=== PATIENT | male | born 1960 | race Caucasian/White ===

== ENCOUNTER 2019-07-11 04:54 | Inpatient (IN) ==
[2019-07-04 20:25] LABS: Basophils # (Auto) 0 K/mcL (0.0-0.3); Basophils % (Auto) 0.5 % (0.0-2.0); Eosinophils # (Auto) 0.3 K/mcL (0.0-0.7); Eosinophils % (Auto) 3.7 % (0.0-7.0); Granulocytes % (Auto) 53.2 % (38.0-78.0); Hematocrit 40.1 % (41.0-55.0); Hemoglobin 13.4 g/dL (13.5-16.5); Lymphocytes # (Auto) 2.1 K/mcL (1.5-4.8); Lymphocytes % (Auto) 29.1 % (15.5-49.0); Mean Corpuscular HGB Conc 33.4 g/dL (31.0-36.0); Mean Platelet Volume 8.2 fL (7.4-10.4); Monocytes % (Auto) 13.5 % (1.0-12.0); Platelet Count 247 K/mcL (140-440); RBC 4.05 M/mcL (4.50-5.90); Red Cell Distribution Width 14.8 % (11.5-14.5); WBC 7.1 K/mcL (4.5-11.0)
[2019-07-11] MEDS ORDERED: IPRATROPIUM/ALBUTEROL 3 ML AMPUL.NEB NEB PRN ×2 (05:00→10:04)
[2019-07-11] MEDS ORDERED: SCOPOLAMINE 1 PATCH PATCH TOPICAL PRN (05:00)
[2019-07-11] MEDS ORDERED: cefOXitin 2 GM VIAL IV SCH (06:00)
[2019-07-11] MEDS ORDERED: MAGNESIUM SULFATE 2 GM/50 ML BAG IV ONE ×2 (07:33→08:35)
[2019-07-11] MEDS ORDERED: ACETAMINOPHEN 1,000 MG/100 ML BOTTLE IV ONE ×2 (07:34→08:35)
[2019-07-11] MEDS ORDERED: ALBUMIN HUMAN 12.5 GM/50 ML BAG IV ONE (07:50)
[2019-07-11] MEDS ORDERED: GLYCOPYRROLATE 0.2 MG/ML VIAL IV ONE (08:35)
[2019-07-11] MEDS ORDERED: ONDANSETRON 4 MG/2 ML VIAL IV ONE (08:35)
[2019-07-11] MEDS ORDERED: TRANEXAMIC ACID 1,000 MG/10 ML VIAL IV ONE (08:35)
[2019-07-11] MEDS ORDERED: fentaNYL 250 MCG/5 ML VIAL IV ONE (08:35)
[2019-07-11] MEDS ORDERED: SUCCINYLCHOLINE 20 MG/ML ML IV ONE (08:35)
[2019-07-11] MEDS ORDERED: DEXAMETHASONE 10 MG/ML VIAL IV ONE (08:35)
[2019-07-11] MEDS ORDERED: ROCURONIUM 10 MG/ML ML IV ONE (08:35)
[2019-07-11] MEDS ORDERED: ePHEDrine 50 MG/ML AMPUL IV ONE (08:35)
[2019-07-11] MEDS ORDERED: SUGAMMADEX SODIUM 200 MG/2 ML VIAL IV ONE (08:35)
[2019-07-11] MEDS ORDERED: ROPIVACAINE HCL/PF 30 ML VIAL IJ ONE (08:35)
[2019-07-11] MEDS ORDERED: PHENYLEPHRINE 10 MG/ML VIAL IV ONE (08:35)
[2019-07-11] MEDS ORDERED: KETAMINE 100 MG/ML ML IV ONE (08:35)
[2019-07-11] MEDS ORDERED: MIDAZOLAM 2 MG/2 ML VIAL IV ONE (08:35)
[2019-07-11] MEDS ORDERED: ALBUMIN HUMAN 25 GM/100 ML BAG IV ONE (08:35)
[2019-07-11] MEDS ORDERED: PROPOFOL 200 MG/20 ML VIAL IV ONE (08:35)
[2019-07-11] MEDS ORDERED: LIDOCAINE HCL/PF 100 MG/5 ML SYRINGE IV ONE (08:35)
[2019-07-11] MEDS ORDERED: ATROPINE SULFATE 0.4 MG/ML VIAL IV PRN (10:04)
[2019-07-11] MEDS ORDERED: diphenhydrAMINE 50 MG/ML VIAL IV PRN (10:04)
[2019-07-11] MEDS ORDERED: ONDANSETRON 4 MG/2 ML VIAL IV PRN (10:04)
[2019-07-11] MEDS ORDERED: ePHEDrine 50 MG/ML AMPUL IV PRN (10:04)
[2019-07-11] MEDS ORDERED: HYDROmorphone 2 MG/ML VIAL IV PRN (10:04)
[2019-07-11] MEDS ORDERED: MEPERIDINE 25 MG/ML SYRINGE IV PRN (10:04)
[2019-07-11] MEDS ORDERED: FLUMAZENIL 0.1 MG/ML ML IV PRN (10:04)
[2019-07-11] MEDS ORDERED: NALOXONE HCL 0.4 MG/ML VIAL IV PRN (10:04)
[2019-07-11] MEDS ORDERED: fentaNYL 100 MCG/2 ML VIAL IV PRN (10:04)
[2019-07-11] MEDS ORDERED: METOPROLOL TARTRATE 5 MG/5 ML VIAL IV PRN (10:04)
[2019-07-11] MEDS ORDERED: METHOCARBAMOL 1,000 MG/10 ML VIAL IV PRN (10:04)
[2019-07-11] MEDS ORDERED: PROMETHAZINE 25 MG/ML VIAL IV PRN (10:04)
[2019-07-11] MEDS ORDERED: KETOROLAC 30 MG/ML VIAL IV PRN (10:04)
[2019-07-11] MEDS ORDERED: LACTATED RINGERS 1,000 ML IV SCH (10:15)
[2019-07-11] MEDS ORDERED: MAGNESIUM HYDROXIDE 30 ML ORAL.SUSP PO PRN (10:40)
[2019-07-11] MEDS ORDERED: MAG HYDROX/AL HYDROX/SIMETH 30 ML ORAL.SUSP PO PRN (10:40)
[2019-07-11] MEDS ORDERED: LORazepam 2 MG/ML VIAL IV ONE (10:47)
[2019-07-11] MEDS ORDERED: traZODone HCL 100 MG TABLET PO PRN (10:51)
--- NOTE | 2019-07-11 10:54 | Brief Operative Note ---
Date of procedure: 07/11/19 Pre-op diagnosis: prostate cancer Post-op diagnosis: same Procedure: rrp Grafts/Implants: No Anesthesia: GETA Findings: see note Complications: none Surgeon: Chuy Boyd Co Teacher: Jessee Og Estimated blood loss (cc): 1,000 Specimens Removed/Pathology: other (prostate, obturator lymph nodes) Disposition: PACU
[2019-07-11 11:39] LABS: Hematocrit 31.9 % (41.0-55.0); Hemoglobin 10.7 g/dL (13.5-16.5); Mean Cell Volume 99.3 fL (80.0-100.0); Mean Corpuscular HGB Conc 33.6 g/dL (31.0-36.0); Mean Platelet Volume 7.3 fL (7.4-10.4); Platelet Count 219 K/mcL (140-440); RBC 3.22 M/mcL (4.50-5.90); Red Cell Distribution Width 14.6 % (11.5-14.5); WBC 10.6 K/mcL (4.5-11.0)
--- NOTE | 2019-07-11 12:04 | Operative Note ---
DATE OF OPERATION: 07/11/2019 PREOPERATIVE DIAGNOSIS: Prostate cancer. POSTOPERATIVE DIAGNOSIS: Prostate cancer. PROCEDURE: Radical retropubic prostatectomy. SURGEON: Chuy Boyd MD [employer] DIRECTOR: Jessee Og MD INDICATION: The patient is a 58-year-old gentleman with biopsy-proven adenocarcinoma. We have talked about the options and he desires a radical prostatectomy. He presents now for that procedure. PROCEDURE IN DETAIL: The patient was identified and consent was signed. He was given general anesthesia, placed in supine position, prepped and draped in standard fashion. A midline incision was made from the umbilicus down to the pubis and carried down through the fascia with electrocautery. The fascia was then opened and we were able to enter the space of Retzius. We were then able to dissect the lymph nodes. The limit of resection was from the lateral body wall medial to the bladder, superiorly to the bifurcation of the iliac vessels, inferiorly to the endopelvic fascia and inferiorly into the obturator area. These were removed. There was some induration on the left side nodes but no hard nodes were noted. We decided to go on with the procedure. We then were able to position the retractors and were able to identify the bladder. The excess fat was cleaned off the space of Retzius and we were able to see the prostate. A backbleeding stitch was then placed of 0 Vicryl and the endopelvic fascia was taken down with the electrocautery. We were able to define the puboprostatics. These were not taken down and we were then able to place two stitches in the back for backbleeding on the dorsal venous complex. The dorsal venous complex was then incised and bleeding was controlled. We were able to see the anterior urethra and 4 stitches of 2-0 Vicryl were placed for the anastomosis. We then grasped the Vega catheter, brought this out as a handle and then carefully dissected the posterior wall. At no time did we damage the rectum. We were able to develop the plane along the Denonvilliers fascia, took down the lateral pedicles between two clamps and incised the pedicle. This was repeated up to the area of the seminal vesicles. We were then able to open up the Denonvilliers fascia, identified the ampulla of vas and clipped these. The seminal vesicles were handled in a similar fashion and these were sent off with the specimen. We then inspected for bleeding, there was very little and we controlled this with electrocautery or stitches. We then turned our attention to the anterior bladder wall. The bladder neck was opened with scissors and we were then able to enter the bladder. Orifices were seen and there were no other abnormalities. The bladder neck was closed with 2-0 Vicryl. The posterior anastomotic stitches were then placed and they were placed in the corresponding area with a free needle in the bladder. A Vega catheter was placed and this showed good positioning. We were then able to tie down the bladder and it was a watertight anastomosis. We irrigated the catheter and there was no leakage. We then placed a JOSE drain and this drained bloody fluid. ____ was used at the prostatic fossa. We then irrigated the wound, closed the rectus abdominis muscle and then closed the fascia with 0 PDS. The wound was closed with nina. Sterile dressings were applied. He was awoken and taken to recovery room in stable condition. Estimated blood loss was 1000 mL. Needle and sponge count were correct. MARGIE:chun Job ID: [id number] Doc ID: [id number] Chuy Boyd MD
[2019-07-11] MEDS: TRIAMCINOLONE CREAM 0.1% 15G 1 DOSE TUBE TOPICAL SCH ×2 (13:12→20:28)
[2019-07-11] MEDS: DEXTROSE 5%-1/2NS W/20MEQ KCL 1,000 ML IV SCH ×2 (13:12→19:28)
[2019-07-11] MEDS: 0.9 % SODIUM CHLORIDE 10 ML SYRINGE IV SCH ×2 (13:13→21:59)
[2019-07-11] MEDS: ACETAMINOPHEN 650 MG/65 ML BOTTLE IV SCH ×2 (13:18→17:59)
[2019-07-11] MEDS: cefOXitin 2 GM VIAL IV SCH (16:00)
[2019-07-11] MEDS: DEXTROSE 5%-NS 1,000 ML IV SCH (20:30)
[2019-07-11] MEDS ORDERED: LACTATED RINGERS 500 ML IV ONE (23:09)
[2019-07-12] MEDS: ACETAMINOPHEN 650 MG/65 ML BOTTLE IV SCH ×4 (00:01→17:37)
[2019-07-12] MEDS: cefOXitin 2 GM VIAL IV SCH ×2 (00:06→08:00)
[2019-07-12] MEDS ORDERED: LORazepam 2 MG/ML VIAL IV PRN (02:32)
[2019-07-12] MEDS ORDERED: NICOTINE 14 MG PATCH TOPICAL ONE (02:33)
[2019-07-12] MEDS ORDERED: NICOTINE 14 MG PATCH ONE (02:35)
[2019-07-12] MEDS: oxyCODONE/APAP 5/325MG TABLET PO PRN ×3 (02:36→17:43)
[2019-07-12] MEDS ORDERED: LORazepam 2 MG/ML VIAL ONE ×3 (02:47→05:17)
[2019-07-12] MEDS: DEXTROSE 5%-NS 1,000 ML IV SCH ×7 (03:25→20:38)
[2019-07-12] MEDS ORDERED: DEXTROSE 5%-NS 1,000 ML IV SCH (03:30)
[2019-07-12 05:11] LABS: Hematocrit 26.1 % (41.0-55.0); Hemoglobin 8.7 g/dL (13.5-16.5); Mean Cell Volume 100.4 fL (80.0-100.0); Mean Corpuscular HGB Conc 33.2 g/dL (31.0-36.0); Mean Platelet Volume 7.7 fL (7.4-10.4); Platelet Count 179 K/mcL (140-440); Red Cell Distribution Width 14.4 % (11.5-14.5); WBC 11.2 K/mcL (4.5-11.0)
[2019-07-12 05:35] LABS: Blood Urea Nitrogen 11 mg/dl (6-20); Calcium 8.1 mg/dl (8.6-10.4); Carbon Dioxide 24 mmol/L (22-30); Chloride 98 mmol/L (96-108); Glomerular Filtration Rate 104; Glucose 110 mg/dL (70-105)
[2019-07-12] MEDS: 0.9 % SODIUM CHLORIDE 10 ML SYRINGE IV SCH ×3 (05:38→22:00)
--- NOTE | 2019-07-12 07:36 | General Surgery Progress Note ---
Subjective Patient reports: still having pain, no bowel movement Narrative: Note initiated : 07/12/19 at 7:33 am Service Date, if different from initiated Date: [] Patient: Tone Pope 58 y/o M admitted on 07/11/19 for Radical Retropubic Prostatectomy. Chief Complaint: POD #1 Patient undergoing ethanol withdrawl. Did not react well with ativan. Asked the Hospitalist to see patient and manage DT. Wound dressing changed. clean and dry. Ambulate today. Hct = 26. will watch for now. Objective Temp Pulse Resp BP Pulse Ox 99.1 F H 84 13 126/77 95 07/12/19 04:01 07/12/19 02:00 07/12/19 04:39 07/12/19 04:01 07/12/19 04:39 - Additional Data Intake & Output - Last 24 hours: Intake & Output 07/10/19 07/11/19 07/12/19 07/13/19 05:59 05:59 05:59 05:59 Intake Total 6949 Output Total 3636 Balance 3313 Weight 139 lb 9.6 oz 142 lb - Labs 07/12/19 03:56 07/12/19 03:56 Diabetes panel 07/11/19 07/12/19 Range/Units 19:49 03:56 Sodium 131 L (133-145) mmol/L Potassium 4.8 4.6 (3.3-5.1) mmol/L Chloride 98 (96-108) mmol/L Carbon Dioxide 24 (22-30) mmol/L BUN 11 (6-20) mg/dl Creatinine 0.7 (0.7-1.2) mg/dl Glucose 110 H (70-105) mg/dL Calcium 8.1 L (8.6-10.4) mg/dl Calcium panel 07/12/19 Range/Units 03:56 Calcium 8.1 L (8.6-10.4) mg/dl Pituitary panel 07/11/19 07/12/19 Range/Units 19:49 03:56 Sodium 131 L (133-145) mmol/L Potassium 4.8 4.6 (3.3-5.1) mmol/L Chloride 98 (96-108) mmol/L Carbon Dioxide 24 (22-30) mmol/L BUN 11 (6-20) mg/dl Creatinine 0.7 (0.7-1.2) mg/dl Glucose 110 H (70-105) mg/dL Calcium 8.1 L (8.6-10.4) mg/dl Adrenal panel 07/11/19 07/12/19 Range/Units 19:49 03:56 Sodium 131 L (133-145) mmol/L Potassium 4.8 4.6 (3.3-5.1) mmol/L Chloride 98 (96-108) mmol/L Carbon Dioxide 24 (22-30) mmol/L BUN 11 (6-20) mg/dl Creatinine 0.7 (0.7-1.2) mg/dl Glucose 110 H (70-105) mg/dL Calcium 8.1 L (8.6-10.4) mg/dl Assessment and Plan - Time Spent With Patient Total time spent is greater than 50% in coordination of care (as documented) at patient's floor/unit and/or counseling patient:
[2019-07-12 09:04] LABS: Hematocrit 25.3 % (41.0-55.0); Hemoglobin 8.6 g/dL (13.5-16.5); Mean Cell Volume 98.7 fL (80.0-100.0); Mean Corpuscular HGB Conc 33.9 g/dL (31.0-36.0); Mean Platelet Volume 7.8 fL (7.4-10.4); Platelet Count 178 K/mcL (140-440); RBC 2.57 M/mcL (4.50-5.90); Red Cell Distribution Width 14.8 % (11.5-14.5); WBC 11.5 K/mcL (4.5-11.0)
[2019-07-12] MEDS: TRIAMCINOLONE CREAM 0.1% 15G 1 DOSE TUBE TOPICAL SCH ×3 (09:34→21:56)
[2019-07-12] MEDS ORDERED: FLU VACC QS2019-20(6MOS UP)/PF 60 MCG/0.5 ML SYRINGE IM ONE (10:00)
[2019-07-12 10:08] LABS: Blood Urea Nitrogen 9 mg/dl (6-20); Calcium 8.2 mg/dl (8.6-10.4); Carbon Dioxide 25 mmol/L (22-30); Chloride 97 mmol/L (96-108); Glomerular Filtration Rate 98; Glucose 145 mg/dL (70-105)
[2019-07-12] MEDS: NICOTINE 14 MG PATCH TOPICAL SCH (10:35)
[2019-07-12] MEDS: METOPROLOL SUCCINATE 50 MG TAB.XL.24H PO SCH (10:51)
[2019-07-12] MEDS: THIAMINE 100 MG TABLET PO SCH ×3 (10:51→19:03)
[2019-07-12] MEDS: FLUoxetine HCL 20 MG CAPSULE PO SCH (10:51)
--- NOTE | 2019-07-12 11:15 | Internal Medicine Consult Note ---
Medical - CN: HPI - Data of Consult Patient: new to practice Consult date: 07/12/19 Requesting physician: Chuy Boyd Primary Care Provider: Kai Malone - Consult Narrative Reason for consult: alcohol withdrawal History of present illness: Mr. Pope is a 58 year old M with a history of chronic alcohol abuse, currently smoker and high blood pressure who underwent Radical Retropubic Prostatectomy by Dr. Boyd on 07/11/19. After the procedure, patient went into alcohol withdrawal. Hospitalist consult was requested by Dr. Boyd for alcohol with drawal. I encountered the patient in his room who told me that he drinks beer 4 times a day since he was 14 years old. Last drink was on Monday (3 days ago). Today he has mild nausea and abdominal pain from his procedure. Right now he is on diazepam. Otherwise he denies headache, dizziness, vomiting, chest pain, shortness breath, dysuria, or visual hallucination. CC: Chuy Boyd - Constitutional Constitutional: Present: as per HPI, malaise. Absent: excessive sweating - EENT Eyes: Present: as per HPI Nose, mouth and throat: Present: as per HPI - Cardiovascular Cardiovascular: Present: as per HPI - Respiratory Respiratory: Present: as per HPI - Gastrointestinal Gastrointestinal: Present: as per HPI - Musculoskeletal Musculoskeletal: Present: as per HPI - Neurological Neurological: Present: as per HPI - Psychiatric Psychiatric: Present: as per HPI - Endocrine Endocrine: Present: as per HPI - Hematologic/Lymphatic Hematologic/Lymphatic: Present: as per HPI Medical - CN: PMH Medical history: High blood pressure and current smoker Family history: reviewed and not pertinent Social history: he is a current smoker and he drinks beers 4 time a day. Denies using drugs Smoking status: Current every day smoker Medical - CN: Meds Home Medications Medication Instructions Recorded Confirmed Type budesonide 90 mcg/actuation breath 2 inh INHALATION BID #120 puff 12/27/16 07/11/19 Rx activated powder inhaler triamcinolone acetonide 0.1 % 1 applic TOPICAL TID #454 g 10/30/17 07/11/19 Rx topical cream ondansetron 8 mg disintegrating 8 mg PO Q12H PRN #30 tab 07/12/18 07/11/19 Rx tablet fluoxetine 20 mg capsule 20 mg PO QDAY #90 cap 03/05/19 07/11/19 Rx metoprolol succinate 50 mg 50 mg PO QDAY #90 tab 03/05/19 07/11/19 Rx tablet,extended release 24 hr sildenafil 100 mg tablet 100 mg PO QDAY #30 tab 03/05/19 07/11/19 Rx trazodone 100 mg tablet 100 mg PO QHS PRN #90 tab 06/24/19 07/11/19 Rx Allergies Allergy/AdvReac Type Severity Reaction Status Date / Time Enalapril Allergy Intermediate angioedema Verified 07/04/19 16:17 Medical - CN: Exam - Constitutional Vitals: Temp Pulse Resp BP Pulse Ox 98.1 F 84 19 146/87 95 07/12/19 07:30 07/12/19 02:00 07/12/19 07:30 07/12/19 07:30 07/12/19 07:30 General appearance: no acute distress - Head Head exam: Present: atraumatic, normocephalic - Eye Eye exam: Present: EOMI, nystagmus (Mild), PERRL - ENT ENT exam: Present: normal exam - Neck Neck exam: Present: normal inspection - Respiratory Respiratory exam: Present: CTAB - Cardiovascular Cardiovascular exam: Present: normal rate and rhythm. Absent: JVD - GI/Abdominal GI/Abdominal exam: Present: normal bowel sounds, soft, tenderness (From surgery) - Extremities Exam Extremities exam: Present: normal inspection. Absent: pedal edema, tenderness, Asad's sign - Expanded Upper Extremity Exam Upper Arm exam: Present: normal inspection (Very mild tremor is noted in both hands) - Neurological Exam Neurological exam: Present: alert, oriented X3. Absent: motor sensory deficit - Psychiatric Psychiatric exam: Present: normal mood - Skin Skin exam: Present: warm Medical - CN: Result - Labs CBC & Chem 7: 07/12/19 07:41 07/12/19 07:41 Labs: Short CBC 07/11/19 07/12/19 07/12/19 Range/Units 11:13 03:56 07:41 WBC 10.6 11.2 H 11.5 H (4.5-11.0) K/mcL Hgb 10.7 L 8.7 L 8.6 L (13.5-16.5) g/dL Hct 31.9 L 26.1 L 25.3 L (41.0-55.0) % Plt Count 219 179 178 (140-440) K/mcL BMP 07/11/19 07/12/19 07/12/19 19:49 03:56 07:41 Sodium 131 L 127 L Potassium 4.8 4.6 4.2 Chloride 98 97 Carbon Dioxide 24 25 BUN 11 9 Creatinine 0.7 0.8 Glucose 110 H 145 H Calcium 8.1 L 8.2 L Medical - CN: A/P (1) Alcohol abuse Status: Chronic - Narrative A/P Narrative: Assessment: 1. Chronic alcohol abuse 2. Alcoholic delirium tremens 3. S/p Radical Retropubic Prostatectomy by Dr. Boyd on 07/11/19 4. HTN 5. Anemia of blood loss 6. Hyponatremia Plan: 1. Monitored in ICU 2. CIWA protocol was initiated. Continue folic acid, thiamine and multivitamin 3. Postop management including pain control and DVT prophylaxis by surgical t eam 4. DVT prophylaxis: By surgical team 5. CODE STATUS: Full
[2019-07-12] MEDS: DIAZEPAM 10 MG/2 ML SYRINGE IV PRN ×3 (12:15→21:11)
[2019-07-12] MEDS: MULTIVIT,THER IRON,CA,FA & MIN 1 TABLET PO SCH (19:03)
[2019-07-12] MEDS: SYMBICORT INH SCH (19:45)
[2019-07-12] MEDS ORDERED: DEXMEDETOMIDINE 100 ML IV ONE (21:52)
[2019-07-12] MEDS: DEXMEDETOMIDINE 400 MCG in PREMIX 1 BAG IV SCH (22:20)
[2019-07-13] MEDS ORDERED: METOPROLOL TARTRATE 5 MG/5 ML VIAL IV ONE ×2 (00:26)
[2019-07-13] MEDS: METOPROLOL TARTRATE 5 MG/5 ML VIAL IV SCH (02:53)
[2019-07-13] MEDS: ACETAMINOPHEN 650 MG/65 ML BOTTLE IV SCH ×5 (02:54→23:46)
[2019-07-13 04:46] LABS: Basophils # (Auto) 0 K/mcL (0.0-0.3); Basophils % (Auto) 0.4 % (0.0-2.0); Eosinophils # (Auto) 0 K/mcL (0.0-0.7); Eosinophils % (Auto) 0.3 % (0.0-7.0); Granulocytes % (Auto) 78.6 % (38.0-78.0); Lymphocytes # (Auto) 0.7 K/mcL (1.5-4.8); Lymphocytes % (Auto) 9.7 % (15.5-49.0); Mean Cell Volume 99.3 fL (80.0-100.0); Mean Corpuscular HGB Conc 33.4 g/dL (31.0-36.0); Mean Platelet Volume 8.1 fL (7.4-10.4); Monocytes # (Auto) 0.8 K/mcL (0.1-0.9); Platelet Count 152 K/mcL (140-440); RBC 2.42 M/mcL (4.50-5.90); Red Cell Distribution Width 14.9 % (11.5-14.5); WBC 7.3 K/mcL (4.5-11.0)
[2019-07-13 04:58] LABS: Prothrombin Time 13.6 sec (11.9-14.5)
[2019-07-13 05:16] LABS: ALT/SGPT 11 U/l (0-40); AST/SGOT 31 U/l (0-37); Albumin 3.3 gm/dL (3.2-5.2); Albumin/Globulin Ratio 1.4 (1.0-2.3); Alkaline Phosphatase 37 U/L (39-117); Bilirubin,Total 0.4 mg/dL (0.0-1.0); Calcium 8.2 mg/dl (8.6-10.4); Carbon Dioxide 26 mmol/L (22-30); Globulin 2.3 gm/dL (2.2-3.7); Glucose 106 mg/dL (70-105)
[2019-07-13 05:17] LABS: Blood Urea Nitrogen 5 mg/dl (6-20); Chloride 95 mmol/L (96-108); Glomerular Filtration Rate 111
[2019-07-13] MEDS: 0.9 % SODIUM CHLORIDE 10 ML SYRINGE IV SCH ×3 (06:01→23:47)
[2019-07-13] MEDS: DEXTROSE 5%-NS 1,000 ML IV SCH (06:02)
[2019-07-13] MEDS ORDERED: DEXMEDETOMIDINE 100 ML IV ONE ×2 (06:28→16:42)
[2019-07-13] MEDS: oxyCODONE/APAP 5/325MG TABLET PO PRN ×3 (06:37→15:31)
[2019-07-13] MEDS: DIAZEPAM 10 MG/2 ML SYRINGE IV PRN (06:39)
[2019-07-13 08:42] LABS: Hemoglobin 7.6 g/dL (13.5-16.5); Mean Cell Volume 99.4 fL (80.0-100.0); Mean Platelet Volume 7.9 fL (7.4-10.4); Platelet Count 156 K/mcL (140-440); RBC 2.31 M/mcL (4.50-5.90); Red Cell Distribution Width 14.4 % (11.5-14.5); WBC 6.6 K/mcL (4.5-11.0)
[2019-07-13] MEDS ORDERED: ENOXAPARIN 40 MG/0.4 ML SYRINGE SQ SCH (09:00)
--- NOTE | 2019-07-13 10:14 | General Surgery Progress Note ---
Subjective Patient reports: still having pain Narrative: Note initiated : 07/13/19 at 10:10 am Service Date, if different from initiated Date: [] Patient: Tone Pope 58 y/o M admitted on 07/11/19 for Radical Retropubic Prostatectomy. Chief Complaint: POD #2 Patient is having the DT's had to be restrained last night. Valium is not holding him. Usually drinks 6 beers a day. Will allow him to drink. Has pulled on his angel but is still draining. JOSE out put is up. Will keep for the time being. Sodium is low. will TKO iv fluids. check labs in am. HCT stable.; Objective Temp Pulse Resp BP Pulse Ox 99.3 F H 84 13 141/80 96 07/13/19 09:01 07/12/19 14:00 07/13/19 09:01 07/13/19 09:01 07/13/19 09:01 - Additional Data Intake & Output - Last 24 hours: Intake & Output 07/11/19 07/12/19 07/13/19 07/14/19 05:59 05:59 05:59 05:59 Intake Total 6949 2750 107 Output Total 3636 1560 120 Balance 3313 1190 -13 Weight 139 lb 9.6 oz 142 lb 152 lb 12.8 oz - Labs 07/13/19 08:00 07/13/19 03:44 Diabetes panel 07/13/19 Range/Units 03:44 Sodium 128 L (133-145) mmol/L Potassium 3.7 (3.3-5.1) mmol/L Chloride 95 L (96-108) mmol/L Carbon Dioxide 26 (22-30) mmol/L BUN 5 L (6-20) mg/dl Creatinine 0.6 L (0.7-1.2) mg/dl Glucose 106 H (70-105) mg/dL Calcium 8.2 L (8.6-10.4) mg/dl AST 31 (0-37) U/l ALT 11 (0-40) U/l Alkaline Phosphatase 37 L (39-117) U/L Total Protein 5.6 L (5.9-8.4) gm/dL Albumin 3.3 (3.2-5.2) gm/dL Calcium panel 07/13/19 Range/Units 03:44 Calcium 8.2 L (8.6-10.4) mg/dl Albumin 3.3 (3.2-5.2) gm/dL Pituitary panel 07/13/19 Range/Units 03:44 Sodium 128 L (133-145) mmol/L Potassium 3.7 (3.3-5.1) mmol/L Chloride 95 L (96-108) mmol/L Carbon Dioxide 26 (22-30) mmol/L BUN 5 L (6-20) mg/dl Creatinine 0.6 L (0.7-1.2) mg/dl Glucose 106 H (70-105) mg/dL Calcium 8.2 L (8.6-10.4) mg/dl Adrenal panel 07/13/19 Range/Units 03:44 Sodium 128 L (133-145) mmol/L Potassium 3.7 (3.3-5.1) mmol/L Chloride 95 L (96-108) mmol/L Carbon Dioxide 26 (22-30) mmol/L BUN 5 L (6-20) mg/dl Creatinine 0.6 L (0.7-1.2) mg/dl Glucose 106 H (70-105) mg/dL Calcium 8.2 L (8.6-10.4) mg/dl Total Bilirubin 0.4 (0.0-1.0) mg/dL AST 31 (0-37) U/l ALT 11 (0-40) U/l Alkaline Phosphatase 37 L (39-117) U/L Total Protein 5.6 L (5.9-8.4) gm/dL Albumin 3.3 (3.2-5.2) gm/dL Assessment and Plan - Time Spent With Patient Total time spent is greater than 50% in coordination of care (as documented) at patient's floor/unit and/or counseling patient:
[2019-07-13] MEDS: METOPROLOL SUCCINATE 50 MG TAB.XL.24H PO SCH (11:23)
[2019-07-13] MEDS: NICOTINE 14 MG PATCH TOPICAL SCH (11:23)
[2019-07-13] MEDS: MULTIVIT,THER IRON,CA,FA & MIN 1 TABLET PO SCH ×2 (11:24→22:05)
[2019-07-13] MEDS: TRIAMCINOLONE CREAM 0.1% 15G 1 DOSE TUBE TOPICAL SCH ×3 (11:24→22:05)
[2019-07-13] MEDS: THIAMINE 100 MG TABLET PO SCH ×3 (11:24→22:05)
[2019-07-13] MEDS: FLUoxetine HCL 20 MG CAPSULE PO SCH (11:24)
[2019-07-13] MEDS: SYMBICORT INH SCH ×2 (11:25→22:05)
--- NOTE | 2019-07-13 11:28 | Internal Med Progress Note ---
Medical - PN: Subj Patient information: Note initiated : 07/13/19 at 11:23 am Service Date, if different from initiated Date: [] Patient: Tone Pope a 58 y/o M admitted on 07/11/19 for Radical Retropubic Prostatectomy. Chief Complaint: [] Mr. Pope is a 58 year old M with a history of chronic alcohol abuse, currently smoker and high blood pressure who underwent Radical Retropubic Prostatectomy by Dr. Boyd on 07/11/19. After the procedure, patient went into alcohol withdrawal. Hospitalist consult was requested by Dr. Boyd for alcohol withdrawal. Patient is fine today. Dr. Boyd decided to allow patient to drink. Hemoglobin 7.6 - Constitutional Vitals: Vital Signs Temp Pulse Resp BP Pulse Ox 97.3 F 84 16 95/80 98 07/13/19 11:08 07/12/19 14:00 07/13/19 11:08 07/13/19 11:08 07/13/19 11:08 Period Temp Pulse Resp BP Sys/Juarez Pulse Ox Last 24 Hr 97.1 F-99.3 F 78-84 13-25 95-161/65-124 94-100 Intake and Output 07/12/19 07/13/19 07/13/19 21:59 05:59 13:59 Intake Total 1612 73 107 Output Total 448 700 120 Balance 1164 -627 -13 Weight 69.309 kg Intake & Output: Intake & Output 07/12/19 07/13/19 07/13/19 21:59 05:59 13:59 Intake Total 1612 73 107 Output Total 448 700 120 Balance 1164 -627 -13 Weight 69.309 kg Intake: IV 1012 73 107 Precedex 400 Mcg/100 ml 8 92 Dextrose 100 ml @ 0 mls/hr IV . [facility] Rx#:[id number] Dextrose 5%-Ns IV Solution 1, 947 000 ml @ 100 mls/hr IV .Q10H [facility] Rx#:[id number] Oral 600 Output: Drainage 130 130 Left Lower Abdomen 130 130 Urine Catheter Amount 318 570 40 Void Amount 80 Other: Meal Dinner Percent of Meal Consumed 25% Feeding Ability Assist with Tray Set Up Urine Appearance Hematuria Hematuria Cloudy Sediment Small Blood Clots Uretheral (Vega) Small Blood Clots Cloudy Sediment Small Blood Clots Urine Color Dark Red Dark Red Red Brown Uretheral (Vega) Blood Tinged Red Brown Urine Odor Normal Normal Normal Uretheral (Vega) Normal Stool Size Moderate Stool Consistency Loose # Voids 1 General appearance: no acute distress - Head Head exam: Present: normal inspection - Eye Eye exam: Present: normal appearance - ENT ENT exam: Present: normal exam - Neck Neck exam: Present: normal inspection - Respiratory Respiratory exam: Present: normal respiratory exam, CTAB - Cardiovascular Cardiovascular exam: Present: normal rate and rhythm, RRR - GI/Abdominal GI/Abdominal exam: Present: soft (Tenderness, dressing dry) - Extremities Exam Extremities exam: Present: normal inspection. Absent: tenderness, Asad's sign - Neurological Exam Neurological exam: Present: alert, oriented X3. Absent: motor sensory deficit - Psychiatric Psychiatric exam: Present: normal mood - Skin Skin exam: Present: warm Medical - PN: Obj Da - Labs CBC & Chem 7: 07/13/19 08:00 07/13/19 03:44 Labs: Abnormal Lab Results 07/13/19 07/13/19 07/13/19 08:00 03:44 03:44 WBC RBC 2.31 L 2.42 L Hgb 7.6 L 8.0 L Hct 23.0 L 24.0 L MCV RDW 14.9 H MPV Gran % 78.6 H Lymph % (Auto) 9.7 L Lymph # (Auto) 0.7 L Sodium 128 L Chloride 95 L Anion Gap 7.0 L BUN 5 L Creatinine 0.6 L Glucose 106 H Calcium 8.2 L Alkaline Phosphatase 37 L Total Protein 5.6 L 07/12/19 07/12/19 07/12/19 07:41 07:41 03:56 WBC 11.5 H 11.2 H RBC 2.57 L 2.60 L Hgb 8.6 L 8.7 L Hct 25.3 L 26.1 L MCV 100.4 H RDW 14.8 H MPV Gran % Lymph % (Auto) Lymph # (Auto) Sodium 127 L Chloride Anion Gap 5.0 L BUN Creatinine Glucose 145 H Calcium 8.2 L Alkaline Phosphatase Total Protein 07/12/19 07/11/19 03:56 11:13 WBC RBC 3.22 L Hgb 10.7 L Hct 31.9 L MCV RDW 14.6 H MPV 7.3 L Gran % Lymph % (Auto) Lymph # (Auto) Sodium 131 L Chloride Anion Gap BUN Creatinine Glucose 110 H Calcium 8.1 L Alkaline Phosphatase Total Protein Meds: Medications Al Hydrox/Mg Hydrox/Simethicone (Maalox) 30 ml PO Q4HP PRN PRN Reason: Dyspepsia Diazepam (Valium) 5 mg IV Q1-2HP PRN PRN Reason: Sedation Last Admin: 07/13/19 06:39 Dose: 5 mg Documented by: Fluoxetine HCl (Prozac) 20 mg PO QDAY [facility] Last Admin: 07/12/19 10:51 Dose: 20 mg Documented by: Acetaminophen (Ofirmev) 650 mg in 65 mls @ 130 mls/hr IV Q6 [facility]; Protocol Last Infusion: 07/13/19 07:28 Dose: 130 mls/hr Documented by: Dextrose/Sodium Chloride (Dextrose 5%-Ns Iv Solution) 1,000 mls @ 100 mls/hr IV .Q10H [facility] Last Admin: 07/13/19 06:02 Dose: Not Given Documented by: Dexmedetomidine HCl 400 mcg/ (Premix) 100 mls @ 3.465 mls/hr IV .Q24H [facility]; Protocol Last Admin: 07/12/19 22:20 Dose: Not Given Documented by: Iron Carb/Multivit/Culpeper/Folic Acid (Multivitamin W/Minerals) 1 tab PO BID [facility] Stop: 07/17/19 09:01 Last Admin: 07/12/19 19:03 Dose: 1 tab Documented by: Magnesium Hydroxide (Milk Of Magnesia) 30 ml PO DAILYP PRN PRN Reason: Constipation Metoprolol Succinate (Toprol Xl) 50 mg PO QDAY [facility] Last Admin: 07/12/19 10:51 Dose: 50 mg Documented by: Morphine Sulfate (Morphine) 0 mg IV Q1HP PRN; Protocol PRN Reason: Per Pain Protocol Last Admin: 07/13/19 07:27 Dose: 4 mg Documented by: Nicotine (Nicoderm) 14 mg TOPICAL DAILY@1000 [facility] Last Admin: 07/12/19 10:35 Dose: 14 mg Documented by: Oxycodone/Acetaminophen (Percocet 5-325 Mg) 0 tab PO Q4HP PRN; Protocol PRN Reason: Agitation Last Admin: 07/13/19 06:37 Dose: 2 tab Documented by: Symbicort [ Budesonide 160mcg/Formoterol Fumarate Dihydrate 4.5mcg] Inhaler 2 dose INH BID [facility] Last Admin: 07/12/19 19:45 Dose: 2 dose Documented by: Sodium Chloride (Saline Flush) 10 ml IV Q8 [facility] Last Admin: 07/13/19 06:01 Dose: 10 ml Documented by: Thiamine HCl (Vitamin B1) 100 mg PO TID [facility] Stop: 07/15/19 09:01 Last Admin: 07/12/19 19:03 Dose: 100 mg Documented by: Trazodone HCl (Desyrel) 100 mg PO QHS PRN PRN Reason: anxiety Last Admin: 07/12/19 19:03 Dose: 100 mg Documented by: Triamcinolone Acetonide (Kenalog Cream 0.1%) 1 dose TOPICAL TID [facility] Last Admin: 07/12/19 21:56 Dose: Not Given Documented by: Medical - PN: A/P - Time Spent With Patient Total time spent is greater than 50% in coordination of care (as documented) at patient's floor/unit and/or counseling patient: (1) Alcohol abuse Status: Chronic Current Visit: No - Narrative A/P Narrative: Assessment: 1. Chronic alcohol abuse 2. Alcoholic delirium tremens 3. S/p Radical Retropubic Prostatectomy by Dr. Boyd on 07/11/19 4. HTN 5. Anemia of blood loss 6. Hyponatremia Plan: 1. will downgrade him to med/surg after DT resolved 2. Dr. Boyd decided to allow him to drink. Continue CIWA protocol until DT resolved. Continue folic acid, thiamine and multivitamin 3. Postop management including pain control and DVT prophylaxis by surgical team 4. Hb 7.6 today. H/H q8hrs. closely monitor h/h. 5. DVT prophylaxis: By surgical team 6. CODE STATUS: Full Medical - PN: Qual - VTE Deep Vein Thrombosis/Pulmonary Embolism Present on Admission: No
[2019-07-13 14:52] LABS: Hematocrit 23.1 % (41.0-55.0); Hemoglobin 7.7 g/dL (13.5-16.5)
[2019-07-13] MEDS ORDERED: QUEtiapine 25 MG TABLET PO STA (15:06)
[2019-07-13] MEDS ORDERED: chlordiazePOXIDE 25 MG CAPSULE PO PRN (15:09)
[2019-07-13] MEDS ORDERED: HALOPERIDOL LACTATE 5 MG/ML VIAL IM PRN (15:09)
--- NOTE | 2019-07-13 15:10 | Internal Med Progress Note ---
Medical - PN: Subj Patient information: Note initiated : 07/13/19 at 3:04 pm Service Date, if different from initiated Date: [] Patient: Tone Pope a 58 y/o M admitted on 07/11/19 for Radical Retropubic Prostatectomy. Chief Complaint: [] Interval history: Mr. Pope is a 58 year old M with a history of chronic alcohol abuse, currently smoker and high blood pressure who underwent Radical Retropubic Prostatectomy by Dr. Boyd on 07/11/19. After the procedure, patient went into alcohol with drawal. Hospitalist consult was requested by Dr. Boyd for alcohol withdrawal. I encountered the patient in his room who told me that he drinks beer 4 times a day since he was 14 years old. Last drink was on Monday (3 days ago). Today he has mild nausea and abdominal pain from his procedure. Right now he is on diazepam. Otherwise he denies headache, dizziness, vomiting, chest pain, shortness breath, dysuria, or visual hallucination. 07/13 Patient is fine today. Dr. Boyd decided to allow patient to drink. Hemoglobin 7.6 - Constitutional Vitals: Vital Signs Temp Pulse Resp BP Pulse Ox 97.3 F 84 16 95/80 98 07/13/19 11:08 07/12/19 14:00 07/13/19 11:08 07/13/19 11:08 07/13/19 11:08 Period Temp Pulse Resp BP Sys/Juarez Pulse Ox Last 24 Hr 97.1 F-99.3 F 13-25 95-161/65-124 94-100 Intake and Output 07/13/19 07/13/19 07/13/19 05:59 13:59 21:59 Intake Total 73 585 Output Total 700 120 Balance -627 465 Intake & Output: Intake & Output 07/13/19 07/13/19 07/13/19 05:59 13:59 21:59 Intake Total 73 585 Output Total 700 120 Balance -627 465 Intake: IV 73 585 Precedex 400 Mcg/100 ml 8 92 Dextrose 100 ml @ 0 mls/hr IV . [facility] Rx#:[id number] Dextrose 5%-Ns IV Solution 1, 363 000 ml @ 100 mls/hr IV .Q10H [facility] Rx#:[id number] Output: Drainage 130 Left Lower Abdomen 130 Urine Catheter Amount 570 40 Void Amount 80 Other: Urine Appearance Hematuria Cloudy Sediment Small Blood Clots Uretheral (Vega) Cloudy Sediment Small Blood Clots Urine Color Dark Red Red Brown Uretheral (Vega) Red Brown Urine Odor Normal Normal # Voids 1 Exam: General: Alert, Awake, No acute Distress Eyes/N/T: EOMI, Head/Neck: neck supple, CV: RRR, No murmurs, Pulm: Clear b/l, no wheezing/rhonchi/rales Abd: soft, mild TTP s/p surgery, +BS x4 Ext: no clubbing/cyanosis/edema Neuro: alert, no focal deficits Skin: warm/dry Medical - PN: Obj Da - Labs CBC & Chem 7: 07/13/19 13:15 07/13/19 03:44 Labs: Abnormal Lab Results 07/13/19 07/13/19 07/13/19 13:15 08:00 03:44 WBC RBC 2.31 L Hgb 7.7 L 7.6 L Hct 23.1 L 23.0 L MCV RDW MPV Gran % Lymph % (Auto) Lymph # (Auto) Sodium 128 L Chloride 95 L Anion Gap 7.0 L BUN 5 L Creatinine 0.6 L Glucose 106 H Calcium 8.2 L Alkaline Phosphatase 37 L Total Protein 5.6 L 07/13/19 07/12/19 07/12/19 03:44 07:41 07:41 WBC 11.5 H RBC 2.42 L 2.57 L Hgb 8.0 L 8.6 L Hct 24.0 L 25.3 L MCV RDW 14.9 H 14.8 H MPV Gran % 78.6 H Lymph % (Auto) 9.7 L Lymph # (Auto) 0.7 L Sodium 127 L Chloride Anion Gap 5.0 L BUN Creatinine Glucose 145 H Calcium 8.2 L Alkaline Phosphatase Total Protein 07/12/19 07/12/19 07/11/19 03:56 03:56 11:13 WBC 11.2 H RBC 2.60 L 3.22 L Hgb 8.7 L 10.7 L Hct 26.1 L 31.9 L MCV 100.4 H RDW 14.6 H MPV 7.3 L Gran % Lymph % (Auto) Lymph # (Auto) Sodium 131 L Chloride Anion Gap BUN Creatinine Glucose 110 H Calcium 8.1 L Alkaline Phosphatase Total Protein Meds: Medications Al Hydrox/Mg Hydrox/Simethicone (Maalox) 30 ml PO Q4HP PRN PRN Reason: Dyspepsia Diazepam (Valium) 5 mg IV Q1-2HP PRN PRN Reason: Sedation Last Admin: 07/13/19 06:39 Dose: 5 mg Documented by: Fluoxetine HCl (Prozac) 20 mg PO QDAY [facility] Last Admin: 07/13/19 11:24 Dose: 20 mg Documented by: Acetaminophen (Ofirmev) 650 mg in 65 mls @ 130 mls/hr IV Q6 [facility]; Protocol Last Infusion: 07/13/19 13:41 Dose: Infused Documented by: Dexmedetomidine HCl 400 mcg/ (Premix) 100 mls @ 3.465 mls/hr IV .Q24H [facility]; Protocol Last Admin: 07/12/19 22:20 Dose: Not Given Documented by: Iron Carb/Multivit/Cambria/Folic Acid (Multivitamin W/Minerals) 1 tab PO BID [facility] Stop: 07/17/19 09:01 Last Admin: 07/13/19 11:24 Dose: 1 tab Documented by: Magnesium Hydroxide (Milk Of Magnesia) 30 ml PO DAILYP PRN PRN Reason: Constipation Metoprolol Succinate (Toprol Xl) 50 mg PO QDAY [facility] Last Admin: 07/13/19 11:23 Dose: 50 mg Documented by: Morphine Sulfate (Morphine) 0 mg IV Q1HP PRN; Protocol PRN Reason: Per Pain Protocol Last Admin: 07/13/19 13:20 Dose: 4 mg Documented by: Nicotine (Nicoderm) 14 mg TOPICAL DAILY@1000 [facility] Last Admin: 07/13/19 11:23 Dose: 14 mg Documented by: Oxycodone/Acetaminophen (Percocet 5-325 Mg) 0 tab PO Q4HP PRN; Protocol PRN Reason: Agitation Last Admin: 07/13/19 11:23 Dose: 2 tab Documented by: Symbicort [ Budesonide 160mcg/Formoterol Fumarate Dihydrate 4.5mcg] Inhaler 2 dose INH BID [facility] Last Admin: 07/13/19 11:25 Dose: 2 dose Documented by: Sodium Chloride (Saline Flush) 10 ml IV Q8 [facility] Last Admin: 07/13/19 13:21 Dose: 10 ml Documented by: Thiamine HCl (Vitamin B1) 100 mg PO TID [facility] Stop: 07/15/19 09:01 Last Admin: 07/13/19 11:24 Dose: 100 mg Documented by: Trazodone HCl (Desyrel) 100 mg PO QHS PRN PRN Reason: anxiety Last Admin: 07/12/19 19:03 Dose: 100 mg Documented by: Triamcinolone Acetonide (Kenalog Cream 0.1%) 1 dose TOPICAL TID [facility] Last Admin: 07/13/19 13:21 Dose: Not Given Documented by: Medical - PN: A/P - Time Spent With Patient Total time spent is greater than 50% in coordination of care (as documented) at patient's floor/unit and/or counseling patient: - Narrative A/P Narrative: Assessment: *Chronic alcohol abuse with Alcoholic Withdrawal and Delirium Tremens: *S/p Radical Retropubic Prostatectomy by Dr. Boyd on 07/11/19 *HTN: *Anemia of blood loss: *Hyponatremia (with h/o same): *COPD: Plan: -Monitored in ICU -CIWA protocol was initiated. Continue folic acid, thiamine and multivitamin -prn benzo's -cont home toprol and IH's -ppx: SCD CODE STATUS: Full Medical - PN: Qual - VTE Deep Vein Thrombosis/Pulmonary Embolism Present on Admission: No
[2019-07-13] MEDS: SODIUM CHLORIDE 1 GM TABLET PO SCH ×3 (15:33→22:05)
[2019-07-13 22:10] LABS: Hematocrit 23.6 % (41.0-55.0); Hemoglobin 8.2 g/dL (13.5-16.5)
[2019-07-14] MEDS ORDERED: DEXMEDETOMIDINE 100 ML IV ONE (04:20)
[2019-07-14] MEDS: DEXMEDETOMIDINE 400 MCG in PREMIX 1 BAG IV SCH (04:23)
[2019-07-14] MEDS ORDERED: DEXTROSE 5%-NS 1,000 ML IV SCH (05:15)
[2019-07-14] MEDS: 0.9 % SODIUM CHLORIDE 10 ML SYRINGE IV SCH ×4 (05:23→22:16)
[2019-07-14] MEDS: ACETAMINOPHEN 650 MG/65 ML BOTTLE IV SCH ×4 (05:47→23:51)
[2019-07-14 06:18] LABS: Hematocrit 23.9 % (41.0-55.0)
[2019-07-14 06:54] LABS: ALT/SGPT 11 U/l (0-40); AST/SGOT 32 U/l (0-37); Albumin 2.8 gm/dL (3.2-5.2); Albumin/Globulin Ratio 1.3 (1.0-2.3); Alkaline Phosphatase 40 U/L (39-117); Bilirubin,Direct < 0.2 mg/dL (0.0-0.3); Bilirubin,Total 0.3 mg/dL (0.0-1.0); Calcium 8.1 mg/dl (8.6-10.4); Carbon Dioxide 25 mmol/L (22-30); Chloride 102 mmol/L (96-108); Globulin 2.2 gm/dL (2.2-3.7); Glomerular Filtration Rate 119; Glucose 89 mg/dL (70-105); Lactate Dehydrogenase 185 U/L (94-250); Phosphorous 3.4 mg/dL (2.7-4.5); Triglycerides 71 mg/dl (<150); Uric Acid 2.9 mg/dL (2.5-8.0)
[2019-07-14 06:57] LABS: Blood Urea Nitrogen 7 mg/dl (6-20)
[2019-07-14] MEDS ORDERED: MAGNESIUM SULFATE 8.12 MEQ in DEXTROSE 5% IN WATER 50 ML IV ONE (08:53)
--- NOTE | 2019-07-14 08:53 | Internal Med Progress Note ---
Medical - PN: Subj Patient information: Note initiated : 07/14/19 at 8:51 am Service Date, if different from initiated Date: [] Patient: Tone Pope a 58 y/o M admitted on 07/11/19 for Radical Retropubic Prostatectomy. Chief Complaint: [] Interval history: Mr. Pope is a 58 year old M with a history of chronic alcohol abuse, currently smoker and high blood pressure who underwent Radical Retropubic Prostatectomy by Dr. Boyd on 07/11/19. After the procedure, patient went into alcohol with drawal. Hospitalist consult was requested by Dr. Boyd for alcohol withdrawal. I encountered the patient in his room who told me that he drinks beer 4 times a day since he was 14 years old. Last drink was on Monday (3 days ago). Today he has mild nausea and abdominal pain from his procedure. Right now he is on diazepam. Otherwise he denies headache, dizziness, vomiting, chest pain, shortness breath, dysuria, or visual hallucination. 07/13 Patient is fine today. Dr. Boyd decided to allow patient to drink. Hemoglobin 7.6 07/14 Doing better this morning. Weaning down Precedex drip and will likely DC. Has dry cough, denies dyspnea.. Has some lower abdominal pain over procedural site. No other complaints. Mentation much improved. Review of Systems: denies headache/fever/chills/nausea/vomiting/chest or abdominal pain//dyspnea/diarrhea. Otherwise see above. - Constitutional Vitals: Vital Signs Temp Pulse Resp BP Pulse Ox 99.5 F H 102 H 17 136/79 90 07/14/19 08:00 07/13/19 00:24 07/14/19 08:06 07/14/19 08:00 07/14/19 08:06 Period Temp Pulse Resp BP Sys/Juarez Pulse Ox Last 24 Hr 97.3 F-99.5 F 07-17 79-152/62-119 90-99 Intake and Output 07/13/19 07/14/19 07/14/19 21:59 05:59 13:59 Intake Total 345 165 65 Output Total 2230 305 40 Balance -1885 -140 25 Weight 71.214 kg Intake & Output: Intake & Output 07/13/19 07/14/19 07/14/19 21:59 05:59 13:59 Intake Total 345 165 65 Output Total 2230 305 40 Balance -1885 -140 25 Weight 71.214 kg Intake: IV 95 165 65 Precedex 400 Mcg/100 ml 30 100 Dextrose 100 ml @ 0 mls/hr IV . [employer] Rx#:[id number] IV - Manual Only 250 Output: Drainage 200 10 Left Lower Abdomen 200 10 Urine Catheter Amount 2030 295 40 Other: Urine Appearance Cloudy Clear Sediment Small Blood Clots Uretheral (Vega) Sediment Small Blood Clots Urine Color Red Brown Straw Light Mariella Uretheral (Vega) Straw Blood Tinged Urine Odor Normal Normal Exam: General: Alert, Awake, No acute Distress Eyes/N/T: EOMI, Head/Neck: neck supple, CV: RRR, No murmurs, Pulm: mild rhonchi left that clears with cough, no wheezing Abd: soft, mild TTP s/p surgery, +BS x4 Ext: no clubbing/cyanosis/edema Neuro: alert, no focal deficits Skin: warm/dry Medical - PN: Obj Da - Labs CBC & Chem 7: 07/14/19 04:10 07/14/19 04:09 Labs: Abnormal Lab Results 07/14/19 07/14/19 07/13/19 04:10 04:09 21:08 WBC RBC Hgb 8.0 L 8.2 L Hct 23.9 L 23.6 L MCV RDW MPV Gran % Lymph % (Auto) Lymph # (Auto) Sodium Chloride Anion Gap BUN Creatinine 0.5 L Glucose Calcium 8.1 L Magnesium 1.5 L Alkaline Phosphatase Total Protein 5.0 L Albumin 2.8 L 07/13/19 07/13/19 07/13/19 13:15 08:00 03:44 WBC RBC 2.31 L Hgb 7.7 L 7.6 L Hct 23.1 L 23.0 L MCV RDW MPV Gran % Lymph % (Auto) Lymph # (Auto) Sodium 128 L Chloride 95 L Anion Gap 7.0 L BUN 5 L Creatinine 0.6 L Glucose 106 H Calcium 8.2 L Magnesium Alkaline Phosphatase 37 L Total Protein 5.6 L Albumin 07/13/19 07/12/19 07/12/19 03:44 07:41 07:41 WBC 11.5 H RBC 2.42 L 2.57 L Hgb 8.0 L 8.6 L Hct 24.0 L 25.3 L MCV RDW 14.9 H 14.8 H MPV Gran % 78.6 H Lymph % (Auto) 9.7 L Lymph # (Auto) 0.7 L Sodium 127 L Chloride Anion Gap 5.0 L BUN Creatinine Glucose 145 H Calcium 8.2 L Magnesium Alkaline Phosphatase Total Protein Albumin 07/12/19 07/12/19 07/11/19 03:56 03:56 11:13 WBC 11.2 H RBC 2.60 L 3.22 L Hgb 8.7 L 10.7 L Hct 26.1 L 31.9 L MCV 100.4 H RDW 14.6 H MPV 7.3 L Gran % Lymph % (Auto) Lymph # (Auto) Sodium 131 L Chloride Anion Gap BUN Creatinine Glucose 110 H Calcium 8.1 L Magnesium Alkaline Phosphatase Total Protein Albumin Meds: Medications Al Hydrox/Mg Hydrox/Simethicone (Maalox) 30 ml PO Q4HP PRN PRN Reason: Dyspepsia Chlordiazepoxide HCl (Librium) 50 mg PO Q4HP PRN PRN Reason: Alcohol Withdrawal Diazepam (Valium) 5 mg IV Q1-2HP PRN PRN Reason: Sedation Last Admin: 07/13/19 06:39 Dose: 5 mg Documented by: Fluoxetine HCl (Prozac) 20 mg PO QDAY [facility] Last Admin: 07/13/19 11:24 Dose: 20 mg Documented by: Haloperidol Lactate (Haldol) 0.5 mg IM Q2HP PRN PRN Reason: Alcohol Withdrawal Last Admin: 07/13/19 16:00 Dose: 0.5 mg Documented by: Acetaminophen (Ofirmev) 650 mg in 65 mls @ 130 mls/hr IV Q6 [facility]; Protocol Last Infusion: 07/14/19 06:17 Dose: Infused Documented by: Dexmedetomidine HCl 400 mcg/ (Premix) 100 mls @ 3.465 mls/hr IV .Q24H [facility]; Protocol Last Admin: 07/14/19 04:23 Dose: Not Given Documented by: Dextrose/Sodium Chloride (Dextrose 5%-Ns Iv Solution) 1,000 mls @ 100 mls/hr IV .Q10H [facility] Last Admin: 07/14/19 05:13 Dose: 100 mls/hr Documented by: Iron Carb/Multivit/Internal Grinder/Folic Acid (Multivitamin W/Minerals) 1 tab PO BID [facility] Stop: 07/17/19 09:01 Last Admin: 07/13/19 22:05 Dose: Not Given Documented by: Magnesium Hydroxide (Milk Of Magnesia) 30 ml PO DAILYP PRN PRN Reason: Constipation Metoprolol Succinate (Toprol Xl) 50 mg PO QDAY [facility] Last Admin: 07/13/19 11:23 Dose: 50 mg Documented by: Morphine Sulfate (Morphine) 0 mg IV Q1HP PRN; Protocol PRN Reason: Per Pain Protocol Last Admin: 07/14/19 03:08 Dose: 4 mg Documented by: Nicotine (Nicoderm) 14 mg TOPICAL DAILY@1000 [facility] Last Admin: 07/13/19 11:23 Dose: 14 mg Documented by: Oxycodone/Acetaminophen (Percocet 5-325 Mg) 0 tab PO Q4HP PRN; Protocol PRN Reason: Agitation Last Admin: 07/13/19 15:31 Dose: 2 tab Documented by: Symbicort [ Budesonide 160mcg/Formoterol Fumarate Dihydrate 4.5mcg] Inhaler 2 dose INH BID [facility] Last Admin: 07/13/19 22:05 Dose: Not Given Documented by: Sodium Chloride (Saline Flush) 10 ml IV Q8 [facility] Last Admin: 07/14/19 05:23 Dose: Not Given Documented by: Sodium Chloride (Sodium Chloride) 1 gm PO TID [facility] Stop: 07/15/19 09:01 Last Admin: 07/13/19 22:05 Dose: Not Given Documented by: Thiamine HCl (Vitamin B1) 100 mg PO TID [facility] Stop: 07/15/19 09:01 Last Admin: 07/13/19 22:05 Dose: Not Given Documented by: Trazodone HCl (Desyrel) 100 mg PO QHS PRN PRN Reason: anxiety Last Admin: 07/12/19 19:03 Dose: 100 mg Documented by: Triamcinolone Acetonide (Kenalog Cream 0.1%) 1 dose TOPICAL TID [facility] Last Admin: 07/13/19 22:05 Dose: Not Given Documented by: Medical - PN: A/P - Time Spent With Patient Total time spent is greater than 50% in coordination of care (as documented) at patient's floor/unit and/or counseling patient: - Narrative A/P Narrative: Assessment: *Chronic alcohol abuse with Alcoholic Withdrawal and Delirium Tremens: improving *s/p Radical Retropubic Prostatectomy by Dr. Boyd on 07/11/19 *HTN: *Anemia of blood loss: stable *Hyponatremia (with h/o same): resolved *COPD: Plan: -Monitored in ICU -CIWA protocol initiated. Continue folic acid, thiamine and multivitamin -prn benzo's -cont home Toprol and IH's -ppx: SCD CODE STATUS: Full Medical - PN: Qual - VTE Deep Vein Thrombosis/Pulmonary Embolism Present on Admission: No
--- NOTE | 2019-07-14 09:17 | General Surgery Progress Note ---
Subjective Patient reports: feels better, bowel movement Narrative: Note initiated : 07/14/19 at 9:15 am Service Date, if different from initiated Date: [] Patient: Tone Pope 58 y/o M admitted on 07/11/19 for Radical Retropubic Prostatectomy. Chief Complaint: POD 3 Patient improved this am. Dressing clean and dry. VS stable. Needs aggreswive pulmonary toilet. OOB today Objective Temp Pulse Resp BP Pulse Ox 99.5 F H 102 H 17 136/79 90 07/14/19 08:00 07/13/19 00:24 07/14/19 08:06 07/14/19 08:00 07/14/19 08:06 - Additional Data Intake & Output - Last 24 hours: Intake & Output 07/12/19 07/13/19 07/14/19 07/15/19 05:59 05:59 05:59 05:59 Intake Total 6949 2750 1645 65 Output Total 3636 1560 3085 40 Balance 3313 1190 -1440 25 Weight 142 lb 152 lb 12.8 oz 157 lb - Labs 07/14/19 04:10 07/14/19 04:09 Diabetes panel 07/14/19 Range/Units 04:09 Sodium 135 (133-145) mmol/L Potassium 3.6 (3.3-5.1) mmol/L Chloride 102 (96-108) mmol/L Carbon Dioxide 25 (22-30) mmol/L BUN 7 (6-20) mg/dl Creatinine 0.5 L (0.7-1.2) mg/dl Glucose 89 (70-105) mg/dL Calcium 8.1 L (8.6-10.4) mg/dl AST 32 (0-37) U/l ALT 11 (0-40) U/l Alkaline Phosphatase 40 (39-117) U/L Total Protein 5.0 L (5.9-8.4) gm/dL Albumin 2.8 L (3.2-5.2) gm/dL Triglycerides 71 (<150) mg/dl Calcium panel 07/14/19 Range/Units 04:09 Calcium 8.1 L (8.6-10.4) mg/dl Phosphorus 3.4 (2.7-4.5) mg/dL Albumin 2.8 L (3.2-5.2) gm/dL Pituitary panel 07/14/19 Range/Units 04:09 Sodium 135 (133-145) mmol/L Potassium 3.6 (3.3-5.1) mmol/L Chloride 102 (96-108) mmol/L Carbon Dioxide 25 (22-30) mmol/L BUN 7 (6-20) mg/dl Creatinine 0.5 L (0.7-1.2) mg/dl Glucose 89 (70-105) mg/dL Calcium 8.1 L (8.6-10.4) mg/dl Adrenal panel 07/14/19 Range/Units 04:09 Sodium 135 (133-145) mmol/L Potassium 3.6 (3.3-5.1) mmol/L Chloride 102 (96-108) mmol/L Carbon Dioxide 25 (22-30) mmol/L BUN 7 (6-20) mg/dl Creatinine 0.5 L (0.7-1.2) mg/dl Glucose 89 (70-105) mg/dL Calcium 8.1 L (8.6-10.4) mg/dl Total Bilirubin 0.3 (0.0-1.0) mg/dL AST 32 (0-37) U/l ALT 11 (0-40) U/l Alkaline Phosphatase 40 (39-117) U/L Total Protein 5.0 L (5.9-8.4) gm/dL Albumin 2.8 L (3.2-5.2) gm/dL Assessment and Plan - Time Spent With Patient Total time spent is greater than 50% in coordination of care (as documented) at patient's floor/unit and/or counseling patient:
[2019-07-14] MEDS: THIAMINE 100 MG TABLET PO SCH (09:37)
[2019-07-14] MEDS: oxyCODONE/APAP 5/325MG TABLET PO PRN ×3 (09:37→21:27)
[2019-07-14] MEDS: METOPROLOL SUCCINATE 50 MG TAB.XL.24H PO SCH (09:38)
[2019-07-14] MEDS: MULTIVIT,THER IRON,CA,FA & MIN 1 TABLET PO SCH (09:38)
[2019-07-14] MEDS: FLUoxetine HCL 20 MG CAPSULE PO SCH (09:38)
[2019-07-14] MEDS: SYMBICORT INH SCH ×2 (09:39→10:17)
[2019-07-14] MEDS: NICOTINE 14 MG PATCH TOPICAL SCH (09:40)
[2019-07-14] MEDS: TRIAMCINOLONE CREAM 0.1% 15G 1 DOSE TUBE TOPICAL SCH ×3 (09:44→21:01)
[2019-07-14] MEDS ORDERED: DIAZEPAM 10 MG/2 ML SYRINGE IV PRN (09:46)
[2019-07-14] MEDS ORDERED: DEXMEDETOMIDINE 400 MCG in PREMIX 1 BAG IV SCH (09:46)
[2019-07-14] MEDS ORDERED: MAG HYDROX/AL HYDROX/SIMETH 30 ML ORAL.SUSP PO PRN (09:46)
[2019-07-14] MEDS ORDERED: traZODone HCL 100 MG TABLET PO PRN (09:46)
[2019-07-14] MEDS ORDERED: chlordiazePOXIDE 25 MG CAPSULE PO PRN (09:46)
[2019-07-14] MEDS ORDERED: HALOPERIDOL LACTATE 5 MG/ML VIAL IM PRN (09:46)
[2019-07-14] MEDS ORDERED: MAGNESIUM HYDROXIDE 30 ML ORAL.SUSP PO PRN (09:46)
[2019-07-14] MEDS ORDERED: NICOTINE 14 MG PATCH TOPICAL SCH (10:00)
[2019-07-14] MEDS: DEXTROSE 5%-NS 1,000 ML IV SCH ×2 (13:12→19:25)
[2019-07-14] MEDS ORDERED: THIAMINE 100 MG TABLET PO SCH (15:00)
[2019-07-14] MEDS ORDERED: ONDANSETRON 4 MG/2 ML VIAL IV PRN (15:22)
[2019-07-14] MEDS ORDERED: IPRATROPIUM/ALBUTEROL 3 ML AMPUL.NEB NEB ONE (15:22)
[2019-07-14] MEDS ORDERED: MULTIVIT,THER IRON,CA,FA & MIN 1 TABLET PO SCH (21:00)
[2019-07-14] MEDS ORDERED: LABETALOL 5 MG/ML ML IV ONE (23:17)
[2019-07-14] MEDS: LABETALOL 5 MG/ML ML IV PRN (23:18)
[2019-07-15] MEDS: oxyCODONE/APAP 5/325MG TABLET PO PRN ×5 (04:09→20:30)
[2019-07-15] MEDS ORDERED: LABETALOL 5 MG/ML ML IV ONE (05:17)
[2019-07-15] MEDS: LABETALOL 5 MG/ML ML IV PRN (05:18)
[2019-07-15] MEDS: ACETAMINOPHEN 650 MG/65 ML BOTTLE IV SCH (05:28)
[2019-07-15] MEDS: DEXTROSE 5%-NS 1,000 ML IV SCH (05:28)
[2019-07-15] MEDS: 0.9 % SODIUM CHLORIDE 10 ML SYRINGE IV SCH ×3 (06:16→20:30)
[2019-07-15 06:58] LABS: Basophils # (Auto) 0 K/mcL (0.0-0.3); Basophils % (Auto) 0.2 % (0.0-2.0); Eosinophils # (Auto) 0.2 K/mcL (0.0-0.7); Granulocytes % (Auto) 57.3 % (38.0-78.0); Hematocrit 24.1 % (41.0-55.0); Lymphocytes # (Auto) 1.7 K/mcL (1.5-4.8); Lymphocytes % (Auto) 24.6 % (15.5-49.0); Mean Cell Volume 100.6 fL (80.0-100.0); Mean Corpuscular HGB Conc 33.2 g/dL (31.0-36.0); Mean Platelet Volume 8.3 fL (7.4-10.4); Monocytes # (Auto) 1.1 K/mcL (0.1-0.9); Monocytes % (Auto) 14.9 % (1.0-12.0); Platelet Count 183 K/mcL (140-440); Red Cell Distribution Width 14.9 % (11.5-14.5); WBC 7.1 K/mcL (4.5-11.0)
[2019-07-15 07:00] LABS: ALT/SGPT 11 U/l (0-40); AST/SGOT 25 U/l (0-37); Albumin 2.8 gm/dL (3.2-5.2); Albumin/Globulin Ratio 1.3 (1.0-2.3); Alkaline Phosphatase 47 U/L (39-117); Bilirubin,Direct < 0.2 mg/dL (0.0-0.3); Bilirubin,Total 0.2 mg/dL (0.0-1.0); Blood Urea Nitrogen 6 mg/dl (6-20); Carbon Dioxide 27 mmol/L (22-30); Chloride 100 mmol/L (96-108); Globulin 2.2 gm/dL (2.2-3.7); Glomerular Filtration Rate 111; Glucose 98 mg/dL (70-105); Lactate Dehydrogenase 201 U/L (94-250); Phosphorous 4.5 mg/dL (2.7-4.5); Triglycerides 51 mg/dl (<150); Uric Acid 2.5 mg/dL (2.5-8.0)
--- NOTE | 2019-07-15 07:23 | General Surgery Progress Note ---
Subjective Patient reports: feels better, pain is less, flatus Narrative: Note initiated : 07/15/19 at 7:21 am Service Date, if different from initiated Date: [] Patient: Tone Pope 58 y/o M admitted on 07/11/19 for Radical Retropubic Prostatectomy. Chief Complaint: POD #4, feeling better today more lucid. urine is clearing. john output is down. will transfer to floor. aggresive pulmonary toilet.possibly home tomorrow. Objective Temp Pulse Resp BP Pulse Ox 99.6 F H 85 20 155/81 95 07/15/19 04:01 07/15/19 02:00 07/14/19 23:33 07/15/19 06:01 07/15/19 06:01 - Additional Data Intake & Output - Last 24 hours: Intake & Output 07/13/19 07/14/19 07/15/19 07/16/19 05:59 05:59 05:59 05:59 Intake Total 2750 1645 5109 65 Output Total 1560 3085 1077 45 Balance 1190 -1440 4032 20 Weight 152 lb 12.8 oz 157 lb 158 lb 3.2 oz - Labs 07/15/19 04:23 07/15/19 04:23 Diabetes panel 07/15/19 Range/Units 04:23 Sodium 135 (133-145) mmol/L Potassium 3.7 (3.3-5.1) mmol/L Chloride 100 (96-108) mmol/L Carbon Dioxide 27 (22-30) mmol/L BUN 6 (6-20) mg/dl Creatinine 0.6 L (0.7-1.2) mg/dl Glucose 98 (70-105) mg/dL Calcium 8.0 L (8.6-10.4) mg/dl AST 25 (0-37) U/l ALT 11 (0-40) U/l Alkaline Phosphatase 47 (39-117) U/L Total Protein 5.0 L (5.9-8.4) gm/dL Albumin 2.8 L (3.2-5.2) gm/dL Triglycerides 51 (<150) mg/dl Calcium panel 07/15/19 Range/Units 04:23 Calcium 8.0 L (8.6-10.4) mg/dl Phosphorus 4.5 (2.7-4.5) mg/dL Albumin 2.8 L (3.2-5.2) gm/dL Pituitary panel 07/15/19 Range/Units 04:23 Sodium 135 (133-145) mmol/L Potassium 3.7 (3.3-5.1) mmol/L Chloride 100 (96-108) mmol/L Carbon Dioxide 27 (22-30) mmol/L BUN 6 (6-20) mg/dl Creatinine 0.6 L (0.7-1.2) mg/dl Glucose 98 (70-105) mg/dL Calcium 8.0 L (8.6-10.4) mg/dl Adrenal panel 07/15/19 Range/Units 04:23 Sodium 135 (133-145) mmol/L Potassium 3.7 (3.3-5.1) mmol/L Chloride 100 (96-108) mmol/L Carbon Dioxide 27 (22-30) mmol/L BUN 6 (6-20) mg/dl Creatinine 0.6 L (0.7-1.2) mg/dl Glucose 98 (70-105) mg/dL Calcium 8.0 L (8.6-10.4) mg/dl Total Bilirubin 0.2 (0.0-1.0) mg/dL AST 25 (0-37) U/l ALT 11 (0-40) U/l Alkaline Phosphatase 47 (39-117) U/L Total Protein 5.0 L (5.9-8.4) gm/dL Albumin 2.8 L (3.2-5.2) gm/dL Assessment and Plan - Time Spent With Patient Total time spent is greater than 50% in coordination of care (as documented) at patient's floor/unit and/or counseling patient:
[2019-07-15] MEDS ORDERED: MAG HYDROX/AL HYDROX/SIMETH 30 ML ORAL.SUSP PO PRN (07:36)
[2019-07-15] MEDS ORDERED: LABETALOL 5 MG/ML ML IV PRN (07:36)
[2019-07-15] MEDS ORDERED: MAGNESIUM HYDROXIDE 30 ML ORAL.SUSP PO PRN (07:36)
[2019-07-15] MEDS ORDERED: DIAZEPAM 10 MG/2 ML SYRINGE IV PRN (07:36)
[2019-07-15] MEDS ORDERED: chlordiazePOXIDE 25 MG CAPSULE PO PRN (07:36)
[2019-07-15] MEDS ORDERED: cloNIDine HCL 0.1 MG TABLET PO PRN (07:48)
[2019-07-15] MEDS ORDERED: MAGNESIUM SULFATE 8.12 MEQ in DEXTROSE 5% IN WATER 50 ML IV ONE (07:48)
--- NOTE | 2019-07-15 07:49 | Internal Med Progress Note ---
Medical - PN: Subj Patient information: Note initiated : 07/15/19 at 7:46 am Service Date, if different from initiated Date: [] Patient: Tone Pope a 58 y/o M admitted on 07/11/19 for Radical Retropubic Prostatectomy. Chief Complaint: [] Interval history: Mr. Pope is a 58 year old M with a history of chronic alcohol abuse, currently smoker and high blood pressure who underwent Radical Retropubic Prostatectomy by Dr. Boyd on 07/11/19. After the procedure, patient went into alcohol with drawal. Hospitalist consult was requested by Dr. Boyd for alcohol withdrawal. I encountered the patient in his room who told me that he drinks beer 4 times a day since he was 14 years old. Last drink was on Monday (3 days ago). Today he has mild nausea and abdominal pain from his procedure. Right now he is on diazepam. Otherwise he denies headache, dizziness, vomiting, chest pain, shortness breath, dysuria, or visual hallucination. 07/13 Patient is fine today. Dr. Boyd decided to allow patient to drink. Hemoglobin 7.6 07/14 Doing better this morning. Weaning down Precedex drip and will likely DC. Has dry cough, denies dyspnea.. Has some lower abdominal pain over procedural site. No other complaints. Mentation much improved. 07/15 Poor sleep last night. Has a dry cough denies shortness of breath but nursing had apparent oxygen last night. No other complaints and mentation significantly improved. Review of Systems: denies headache/fever/chills/nausea/vomiting/chest or abdominal pain//dyspnea/diarrhea. Otherwise see above. - Constitutional Vitals: Vital Signs Temp Pulse Resp BP Pulse Ox 99.6 F H 85 20 155/81 95 07/15/19 04:01 07/15/19 02:00 07/14/19 23:33 07/15/19 06:01 07/15/19 06:01 Period Temp Pulse Resp BP Sys/Juarez Pulse Ox Last 24 Hr 97.8 F-100.1 F 83-99 07-18 107-168/58-127 88-97 Intake and Output 07/14/19 07/15/19 07/15/19 21:59 05:59 13:59 Intake Total 2505 1545 65 Output Total 554 358 45 Balance 1951 1187 20 Weight 71.758 kg Intake & Output: Intake & Output 07/14/19 07/15/19 07/15/19 21:59 05:59 13:59 Intake Total 2505 1545 65 Output Total 554 358 45 Balance 19507 20 Weight 71.758 kg Intake: IV 1065 1065 65 Dextrose 5%-Ns IV Solution 1, 1000 1000 000 ml @ 100 mls/hr IV .Q10H [facility] Rx#:[id number] Oral 1440 480 Output: Drainage 30 50 Left Lower Abdomen 30 50 Drainage 30 Left Lower Abdomen 30 Urine Catheter Amount 494 308 45 Other: Meal Dinner Percent of Meal Consumed 25% Feeding Ability Assist with Tray Set Up Urine Appearance Cloudy Cloudy Sediment Sediment Small Blood Clots Small Blood Clots Uretheral (Vega) Sediment Hematuria Urine Color Straw Straw Dark Mariella Uretheral (Vega) Dark Mariella Blood Tinged Urine Odor Normal Uretheral (Vega) Normal Stool Size Moderate Stool Consistency Loose Exam: General: Alert, Awake, No acute Distress Eyes/N/T: EOMI, Head/Neck: neck supple, CV: RRR, No murmurs, Pulm: mild rhonchi b/l with occasional wheezing Abd: soft, +BS x4 Ext: no clubbing/cyanosis/edema Neuro: alert, no focal deficits Skin: warm/dry Medical - PN: Obj Da - Labs CBC & Chem 7: 07/15/19 04:23 07/15/19 04:23 Labs: Abnormal Lab Results 07/15/19 07/15/19 07/14/19 04:23 04:23 04:10 WBC RBC 2.40 L Hgb 8.0 L 8.0 L Hct 24.1 L 23.9 L MCV 100.6 H RDW 14.9 H Gran % Lymph % (Auto) [place] % (Auto) 14.9 H Lymph # (Auto) [place] # (Auto) 1.1 H Sodium Chloride Anion Gap BUN Creatinine 0.6 L Glucose Calcium 8.0 L Magnesium 1.5 L Alkaline Phosphatase Total Protein 5.0 L Albumin 2.8 L 07/14/19 07/13/19 07/13/19 04:09 21:08 13:15 WBC RBC Hgb 8.2 L 7.7 L Hct 23.6 L 23.1 L MCV RDW Gran % Lymph % (Auto) [place] % (Auto) Lymph # (Auto) [place] # (Auto) Sodium Chloride Anion Gap BUN Creatinine 0.5 L Glucose Calcium 8.1 L Magnesium 1.5 L Alkaline Phosphatase Total Protein 5.0 L Albumin 2.8 L 07/13/19 07/13/19 07/13/19 08:00 03:44 03:44 WBC RBC 2.31 L 2.42 L Hgb 7.6 L 8.0 L Hct 23.0 L 24.0 L MCV RDW 14.9 H Gran % 78.6 H Lymph % (Auto) 9.7 L [place] % (Auto) Lymph # (Auto) 0.7 L [place] # (Auto) Sodium 128 L Chloride 95 L Anion Gap 7.0 L BUN 5 L Creatinine 0.6 L Glucose 106 H Calcium 8.2 L Magnesium Alkaline Phosphatase 37 L Total Protein 5.6 L Albumin 07/12/19 07/12/19 07:41 07:41 WBC 11.5 H RBC 2.57 L Hgb 8.6 L Hct 25.3 L MCV RDW 14.8 H Gran % Lymph % (Auto) [place] % (Auto) Lymph # (Auto) [place] # (Auto) Sodium 127 L Chloride Anion Gap 5.0 L BUN Creatinine Glucose 145 H Calcium 8.2 L Magnesium Alkaline Phosphatase Total Protein Albumin Meds: Medications Al Hydrox/Mg Hydrox/Simethicone (Maalox) 30 ml PO Q4HP PRN PRN Reason: Dyspepsia Chlordiazepoxide HCl (Librium) 50 mg PO Q4HP PRN PRN Reason: Alcohol Withdrawal Diazepam (Valium) 5 mg IV Q1-2HP PRN PRN Reason: Sedation Fluoxetine HCl (Prozac) 20 mg PO QDAY [facility] Iron Carb/Multivit/Foard/Folic Acid (Multivitamin W/Minerals) 1 tab PO BID [facility] Stop: 07/15/19 21:01 Labetalol HCl (Trandate) 0 mg IV Q2HP PRN PRN Reason: Hypertension Magnesium Hydroxide (Milk Of Magnesia) 30 ml PO DAILYP PRN PRN Reason: Constipation Metoprolol Succinate (Toprol Xl) 50 mg PO QDAY [facility] Morphine Sulfate (Morphine) 0 mg IV Q1HP PRN; Protocol PRN Reason: Per Pain Protocol Nicotine (Nicoderm) 14 mg TOPICAL DAILY@1000 KEELY Ondansetron HCl (Zofran) 4 mg IV Q4-6HP PRN PRN Reason: Nausea And Vomiting Oxycodone/Acetaminophen (Percocet 5-325 Mg) 0 tab PO Q4HP PRN; Protocol PRN Reason: Agitation Symbicort Budesonide 160mcg/Formoterol Fumarate Dihydrate 4 .5mcg 2 dose INH BID KEELY Sodium Chloride (Saline Flush) 10 ml IV Q8 KEELY Trazodone HCl (Desyrel) 100 mg PO HSP PRN PRN Reason: anxiety Triamcinolone Acetonide (Kenalog Cream 0.1%) 1 dose TOPICAL TID [facility] Medical - PN: A/P - Time Spent With Patient Total time spent is greater than 50% in coordination of care (as documented) at patient's floor/unit and/or counseling patient: - Narrative A/P Narrative: Assessment: *Chronic alcohol abuse with Alcoholic Withdrawal and Delirium Tremens: improved *s/p Radical Retropubic Prostatectomy by Dr. Boyd on 07/11/19 *Hypoxia: suspect fluid overload, check PCT *HTN: *Anemia of blood loss: stable *Hyponatremia (with h/o same): resolved *COPD: Plan: -CIWA. Continue folic acid, thiamine and multivitamin -wean off O2 -IS/Acapella -lasix today, check pct -replete electrolytes -cont home Toprol and IH's -ppx: SCD/teds/ambulate CODE STATUS: Full Medical - PN: Qual - VTE Deep Vein Thrombosis/Pulmonary Embolism Present on Admission: No
[2019-07-15] MEDS ORDERED: FLUoxetine HCL 20 MG CAPSULE PO SCH (09:00)
[2019-07-15] MEDS ORDERED: METOPROLOL SUCCINATE 50 MG TAB.XL.24H PO SCH ×2 (09:00)
--- NOTE | 2019-07-15 09:35 | XRay Report ---
HISTORY: Hypoxia and COPD FINDINGS: Patient has developed a small interstitial infiltrate in the left lower lobe. Right lung is mildly hyperinflated. The patient has known emphysema based upon prior CT scan. No lung mass is seen. There is no pleural effusion and no apparent adenopathy. The heart size is normal. IMPRESSION: Mild left lower lobe pneumonia, superimposed upon underlying mild COPD Interpreted and Authenticated by: Bernabe Dooley 07/15/19
[2019-07-15] MEDS ORDERED: FUROSEMIDE 40 MG/4 ML VIAL IV ONE (10:02)
[2019-07-15] MEDS ORDERED: ALBUMIN HUMAN 12.5 GM/50 ML BAG IV ONE (10:02)
[2019-07-15] MEDS: FLUoxetine HCL 20 MG CAPSULE PO SCH (10:20)
[2019-07-15] MEDS: [UNRECOGNIZED DRUG - MIXTURE] INH SCH ×2 (10:22→21:50)
[2019-07-15] MEDS: MULTIVIT,THER IRON,CA,FA & MIN 1 TABLET PO SCH ×2 (10:22→20:30)
[2019-07-15] MEDS: TRIAMCINOLONE CREAM 0.1% 15G 1 DOSE TUBE TOPICAL SCH ×3 (10:22→21:49)
[2019-07-15] MEDS: NICOTINE 14 MG PATCH TOPICAL SCH (10:23)
[2019-07-15] MEDS: ONDANSETRON 4 MG/2 ML VIAL IV PRN (15:45)
[2019-07-15] MEDS: traZODone HCL 100 MG TABLET PO PRN (20:30)
[2019-07-15] MEDS: CEPHALEXIN 500 MG CAPSULE PO SCH (20:30)
[2019-07-16] MEDS: oxyCODONE/APAP 5/325MG TABLET PO PRN ×4 (04:30→20:43)
[2019-07-16] MEDS: 0.9 % SODIUM CHLORIDE 10 ML SYRINGE IV SCH ×3 (04:30→20:45)
[2019-07-16] MEDS ORDERED: MAGNESIUM HYDROXIDE 30 ML ORAL.SUSP PO PRN (07:54)
[2019-07-16] MEDS ORDERED: SENNOSIDES 1 TABLET PO PRN (07:54)
[2019-07-16] MEDS ORDERED: POLYETHYLENE GLYCOL 3350 17 GM PACKET PO PRN (07:54)
[2019-07-16] MEDS ORDERED: ALBUMIN HUMAN 12.5 GM/50 ML BAG IV ONE ×2 (07:56→16:00)
[2019-07-16] MEDS ORDERED: FUROSEMIDE 40 MG/4 ML VIAL IV ONE (07:56)
--- NOTE | 2019-07-16 07:58 | Internal Med Progress Note ---
Medical - PN: Subj Patient information: Note initiated : 07/16/19 at 7:53 am Service Date, if different from initiated Date: [] Patient: Tone Pope a 58 y/o M admitted on 07/11/19 for Radical Retropubic Prostatectomy. Chief Complaint: [] Interval history: Mr. Pope is a 58 year old M with a history of chronic alcohol abuse, currently smoker and high blood pressure who underwent Radical Retropubic Prostatectomy by Dr. Boyd on 07/11/19. After the procedure, patient went into alcohol with drawal. Hospitalist consult was requested by Dr. Boyd for alcohol withdrawal. I encountered the patient in his room who told me that he drinks beer 4 times a day since he was 14 years old. Last drink was on Monday (3 days ago). Today he has mild nausea and abdominal pain from his procedure. Right now he is on diazepam. Otherwise he denies headache, dizziness, vomiting, chest pain, shortness breath, dysuria, or visual hallucination. 07/13 Patient is fine today. Dr. Boyd decided to allow patient to drink. Hemoglobin 7.6 07/14 Doing better this morning. Weaning down Precedex drip and will likely DC. Has dry cough, denies dyspnea.. Has some lower abdominal pain over procedural site. No other complaints. Mentation much improved. 07/15 Poor sleep last night. Has a dry cough denies shortness of breath but nursing had apparent oxygen last night. No other complaints and mentation significantly improved. 07/16 No overnight events. 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 Appears to be from fluid overload given some Lasix yesterday. Has been low in the past in the hospital after surgery. Has a dry cough. And some shortness of breath. Lasix today, I-S and Acapella and ambulation Review of Systems: denies headache/fever/chills/nausea/vomiting/chest or abdominal pain//diarrhea. Otherwise see above. - Constitutional Vitals: Vital Signs Temp Pulse Resp BP Pulse Ox 98.7 F 96 H 20 128/72 90 07/16/19 04:14 07/16/19 04:14 07/16/19 04:14 07/16/19 04:14 07/16/19 04:14 Period Temp Pulse Resp BP Sys/Juarez Pulse Ox Last 24 Hr 97.8 F-98.8 F 76-96 18-20 95-158/57-97 90-98 Intake and Output 07/15/19 07/16/19 07/16/19 21:59 05:59 13:59 Intake Total 240 700 Output Total 625 275 Balance -385 425 Weight 72.665 kg Intake & Output: Intake & Output 07/15/19 07/16/19 07/16/19 21:59 05:59 13:59 Intake Total 240 700 Output Total 625 275 Balance -385 425 Weight 72.665 kg Intake: Oral 240 700 Output: Urine Catheter Amount 425 275 Void Amount 100 Emesis 100 Other: Urine Appearance Sediment Small Blood Clots Uretheral (Vega) Clear Urine Color Dark Yellow Dark Mariella Uretheral (Vega) Dark Mariella Urine Odor Strong Exam: General: Alert, Awake, No acute Distress Eyes/N/T: EOMI, Head/Neck: neck supple, CV: RRR, No murmurs, Pulm: mild rhonchi b/l, no wheezing Abd: soft, +BS x4 Ext: no clubbing/cyanosis/edema Neuro: alert, no focal deficits Skin: warm/dry Medical - PN: Obj Da - Labs CBC & Chem 7: 07/15/19 04:23 07/15/19 04:23 Labs: Abnormal Lab Results 07/15/19 07/15/19 07/14/19 04:23 04:23 04:10 RBC 2.40 L Hgb 8.0 L 8.0 L Hct 24.1 L 23.9 L MCV 100.6 H RDW 14.9 H [place] % (Auto) 14.9 H [place] # (Auto) 1.1 H Creatinine 0.6 L Calcium 8.0 L Magnesium 1.5 L Total Protein 5.0 L Albumin 2.8 L 07/14/19 07/13/19 07/13/19 04:09 21:08 13:15 RBC Hgb 8.2 L 7.7 L Hct 23.6 L 23.1 L MCV RDW [place] % (Auto) [place] # (Auto) Creatinine 0.5 L Calcium 8.1 L Magnesium 1.5 L Total Protein 5.0 L Albumin 2.8 L 07/13/19 08:00 RBC 2.31 L Hgb 7.6 L Hct 23.0 L MCV RDW [place] % (Auto) [place] # (Auto) Creatinine Calcium Magnesium Total Protein Albumin Meds: Medications Al Hydrox/Mg Hydrox/Simethicone (Maalox) 30 ml PO Q4HP PRN PRN Reason: Dyspepsia Cephalexin HCl (Keflex) 500 mg PO BID [facility]; Protocol Last Admin: 07/15/19 20:30 Dose: 500 mg Documented by: Chlordiazepoxide HCl (Librium) 50 mg PO Q4HP PRN PRN Reason: Alcohol Withdrawal Last Admin: 07/15/19 08:09 Dose: 50 mg Documented by: Clonidine HCl (Catapres) 0.1 mg PO BID PRN PRN Reason: sbp>150 Last Admin: 07/15/19 20:30 Dose: 0.1 mg Documented by: Diazepam (Valium) 5 mg IV Q1-2HP PRN PRN Reason: Sedation Fluoxetine HCl (Prozac) 20 mg PO QDAY [facility] Last Admin: 07/15/19 10:20 Dose: 20 mg Documented by: Labetalol HCl (Trandate) 0 mg IV Q2HP PRN PRN Reason: Hypertension Magnesium Hydroxide (Milk Of Magnesia) 30 ml PO DAILYP PRN PRN Reason: Constipation Metoprolol Succinate (Toprol Xl) 50 mg PO QDAY [facility] Last Admin: 07/15/19 10:20 Dose: 50 mg Documented by: Morphine Sulfate (Morphine) 0 mg IV Q1HP PRN; Protocol PRN Reason: Per Pain Protocol Last Admin: 07/15/19 13:55 Dose: 6 mg Documented by: Nicotine (Nicoderm) 14 mg TOPICAL DAILY@1000 KEELY Last Admin: 07/15/19 10:23 Dose: 14 mg Documented by: Ondansetron HCl (Zofran) 4 mg IV Q4-6HP PRN PRN Reason: Nausea And Vomiting Last Admin: 07/15/19 15:45 Dose: 4 mg Documented by: Oxycodone/Acetaminophen (Percocet 5-325 Mg) 0 tab PO Q4HP PRN; Protocol PRN Reason: Agitation Last Admin: 07/16/19 04:30 Dose: 2 tab Documented by: Symbicort Budesonide 160mcg/Formoterol Fumarate Dihydrate 4 .5mcg 2 dose INH BID [facility] Last Admin: 07/15/19 21:50 Dose: Not Given Documented by: Sodium Chloride (Saline Flush) 10 ml IV Q8 [facility] Last Admin: 07/16/19 04:30 Dose: 10 ml Documented by: Trazodone HCl (Desyrel) 100 mg PO HSP PRN PRN Reason: anxiety Last Admin: 07/15/19 20:30 Dose: 100 mg Documented by: Triamcinolone Acetonide (Kenalog Cream 0.1%) 1 dose TOPICAL TID [facility] Last Admin: 07/15/19 21:49 Dose: Not Given Documented by: Medical - PN: A/P - Time Spent With Patient Total time spent is greater than 50% in coordination of care (as documented) at patient's floor/unit and/or counseling patient: - Narrative A/P Narrative: Assessment: *Chronic alcohol abuse with Alcoholic Withdrawal and Delirium Tremens: improved *s/p Radical Retropubic Prostatectomy by Dr. Boyd on 07/11/19 *Hypoxia: likely Atelectasis and component of fluid overload, PCT low and afebrile -CXR mild LLL infiltrate -has been low in past during hospitalization for a surgery *HTN: *Anemia of blood loss: stable *Hyponatremia (with h/o same): resolved *COPD: has not required home O2, unknown what baseline O2 sat is Plan: -CIWA. Continue folic acid, thiamine and multivitamin -wean off O2 -IS/Acapella -lasix today -replete electrolytes -cont home Toprol and IH's -ambulate tid -ppx: SCD/teds/ambulate CODE STATUS: Full Medical - PN: Qual - VTE Deep Vein Thrombosis/Pulmonary Embolism Present on Admission: No
[2019-07-16] MEDS: CEPHALEXIN 500 MG CAPSULE PO SCH ×2 (09:22→20:43)
[2019-07-16] MEDS: DOCUSATE SODIUM 100 MG CAPSULE PO SCH ×2 (09:22→20:43)
[2019-07-16] MEDS: METOPROLOL SUCCINATE 50 MG TAB.XL.24H PO SCH (09:22)
[2019-07-16] MEDS: FLUoxetine HCL 20 MG CAPSULE PO SCH (09:22)
[2019-07-16] MEDS: NICOTINE 14 MG PATCH TOPICAL SCH (09:23)
[2019-07-16] MEDS: [UNRECOGNIZED DRUG - MIXTURE] INH SCH ×2 (09:23→21:23)
[2019-07-16] MEDS: TRIAMCINOLONE CREAM 0.1% 15G 1 DOSE TUBE TOPICAL SCH ×3 (12:02→21:23)
--- NOTE | 2019-07-16 14:17 | General Surgery Progress Note ---
Subjective Patient reports: feels better, tolerating a regular diet, flatus Narrative: Note initiated : 07/16/19 at 2:15 pm Service Date, if different from initiated Date: [] Patient: Tone Pope 58 y/o M admitted on 07/11/19 for Radical Retropubic Prostatectomy. Chief Complaint: POD #5 Patient improved but still has pulmonary issues. ambulating. wound has d/c from coughing but fascia is intact. placed steri strips. with keep in hospital overnight for pulmonary toilet. Objective Temp Pulse Resp BP Pulse Ox 98.7 F 87 20 115/75 90 07/16/19 08:00 07/16/19 08:00 07/16/19 08:00 07/16/19 08:00 07/16/19 08:00 - Additional Data Intake & Output - Last 24 hours: Intake & Output 07/14/19 07/15/19 07/16/19 07/17/19 05:59 05:59 05:59 05:59 Intake Total 1645 5109 1005 Output Total 3085 1077 2885 Balance -1440 4032 -1880 Weight 157 lb 158 lb 3.2 oz 160 lb 3.2 oz - Labs 07/15/19 04:23 07/15/19 04:23 Assessment and Plan - Time Spent With Patient Total time spent is greater than 50% in coordination of care (as documented) at patient's floor/unit and/or counseling patient:
--- NOTE | 2019-07-16 14:32 | Surgical Pathology Report ---
HISTOLOGY SPECIMEN MICROSCOPIC DIAGNOSIS SPECIMEN A - LYMPH NODE, RIGHT OBTURATOR, EXCISION: -- FATTY REPLACED LYMPH NODE WITH SINUS HISTIOCYTOSIS, FIBROSIS AND NUMEROUS CALCIFICATIONS, NEGATIVE FOR METASTATIC CARCINOMA. SPECIMEN B - LYMPH NODES, LEFT OBTURATOR, EXCISION: -- TWO FATTY REPLACED LYMPH NODES WITH SINUS HISTIOCYTOSIS, FIBROSIS AND MULTIPLE CALCIFICATIONS, NEGATIVE FOR METASTATIC CARCINOMA. SPECIMEN C - PROSTATE, PROSTATECTOMY: -- PROSTATIC ADENOCARCINOMA. (SEE COMMENT) - SAVANA SCORE: 3+4=7 (SAVANA GRADE GROUP 2). - PERCENTAGE OF PATTERN 4: 40%. - TUMOR QUANTITATION: TUMOR INVOLVES APPROXIMATELY 15-20% OF PROSTATE. - EXTRAPROSTATIC EXTENSION: NOT IDENTIFIED. - URINARY BLADDER NECK INVASION: NOT IDENTIFIED. - SEMINAL VESICLE INVASION: NOT IDENTIFIED. - LYMPH-VASCULAR INVASION: NOT IDENTIFIED. - PERINEURAL INVASION: PRESENT, EXTENSIVE. - SURGICAL MARGINS: PROSTATIC ADENOCARCINOMA FOCALLY INVOLVES INKED LEFT ANTERIOR SURGICAL MARGINS, SPANNING AT LEAST 0.3 cm (NON-LIMITED). - PATHOLOGIC STAGE: pT2 pN0 MX. (ACP:sln) COMMENT: The prostate gland has prostatic adenocarcinoma involving both lobes, with two distinctive patterns. Both patterns have pattern 3 and 4 ([place] grade group 2). Within apical and mid region of the left anterior lobe, there is a transected region of tumor involving three contiguous slices (slides C7, C19 and C10). Measuring from slide C7, the focus measures at least 3.0 mm (non-limited). Patchy perineural invasion is also noted. SUMMARY CANCER DATA: Procedure: Radical prostatectomy Prostate Size: 39 grams Measurements: 4.0 x 5.1 x 3.5 cm Lymph Node Sampling: Bilateral obturator nodes Histologic Type: Acinar adenocarcinoma Histologic Grade: [place] Grade Group 2 ([place] score 3+4=7) Percentage of Pattern 4: 40% Percentage of Pattern 5: 0% Tumor Quantitation: Proportion (percentage) of prostate involved by tumor: 15-20% of prostate Extraprostatic Extension: Not identified Urinary Bladder Invasion: Not identified Seminal Vesicle Invasion: Not identified Lymph/Vascular Invasion: Not identified Perineural invasion: Present, extensive Surgical Margins: Left anterior margin involved by prostatic adenocarcinoma, non-limited, spanning at least 3.0 mm (non-limited) with transection of tumor in the apical-mid region for three contiguous sliced Pattern at Positive Margins: Pattern 3 Treatment Effect: No known presurgical therapy Regional Lymph Nodes, bilateral obturator lymph nodes: Negative for metastatic carcinoma Total number of lymph nodes examined: 3 Number involved by carcinoma: 0 Pathologic Stage: pT2 pN0 MX Additional Pathologic Findings: High grade prostatic intraepithelial neoplasia. PROCEDURAL IMPRESSION Prostate cancer. GROSS DESCRIPTION Specimen A: Received in formalin labeled right obturator nodes, are two telfa's containing fatty garcia tissue that measures 2.9 x 2 x 1.3 cm and 1.6 x 1 x 0.9 cm. There is a 3.2 x 1 x 0.6 cm candidate lymph node identified. The candidate lymph node is sectioned, entirely submitted in two cassettes. Specimen B: Received in formalin labeled left obturator nodes, are two telfa's containing multiple fatty garcia fragments of tissue in aggregate 4.6 x 3.7 x 1.2 cm. Within this aggregate of tissue there are two candidate lymph nodes identified. The first is 2 x 1.5 x 0.5 cm. The second is 4 x 1.5 by up to 1.2 cm. The candidate lymph nodes are sectioned, entirely submitted in seven cassettes: the first node in B1-B2; the second node in B3-B7. (SCB:souleymane) Specimen C: Received in formalin labeled prostate, is a prostate with one attached seminal vesicle and one separate fragment of tissue compatible with the second seminal vesicle. The specimen has an overall weight of 39 grams and measures 4 (apex to base) by 5.1 (medial to lateral) by 3.5 cm (anterior to posterior). The attached left seminal vesicle measures 5.3 x 1.3 x 0.9 cm. The detached separate presumed right seminal vesicle measures 2.3 x 1.6 x 1.2 cm. The left vas deferens is 1.2 cm in length by up to 0.5 cm in diameter. The right vas deferens measures 3.1 cm in length by up to 0.5 cm in greatest diameter. The surface of the prostate is notable for cautery artifact at the bladder base. It is otherwise unremarkable. The specimen is inked black and over-inked right anterior blue and left anterior yellow. The specimen is serially sectioned from apex to base into ten slices. Sectioning reveals white-garcia prostate parenchyma with variegated brown pigmentation throughout. Some granular white change is identified within slice 5 periurethrally in the left posterior aspect. Otherwise, no discrete mass or lesion is identified. Makeup Sales Advisor sections submitted: C1 - right vas deferens margin and right seminal vesicle into prostate; C2 - left vas deferens margin and left seminal vesicle into prostate; C3-C4 - right apex radial sections; C5 - left apex radial sections; C6-C7 - slice 2 composite section (C6 right, C7 left); C8-C10 - composite section slice 4 (C8 right anterior, C9 right posterior, C10 left); C11-C13 - composite section slice 6 (C11 right, C12 left anterior, C13 left posterior); C14-C15 - composite section slice 8 (C14 right, C15 left); C16 - right base radial sections, C17-C18 - left base radial sections. (EBD:soulyemane) 07/15/19: C19 - slice 3, left lobe; C20 - slice 5, left anterior lobe; C21 - slice 7 left anterior lobe. (ACP) Electronically Signed by: Laith Dooley M.D.
[2019-07-16] MEDS ORDERED: POTASSIUM CHLORIDE 20 MEQ TABLET PO ONE (14:33)
--- NOTE | 2019-07-16 14:52 | XRay Report ---
HISTORY: Follow-up left lower lobe infiltrate FINDINGS: There is a moderate size horizontally oriented band of discoid atelectasis above the left diaphragm. This has enlarged since 07/15/19. Above the band of atelectasis there is a subtle interstitial infiltrate which has remained stable. There is no lobar consolidation. No pleural effusion or adenopathy are detected. The heart size and pulmonary vasculature are normal. Patient has mild emphysema in both lung apices, better demonstrated on the prior chest CT. IMPRESSION: Persistent mild interstitial infiltrate in the left lower lobe with an enlarging band of discoid atelectasis adjacent to the left diaphragm Interpreted and Authenticated by: Bernabe Dooley 07/16/19
[2019-07-16] MEDS ORDERED: FUROSEMIDE 20 MG/2 ML VIAL IV ONE (16:00)
[2019-07-16] MEDS: traZODone HCL 100 MG TABLET PO PRN (23:51)
[2019-07-17] MEDS: 0.9 % SODIUM CHLORIDE 10 ML SYRINGE IV SCH ×3 (04:40→22:35)
[2019-07-17] MEDS: oxyCODONE/APAP 5/325MG TABLET PO PRN ×5 (04:44→23:21)
--- NOTE | 2019-07-17 07:44 | General Surgery Progress Note ---
Subjective Patient reports: feels better, flatus, no bowel movement Narrative: Note initiated : 07/17/19 at 7:41 am Service Date, if different from initiated Date: [] Patient: Tone Pope 58 y/o M admitted on 07/11/19 for Radical Retropubic Prostatectomy. Chief Complaint: pod #6 patient still having problems from his lungs. will have RT evaluate today. If cleared with d/c to home.steri strips applied and serous fluid expressed. will await RT recomendations Objective Temp Pulse Resp BP Pulse Ox 98.7 F 97 H 16 130/74 90 07/17/19 04:00 07/17/19 04:00 07/17/19 04:00 07/17/19 04:00 07/17/19 04:00 - Additional Data Intake & Output - Last 24 hours: Intake & Output 07/15/19 07/16/19 07/17/19 07/18/19 05:59 05:59 05:59 05:59 Intake Total 5109 1005 750 Output Total 1077 2885 2600 Balance 4032 -1880 -1850 Weight 158 lb 3.2 oz 160 lb 3.2 oz 158 lb 8 oz - Labs 07/15/19 04:23 07/15/19 04:23 Assessment and Plan - Time Spent With Patient Total time spent is greater than 50% in coordination of care (as documented) at patient's floor/unit and/or counseling patient:
[2019-07-17] MEDS ORDERED: IPRATROPIUM/ALBUTEROL 3 ML AMPUL.NEB NEB PRN (07:45)
--- NOTE | 2019-07-17 08:35 | Internal Med Progress Note ---
Medical - PN: Subj Patient information: Note initiated : 07/17/19 at 8:31 am Service Date, if different from initiated Date: [] Patient: Tone Pope a 58 y/o M admitted on 07/11/19 for Radical Retropubic Prostatectomy. Chief Complaint: [] Interval history: Mr. Pope is a 58 year old M with a history of chronic alcohol abuse, currently smoker and high blood pressure who underwent Radical Retropubic Prostatectomy by Dr. Boyd on 07/11/19. After the procedure, patient went into alcohol with drawal. Hospitalist consult was requested by Dr. Boyd for alcohol withdrawal. I encountered the patient in his room who told me that he drinks beer 4 times a day since he was 14 years old. Last drink was on Monday (3 days ago). Today he has mild nausea and abdominal pain from his procedure. Right now he is on diazepam. Otherwise he denies headache, dizziness, vomiting, chest pain, shortness breath, dysuria, or visual hallucination. 07/13 Patient is fine today. Dr. Boyd decided to allow patient to drink. Hemoglobin 7.6 07/14 Doing better this morning. Weaning down Precedex drip and will likely DC. Has dry cough, denies dyspnea.. Has some lower abdominal pain over procedural site. No other complaints. Mentation much improved. 07/15 Poor sleep last night. Has a dry cough denies shortness of breath but nursing had apparent oxygen last night. No other complaints and mentation significantly improved. 07/16 No overnight events. 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 Appears to be from fluid overload given some Lasix yesterday. Has been low in the past in the hospital after surgery. Has a dry cough. And some shortness of breath. Lasix today, I-S and Acapella and ambulation 07/17 Has cough with white sputum. Denies shortness of breath even though he ambulated with respiratory therapy and desatted. Overall he feels breathing is improved. he feels breathing treatment he received helped he was on 1 L but had a bump to 1.5 overnight. Review of Systems: denies headache/fever/chills/nausea/vomiting/chest or abdominal pain//diarrhea. Otherwise see above. - Constitutional Vitals: Vital Signs Temp Pulse Resp BP Pulse Ox 97.7 F 85 14 129/79 89 L 07/17/19 07:43 07/17/19 07:59 07/17/19 07:59 07/17/19 07:43 07/17/19 07:59 Period Temp Pulse Resp BP Sys/Juarez Pulse Ox Last 24 Hr 97.7 F-98.7 F 74-97 14-24 103-143/65-84 89-95 Intake and Output 07/16/19 07/17/19 07/17/19 21:59 05:59 13:59 Intake Total 375 325 Output Total 2150 450 Balance -1775 -125 Weight 71.894 kg Intake & Output: Intake & Output 07/16/19 07/17/19 07/17/19 21:59 05:59 13:59 Intake Total 375 325 Output Total 2150 450 Balance -1775 -125 Weight 71.894 kg Intake: IV 50 Oral 325 325 Output: Urine Catheter Amount 2150 450 Other: Meal Dinner Percent of Meal Consumed 50% Feeding Ability Independent Urine Appearance Clear Sediment Uretheral (Vega) Clear Urine Color Bright Yellow Light Mariella Uretheral (Vega) Pale Urine Odor Normal Exam: General: Alert, Awake, No acute Distress Eyes/N/T: EOMI, Head/Neck: neck supple, CV: RRR, No murmurs, Pulm: mild rhonchi b/l similar, no wheezing Abd: soft, +BS x4 Ext: no clubbing/cyanosis/edema Neuro: alert, no focal deficits Skin: warm/dry Medical - PN: Obj Da - Labs CBC & Chem 7: 07/15/19 04:23 07/15/19 04:23 Labs: Abnormal Lab Results 07/15/19 07/15/19 04:23 04:23 RBC 2.40 L Hgb 8.0 L Hct 24.1 L MCV 100.6 H RDW 14.9 H [place] % (Auto) 14.9 H [place] # (Auto) 1.1 H Creatinine 0.6 L Calcium 8.0 L Magnesium 1.5 L Total Protein 5.0 L Albumin 2.8 L Meds: Medications Al Hydrox/Mg Hydrox/Simethicone (Maalox) 30 ml PO Q4HP PRN PRN Reason: Dyspepsia Albuterol/Ipratropium (Duoneb) 3 ml NEB Q4HP PRN PRN Reason: Shortness Of Breath Last Admin: 07/17/19 07:58 Dose: 3 ml Documented by: Cephalexin HCl (Keflex) 500 mg PO BID [facility]; Protocol Last Admin: 07/16/19 20:43 Dose: 500 mg Documented by: Chlordiazepoxide HCl (Librium) 50 mg PO Q4HP PRN PRN Reason: Alcohol Withdrawal Last Admin: 07/15/19 08:09 Dose: 50 mg Documented by: Clonidine HCl (Catapres) 0.1 mg PO BID PRN PRN Reason: sbp>150 Last Admin: 07/15/19 20:30 Dose: 0.1 mg Documented by: Diazepam (Valium) 5 mg IV Q1-2HP PRN PRN Reason: Sedation Docusate Sodium (Colace) 100 mg PO BID [facility] Last Admin: 07/16/19 20:43 Dose: 100 mg Documented by: Fluoxetine HCl (Prozac) 20 mg PO QDAY [facility] Last Admin: 07/16/19 09:22 Dose: 20 mg Documented by: Labetalol HCl (Trandate) 0 mg IV Q2HP PRN PRN Reason: Hypertension Magnesium Hydroxide (Milk Of Magnesia) 30 ml PO DAILYP PRN PRN Reason: Constipation Magnesium Hydroxide (Milk Of Magnesia) 30 ml PO DAILYP PRN PRN Reason: Constipation Metoprolol Succinate (Toprol Xl) 50 mg PO QDAY [facility] Last Admin: 07/16/19 09:22 Dose: 50 mg Documented by: Morphine Sulfate (Morphine) 0 mg IV Q1HP PRN; Protocol PRN Reason: Per Pain Protocol Last Admin: 07/15/19 13:55 Dose: 6 mg Documented by: Nicotine (Nicoderm) 14 mg TOPICAL DAILY@1000 [facility] Last Admin: 07/16/19 09:23 Dose: 14 mg Documented by: Ondansetron HCl (Zofran) 4 mg IV Q4-6HP PRN PRN Reason: Nausea And Vomiting Last Admin: 07/15/19 15:45 Dose: 4 mg Documented by: Oxycodone/Acetaminophen (Percocet 5-325 Mg) 0 tab PO Q4HP PRN; Protocol PRN Reason: Agitation Last Admin: 07/17/19 04:44 Dose: 2 tab Documented by: Symbicort Budesonide 160mcg/Formoterol Fumarate Dihydrate 4 .5mcg 2 dose INH BID [facility] Last Admin: 07/16/19 21:23 Dose: Not Given Documented by: Polyethylene Glycol (Miralax) 17 gm PO DAILYP PRN PRN Reason: Constipation Senna (Senokot) 1 tab PO DAILY PRN PRN Reason: Constipation Sodium Chloride (Saline Flush) 10 ml IV Q8 [facility] Last Admin: 07/17/19 04:40 Dose: 10 ml Documented by: Trazodone HCl (Desyrel) 100 mg PO HSP PRN PRN Reason: anxiety Last Admin: 07/16/19 23:51 Dose: 100 mg Documented by: Triamcinolone Acetonide (Kenalog Cream 0.1%) 1 dose TOPICAL TID [facility] Last Admin: 07/16/19 21:23 Dose: Not Given Documented by: Medical - PN: A/P - Time Spent With Patient Total time spent is greater than 50% in coordination of care (as documented) at patient's floor/unit and/or counseling patient: - Narrative A/P Narrative: Assessment: *Chronic alcohol abuse with Alcoholic Withdrawal and Delirium Tremens: resolved *s/p Radical Retropubic Prostatectomy by Dr. Boyd on 07/11/19 *Hypoxia: likely Atelectasis and component of fluid overload, PCT low and afebrile. Also h/o COPD likely runs low baseline, has been low in past during hospitalizations for a surgery -CXR mild LLL infiltrate *HTN: *Anemia of blood loss: stable *Hyponatremia (with h/o same): resolved *COPD: has not required home O2, unknown what baseline O2 sat is Plan: -CIWA. Continue folic acid, thiamine and multivitamin -wean off O2, may need home O2, but hoping to send home without -IS/Acapella -lasix today -replete electrolytes -cont home Toprol and IH's -ambulate tid -ppx: SCD/teds/ambulate CODE STATUS: Full Medical - PN: Qual - VTE Deep Vein Thrombosis/Pulmonary Embolism Present on Admission: No
[2019-07-17] MEDS ORDERED: FUROSEMIDE 40 MG/4 ML VIAL IV ONE (08:49)
[2019-07-17] MEDS ORDERED: ALBUMIN HUMAN 12.5 GM/50 ML BAG IV ONE (08:49)
[2019-07-17] MEDS: CEPHALEXIN 500 MG CAPSULE PO SCH ×2 (08:50→21:24)
[2019-07-17] MEDS: METOPROLOL SUCCINATE 50 MG TAB.XL.24H PO SCH (08:51)
[2019-07-17] MEDS: TRIAMCINOLONE CREAM 0.1% 15G 1 DOSE TUBE TOPICAL SCH ×3 (08:51→21:33)
[2019-07-17] MEDS: DOCUSATE SODIUM 100 MG CAPSULE PO SCH ×2 (08:51→21:25)
[2019-07-17] MEDS: FLUoxetine HCL 20 MG CAPSULE PO SCH (08:51)
[2019-07-17] MEDS: [UNRECOGNIZED DRUG - MIXTURE] INH SCH ×2 (08:52→21:35)
[2019-07-17] MEDS ORDERED: ENOXAPARIN 40 MG/0.4 ML SYRINGE SQ SCH (09:00)
[2019-07-17] MEDS: NICOTINE 14 MG PATCH TOPICAL SCH (09:32)
--- NOTE | 2019-07-17 09:44 | Discharge Summary ---
A discharge summary was dictated but patient developed a DVT. D/C summary deleted MTDD
[2019-07-17 09:57] LABS: ALT/SGPT 10 U/l (0-40); AST/SGOT 20 U/l (0-37); Albumin 3.5 gm/dL (3.2-5.2); Albumin/Globulin Ratio 1.4 (1.0-2.3); Alkaline Phosphatase 59 U/L (39-117); Bilirubin,Direct < 0.2 mg/dL (0.0-0.3); Bilirubin,Total 0.4 mg/dL (0.0-1.0); Blood Urea Nitrogen 13 mg/dl (6-20); Calcium 8.7 mg/dl (8.6-10.4); Carbon Dioxide 31 mmol/L (22-30); Globulin 2.5 gm/dL (2.2-3.7); Glomerular Filtration Rate 104; Glucose 123 mg/dL (70-105); Lactate Dehydrogenase 198 U/L (94-250); Phosphorous 3.5 mg/dL (2.7-4.5); Triglycerides 62 mg/dl (<150); Uric Acid 3.2 mg/dL (2.5-8.0)
[2019-07-17 10:01] LABS: Chloride 91 mmol/L (96-108)
[2019-07-17] MEDS: IPRATROPIUM/ALBUTEROL 3 ML AMPUL.NEB NEB SCH ×2 (11:37→17:17)
[2019-07-17] MEDS ORDERED: IOPAMIDOL 100 ML BOTTLE IV ONE (12:01)
[2019-07-17] MEDS ORDERED: HEPARIN/D5W 500 ML IV ONE (12:25)
[2019-07-17] MEDS: HEPARIN/D5W 25,000 UNIT in PREMIX 1 BAG IV SCH (12:33)
[2019-07-17] MEDS: ONDANSETRON 4 MG/2 ML VIAL IV PRN (12:48)
[2019-07-17 14:42] LABS: INR 1.1 (0.9-1.1); Prothrombin Time 14.1 sec (11.9-14.5)
--- NOTE | 2019-07-17 14:43 | Cat Scan Report ---
History: New onset hypoxia, following recent prostatectomy, evaluate for pulmonary emboli TECHNIQUE: The chest was imaged dynamically following injection of intravenous nonionic contrast. Sagittal, coronal and axial MIPS images were created. The radiation exposure was limited using dose reduction technology. FINDINGS: The timing of bolus was suboptimal. The contrast had passed through the heart into the distal abdominal aorta at the time of image acquisition. There is some residual contrast in the pulmonary arteries. This reveals the presence of several small peripheral emboli scattered throughout both lungs. There is involvement in all lobes. The central pulmonary arteries are normal and there is no saddle embolus. There is also no evidence of right heart strain. Minor atelectasis is present in the posterior basal segments of both lower lobes. Trace amount pleural fluid is present bilaterally. The heart is normal in size and contour. There is mild plaque formation in the proximal left anterior descending coronary artery. IMPRESSION: Multiple small bilateral pulmonary emboli Dr. Rushing was called with the results Interpreted and Authenticated by: Bernabe Dooley 07/17/19
[2019-07-17 14:52] LABS: Basophils # (Auto) 0 K/mcL (0.0-0.3); Basophils % (Auto) 0 % (0.0-2.0); Hematocrit 26.4 % (41.0-55.0); Hemoglobin 8.8 g/dL (13.5-16.5); Mean Corpuscular HGB Conc 33.4 g/dL (31.0-36.0); Mean Platelet Volume 7.6 fL (7.4-10.4); Platelet Count 333 K/mcL (140-440); RBC 2.66 M/mcL (4.50-5.90)
[2019-07-17] MEDS ORDERED: ACETAMINOPHEN 160 MG/5 ML ORAL.SOL PO PRN (19:47)
[2019-07-17] MEDS: traZODone HCL 100 MG TABLET PO PRN (23:20)
[2019-07-18] MEDS: IPRATROPIUM/ALBUTEROL 3 ML AMPUL.NEB NEB SCH ×4 (00:39→17:47)
[2019-07-18] MEDS: 0.9 % SODIUM CHLORIDE 10 ML SYRINGE IV SCH ×3 (05:07→22:08)
[2019-07-18] MEDS: HEPARIN/D5W 25,000 UNIT in PREMIX 1 BAG IV SCH (06:46)
[2019-07-18] MEDS ORDERED: HEPARIN/D5W 500 ML IV ONE (06:51)
--- NOTE | 2019-07-18 07:47 | General Surgery Progress Note ---
Subjective Patient reports: feels better, shortness of breath Narrative: Note initiated : 07/18/19 at 7:43 am Service Date, if different from initiated Date: [] Patient: Tone Pope 58 y/o M admitted on 07/11/19 for Radical Retropubic Prostatectomy. Chief Complaint: POD #7 Patient is improving. Patient was having desaturation episodes. Dr. Rushing saw patient and diagnosed PE. Currently undergoing heparinization. Wound has decreased output, urine clear. Dr. Rushing is handling PE. I will follow up as outpatient. Pathology was discussed with patient. Objective Temp Pulse Resp BP Pulse Ox 98 F 105 H 14 104/63 96 07/18/19 03:59 07/18/19 03:59 07/18/19 03:59 07/18/19 03:59 07/18/19 03:59 - Additional Data Intake & Output - Last 24 hours: Intake & Output 07/16/19 07/17/19 07/18/19 07/19/19 05:59 05:59 05:59 05:59 Intake Total 8077 938 8468 471 Output Total 2885 2600 1700 Balance -1880 -1850 460 471 Weight 160 lb 3.2 oz 158 lb 8 oz 157 lb 9.6 oz - Labs 07/17/19 13:28 07/17/19 09:04 Diabetes panel 07/17/19 Range/Units 09:04 Sodium 134 (133-145) mmol/L Potassium 3.7 (3.3-5.1) mmol/L Chloride 91 L (96-108) mmol/L Carbon Dioxide 31 H (22-30) mmol/L BUN 13 (6-20) mg/dl Creatinine 0.7 (0.7-1.2) mg/dl Glucose 123 H (70-105) mg/dL Calcium 8.7 (8.6-10.4) mg/dl AST 20 (0-37) U/l ALT 10 (0-40) U/l Alkaline Phosphatase 59 (39-117) U/L Total Protein 6.0 (5.9-8.4) gm/dL Albumin 3.5 (3.2-5.2) gm/dL Triglycerides 62 (<150) mg/dl Calcium panel 07/17/19 Range/Units 09:04 Calcium 8.7 (8.6-10.4) mg/dl Phosphorus 3.5 (2.7-4.5) mg/dL Albumin 3.5 (3.2-5.2) gm/dL Pituitary panel 07/17/19 Range/Units 09:04 Sodium 134 (133-145) mmol/L Potassium 3.7 (3.3-5.1) mmol/L Chloride 91 L (96-108) mmol/L Carbon Dioxide 31 H (22-30) mmol/L BUN 13 (6-20) mg/dl Creatinine 0.7 (0.7-1.2) mg/dl Glucose 123 H (70-105) mg/dL Calcium 8.7 (8.6-10.4) mg/dl Adrenal panel 07/17/19 Range/Units 09:04 Sodium 134 (133-145) mmol/L Potassium 3.7 (3.3-5.1) mmol/L Chloride 91 L (96-108) mmol/L Carbon Dioxide 31 H (22-30) mmol/L BUN 13 (6-20) mg/dl Creatinine 0.7 (0.7-1.2) mg/dl Glucose 123 H (70-105) mg/dL Calcium 8.7 (8.6-10.4) mg/dl Total Bilirubin 0.4 (0.0-1.0) mg/dL AST 20 (0-37) U/l ALT 10 (0-40) U/l Alkaline Phosphatase 59 (39-117) U/L Total Protein 6.0 (5.9-8.4) gm/dL Albumin 3.5 (3.2-5.2) gm/dL Assessment and Plan - Time Spent With Patient Total time spent is greater than 50% in coordination of care (as documented) at patient's floor/unit and/or counseling patient:
--- NOTE | 2019-07-18 08:00 | Internal Med Progress Note ---
Medical - PN: Subj Patient information: Note initiated : 07/18/19 at 7:56 am Service Date, if different from initiated Date: [] Patient: Tone Pope a 58 y/o M admitted on 07/11/19 for Radical Retropubic Prostatectomy. Chief Complaint: [] Interval history: Mr. Pope is a 58 year old M with a history of chronic alcohol abuse, currently smoker and high blood pressure who underwent Radical Retropubic Prostatectomy by Dr. Boyd on 07/11/19. After the procedure, patient went into alcohol with drawal. Hospitalist consult was requested by Dr. Boyd for alcohol withdrawal. I encountered the patient in his room who told me that he drinks beer 4 times a day since he was 14 years old. Last drink was on Monday (3 days ago). Today he has mild nausea and abdominal pain from his procedure. Right now he is on diazepam. Otherwise he denies headache, dizziness, vomiting, chest pain, shortness breath, dysuria, or visual hallucination. 07/13 Patient is fine today. Dr. Boyd decided to allow patient to drink. Hemoglobin 7.6 07/14 Doing better this morning. Weaning down Precedex drip and will likely DC. Has dry cough, denies dyspnea.. Has some lower abdominal pain over procedural site. No other complaints. Mentation much improved. 07/15 Poor sleep last night. Has a dry cough denies shortness of breath but nursing had apparent oxygen last night. No other complaints and mentation significantly improved. 07/16 No overnight events. Started on oxygen yesterday prevention rn and able to wean off. Appears to be from fluid overload given some Lasix yesterday. Has been low in the past in the hospital after surgery. Has a dry cough. And some shortness of breath. Lasix today, I-S and Acapella and ambulation 07/17 Has cough with white sputum. Denies shortness of breath even though he ambulated with respiratory therapy and desatted. Overall he feels breathing is improved. he feels breathing treatment he received helped he was on 1 L but had a bump to 1.5 overnight. 07/18 Patient feeling much better today. States he can breathe easier. Cough decreasing. Feels like the breathing treatments are really helping around as well Review of Systems: denies headache/fever/chills/nausea/vomiting/chest or abdominal pain//diarrhea. Otherwise see above. - Constitutional Vitals: Vital Signs Temp Pulse Resp BP Pulse Ox 98 F 105 H 14 104/63 96 07/18/19 03:59 07/18/19 03:59 07/18/19 03:59 07/18/19 03:59 07/18/19 03:59 Period Temp Pulse Resp BP Sys/Juarez Pulse Ox Last 24 Hr 98 F-101.2 F 73-105 14-18 104-135/63-80 89-96 Intake and Output 07/17/19 07/18/19 07/18/19 21:59 05:59 13:59 Intake Total 1080 471 Output Total 1700 Balance -620 471 Weight 71.486 kg Intake & Output: Intake & Output 07/17/19 07/18/19 07/18/19 21:59 05:59 13:59 Intake Total 1080 471 Output Total 1700 Balance -620 471 Weight 71.486 kg Intake: IV 471 Heparin/D5w 25,000 Unit In 471 Premix 1 Bag @ 18 UNIT/KG/HR 25 .882 mls/hr IV .[id number] [facility] Rx# :[id number] Oral 1080 Output: Urine Catheter Amount 1700 Exam: General: Alert, Awake, No acute Distress Eyes/N/T: EOMI, Head/Neck: neck supple, CV: RRR, No murmurs, Pulm: clearing up, no rhonchi/wheezing Abd: soft, +BS x4 Ext: no clubbing/cyanosis/edema Neuro: alert, no focal deficits Skin: warm/dry Medical - PN: Obj Da - Labs CBC & Chem 7: 07/17/19 13:28 07/17/19 09:04 Labs: Abnormal Lab Results 07/18/19 07/17/19 07/17/19 04:20 20:38 13:28 RBC 2.66 L Hgb 8.8 L Hct 26.4 L RDW 15.0 H APTT 113 H 79 H D-Dimer Chloride Carbon Dioxide Glucose 07/17/19 07/17/19 07/17/19 13:28 09:04 09:04 RBC Hgb Hct RDW APTT 42 H D-Dimer 7.08 H Chloride 91 L Carbon Dioxide 31 H Glucose 123 H Meds: Medications Acetaminophen (Tylenol) 650 mg PO Q4-6HP PRN; Protocol PRN Reason: Per Pain Protocol/Fever > 101 Al Hydrox/Mg Hydrox/Simethicone (Maalox) 30 ml PO Q4HP PRN PRN Reason: Dyspepsia Albuterol/Ipratropium (Duoneb) 3 ml NEB Q4HP PRN PRN Reason: Shortness Of Breath Last Admin: 07/17/19 07:58 Dose: 3 ml Documented by: Albuterol/Ipratropium (Duoneb) 3 ml NEB Q8H [facility] Last Admin: 07/18/19 01:06 Dose: 3 ml Documented by: Cephalexin HCl (Keflex) 500 mg PO BID [facility]; Protocol Last Admin: 07/17/19 21:24 Dose: 500 mg Documented by: Chlordiazepoxide HCl (Librium) 50 mg PO Q4HP PRN PRN Reason: Alcohol Withdrawal Last Admin: 07/15/19 08:09 Dose: 50 mg Documented by: Clonidine HCl (Catapres) 0.1 mg PO BID PRN PRN Reason: sbp>150 Last Admin: 07/15/19 20:30 Dose: 0.1 mg Documented by: Diazepam (Valium) 5 mg IV Q1-2HP PRN PRN Reason: Sedation Docusate Sodium (Colace) 100 mg PO BID [facility] Last Admin: 07/17/19 21:25 Dose: 100 mg Documented by: Fluoxetine HCl (Prozac) 20 mg PO QDAY [facility] Last Admin: 07/17/19 08:51 Dose: 20 mg Documented by: Heparin Sodium/Dextrose 25,000 (unit/ Premix) 500 mls @ 25.882 mls/hr IV .[id number] [facility]; Protocol Last Admin: 07/18/19 06:46 Dose: 22 unit/kg/hr, 31.633 mls/hr Documented by: Labetalol HCl (Trandate) 0 mg IV Q2HP PRN PRN Reason: Hypertension Magnesium Hydroxide (Milk Of Magnesia) 30 ml PO DAILYP PRN PRN Reason: Constipation Magnesium Hydroxide (Milk Of Magnesia) 30 ml PO DAILYP PRN PRN Reason: Constipation Metoprolol Succinate (Toprol Xl) 50 mg PO QDAY [facility] Last Admin: 07/17/19 08:51 Dose: 50 mg Documented by: Morphine Sulfate (Morphine) 0 mg IV Q1HP PRN; Protocol PRN Reason: Per Pain Protocol Last Admin: 07/15/19 13:55 Dose: 6 mg Documented by: Nicotine (Nicoderm) 14 mg TOPICAL DAILY@1000 [facility] Last Admin: 07/17/19 09:32 Dose: 14 mg Documented by: Ondansetron HCl (Zofran) 4 mg IV Q4-6HP PRN PRN Reason: Nausea And Vomiting Last Admin: 07/17/19 12:48 Dose: 4 mg Documented by: Oxycodone/Acetaminophen (Percocet 5-325 Mg) 0 tab PO Q4HP PRN; Protocol PRN Reason: Agitation Last Admin: 07/17/19 23:21 Dose: 2 tab Documented by: Symbicort Budesonide 160mcg/Formoterol Fumarate Dihydrate 4 .5mcg 2 dose INH BID [facility] Last Admin: 07/17/19 21:35 Dose: Not Given Documented by: Polyethylene Glycol (Miralax) 17 gm PO DAILYP PRN PRN Reason: Constipation Senna (Senokot) 1 tab PO DAILY PRN PRN Reason: Constipation Sodium Chloride (Saline Flush) 10 ml IV Q8 [facility] Last Admin: 07/18/19 05:07 Dose: Not Given Documented by: Trazodone HCl (Desyrel) 100 mg PO HSP PRN PRN Reason: anxiety Last Admin: 07/17/19 23:20 Dose: 100 mg Documented by: Triamcinolone Acetonide (Kenalog Cream 0.1%) 1 dose TOPICAL TID [facility] Last Admin: 07/17/19 21:33 Dose: Not Given Documented by: Medical - PN: A/P - Time Spent With Patient Total time spent is greater than 50% in coordination of care (as documented) at patient's floor/unit and/or counseling patient: - Narrative A/P Narrative: Assessment: *Chronic alcohol abuse w/Alcoholic Withdrawal & Delirium Tremens: resolved *Recent Dx Prostate CA s/p Radical Retropubic Prostatectomy by Dr. Boyd on 07/11/19 *PE, small multiple b/l: in setting of underlying CA and recent surgery *HTN: home Toprol *Anemia of blood loss: stable *Hyponatremia (with h/o same): resolved *COPD: has not required home O2, unknown what baseline O2 sat is -likely some component of exacerbation Plan: -heparin gtt transition to lovenox tonight or tomorrow morning, likely d/c with lovenox given underlying malignancy -CIWA. Continue folic acid, thiamine and multivitamin -wean off O2, may need home O2, but hoping to send home without -IS/Acapella, cont nebs -replete electrolytes -cont home Toprol and IH's -ambulate tid -f/u with Dr. Boyd and Oncology -ppx: SCD/teds/ambulate CODE STATUS: Full Medical - PN: Qual - VTE Deep Vein Thrombosis/Pulmonary Embolism Present on Admission: No
[2019-07-18] MEDS: METOPROLOL SUCCINATE 50 MG TAB.XL.24H PO SCH (08:13)
[2019-07-18] MEDS: DOCUSATE SODIUM 100 MG CAPSULE PO SCH ×2 (08:13→20:08)
[2019-07-18] MEDS: CEPHALEXIN 500 MG CAPSULE PO SCH ×2 (08:13→20:09)
[2019-07-18] MEDS: FLUoxetine HCL 20 MG CAPSULE PO SCH (08:13)
[2019-07-18] MEDS: TRIAMCINOLONE CREAM 0.1% 15G 1 DOSE TUBE TOPICAL SCH ×3 (08:48→22:08)
[2019-07-18] MEDS: [UNRECOGNIZED DRUG - MIXTURE] INH SCH ×2 (08:48→22:08)
[2019-07-18] MEDS: NICOTINE 14 MG PATCH TOPICAL SCH (09:23)
[2019-07-18] MEDS: oxyCODONE/APAP 5/325MG TABLET PO PRN ×3 (09:23→20:08)
--- NOTE | 2019-07-18 11:12 | Discharge Summary ---
Medical - DS: Prov Patient information: Note initiated : 07/18/19 at 11:10 am Service Date, if different from initiated Date: [] Patient: Tone Pope 58 y/o M admitted on 07/11/19 for Radical Retropubic Prostatectomy. Chief Complaint: [] Date of admission: 07/11/19 04:54 Discharge date: 07/19/19 Primary care physician: Kai Malone Consults: 07/12/19 07:52 Consult to Physician [CONS] Routine Comment: Consulting Provider: Paras Bai Reason For Exam: Physician to Consult Medical - DS: Meds - Discharge Medications Prescriptions: Albuterol Sulfate [Albuterol Sulfate Hfa] 8.5 gm IH Q6H PRN #1 [id number] PRN Reason: Dyspnea Transmission Status: Pending to [address] Docusate Sodium [Colace] 100 mg PO BID 30 Days cap Prescription Printed Cephalexin [Keflex] 500 mg PO BID 14 Days cap Prescription Printed Enoxaparin [Lovenox] 60 mg SQ HS #15 syringe Transmission Status: Pending to [address] Enoxaparin [Lovenox] 80 mg SQ DAILY #15 syringe Transmission Status: Pending to [address] predniSONE [Prednisone] 20 mg PO [facility] #1 tab Transmission Status: Pending to [address] Budesonide/Formoterol Fumarate [Symbicort 160-4.5 Mcg Inhaler] 10.2 gm IH BID #1 Prescription Printed Active and Home Medications: Home Medications triamcinolone acetonide 0.1 % topical cream 1 applic TOPICAL TID #454 g 10/30/17 [Rx Confirmed 07/11/19 Last Taken 06/11/19 12:00] ondansetron 8 mg disintegrating tablet 8 mg PO Q12H PRN #30 tab 07/12/18 [Rx Confirmed 07/11/19 Last Taken 06/11/19 12:00] fluoxetine 20 mg capsule 20 mg PO QDAY #90 cap 03/05/19 [Rx Confirmed 07/11/19 Last Taken 07/11/19 04:45] metoprolol succinate 50 mg tablet,extended release 24 hr 50 mg PO QDAY #90 tab 03/05/19 [Rx Confirmed 07/11/19 Last Taken 07/11/19 04:45] sildenafil 100 mg tablet 100 mg PO QDAY #30 tab 03/05/19 [Rx Confirmed 07/11/19 Last Taken 06/11/19 12:00] trazodone 100 mg tablet 100 mg PO QHS PRN #90 tab 06/24/19 [Rx Confirmed 07/11/19 Last Taken 07/09/19 23:00] Cephalexin [Keflex] 500 mg PO BID 14 Days cap 07/16/19 [Rx Last Taken Unknown] Docusate Sodium [Colace] 100 mg PO BID 30 Days cap 07/16/19 [Rx Last Taken Unknown] oxycodone-acetaminophen 5 mg-325 mg tablet 1 tab PO Q4HP PRN #45 tab 07/16/19 [Rx Last Taken Unknown] Budesonide/Formoterol Fumarate [Symbicort 160-4.5 Mcg Inhaler] 10.2 gm IH BID #1 07/17/19 [Rx Last Taken Unknown] Medical - DS: Hosp Hospital Course: Assessment: *Chronic alcohol abuse w/Alcoholic Withdrawal & Delirium Tremens: *Recent Dx Prostate CA s/p Radical Retropubic Prostatectomy by Dr. Boyd on 07/11/19 *PE, small multiple b/l: in setting of underlying CA and recent surgery *HTN: home Toprol *Anemia of blood loss: stable *Hyponatremia (with h/o same): resolved *COPD: has not required home O2, unknown what baseline O2 sat is -likely some component of exacerbation Mr. Pope is a 58 year old M with a history of chronic alcohol abuse, currently smoker and high blood pressure who underwent Radical Retropubic Prostatectomy by Dr. Boyd on 07/11/19. After the procedure, patient went into alcohol withdrawal. Hospitalist consult was requested by Dr. Boyd for alcohol withdrawal. I encountered the patient in his room who told me that he drinks beer 4 times a day since he was 14 years old. Last drink was on Monday (3 days ago). Today he has mild nausea and abdominal pain from his procedure. Right now he is on diazepam. Otherwise he denies headache, dizziness, vomiting, chest pain, shortness breath, dysuria, or visual hallucination. 07/13 Patient is fine today. Dr. Boyd decided to allow patient to drink. Hemoglobin 7.6 07/14 Doing better this morning. Weaning down Precedex drip and will likely DC. Has dry cough, denies dyspnea.. Has some lower abdominal pain over procedural site. No other complaints. Mentation much improved. 07/15 Poor sleep last night. Has a dry cough denies shortness of breath but nursing had apparent oxygen last night. No other complaints and mentation significantly improved. 07/16 No overnight events. 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 Appears to be from fluid overload given some Lasix yesterday. Has been low in the past in the hospital after surgery. Has a dry cough. And some shortness of breath. Lasix today, I-S and Acapella and ambulation 07/17 Has cough with white sputum. Denies shortness of breath even though he ambulated with respiratory therapy and desatted. Overall he feels breathing is improved. he feels breathing treatment he received helped he was on 1 L but had a bump to 1.5 overnight. 07/18 Patient feeling much better today. States he can breathe easier. Cough decreasing. Feels like the breathing treatments are really helping around as well 07/19 Patient feels his shortness of breath is improving again today. Has continued cough. Energy much better overall feeling better. To qualify for home O2. Assessment: *Chronic alcohol abuse w/Alcoholic Withdrawal & Delirium Tremens: resolved *Recent Dx Prostate CA s/p Radical Retropubic Prostatectomy by Dr. Boyd on 07/11/19 *PE, small multiple b/l: in setting of underlying CA and recent surgery *HTN: home Toprol *Anemia of blood loss: stable *Hyponatremia (with h/o same): resolved *COPD: has not required home O2, unknown what baseline O2 sat is -likely some component of exacerbation Discharge diagnosis: Alcohol withdrawal prostatectomy for prostate cancer pulmonary embolism Secondary discharge diagnosis: Hypertension anemia hyponatremia COPD - Time Spent with Patient Total time spent providing and/or coordinating discharge services: Greater than 30 minutes Medical - DS: Exam - Constitutional Vitals: Vital Signs Temp Pulse Pulse Resp BP Pulse Ox 07/18/19 08:57 90 18 07/18/19 08:56 95 07/18/19 08:55 89 18 95 07/18/19 08:00 98.5 F 79 18 109/65 95 07/18/19 03:59 98 F 105 H 14 104/63 96 07/17/19 23:34 98.7 F 73 18 115/70 92 07/17/19 20:00 98 F 75 16 114/67 93 07/17/19 17:19 85 18 07/17/19 15:48 101.2 F H 88 18 120/72 91 07/17/19 12:00 99.7 F H 89 18 135/80 91 Intake and Output 07/17/19 07/18/19 07/18/19 21:59 05:59 13:59 Intake Total 1080 471 Output Total 1700 Balance -620 471 Intake: IV 471 Heparin/D5w 25,000 Unit In 471 Premix 1 Bag @ 18 UNIT/KG/HR 25 .882 mls/hr IV .[id number] [facility] Rx# :[id number] Oral 1080 Output: Urine Catheter Amount 1700 Other: Weight 71.486 kg Medical - DS: Data Labs on day of discharge: Labs from last 24 hours 07/18/19 07/17/19 07/17/19 04:20 20:38 17:45 WBC RBC Hgb Hct MCV MCH MCHC RDW Plt Count MPV Gran % Lymph % (Auto) Garza % (Auto) Eos % (Auto) Baso % (Auto) Baso # (Auto) PT INR APTT 113 H 79 H Procalcitonin < 0.10 07/17/19 07/17/19 13:28 13:28 WBC 8.0 RBC 2.66 L Hgb 8.8 L Hct 26.4 L MCV 99.0 MCH 33.0 MCHC 33.4 RDW 15.0 H Plt Count 333 MPV 7.6 Gran % 64.0 Lymph % (Auto) 20.0 Garza % (Auto) 12.0 Eos % (Auto) 4.0 Baso % (Auto) 0 Baso # (Auto) 0 PT 14.1 INR 1.1 APTT 42 H Procalcitonin Medical - DS: A/P - Patient/Caregiver Discharge Instructions Activity: increase activity as tolerated Diet: Regular Diet Additional Instructions: No heavy lifting greater 10 lbs. Kegel Exercises. Change dressing as needed. Follow up on Jul 22. Call the office on July 18 to get the time for this appointment. Referral to see oncology for prostate cancer and pulmonary embolism treatment 7 to 14 days Prescriptions: Docusate Sodium [Colace] 100 mg PO BID 30 Days cap Prescription Printed Cephalexin [Keflex] 500 mg PO BID 14 Days cap Prescription Printed Enoxaparin [Lovenox] 70 mg SQ DAILY #1 syringe Budesonide/Formoterol Fumarate [Symbicort 160-4.5 Mcg Inhaler] 10.2 gm IH BID #1 Prescription Printed - Follow up Plan Follow up with: Chuy Boyd MD [Physician] - 07/30/19 1:45 pm Disposition: Home Health Service Care Plan Goals: This discharge packet is provided to you to help keep you informed about your care. We want to ensure you get everything you need when you go home. You will also be receiving a call from us in a few days to follow up with you and see how you are doing since your discharge. This gives us a chance to listen to any concerns you maybe experiencing since you were discharged or any additional needs you may have, as well as providing us feedback on your care experience. We strive to always provide excellent care and thank you for your feedback and for choosing [facility]. Prognosis: Fair Rehab Potential: Fair Overall status at discharge: patient is progressing back to baseline Medical - DS: Qual - VTE Deep Vein Thrombosis/Pulmonary Embolism Present on Admission: No
[2019-07-18] MEDS: traZODone HCL 100 MG TABLET PO PRN (21:21)
[2019-07-19] MEDS: IPRATROPIUM/ALBUTEROL 3 ML AMPUL.NEB NEB SCH ×2 (00:59→09:39)
[2019-07-19] MEDS: HEPARIN/D5W 25,000 UNIT in PREMIX 1 BAG IV SCH (03:33)
[2019-07-19] MEDS: 0.9 % SODIUM CHLORIDE 10 ML SYRINGE IV SCH ×2 (04:56→14:14)
[2019-07-19] MEDS ORDERED: HEPARIN/D5W 500 ML IV ONE (05:54)
--- NOTE | 2019-07-19 07:57 | Internal Med Progress Note ---
Medical - PN: Subj Patient information: Note initiated : 07/19/19 at 7:52 am Service Date, if different from initiated Date: [] Patient: Tone Pope a 58 y/o M admitted on 07/11/19 for Radical Retropubic Prostatectomy. Chief Complaint: [] Interval history: Mr. Pope is a 58 year old M with a history of chronic alcohol abuse, currently smoker and high blood pressure who underwent Radical Retropubic Prostatectomy by Dr. Boyd on 07/11/19. After the procedure, patient went into alcohol with drawal. Hospitalist consult was requested by Dr. Boyd for alcohol withdrawal. I encountered the patient in his room who told me that he drinks beer 4 times a day since he was 14 years old. Last drink was on Monday (3 days ago). Today he has mild nausea and abdominal pain from his procedure. Right now he is on diazepam. Otherwise he denies headache, dizziness, vomiting, chest pain, shortness breath, dysuria, or visual hallucination. 07/13 Patient is fine today. Dr. Boyd decided to allow patient to drink. Hemoglobin 7.6 07/14 Doing better this morning. Weaning down Precedex drip and will likely DC. Has dry cough, denies dyspnea.. Has some lower abdominal pain over procedural site. No other complaints. Mentation much improved. 07/15 Poor sleep last night. Has a dry cough denies shortness of breath but nursing had apparent oxygen last night. No other complaints and mentation significantly improved. 07/16 No overnight events. 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 Appears to be from fluid overload given some Lasix yesterday. Has been low in the past in the hospital after surgery. Has a dry cough. And some shortness of breath. Lasix today, I-S and Acapella and ambulation 07/17 Has cough with white sputum. Denies shortness of breath even though he ambulated with respiratory therapy and desatted. Overall he feels breathing is improved. he feels breathing treatment he received helped he was on 1 L but had a bump to 1.5 overnight. 07/18 Patient feeling much better today. States he can breathe easier. Cough decreasing. Feels like the breathing treatments are really helping around as well Patient feels his shortness of breath is improving again today. Has continued cough. Energy much better overall feeling better. Review of Systems: denies headache/fever/chills/nausea/vomiting/chest or abdominal pain//diarrhea. Otherwise see above. - Constitutional Vitals: Vital Signs Temp Pulse Resp BP Pulse Ox 97.8 F 87 18 131/74 91 07/19/19 03:31 07/19/19 03:31 07/19/19 03:31 07/19/19 03:31 07/19/19 03:31 Period Temp Pulse Resp BP Sys/Juarez Pulse Ox Last 24 Hr 97.8 F-98.9 F 73-90 16-18 109-133/58-79 90-97 Intake and Output 07/18/19 07/19/19 07/19/19 21:59 05:59 13:59 Intake Total 800 Output Total 400 2100 Balance 400 -2100 Weight 70.851 kg Intake & Output: Intake & Output 07/18/19 07/19/19 07/19/19 21:59 05:59 13:59 Intake Total 800 Output Total 400 2100 Balance 400 -2100 Weight 70.851 kg Intake: Oral 800 Output: Urine Catheter Amount 400 2100 Other: Meal Lunch Percent of Meal Consumed 75% Urine Appearance Clear Clear Urine Color Dark Yellow Bright Yellow Urine Odor Normal Exam: General: Alert, Awake, No acute Distress Eyes/N/T: EOMI, Head/Neck: neck supple, CV: RRR, No murmurs, Pulm: minimal b/l wheeze, no rhonchi Abd: soft, +BS x4 Ext: no clubbing/cyanosis/edema Neuro: alert, no focal deficits Skin: warm/dry Medical - PN: Obj Da - Labs CBC & Chem 7: 07/17/19 13:28 07/17/19 09:04 Labs: Abnormal Lab Results 07/19/19 07/18/19 07/17/19 04:15 04:20 20:38 RBC Hgb Hct RDW APTT 66 H 113 H 79 H D-Dimer Chloride Carbon Dioxide Glucose 07/17/19 07/17/19 07/17/19 13:28 13:28 09:04 RBC 2.66 L Hgb 8.8 L Hct 26.4 L RDW 15.0 H APTT 42 H D-Dimer Chloride 91 L Carbon Dioxide 31 H Glucose 123 H 07/17/19 09:04 RBC Hgb Hct RDW APTT D-Dimer 7.08 H Chloride Carbon Dioxide Glucose Meds: Medications Acetaminophen (Tylenol) 650 mg PO Q4-6HP PRN; Protocol PRN Reason: Per Pain Protocol/Fever > 101 Al Hydrox/Mg Hydrox/Simethicone (Maalox) 30 ml PO Q4HP PRN PRN Reason: Dyspepsia Albuterol/Ipratropium (Duoneb) 3 ml NEB Q4HP PRN PRN Reason: Shortness Of Breath Last Admin: 07/17/19 07:58 Dose: 3 ml Documented by: Albuterol/Ipratropium (Duoneb) 3 ml NEB Q8H [facility] Last Admin: 07/19/19 00:59 Dose: 3 ml Documented by: Cephalexin HCl (Keflex) 500 mg PO BID [facility]; Protocol Last Admin: 07/18/19 20:09 Dose: 500 mg Documented by: Chlordiazepoxide HCl (Librium) 50 mg PO Q4HP PRN PRN Reason: Alcohol Withdrawal Last Admin: 07/15/19 08:09 Dose: 50 mg Documented by: Clonidine HCl (Catapres) 0.1 mg PO BID PRN PRN Reason: sbp>150 Last Admin: 07/15/19 20:30 Dose: 0.1 mg Documented by: Diazepam (Valium) 5 mg IV Q1-2HP PRN PRN Reason: Sedation Docusate Sodium (Colace) 100 mg PO BID [facility] Last Admin: 07/18/19 20:08 Dose: 100 mg Documented by: Fluoxetine HCl (Prozac) 20 mg PO QDAY [facility] Last Admin: 07/18/19 08:13 Dose: 20 mg Documented by: Heparin Sodium/Dextrose 25,000 (unit/ Premix) 500 mls @ 25.882 mls/hr IV .[id number] [facility]; Protocol Last Admin: 07/19/19 03:33 Dose: Not Given Documented by: Labetalol HCl (Trandate) 0 mg IV Q2HP PRN PRN Reason: Hypertension Magnesium Hydroxide (Milk Of Magnesia) 30 ml PO DAILYP PRN PRN Reason: Constipation Magnesium Hydroxide (Milk Of Magnesia) 30 ml PO DAILYP PRN PRN Reason: Constipation Metoprolol Succinate (Toprol Xl) 50 mg PO QDAY [facility] Last Admin: 07/18/19 08:13 Dose: 50 mg Documented by: Morphine Sulfate (Morphine) 0 mg IV Q1HP PRN; Protocol PRN Reason: Per Pain Protocol Last Admin: 07/18/19 21:21 Dose: 4 mg Documented by: Nicotine (Nicoderm) 14 mg TOPICAL DAILY@1000 [facility] Last Admin: 07/18/19 09:23 Dose: 14 mg Documented by: Ondansetron HCl (Zofran) 4 mg IV Q4-6HP PRN PRN Reason: Nausea And Vomiting Last Admin: 07/17/19 12:48 Dose: 4 mg Documented by: Oxycodone/Acetaminophen (Percocet 5-325 Mg) 0 tab PO Q4HP PRN; Protocol PRN Reason: Agitation Last Admin: 07/18/19 20:08 Dose: 2 tab Documented by: Symbicort Budesonide 160mcg/Formoterol Fumarate Dihydrate 4 .5mcg 2 dose INH BID [facility] Last Admin: 07/18/19 22:08 Dose: Not Given Documented by: Polyethylene Glycol (Miralax) 17 gm PO DAILYP PRN PRN Reason: Constipation Senna (Senokot) 1 tab PO DAILY PRN PRN Reason: Constipation Sodium Chloride (Saline Flush) 10 ml IV Q8 [facility] Last Admin: 07/19/19 04:56 Dose: Not Given Documented by: Trazodone HCl (Desyrel) 100 mg PO HSP PRN PRN Reason: anxiety Last Admin: 07/18/19 21:21 Dose: 100 mg Documented by: Triamcinolone Acetonide (Kenalog Cream 0.1%) 1 dose TOPICAL TID [facility] Last Admin: 07/18/19 22:08 Dose: Not Given Documented by: Medical - PN: A/P - Time Spent With Patient Total time spent is greater than 50% in coordination of care (as documented) at patient's floor/unit and/or counseling patient: - Narrative A/P Narrative: Assessment: *Chronic alcohol abuse w/Alcoholic Withdrawal & Delirium Tremens: resolved *Recent Dx Prostate CA s/p Radical Retropubic Prostatectomy by Dr. Boyd on 07/11/19 *PE, small multiple b/l: in setting of underlying CA and recent surgery *HTN: home Toprol *Anemia of blood loss: stable *Hyponatremia (with h/o same): resolved *COPD: has not required home O2, unknown what baseline O2 sat is -likely some component of exacerbation Plan: -heparin gtt to lovenox & d/c with lovenox given underlying malignancy -CIWA. Continue folic acid, thiamine and multivitamin -wean off O2, may need home O2, -IS/Acapella, cont nebs -cont home Toprol and IH's -ambulate tid -home O2 eval -f/u with Dr. Boyd and Oncology -ppx: SCD/teds/ambulate CODE STATUS: Full Medical - PN: Qual - VTE Deep Vein Thrombosis/Pulmonary Embolism Present on Admission: No
[2019-07-19] MEDS ORDERED: predniSONE 20 MG TABLET PO SCH (08:27)
[2019-07-19] MEDS ORDERED: ENOXAPARIN 80 MG/0.8 ML SYRINGE SQ SCH (09:00)
[2019-07-19] MEDS: oxyCODONE/APAP 5/325MG TABLET PO PRN ×3 (09:09→15:29)
[2019-07-19] MEDS: CEPHALEXIN 500 MG CAPSULE PO SCH (09:21)
[2019-07-19] MEDS: DOCUSATE SODIUM 100 MG CAPSULE PO SCH (09:21)
[2019-07-19] MEDS: METOPROLOL SUCCINATE 50 MG TAB.XL.24H PO SCH (09:22)
[2019-07-19] MEDS: FLUoxetine HCL 20 MG CAPSULE PO SCH (09:22)
[2019-07-19] MEDS: TRIAMCINOLONE CREAM 0.1% 15G 1 DOSE TUBE TOPICAL SCH ×2 (09:22→15:05)
[2019-07-19] MEDS: [UNRECOGNIZED DRUG - MIXTURE] INH SCH (10:38)
[2019-07-19] MEDS: NICOTINE 14 MG PATCH TOPICAL SCH (12:05)
[2019-07-19] MEDS ORDERED: ENOXAPARIN 60 MG/0.6 ML SYRINGE SQ SCH (21:00)
== END 2019-07-19 16:10 | disposition home health service (06) | DRG 707 ==
LOC: MEDSUR 04:54 → EDSTATUS 08:30 → ICU 10:57 → MEDSUR 07-15 13:23

== ENCOUNTER 2020-01-29 05:56 | Inpatient (IN) ==
--- NOTE | 2020-01-22 17:14 | XRay Report ---
HISTORY: Preop for hernia repair, smoker FINDINGS: Lungs are hyperinflated due to emphysema. There is no evidence of pneumonia, mass or congestive heart failure. There is relatively little pulmonary fibrosis. Heart is small. The mediastinum, meliza and pleura are normal. IMPRESSION: Emphysema and no significant change since 10/04/19 Interpreted and Authenticated by: Bernabe Dooley 01/22/20
[2020-01-22 20:34] LABS: Basophils # (Auto) 0.05 K/mcL (0.00-0.30); Basophils % (Auto) 0.9 % (0.0-2.0); Eosinophils # (Auto) 0.23 K/mcL (0.00-0.70); Granulocytes % (Auto) 41.9 % (38.0-78.0); Hematocrit 39.4 % (40.1-51.0); Hemoglobin 13.3 g/dL (13.7-17.5); Lymphocytes # (Auto) 2.21 K/mcL (1.50-4.80); Lymphocytes % (Auto) 38.2 % (15.5-49.0); Mean Cell Volume 95.6 fL (80.0-100.0); Mean Corpuscular HGB Conc 33.8 g/dL (31.0-36.0); Mean Platelet Volume 10.2 fL (7.4-10.4); Monocytes # (Auto) 0.87 K/mcL (0.10-0.90); Platelet Count 265 K/mcL (140-440); RBC 4.12 M/mcL (4.63-6.08); WBC 5.8 K/mcL (4.50-11.00)
[2020-01-22 21:07] LABS: INR 1.1 (0.9-1.1); Prothrombin Time 14.2 sec (11.9-14.5)
[2020-01-22 22:20] LABS: ALT/SGPT 23 U/l (0-40); AST/SGOT 58 U/l (0-37); Albumin 4.2 gm/dL (3.2-5.2); Albumin/Globulin Ratio 1.4 (1.0-2.3); Alkaline Phosphatase 66 U/L (39-117); Bilirubin,Total 0.5 mg/dL (0.0-1.0); Blood Urea Nitrogen 8 mg/dl (6-20); Calcium 9.3 mg/dl (8.6-10.4); Carbon Dioxide 23 mmol/L (22-30); Globulin 3.1 gm/dL (2.2-3.7); Glomerular Filtration Rate 98; Glucose 92 mg/dL (70-105)
[2020-01-22 22:30] LABS: Chloride 95 mmol/L (96-108)
[2020-01-29] MEDS ORDERED: VANCOMYCIN 1,000 MG in 0.9 % SODIUM CHLORIDE 250 ML IV SCH (06:00)
[2020-01-29] MEDS ORDERED: CEFEPIME 2 GM VIAL IV SCH ×2 (06:00→11:32)
[2020-01-29] MEDS ORDERED: fentaNYL 100 MCG/2 ML VIAL IV ONE (07:49)
[2020-01-29] MEDS ORDERED: SUCCINYLCHOLINE 20 MG/ML ML IV ONE (07:49)
[2020-01-29] MEDS ORDERED: GLYCOPYRROLATE 0.2 MG/ML VIAL IV ONE (07:49)
[2020-01-29] MEDS ORDERED: DEXAMETHASONE 10 MG/ML VIAL ONE (07:49)
[2020-01-29] MEDS ORDERED: PROPOFOL 200 MG/20 ML VIAL IV ONE (07:49)
[2020-01-29] MEDS ORDERED: SUGAMMADEX SODIUM 200 MG/2 ML VIAL IV ONE (07:49)
[2020-01-29] MEDS ORDERED: KETAMINE HCL 50 MG/ML ML ONE (07:49)
[2020-01-29] MEDS ORDERED: hydrALAZINE 20 MG/ML VIAL ONE (07:49)
[2020-01-29] MEDS ORDERED: ROCURONIUM 10 MG/ML ML IV ONE (07:49)
[2020-01-29] MEDS ORDERED: HYDROmorphone 1 MG/ML SYRINGE ONE (07:49)
[2020-01-29] MEDS ORDERED: LIDOCAINE HCL/PF 100 MG/5 ML SYRINGE IV ONE (07:49)
[2020-01-29] MEDS ORDERED: MIDAZOLAM 2 MG/2 ML VIAL ONE (07:49)
[2020-01-29] MEDS ORDERED: SCOPOLAMINE 1 PATCH PATCH TOPICAL PRN (08:00)
[2020-01-29] MEDS ORDERED: IPRATROPIUM/ALBUTEROL 3 ML AMPUL.NEB NEB PRN ×3 (08:00→11:32)
[2020-01-29] MEDS ORDERED: BACITRACIN 50,000 UNIT VIAL IR ONE (08:57)
[2020-01-29] MEDS ORDERED: 0.9 % SODIUM CHLORIDE 1,000 ML BAG IV SCH (10:00)
[2020-01-29] MEDS ORDERED: HYDROmorphone 1 MG/ML SYRINGE IV PRN (10:03)
--- NOTE | 2020-01-29 10:11 | Brief Operative Note ---
Brief Operative Note Date of procedure: 01/29/20 Pre-op diagnosis: INCISIONAL HERNIA Post-op diagnosis: other (INCISIONAL HERNIA) Procedure: INCISIONAL HERNIA REPAIR WITH MESH Grafts/Implants: Yes (SURGIMESH) Anesthesia: GETA Complications: none Surgeon: Jessee Og Estimated blood loss (cc): 25 Specimens Removed/Pathology: none sent Condition: stable Disposition: PACU
--- NOTE | 2020-01-29 10:12 | Brief Operative Note ---
Brief Operative Note Date of procedure: 01/29/20 Surgeon: Jessee Og
[2020-01-29] MEDS ORDERED: MEPERIDINE 25 MG/ML SYRINGE IV PRN (10:14)
[2020-01-29] MEDS ORDERED: ePHEDrine 50 MG/ML AMPUL IV PRN (10:14)
[2020-01-29] MEDS ORDERED: ATROPINE SULFATE 0.4 MG/ML VIAL IV PRN (10:14)
[2020-01-29] MEDS ORDERED: ONDANSETRON 4 MG/2 ML VIAL IV PRN (10:14)
[2020-01-29] MEDS ORDERED: diphenhydrAMINE 50 MG/ML VIAL IV PRN (10:14)
[2020-01-29] MEDS ORDERED: NALOXONE HCL 0.4 MG/ML VIAL IV PRN (10:14)
[2020-01-29] MEDS ORDERED: METHOCARBAMOL 1,000 MG/10 ML VIAL IV PRN (10:14)
[2020-01-29] MEDS ORDERED: METOPROLOL TARTRATE 5 MG/5 ML VIAL IV PRN (10:14)
[2020-01-29] MEDS ORDERED: ACETAMINOPHEN 1,000 MG/100 ML BOTTLE IV ONE (10:14)
[2020-01-29] MEDS ORDERED: PROMETHAZINE 25 MG/ML VIAL IV PRN (10:14)
[2020-01-29] MEDS ORDERED: fentaNYL 100 MCG/2 ML VIAL IV PRN (10:14)
[2020-01-29] MEDS ORDERED: 0.9 % SODIUM CHLORIDE 1,000 ML IV SCH (10:15)
[2020-01-29] MEDS ORDERED: ALBUTEROL SULFATE 200 PUFF INHALER IH PRN (11:32)
[2020-01-29] MEDS: HYDROmorphone 1 MG/ML SYRINGE IV PRN ×3 (13:38→23:54)
[2020-01-29] MEDS ORDERED: PROMETHAZINE 25 MG/ML VIAL IV ONE (14:00)
[2020-01-29] MEDS: 0.9 % SODIUM CHLORIDE 1,000 ML IV SCH ×2 (15:09→23:54)
[2020-01-29] MEDS: CEFEPIME 2 GM VIAL IV SCH ×2 (15:09→21:32)
[2020-01-29] MEDS: NICOTINE 21 MG PATCH TOPICAL SCH (15:10)
[2020-01-29] MEDS: PROMETHAZINE 25 MG/ML VIAL IV PRN (18:39)
[2020-01-29] MEDS: VANCOMYCIN 1,000 MG in 0.9 % SODIUM CHLORIDE 250 ML IV SCH (21:32)
[2020-01-29] MEDS ORDERED: ONDANSETRON 4 MG/2 ML VIAL ONE (21:56)
[2020-01-30] MEDS: traZODone HCL 100 MG TABLET PO PRN (01:02)
[2020-01-30] MEDS: HYDROmorphone 1 MG/ML SYRINGE IV PRN ×5 (03:54→21:53)
[2020-01-30] MEDS: 0.9 % SODIUM CHLORIDE 1,000 ML IV SCH ×5 (05:28→21:39)
[2020-01-30] MEDS: CEFEPIME 2 GM VIAL IV SCH ×3 (05:28→21:38)
[2020-01-30 06:25] LABS: Mean Cell Volume 94.7 fL (80.0-100.0); Mean Corpuscular HGB Conc 34.4 g/dL (31.0-36.0); Mean Platelet Volume 10.1 fL (7.4-10.4); Platelet Count 207 K/mcL (140-440); RBC 3.38 M/mcL (4.63-6.08); Red Cell Distribution Width 15.7 % (11.5-14.5); WBC 9.3 K/mcL (4.50-11.00)
[2020-01-30 06:42] LABS: ALT/SGPT 14 U/l (0-40); AST/SGOT 23 U/l (0-37); Albumin 3.5 gm/dL (3.2-5.2); Albumin/Globulin Ratio 1.5 (1.0-2.3); Alkaline Phosphatase 45 U/L (39-117); Bilirubin,Direct 0.2 mg/dL (0.0-0.3); Bilirubin,Total 0.7 mg/dL (0.0-1.0); Blood Urea Nitrogen 10 mg/dl (6-20); Calcium 7.6 mg/dl (8.6-10.4); Carbon Dioxide 23 mmol/L (22-30); Globulin 2.4 gm/dL (2.2-3.7); Glomerular Filtration Rate 98; Glucose 106 mg/dL (70-105); Lactate Dehydrogenase 139 U/L (94-250); Phosphorous 3.5 mg/dL (2.7-4.5); Triglycerides 42 mg/dl (<150); Uric Acid 3.7 mg/dL (2.5-8.0)
[2020-01-30 06:43] LABS: Chloride 92 mmol/L (96-108)
[2020-01-30] MEDS: ONDANSETRON 4 MG/2 ML VIAL IV PRN ×4 (07:52→21:53)
[2020-01-30 08:09] LABS: Band Neutrophils % 3 % (0-10); Lymphocytes % 12 % (15-49); Platelet Estimate NORMAL (NORMAL); RBC Morphology NORMAL (NORMAL); Reactive Lymphocytes 13 % (0-2); Segmented Neutrophils % 72 % (38-78)
[2020-01-30] MEDS: VANCOMYCIN 1,000 MG in 0.9 % SODIUM CHLORIDE 250 ML IV SCH ×2 (09:21→21:38)
[2020-01-30] MEDS: METOPROLOL SUCCINATE 50 MG TAB.XL.24H PO SCH (09:21)
[2020-01-30] MEDS: FLUoxetine HCL 20 MG CAPSULE PO SCH (09:21)
[2020-01-30] MEDS: NICOTINE 21 MG PATCH TOPICAL SCH (09:21)
--- NOTE | 2020-01-30 14:05 | General Surgery Progress Note ---
SUBJECTIVE Subjective Patient information: Note initiated : 01/30/20 at 2:00 pm Service Date, if different from initiated Date: [] Patient: Tone Pope 59 y/o M admitted on 01/29/20 for Incisional Hernia Repair. Chief Complaint: [] Interval history: Narrative:patient is clinically stable. He has been up and ambulating. He still has significant coarse rhonchi and wheezes with productive cough. His pain is fairly well controlled. White blood count 9.3, hemoglobin 11, hematocrit 32, sodium 127, potassium 4, magnesium 1.3 Constitutional Vitals: Vital Signs Temp Pulse Resp BP Pulse Ox 98.5 F 65 18 139/73 96 01/30/20 12:00 01/30/20 12:00 01/30/20 12:00 01/30/20 12:00 01/30/20 12:00 Period Temp Pulse Resp BP Sys/Juarez Pulse Ox Last 24 Hr 97.9 F-99.6 F 58-71 16-18 125-154/71-91 92-99 Intake and Output 01/30/20 01/30/20 01/30/20 05:59 13:59 21:59 Intake Total 1800 1250 Output Total 340 1325 Balance 1460 -75 Weight 156 lb Patient Weight 01/31/20 05:59 Weight 156 lb Intake & Output: Intake & Output 01/30/20 01/30/20 01/30/20 05:59 13:59 21:59 Intake Total 1800 1250 Output Total 340 1325 Balance 1460 -75 Weight 156 lb Intake: IV 1600 1250 Sodium Chloride 0.9% 1,000 ml @ 1000 1000 125 mls/hr IV .Q8H [facility] Rx#: [id number] Vancomycin 1,000 mg In Sodium 500 250 Chloride 0.9% 250 ml @ 250 mls/ hr IV Q12H [facility] Rx#:[id number] Oral 200 Output: Drainage 90 Left groin #2 25 Left groin #3 45 Right groin #1 20 Void Amount 250 1325 Other: Urine Appearance Clear Clear Urine Color Bright Yellow Bright Yellow Urine Odor Normal Head Head exam: Present atraumatic, normal inspection and normocephalic Eye Eye exam: Present EOMI Pupils: Present PERRL ENT ENT exam: Present mucous membranes moist Neck Neck exam: Present full ROM and tenderness; Absent thyromegaly Respiratory Respiratory exam: Present rales, rhonchi and wheezes Cardiovascular Cardiovascular exam: Present RRR, +S1 and +S2; Absent bradycardia, gallop and JVD GI/Abdominal GI/Abdominal exam: Present diminished bowel sounds, guarding and tenderness Additional comments: incision looks good; JOSE drainage is bloody. Extremities Exam Extremities exam: Present full ROM; Absent normal inspection, pedal edema and tenderness Back Exam Back exam: Present full ROM Neurological Exam Neurological exam: Present alert, CN II-XII intact, oriented X3 and reflexes normal; Absent motor sensory deficit and normal gait Psychiatric Psychiatric exam: Present flat affect, normal affect and normal mood Skin Skin exam: Present cyanosis; Absent petechiae, rash and urticaria A/P Assessment and plan (1) Incisional hernia of anterior abdominal wall with obstruction and gangrene: Status: Acute Comment: patient is counseled for incisional hernia repair with mesh on February 09 He is advised to discontinue using the APIXABAN on February 09 (2) Hypertension, essential: Status: Chronic (3) COPD (chronic obstructive pulmonary disease): Status: Chronic Qualifiers: COPD type: chronic bronchitis Chronic bronchitis type: simple Qualified Code(s): J41.0 - Simple chronic bronchitis (4) Alcohol abuse: Status: Chronic Narrative A/P Narrative: patient will be continued on present therapy DuoNeb will be added Magnesium will be supplemented Time Spent With Patient Time: Total time spent is greater than 50% in coordination of care (as documented) at patient's floor/unit and/or counseling patient:
[2020-01-30] MEDS ORDERED: MAGNESIUM SULFATE 4 GM/100 ML BAG IV ONE (14:15)
[2020-01-30] MEDS: IPRATROPIUM/ALBUTEROL 3 ML AMPUL.NEB NEB SCH (16:06)
[2020-01-31] MEDS: traZODone HCL 100 MG TABLET PO PRN (00:01)
[2020-01-31] MEDS: PROMETHAZINE 25 MG/ML VIAL IV PRN ×4 (00:16→22:00)
[2020-01-31] MEDS: LORazepam 2 MG/ML VIAL IV PRN (02:56)
[2020-01-31] MEDS: ONDANSETRON 4 MG/2 ML VIAL IV PRN ×3 (02:56→14:23)
[2020-01-31] MEDS: HYDROmorphone 1 MG/ML SYRINGE IV PRN ×4 (02:56→21:59)
[2020-01-31] MEDS: 0.9 % SODIUM CHLORIDE 1,000 ML IV SCH ×2 (04:18→13:59)
[2020-01-31] MEDS: IPRATROPIUM/ALBUTEROL 3 ML AMPUL.NEB NEB SCH ×3 (06:27→17:59)
[2020-01-31] MEDS: CEFEPIME 2 GM VIAL IV SCH ×3 (06:37→22:00)
[2020-01-31 06:58] LABS: Basophils # (Auto) 0.03 K/mcL (0.00-0.30); Basophils % (Auto) 0.3 % (0.0-2.0); Eosinophils # (Auto) 0.03 K/mcL (0.00-0.70); Eosinophils % (Auto) 0.3 % (0.0-7.0); Granulocytes % (Auto) 64.7 % (38.0-78.0); Hematocrit 34.7 % (40.1-51.0); Hemoglobin 11.9 g/dL (13.7-17.5); Lymphocytes # (Auto) 2.32 K/mcL (1.50-4.80); Lymphocytes % (Auto) 22.9 % (15.5-49.0); Mean Cell Volume 95.6 fL (80.0-100.0); Mean Corpuscular HGB Conc 34.3 g/dL (31.0-36.0); Mean Platelet Volume 10.1 fL (7.4-10.4); Monocytes # (Auto) 1.19 K/mcL (0.10-0.90); Monocytes % (Auto) 11.8 % (1.0-12.0); Platelet Count 202 K/mcL (140-440); RBC 3.63 M/mcL (4.63-6.08); Red Cell Distribution Width 15.6 % (11.5-14.5); WBC 10.1 K/mcL (4.50-11.00)
[2020-01-31 07:45] LABS: ALT/SGPT 13 U/l (0-40); AST/SGOT 22 U/l (0-37); Albumin 3.6 gm/dL (3.2-5.2); Albumin/Globulin Ratio 1.3 (1.0-2.3); Alkaline Phosphatase 51 U/L (39-117); Bilirubin,Direct 0.3 mg/dL (0.0-0.3); Bilirubin,Total 0.8 mg/dL (0.0-1.0); Carbon Dioxide 26 mmol/L (22-30); Globulin 2.7 gm/dL (2.2-3.7); Glomerular Filtration Rate 103; Glucose 106 mg/dL (70-105); Lactate Dehydrogenase 181 U/L (94-250); Triglycerides 50 mg/dl (<150); Uric Acid 2.8 mg/dL (2.5-8.0)
[2020-01-31 07:58] LABS: Blood Urea Nitrogen 5 mg/dl (6-20); Chloride 94 mmol/L (96-108); Phosphorous 2.3 mg/dL (2.7-4.5)
[2020-01-31] MEDS: METOPROLOL SUCCINATE 50 MG TAB.XL.24H PO SCH (09:47)
[2020-01-31] MEDS: FLUoxetine HCL 20 MG CAPSULE PO SCH (09:47)
[2020-01-31] MEDS: VANCOMYCIN 1,000 MG in 0.9 % SODIUM CHLORIDE 250 ML IV SCH (09:48)
[2020-01-31] MEDS: NICOTINE 21 MG PATCH TOPICAL SCH (09:48)
--- NOTE | 2020-01-31 15:05 | General Surgery Progress Note ---
SUBJECTIVE Subjective Patient information: Note initiated : 01/31/20 at 3:01 pm Service Date, if different from initiated Date: [] Patient: Tone Pope 59 y/o M admitted on 01/29/20 for Incisional Hernia Repair. Chief Complaint: [] Principal diagnosis: incisional hernia Interval history: Narrative:patient states that he feels better. He still has a moderate amount of pain. He has not had any flatus or bowel movement so far and appears to be distended. He denies nausea. White count 10.1, hemoglobin 11.9, hematocrit 34.7, potassium 3.5, BUN 5, creatinine 0.7, phosphorus 2.3. Constitutional Vitals: Vital Signs Temp Pulse Resp BP Pulse Ox 99.0 F 80 18 157/91 96 01/31/20 12:00 01/31/20 12:00 01/31/20 12:00 01/31/20 12:00 01/31/20 12:00 Period Temp Pulse Resp BP Sys/Juarez Pulse Ox Last 24 Hr 98.3 F-99.8 F 60-80 14-91 123-157/80-91 95-98 Intake and Output 01/31/20 01/31/20 01/31/20 05:59 13:59 21:59 Intake Total 2185 1000 Output Total 885 725 Balance 1300 275 Intake & Output: Intake & Output 01/31/20 01/31/20 01/31/20 05:59 13:59 21:59 Intake Total 2185 1000 Output Total 885 725 Balance 1300 275 Intake: IV 1250 1000 Sodium Chloride 0.9% 1,000 ml @ 1000 1000 125 mls/hr IV .Q8H [facility] Rx#: [id number] Vancomycin 1,000 mg In Sodium 250 Chloride 0.9% 250 ml @ 250 mls/ hr IV Q12H [facility] Rx#:[id number] Oral 935 Output: Drainage 135 Left groin #2 40 Left groin #3 55 Right groin #1 40 Void Amount 550 725 Emesis 200 Other: Urine Appearance Clear Urine Color Dark Yellow Urine Odor Strong # Unmeasured Emesis 1 Head Head exam: Present atraumatic, normal inspection and normocephalic Eye Eye exam: Present EOMI Pupils: Present PERRL ENT ENT exam: Present mucous membranes moist Neck Neck exam: Present full ROM and tenderness; Absent thyromegaly Respiratory Respiratory exam: Present rales, rhonchi and wheezes Cardiovascular Cardiovascular exam: Present RRR, +S1 and +S2; Absent bradycardia, gallop and JVD GI/Abdominal GI/Abdominal exam: Present diminished bowel sounds, guarding and tenderness Additional comments: incision looks good; JOSE drainage is bloody. Neurological Exam Neurological exam: Present alert, CN II-XII intact, oriented X3 and reflexes normal; Absent motor sensory deficit and normal gait Psychiatric Psychiatric exam: Present flat affect, normal affect and normal mood Skin Skin exam: Present cyanosis; Absent petechiae, rash and urticaria A/P Assessment and plan (1) Incisional hernia of anterior abdominal wall with obstruction and gangrene: Status: Acute (2) Hypertension, essential: Status: Chronic (3) COPD (chronic obstructive pulmonary disease): Status: Chronic Qualifiers: COPD type: chronic bronchitis Chronic bronchitis type: simple Qualified Code(s): J41.0 - Simple chronic bronchitis (4) Alcohol abuse: Status: Chronic Narrative A/P Narrative: add metoclopramide Potassium phosphate rider 1 Milk of magnesia 30 cc every 4 hours 2 Time Spent With Patient Time: Total time spent is greater than 50% in coordination of care (as documented) at patient's floor/unit and/or counseling patient:
[2020-01-31] MEDS ORDERED: POTASSIUM PHOSPHATE 40 MEQ in DEXTROSE 5% IN WATER 500 ML IV ONE (16:00)
[2020-01-31] MEDS: MAGNESIUM HYDROXIDE 30 ML ORAL.SUSP PO SCH ×2 (16:13→20:33)
[2020-02-01] MEDS: 0.9 % SODIUM CHLORIDE 1,000 ML IV SCH ×5 (00:37→21:26)
[2020-02-01] MEDS: ONDANSETRON 4 MG/2 ML VIAL IV PRN (02:27)
[2020-02-01] MEDS: LORazepam 2 MG/ML VIAL IV PRN (04:18)
[2020-02-01] MEDS: HYDROmorphone 1 MG/ML SYRINGE IV PRN ×3 (04:19→21:36)
[2020-02-01] MEDS: CEFEPIME 2 GM VIAL IV SCH ×3 (06:11→21:37)
[2020-02-01] MEDS: IPRATROPIUM/ALBUTEROL 3 ML AMPUL.NEB NEB SCH ×3 (06:43→18:14)
[2020-02-01 06:50] LABS: Basophils # (Auto) 0.03 K/mcL (0.00-0.30); Basophils % (Auto) 0.4 % (0.0-2.0); Eosinophils # (Auto) 0.09 K/mcL (0.00-0.70); Eosinophils % (Auto) 1.3 % (0.0-7.0); Granulocytes % (Auto) 69.8 % (38.0-78.0); Hematocrit 30.3 % (40.1-51.0); Hemoglobin 10.5 g/dL (13.7-17.5); Lymphocytes # (Auto) 1.02 K/mcL (1.50-4.80); Mean Cell Volume 94.1 fL (80.0-100.0); Mean Corpuscular HGB Conc 34.7 g/dL (31.0-36.0); Mean Platelet Volume 10.3 fL (7.4-10.4); Monocytes # (Auto) 0.92 K/mcL (0.10-0.90); Monocytes % (Auto) 13.5 % (1.0-12.0); Platelet Count 176 K/mcL (140-440); RBC 3.22 M/mcL (4.63-6.08); Red Cell Distribution Width 14.8 % (11.5-14.5); WBC 6.8 K/mcL (4.50-11.00)
[2020-02-01 07:14] LABS: ALT/SGPT 11 U/l (0-40); AST/SGOT 17 U/l (0-37); Albumin 3.1 gm/dL (3.2-5.2); Albumin/Globulin Ratio 1.3 (1.0-2.3); Alkaline Phosphatase 48 U/L (39-117); Bilirubin,Direct 0.3 mg/dL (0.0-0.3); Bilirubin,Total 0.7 mg/dL (0.0-1.0); Calcium 8.1 mg/dl (8.6-10.4); Carbon Dioxide 30 mmol/L (22-30); Globulin 2.4 gm/dL (2.2-3.7); Glomerular Filtration Rate 110; Glucose 117 mg/dL (70-105); Lactate Dehydrogenase 185 U/L (94-250); Triglycerides 46 mg/dl (<150)
[2020-02-01 07:22] LABS: Blood Urea Nitrogen 3 mg/dl (6-20); Chloride 91 mmol/L (96-108); Phosphorous 3.2 mg/dL (2.7-4.5)
[2020-02-01] MEDS ORDERED: POTASSIUM CHLORIDE 40 MEQ in DEXTROSE 5% IN WATER 500 ML IV ONE (07:30)
--- NOTE | 2020-02-01 08:11 | XRay Report ---
INDICATION: abd distention with emesis. Status post incisional hernia repair TECHNIQUE: Supine and upright abdomen. COMPARISON: Most recent previous CT scan dated 03/08/2019 FINDINGS:There are skin nina in a vertical midline pelvic incision. There are surgical drains present within the pelvis. There is gas within colon and small bowel. Appearance is not consistent with mechanical small bowel obstruction. The cecum is distended to 12 cm in cross-sectional diameter. Findings are most consistent with postsurgical adynamic ileus. Cecum is near midline but bowel gas pattern is not typical at this time of cecal volvulus but bascule is possible. Follow-up plain film recommended. There is no pneumatosis. No biliary or portal venous gas. There is no pneumoperitoneum. IMPRESSION: 1. Prominent gas-filled small and large bowel consistent with postsurgical ileus 2. Distended cecum. Cecal bascule is possible Interpreted and Authenticated by: Ja Salgado 02/01/20
[2020-02-01] MEDS: POTASSIUM CHLORIDE 40 MEQ in DEXTROSE 5% IN WATER 500 ML IV SCH ×2 (08:26→14:36)
--- NOTE | 2020-02-01 09:08 | XRay Report ---
INDICATION: NG placement TECHNIQUE: Supine abdomen. COMPARISON: Previous examination dated 02/01/2020 FINDINGS:Interval placement of an esophagogastric tube. Tube tip is in the stomach. Sidehole of the catheter is approximately at the gastroesophageal junction Bowel gas pattern remains abnormal. Persistent dilatation of the cecum is present. Findings are consistent with possible cecal bascule. IMPRESSION: Esophagogastric tube is in the proximal stomach Interpreted and Authenticated by: Ja Salgado 02/01/20
[2020-02-01] MEDS: NICOTINE 21 MG PATCH TOPICAL SCH (10:16)
--- NOTE | 2020-02-01 13:33 | General Surgery Progress Note ---
SUBJECTIVE Subjective Patient information: Note initiated : 02/01/20 at 1:28 pm Service Date, if different from initiated Date: [] Patient: Tone Pope 59 y/o M admitted on 01/29/20 for Incisional Hernia Repair. Chief Complaint: [] Principal diagnosis: incisional hernia Interval history: Narrative:patient has had continued small bowel dilation. Abdominal series shows dilated colon down to recommend dilated small bowel. He had a small amount of flatus. Nasogastric tube discontinued earlier. He'll get fleets enema today to try to clear his rectosigmoid area. Constitutional Vitals: Vital Signs Temp Pulse Resp BP Pulse Ox 98.7 F 73 16 151/75 91 02/01/20 12:00 02/01/20 12:00 02/01/20 12:00 02/01/20 12:00 02/01/20 12:00 Period Temp Pulse Resp BP Sys/Juarez Pulse Ox Last 24 Hr 98.1 F-99.2 F 73-84 12-18 151-177/75-96 91-97 Intake and Output 01/31/20 02/01/20 02/01/20 21:59 05:59 13:59 Intake Total 1240 605 Output Total 2164 378 0914 Balance 120 -374 -1100 Weight 151 lb 4.8 oz Intake & Output: Intake & Output 01/31/20 02/01/20 02/01/20 21:59 05:59 13:59 Intake Total 1240 605 Output Total 5410 139 8903 Balance 120 -374 -1100 Weight 151 lb 4.8 oz Intake: IV 1000 Sodium Chloride 0.9% 1,000 ml @ 1000 125 mls/hr IV .Q8H [facility] Rx#: [id number] Oral 240 605 Output: Drainage 129 Left groin #2 15 Left groin #3 110 Right groin #1 4 Drainage 120 Left groin #2 35 Left groin #3 60 Right groin #1 25 Void Amount 271 220 4929 Emesis 550 400 Other: Meal jello x2 Percent of Meal Consumed 100% Feeding Ability Independent Urine Appearance Clear Clear Clear Urine Color Dark Yellow Dark Yellow Dark Yellow Urine Odor Normal Head Head exam: Present atraumatic, normal inspection and normocephalic Eye Eye exam: Present EOMI Pupils: Present PERRL ENT ENT exam: Present mucous membranes moist Neck Neck exam: Present full ROM and tenderness; Absent thyromegaly Respiratory Respiratory exam: Present rales, rhonchi and wheezes Cardiovascular Cardiovascular exam: Present RRR, +S1 and +S2; Absent bradycardia, gallop and JVD GI/Abdominal GI/Abdominal exam: Present diminished bowel sounds, guarding and tenderness Additional comments: incision looks good; JOSE drainage is bloody. Extremities Exam Extremities exam: Present full ROM; Absent normal inspection, pedal edema and tenderness Neurological Exam Neurological exam: Present alert, CN II-XII intact, oriented X3 and reflexes normal; Absent motor sensory deficit and normal gait Psychiatric Psychiatric exam: Present flat affect, normal affect and normal mood A/P Assessment and plan (1) Adynamic ileus: Status: Acute (2) Incisional hernia of anterior abdominal wall with obstruction and gangrene: Status: Acute Narrative A/P Narrative: fleets enema now and repeat at 2000 if no results Abdominal x-ray in the morning Continue nasogastric decompression Time Spent With Patient Time: Total time spent is greater than 50% in coordination of care (as documented) at patient's floor/unit and/or counseling patient:
[2020-02-01] MEDS: FLUoxetine HCL 20 MG CAPSULE PO SCH (14:32)
[2020-02-01] MEDS: METOPROLOL SUCCINATE 50 MG TAB.XL.24H PO SCH (14:33)
[2020-02-01] MEDS: METOCLOPRAMIDE 10 MG/2 ML VIAL IV SCH (18:44)
[2020-02-02] MEDS: HYDROmorphone 1 MG/ML SYRINGE IV PRN ×6 (00:02→22:53)
[2020-02-02] MEDS: METOCLOPRAMIDE 10 MG/2 ML VIAL IV SCH ×5 (00:02→23:25)
[2020-02-02] MEDS: 0.9 % SODIUM CHLORIDE 1,000 ML IV SCH ×3 (05:30→23:25)
[2020-02-02] MEDS: CEFEPIME 2 GM VIAL IV SCH ×3 (06:05→21:38)
[2020-02-02] MEDS: IPRATROPIUM/ALBUTEROL 3 ML AMPUL.NEB NEB SCH ×3 (06:12→17:06)
--- NOTE | 2020-02-02 07:58 | XRay Report ---
INDICATION: FOR F/U OF ILEUS TECHNIQUE: Supine and upright abdomen. COMPARISON: None FINDINGS:Esophagogastric tube in the stomach. There is mild small bowel distention with air-fluid levels. Colon is abnormal. The cecum remains markedly dilated. Maximum cross-sectional diameter measures approximately 10 cm. Bowel gas pattern is suggestive of cecal volvulus. There is no pneumoperitoneum. No biliary or portal venous gas. There is no pneumatosis. IMPRESSION: 1. Abnormal bowel gas pattern. 2. Significant cecal dilatation. Bowel gas pattern is consistent with cecal volvulus Interpreted and Authenticated by: Ja Salgado 02/02/20
--- NOTE | 2020-02-02 10:50 | General Surgery Progress Note ---
SUBJECTIVE Subjective Patient information: Note initiated : 02/02/20 at 10:48 am Service Date, if different from initiated Date: [] Patient: Tone Pope 59 y/o M admitted on 01/29/20 for Incisional Hernia Repair. Chief Complaint: [] Principal diagnosis: incisional hernia Interval history: Narrative:patient still has significant distention. He had a saline enema last evening and had a bowel movement following that. He states that he has passed more flatus and is less distended. His abdominal x-ray shows a dilated cecum but his distal bowel down to the still descending colon is also distended. Discussed situation with Dr. Dooley and plan is for a Gastrografin barium study to evaluate the left colon. This will be performed today. Constitutional Vitals: Vital Signs Temp Pulse Resp BP Pulse Ox 98.6 F 84 15 121/76 91 02/02/20 03:50 02/02/20 06:12 02/02/20 06:12 02/02/20 03:50 02/02/20 03:50 Period Temp Pulse Resp BP Sys/Juarez Pulse Ox Last 24 Hr 98.0 F-98.9 F 71-93 15-24 121-157/75-92 91-96 Intake and Output 02/01/20 02/02/20 02/02/20 21:59 05:59 13:59 Intake Total 300 1500 Output Total 1618 1385 675 Balance -1318 115 -675 Weight 148 lb 9.6 oz Intake & Output: Intake & Output 02/01/20 02/02/20 02/02/20 21:59 05:59 13:59 Intake Total 300 1500 Output Total 1618 1385 675 Balance -1318 115 -675 Weight 148 lb 9.6 oz Intake: IV 1000 Sodium Chloride 0.9% 1,000 ml @ 1000 125 mls/hr IV .Q8H [facility] Rx#: [id number] Oral 300 500 Tube Feeding 0 Output: Gastric Drainage 1050 1250 Left Nare 1050 1250 Drainage 60 Left groin #3 60 Drainage 133 135 Left groin #2 10 10 Left groin #3 120 110 Right groin #1 3 15 Urine Catheter Amount 100 Void Amount 275 675 Other: Urine Appearance Clear Clear Urine Color Light Mariella Dark Yellow Urine Odor Strong Stool Size Moderate Stool Consistency Loose # Bowel Movements 1 Head Head exam: Present atraumatic, normal inspection and normocephalic Eye Eye exam: Present EOMI Pupils: Present PERRL ENT ENT exam: Present mucous membranes moist Neck Neck exam: Present full ROM and tenderness; Absent thyromegaly Respiratory Respiratory exam: Present rales, rhonchi and wheezes Cardiovascular Cardiovascular exam: Present RRR, +S1 and +S2; Absent bradycardia, gallop and JVD GI/Abdominal GI/Abdominal exam: Present diminished bowel sounds, guarding and tenderness Additional comments: incision looks good; JOSE drainage is bloody. Extremities Exam Extremities exam: Present full ROM; Absent normal inspection, pedal edema and tenderness Neurological Exam Neurological exam: Present alert, CN II-XII intact, oriented X3 and reflexes normal; Absent motor sensory deficit and normal gait Psychiatric Psychiatric exam: Present flat affect, normal affect and normal mood Skin Skin exam: Present cyanosis; Absent petechiae, rash and urticaria A/P Assessment and plan (1) Adynamic ileus: Status: Acute (2) Incisional hernia of anterior abdominal wall with obstruction and gangrene: Status: Acute (3) Hypertension, essential: Status: Chronic (4) Gastroesophageal reflux: Status: Chronic Qualifiers: Esophagitis presence: esophagitis presence not specified Qualified Code(s): K21.9 - Gastro-esophageal reflux disease without esophagitis (5) Depressive disorder: Status: Chronic Narrative A/P Narrative: patient is scheduled for Gastrografin enema. We'll delay advancement of diet until this is complete Time Spent With Patient Time: Total time spent is greater than 50% in coordination of care (as documented) at patient's floor/unit and/or counseling patient:
--- NOTE | 2020-02-02 11:58 | XRay Report ---
INDICATION: Distended cecum demonstrated on previous plain film examination. Possible cecal bascule or volvulus. Relative lack of gas in the pelvis TECHNIQUE: Routine Gastrografin enema performed. 49 seconds fluoroscopy utilized COMPARISON: Previous plain film examinations dated 02/02/2020, 02/01/2020. FINDINGS: There is sigmoid diverticulosis with some spasm. Sigmoid colon (up and there is no sigmoid mass. No obstructing lesion. The ascending colon and cecum were opacified using gravity. There is no obstruction. The cecum is mobile with cecum and ascending colon in the midline into the left of midline. There is no volvulus. Contrast material passes into the cecum and terminal ileum. Cecum measures approximately 8 cm in cross-sectional diameter. IMPRESSION: 1. Sigmoid diverticulosis 2. Mobile cecum. There is no cecal volvulus. No mechanical obstruction Interpreted and Authenticated by: Ja Salgado 02/02/20
[2020-02-02] MEDS: METOPROLOL SUCCINATE 50 MG TAB.XL.24H PO SCH (12:11)
[2020-02-02] MEDS: FLUoxetine HCL 20 MG CAPSULE PO SCH (12:12)
[2020-02-02] MEDS: NICOTINE 21 MG PATCH TOPICAL SCH (12:15)
[2020-02-02] MEDS: ONDANSETRON 4 MG/2 ML VIAL IV PRN (15:28)
[2020-02-03] MEDS: HYDROmorphone 1 MG/ML SYRINGE IV PRN ×5 (03:41→21:58)
[2020-02-03] MEDS: METOCLOPRAMIDE 10 MG/2 ML VIAL IV SCH ×3 (06:07→17:46)
[2020-02-03] MEDS: CEFEPIME 2 GM VIAL IV SCH ×3 (06:07→22:51)
[2020-02-03] MEDS: 0.9 % SODIUM CHLORIDE 1,000 ML IV SCH ×4 (06:07→22:52)
[2020-02-03] MEDS: IPRATROPIUM/ALBUTEROL 3 ML AMPUL.NEB NEB SCH ×3 (06:40→18:31)
[2020-02-03 07:12] LABS: ALT/SGPT 12 U/l (0-40); AST/SGOT 20 U/l (0-37); Albumin 3.1 gm/dL (3.2-5.2); Albumin/Globulin Ratio 1.2 (1.0-2.3); Alkaline Phosphatase 50 U/L (39-117); Bilirubin,Direct 0.3 mg/dL (0.0-0.3); Bilirubin,Total 0.6 mg/dL (0.0-1.0); Calcium 8.5 mg/dl (8.6-10.4); Carbon Dioxide 32 mmol/L (22-30); Chloride 97 mmol/L (96-108); Globulin 2.5 gm/dL (2.2-3.7); Glomerular Filtration Rate 103; Glucose 90 mg/dL (70-105); Lactate Dehydrogenase 180 U/L (94-250); Phosphorous 3.5 mg/dL (2.7-4.5); Triglycerides 56 mg/dl (<150)
[2020-02-03 07:15] LABS: Blood Urea Nitrogen 8 mg/dl (6-20); Uric Acid 2.6 mg/dL (2.5-8.0)
[2020-02-03 07:47] LABS: Basophils # (Auto) 0.03 K/mcL (0.00-0.30); Basophils % (Auto) 0.8 % (0.0-2.0); Eosinophils # (Auto) 0.15 K/mcL (0.00-0.70); Eosinophils % (Auto) 3.9 % (0.0-7.0); Granulocytes % (Auto) 38.6 % (38.0-78.0); Hematocrit 33.6 % (40.1-51.0); Lymphocytes # (Auto) 0.94 K/mcL (1.50-4.80); Lymphocytes % (Auto) 24.7 % (15.5-49.0); Mean Cell Volume 99.1 fL (80.0-100.0); Mean Corpuscular HGB Conc 32.7 g/dL (31.0-36.0); Monocytes # (Auto) 1.22 K/mcL (0.10-0.90); Platelet Count 204 K/mcL (140-440); RBC 3.39 M/mcL (4.63-6.08); Red Cell Distribution Width 14.9 % (11.5-14.5); WBC 3.8 K/mcL (4.50-11.00)
--- NOTE | 2020-02-03 09:02 | XRay Report ---
INDICATION: Blockage concerns TECHNIQUE: Supine and upright abdomen. COMPARISON: Previous examinations dated 02/02/2020, 02/01/2020. Previous Gastrografin enema dated 02/02/2020 FINDINGS:No change in position of esophagogastric tube. There continues to be water-soluble contrast material throughout the colon. Cecum and ascending colon remain mobile and dilated. This prolonged clearing of the colon is consistent with hypomotility and ileus. No focal obstructing lesion identified. IMPRESSION: 1. Persistent mobile cecum and dilatation of the cecum and ascending colon 2. Delayed clearing of the colon. No focal obstructing lesion. Interpreted and Authenticated by: Ja Salgado 02/03/20
[2020-02-03] MEDS: FLUoxetine HCL 20 MG CAPSULE PO SCH (11:39)
[2020-02-03] MEDS: METOPROLOL SUCCINATE 50 MG TAB.XL.24H PO SCH (11:39)
[2020-02-03] MEDS: NICOTINE 21 MG PATCH TOPICAL SCH (11:49)
[2020-02-03] MEDS: MAGNESIUM HYDROXIDE 30 ML ORAL.SUSP PO SCH ×3 (14:56→22:51)
--- NOTE | 2020-02-03 15:11 | General Surgery Progress Note ---
SUBJECTIVE Subjective Patient information: Note initiated : 02/03/20 at 3:09 pm Service Date, if different from initiated Date: [] Patient: Tone Pope 59 y/o M admitted on 01/29/20 for Incisional Hernia Repair. Chief Complaint: [] Principal diagnosis: incisional hernia Interval history: Narrative:PATIENT IS DOING WELL, HE HAS HAD 2 LARGE BOWEL MOVEMENTS. HE IS PASSING FLATUS WITHOUT DIFFICULTY. ABDOMINAL X-RAYS SHOW RE SIDUAL CONTRAST EXTENDING TO THE RECTUM. Constitutional Vitals: Vital Signs Temp Pulse Resp BP Pulse Ox 97.9 F 88 18 162/89 96 02/03/20 12:00 02/03/20 12:10 02/03/20 12:10 02/03/20 12:00 02/03/20 12:00 Period Temp Pulse Resp BP Sys/Juarez Pulse Ox Last 24 Hr 97.8 F-99.3 F 59-88 12-18 145-165/82-90 94-96 Intake and Output 02/03/20 02/03/20 02/03/20 05:59 13:59 21:59 Intake Total 1495 1590 Output Total 1411 Balance 84 1590 Intake & Output: Intake & Output 02/03/20 02/03/20 02/03/20 05:59 13:59 21:59 Intake Total 1495 1590 Output Total 1411 Balance 84 1590 Intake: IV 985 1000 Sodium Chloride 0.9% 1,000 ml @ 985 1000 125 mls/hr IV .Q8H [facility] Rx#: [id number] Oral 510 590 Output: Gastric Drainage 1250 Left Nare 1250 Drainage 161 Left groin #2 73 Left groin #3 85 Right groin #1 3 Other: Percent of Meal Consumed popscicle Feeding Ability Assist with Tray Set Up Urine Appearance Clear Urine Color Brown Stool Size Large Small Stool Color Brown Brown Stool Consistency Loose Watery # Voids 1 1 # Bowel Movements 1 1 Head Head exam: Present atraumatic, normal inspection and normocephalic Eye Eye exam: Present EOMI Pupils: Present PERRL ENT ENT exam: Present mucous membranes moist Neck Neck exam: Present full ROM and tenderness; Absent thyromegaly Respiratory Respiratory exam: Present rales, rhonchi and wheezes Cardiovascular Cardiovascular exam: Present RRR, +S1 and +S2; Absent bradycardia, gallop and JVD GI/Abdominal GI/Abdominal exam: Present diminished bowel sounds, guarding and tenderness Additional comments: incision looks good; JOSE drainage is bloody. Extremities Exam Extremities exam: Present full ROM; Absent normal inspection, pedal edema and tenderness Neurological Exam Neurological exam: Present alert, CN II-XII intact, oriented X3 and reflexes normal; Absent motor sensory deficit and normal gait Skin Skin exam: Present cyanosis; Absent petechiae, rash and urticaria A/P Assessment and plan (1) Adynamic ileus: Status: Acute (2) Incisional hernia of anterior abdominal wall with obstruction and gangrene: Status: Acute (3) Gastroesophageal reflux: Status: Chronic Qualifiers: Esophagitis presence: esophagitis presence not specified Qualified Code(s): K21.9 - Gastro-esophageal reflux disease without esophagitis (4) COPD (chronic obstructive pulmonary disease): Status: Chronic Qualifiers: COPD type: chronic bronchitis Chronic bronchitis type: simple Qualified Code(s): J41.0 - Simple chronic bronchitis Narrative A/P Narrative: PATIENT GIVEN 3 DOSES OF MILK OF MAGNESIA NASOGASTRIC TUBE DISCONTINUED STARTED ON CLEAR LIQUIDS WILL RE-CHECK ABDOMINAL X-RAYS IN THE A.M. Time Spent With Patient Time: Total time spent is greater than 50% in coordination of care (as documented) at patient's floor/unit and/or counseling patient:
[2020-02-04] MEDS: 0.9 % SODIUM CHLORIDE 1,000 ML IV SCH ×4 (00:10→21:14)
[2020-02-04] MEDS: METOCLOPRAMIDE 10 MG/2 ML VIAL IV SCH ×4 (00:10→17:53)
[2020-02-04] MEDS: HYDROmorphone 1 MG/ML SYRINGE IV PRN ×3 (00:11→15:57)
[2020-02-04] MEDS: traZODone HCL 100 MG TABLET PO PRN (00:56)
[2020-02-04] MEDS: CEFEPIME 2 GM VIAL IV SCH ×3 (05:15→21:11)
[2020-02-04] MEDS: IPRATROPIUM/ALBUTEROL 3 ML AMPUL.NEB NEB SCH ×3 (05:16→18:22)
[2020-02-04 07:43] LABS: ALT/SGPT 11 U/l (0-40); AST/SGOT 18 U/l (0-37); Albumin/Globulin Ratio 1.3 (1.0-2.3); Alkaline Phosphatase 45 U/L (39-117); Bilirubin,Direct 0.2 mg/dL (0.0-0.3); Bilirubin,Total 0.5 mg/dL (0.0-1.0); Blood Urea Nitrogen 8 mg/dl (6-20); Calcium 7.9 mg/dl (8.6-10.4); Carbon Dioxide 33 mmol/L (22-30); Chloride 96 mmol/L (96-108); Globulin 2.4 gm/dL (2.2-3.7); Glucose 91 mg/dL (70-105); Lactate Dehydrogenase 170 U/L (94-250); Triglycerides 51 mg/dl (<150); Uric Acid 2.4 mg/dL (2.5-8.0)
[2020-02-04 07:49] LABS: Glomerular Filtration Rate 119; Phosphorous 2.6 mg/dL (2.7-4.5)
[2020-02-04] MEDS ORDERED: POTASSIUM CHLORIDE 40 MEQ in DEXTROSE 5% IN WATER 500 ML IV ONE ×2 (08:11→13:00)
--- NOTE | 2020-02-04 08:48 | XRay Report ---
INDICATION: to check for resolution of blockage TECHNIQUE: Supine and upright abdomen. COMPARISON: Previous examinations dated 02/03/2020, 02/02/2020, 02/01/2020 FINDINGS:Small amount of residual contrast material within the colon. There is persistent colonic dilatation, especially of the cecum and ascending colon. Cecum presently measures approximately 10 cm in cross-sectional diameter. No mechanical obstruction was demonstrated on previous Gastrografin enema. Appearance is consistent with adynamic colon. Some small bowel gas but no significant distention. No pneumoperitoneum. No biliary or portal venous gas. IMPRESSION: 1. Persistent colonic dilatation 2. Findings are consistent with colonic ileus Interpreted and Authenticated by: Ja Salgado 02/04/20
[2020-02-04 08:53] LABS: Basophils # (Auto) 0.02 K/mcL (0.00-0.30); Basophils % (Auto) 0.4 % (0.0-2.0); Eosinophils # (Auto) 0.28 K/mcL (0.00-0.70); Eosinophils % (Auto) 6.3 % (0.0-7.0); Granulocytes % (Auto) 37.8 % (38.0-78.0); Hematocrit 28.9 % (40.1-51.0); Hemoglobin 9.9 g/dL (13.7-17.5); Lymphocytes # (Auto) 1.15 K/mcL (1.50-4.80); Lymphocytes % (Auto) 25.7 % (15.5-49.0); Mean Cell Volume 96.3 fL (80.0-100.0); Mean Corpuscular HGB Conc 34.3 g/dL (31.0-36.0); Monocytes # (Auto) 1.33 K/mcL (0.10-0.90); Monocytes % (Auto) 29.8 % (1.0-12.0); Platelet Count 210 K/mcL (140-440); Red Cell Distribution Width 14.6 % (11.5-14.5); WBC 4.5 K/mcL (4.50-11.00)
[2020-02-04] MEDS ORDERED: POTASSIUM PHOSPHATE 40 MEQ in DEXTROSE 5% IN WATER 500 ML IV ONE ×2 (09:00→13:00)
[2020-02-04] MEDS: METOPROLOL SUCCINATE 50 MG TAB.XL.24H PO SCH (10:11)
[2020-02-04] MEDS: FLUoxetine HCL 20 MG CAPSULE PO SCH (10:11)
[2020-02-04] MEDS: NICOTINE 21 MG PATCH TOPICAL SCH (10:55)
--- NOTE | 2020-02-04 14:03 | General Surgery Progress Note ---
SUBJECTIVE Subjective Patient information: Note initiated : 02/04/20 at 1:57 pm Service Date, if different from initiated Date: [] Patient: Tone Pope 59 y/o M admitted on 01/29/20 for Incisional Hernia Repair. Chief Complaint: [] Principal diagnosis: incisional hernia Interval history: Narrative:patient states that he feels better but he still has significant abdominal distention. Abdominal x-rays shows dilated bowel extending to the sigmoid. The cecum measures 13 cm. He denies nausea and is tolerating full liquid diet. White blood count 4.5, hemoglobin 9.9, hematocrit 28.9. Constitutional Vitals: Vital Signs Temp Pulse Resp BP Pulse Ox 98.5 F 73 18 154/96 93 02/04/20 12:00 02/04/20 12:25 02/04/20 12:25 02/04/20 12:00 02/04/20 12:00 Period Temp Pulse Resp BP Sys/Juarez Pulse Ox Last 24 Hr 98.1 F-99.0 F 63-98 -20 130-167/68-96 91-97 Intake and Output 02/03/20 02/04/20 02/04/20 21:59 05:59 13:59 Intake Total 2019 1305 Output Total 1297 148 100 Balance 723 1157 -100 Weight 144 lb 9.6 oz Intake & Output: Intake & Output 02/03/20 02/04/20 02/04/20 21:59 05:59 13:59 Intake Total 2019 1305 Output Total 1297 148 100 Balance 723 1157 -100 Weight 144 lb 9.6 oz Intake: IV 1000 825 Sodium Chloride 0.9% 1,000 ml @ 1000 825 125 mls/hr IV .Q8H [facility] Rx#: [id number] Oral 1020 480 Tube Feeding 0 Output: Gastric Drainage 1200 Left Nare 1200 Drainage 100 Left groin #3 100 Drainage 97 148 Left groin #2 2 5 Left groin #3 90 140 Right groin #1 5 3 Other: Meal clear liquids Percent of Meal Consumed 100% Feeding Ability Assist with Tray Set Up Urine Appearance Clear Urine Color Brown Urine Odor Strong Stool Size Moderate Small Moderate Stool Color Brown Brown Brown Stool Consistency Liquid Loose Loose Loose # Voids 1 # Bowel Movements 1 1 # of times incontinent of 1 Bowels Head Head exam: Present atraumatic, normal inspection and normocephalic Eye Eye exam: Present EOMI Pupils: Present PERRL ENT ENT exam: Present mucous membranes moist Neck Neck exam: Present full ROM and tenderness; Absent thyromegaly Respiratory Respiratory exam: Present rales, rhonchi and wheezes Cardiovascular Cardiovascular exam: Present RRR, +S1 and +S2; Absent bradycardia, gallop and JVD GI/Abdominal GI/Abdominal exam: Present diminished bowel sounds, guarding and tenderness Additional comments: incision looks good; JOSE drainage is bloody. Extremities Exam Extremities exam: Present full ROM; Absent normal inspection, pedal edema and tenderness Back Exam Back exam: Present full ROM Neurological Exam Neurological exam: Present alert, CN II-XII intact, oriented X3 and reflexes normal; Absent motor sensory deficit and normal gait Psychiatric Psychiatric exam: Present flat affect, normal affect and normal mood Skin Skin exam: Present cyanosis; Absent petechiae, rash and urticaria A/P Assessment and plan (1) Adynamic ileus: Status: Acute (2) Incisional hernia of anterior abdominal wall with obstruction and gangrene: Status: Acute (3) Chronic intestinal pseudo-obstruction: Status: Acute Narrative A/P Narrative: patient will be started on REGONOL 10 mg twice daily. Will check repeat abdominal films in the morning Time Spent With Patient Time: Total time spent is greater than 50% in coordination of care (as documented) at patient's floor/unit and/or counseling patient:
[2020-02-04] MEDS: PYRIDOSTIGMINE BROMIDE 10 MG/2 ML ML IM SCH (21:13)
[2020-02-05] MEDS: HYDROmorphone 1 MG/ML SYRINGE IV PRN ×6 (00:25→23:56)
[2020-02-05] MEDS: METOCLOPRAMIDE 10 MG/2 ML VIAL IV SCH ×5 (00:25→23:47)
[2020-02-05] MEDS: traZODone HCL 100 MG TABLET PO PRN ×3 (00:25→23:47)
[2020-02-05] MEDS: 0.9 % SODIUM CHLORIDE 1,000 ML IV SCH ×3 (03:08→16:24)
[2020-02-05] MEDS: PYRIDOSTIGMINE BROMIDE 10 MG/2 ML ML IM SCH ×3 (06:02→21:54)
[2020-02-05] MEDS: CEFEPIME 2 GM VIAL IV SCH ×3 (06:02→21:42)
[2020-02-05] MEDS: IPRATROPIUM/ALBUTEROL 3 ML AMPUL.NEB NEB SCH ×3 (06:02→18:16)
[2020-02-05 07:14] LABS: Basophils # (Auto) 0.02 K/mcL (0.00-0.30); Basophils % (Auto) 0.4 % (0.0-2.0); Eosinophils # (Auto) 0.18 K/mcL (0.00-0.70); Eosinophils % (Auto) 3.5 % (0.0-7.0); Granulocytes % (Auto) 42.9 % (38.0-78.0); Hemoglobin 10.5 g/dL (13.7-17.5); Lymphocytes # (Auto) 1.37 K/mcL (1.50-4.80); Mean Platelet Volume 9.9 fL (7.4-10.4); Monocytes # (Auto) 1.33 K/mcL (0.10-0.90); Monocytes % (Auto) 26.2 % (1.0-12.0); Platelet Count 235 K/mcL (140-440); RBC 3.19 M/mcL (4.63-6.08); Red Cell Distribution Width 14.2 % (11.5-14.5); WBC 5.1 K/mcL (4.50-11.00)
[2020-02-05] MEDS: FLUoxetine HCL 20 MG CAPSULE PO SCH (08:01)
[2020-02-05] MEDS: NICOTINE 21 MG PATCH TOPICAL SCH (08:01)
[2020-02-05] MEDS: METOPROLOL SUCCINATE 50 MG TAB.XL.24H PO SCH (08:01)
[2020-02-05 10:24] LABS: ALT/SGPT 12 U/l (0-40); AST/SGOT 21 U/l (0-37); Albumin 3.1 gm/dL (3.2-5.2); Albumin/Globulin Ratio 1.2 (1.0-2.3); Alkaline Phosphatase 54 U/L (39-117); Bilirubin,Direct 0.2 mg/dL (0.0-0.3); Bilirubin,Total 0.6 mg/dL (0.0-1.0); Blood Urea Nitrogen 4 mg/dl (6-20); Calcium 7.7 mg/dl (8.6-10.4); Carbon Dioxide 31 mmol/L (22-30); Chloride 90 mmol/L (96-108); Globulin 2.5 gm/dL (2.2-3.7); Glomerular Filtration Rate 110; Glucose 118 mg/dL (70-105); Lactate Dehydrogenase 199 U/L (94-250); Phosphorous 3.2 mg/dL (2.7-4.5); Triglycerides 62 mg/dl (<150)
[2020-02-05] MEDS ORDERED: POTASSIUM PHOSPHATE 40 MEQ in DEXTROSE 5% IN WATER 500 ML IV ONE ×2 (13:00→17:00)
--- NOTE | 2020-02-05 13:31 | General Surgery Progress Note ---
SUBJECTIVE Subjective Patient information: Note initiated : 02/05/20 at 1:31 pm Service Date, if different from initiated Date: [] Patient: Tone Pope 59 y/o M admitted on 01/29/20 for Incisional Hernia Repair. Chief Complaint: [] Principal diagnosis: incisional hernia Interval history: Narrative:Patient continues to improve. He said he said he passed large volume flatus since starting the IM REGONOL. He has had small bowel movements. He denies nausea.potassium 2.6, BUN 4, creatinine 0.6, white blood count 5.1, hemoglobin 10.5, hematocrit 30. Constitutional Vitals: Vital Signs Temp Pulse Resp BP Pulse Ox 98.7 F 66 15 150/90 91 02/05/20 12:00 02/05/20 12:05 02/05/20 12:05 02/05/20 12:00 02/05/20 12:00 Period Temp Pulse Resp BP Sys/Juarez Pulse Ox Last 24 Hr 97.6 F-98.8 F 65-88 15-21 141-182/77-95 91-97 Intake and Output 02/04/20 02/05/20 02/05/20 21:59 05:59 13:59 Intake Total 1720 1450 600 Output Total 630 235 455 Balance 1090 1215 145 Weight 145 lb 1.6 oz Intake & Output: Intake & Output 02/04/20 02/05/20 02/05/20 21:59 05:59 13:59 Intake Total 1720 1450 600 Output Total 630 235 455 Balance 1090 1215 145 Weight 145 lb 1.6 oz Intake: IV 1000 Sodium Chloride 0.9% 1,000 ml @ 1000 125 mls/hr IV .Q8H [facility] Rx#: [id number] Oral 1720 450 600 Output: Drainage 80 Left groin #3 80 Drainage 110 235 Left groin #2 15 Left groin #3 110 205 Right groin #1 15 Void Amount 520 375 Other: Meal Dinner Lunch Percent of Meal Consumed 100% 75% Feeding Ability Independent Independent Urine Appearance Clear Urine Color Dark Yellow Urine Odor Strong Stool Size Moderate Small Moderate Stool Color Brown Yellow Stool Consistency Liquid Liquid Loose Loose Loose # Voids 1 1 # Bowel Movements 1 1 Head Head exam: Present atraumatic, normal inspection and normocephalic Eye Eye exam: Present EOMI Pupils: Present PERRL ENT ENT exam: Present mucous membranes moist Neck Neck exam: Present full ROM and tenderness; Absent thyromegaly Respiratory Respiratory exam: Present rales, rhonchi and wheezes Cardiovascular Cardiovascular exam: Present RRR, +S1 and +S2; Absent bradycardia, gallop and JVD GI/Abdominal GI/Abdominal exam: Present diminished bowel sounds, guarding and tenderness Additional comments: incision looks good; JOSE drainage is bloody. Extremities Exam Extremities exam: Present full ROM; Absent normal inspection, pedal edema and tenderness Psychiatric Psychiatric exam: Present flat affect, normal affect and normal mood Skin Skin exam: Present cyanosis; Absent petechiae, rash and urticaria A/P Assessment and plan (1) Chronic intestinal pseudo-obstruction: Status: Acute (2) Adynamic ileus: Status: Acute (3) Incisional hernia of anterior abdominal wall with obstruction and gangrene: Status: Acute Narrative A/P Narrative: advanced to soft diet Abdominal x-rays today and in the morning possible discharge tomorrow Time Spent With Patient Time: Total time spent is greater than 50% in coordination of care (as documented) at patient's floor/unit and/or counseling patient:
--- NOTE | 2020-02-05 14:04 | XRay Report ---
INDICATION: Postoperative abdomen. Colonic distention. TECHNIQUE: Supine and upright abdomen. COMPARISON: Previous examinations dated 02/04/2020, 02/03/2020, 02/02/2020 FINDINGS:There are surgical drains in the pelvis. There are skin nina in a vertical midline incision. Bowel gas pattern remains abnormal. There is gaseous distention of the colon. The cecum is midline consistent with mobile cecum. Cecum and ascending colon are dilated to approximately 8 cm. Appearance is essentially stable. There are prominent gas-filled small bowel loops. IMPRESSION: 1. Findings consistent with mobile cecum as above 2. Persisting gaseous distention of the colon, especially the cecum and ascending colon. Interpreted and Authenticated by: Ja Salgado 02/05/20
[2020-02-06] MEDS: HYDROmorphone 1 MG/ML SYRINGE IV PRN ×2 (04:14→04:24)
[2020-02-06] MEDS: PYRIDOSTIGMINE BROMIDE 10 MG/2 ML ML IM SCH ×2 (06:09→14:14)
[2020-02-06] MEDS: METOCLOPRAMIDE 10 MG/2 ML VIAL IV SCH ×3 (06:09→17:29)
[2020-02-06] MEDS: CEFEPIME 2 GM VIAL IV SCH ×2 (06:10→14:14)
--- NOTE | 2020-02-06 06:44 | XRay Report ---
INDICATION: FOLLOW -UP OF SMALL BOWEL OBSTRUCTION TECHNIQUE: Supine and upright abdomen. COMPARISON: Previous examinations dated 02/05/2020, 02/04/2020, 02/03/2020, 02/02/2020. FINDINGS:There is gas throughout small and large bowel. Distention of the cecum and ascending colon is improved. No pneumoperitoneum. No biliary or portal venous gas. No pneumatosis. No new abnormality. IMPRESSION: Improved bowel gas pattern Interpreted and Authenticated by: Ja Salgado 02/06/20
[2020-02-06] MEDS: IPRATROPIUM/ALBUTEROL 3 ML AMPUL.NEB NEB SCH ×3 (06:47→18:49)
[2020-02-06] MEDS: METOPROLOL SUCCINATE 50 MG TAB.XL.24H PO SCH (08:16)
[2020-02-06] MEDS: FLUoxetine HCL 20 MG CAPSULE PO SCH (08:16)
[2020-02-06] MEDS: oxyCODONE 10 MG TAB.ER.12H PO PRN ×2 (12:21→16:12)
[2020-02-06] MEDS: NICOTINE 21 MG PATCH TOPICAL SCH (12:23)
--- NOTE | 2020-02-06 17:17 | Discharge Summary ---
Discharge Provider Provider Patient information: Note initiated : 02/06/20 at 5:07 pm Service Date, if different from initiated Date: [] Patient: Tone Pope 59 y/o M admitted on 01/29/20 for Incisional Hernia Repair. Chief Complaint: [] Date of admission: 01/29/20 05:56 Discharge date: 02/06/20 Primary care physician: Kai Malone Admitting clinician: Jessee Og Attending physician on admission: Jessee Og Consults: Attending physician on discharge: Jessee Og Discharging clinician: Jessee Og COURSE Hospital Course Hospital Course: 59-year-old male with a large incisional hernia lower abdomen status post open prostatectomy. He underwent hernia repair 29 January 2020. He developed severe ileus type pattern in the postoperative period.. 3 days postoperatively a retrograde Gastrografin study was done and this showed that the colon was totally patent but he hasn't cecum dilated to 13 cm. He received some milk of magnesia with marginal results but then started having evaluation of the cecum again. Since there was massive dilation all the way down to the rectum it was felt that he may have pseudoobstruction of his colon. He was treated with ReGONOL 10 mg IM every 12 hours with good results and with decompression at this cecum and transverse colon. He has had multiple bowel movements and pass large volumes of labor since that time. X-rays today show significant reduction in gaseous distention of the bowel. The patient will be switched to Mestinon 60 mg twice daily and will be followed up as an outpatient. He has significant output through his drain that is over the mesh but this is all serous fluid. 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 Reason for admission: postoperative status post repair of incisional hernia Procedures: incisional hernia repair with mesh Pertinent studies/significant findings: Gastrografin enema Complications: none Time Spent with Patient Time attestation: Total time spent providing and/or coordinating discharge services: Physical Examination Vital Signs Vital signs: Temp Pulse Resp BP Pulse Ox 97.8 F 63 17 167/87 95 02/06/20 16:00 02/06/20 16:00 02/06/20 16:00 02/06/20 16:00 02/06/20 16:00 General physical appearance General physical exam: well developed, well nourished and no distress Eyes Eye exam: PERRL and normal ocular movement ENT ENT exam: normal pinna, normal nares and normal mucosa Head Head exam IM: Present atraumatic, normal inspection and normocephalic Neck Neck exam: no masses, no bruits, trachea midline, no lymphadenopathy, no venous distension and other Cardiovascular Cardiovascular exam IM: Present normal rate and rhythm, RRR, +S1 and +S2; Absent gallop and JVD Respiratory Respiratory exam: normal expansion, normal respiratory effort, clear to percussion, clear to auscultation and other Abdomen Abdomen: Present soft, tender (mild tenderness of incision; incision looks good; JOSE drainage is serosanguineous) and distended (mildly distended but soft) Integumentary Integumentary: Present no rash, no growths and no abnormal pigmentation Neurologic Neurologic: Present normal coordination and normal sensation Musculoskeletal Musculoskeletal: Present normal gait and normal posture Psychiatric Psychiatric: Present oriented to time, oriented to person, oriented to place, speech is normal, memory intact and other Discharge Plan Patient/Caregiver Discharge Instructions Activity: increase activity as tolerated Diet: Regular Diet Instructions: Incisional Hernia (DC) Activity Restrictions/Additional Instructions: please take sponge baths until the drains are removed Do not shower or take tub baths. Empty JOSE drains once or twice daily as needed Follow-up in the office on 17 February 2020; contact the office tomorrow to confirm your appointment time Contact my medical screener at the office if you need a dressing change Prescriptions: New pyridostigmine bromide [Mestinon] 60 mg tablet 60 mg PO BID Qty: 30 RF: 0 oxycodone 10 mg tablet 10 mg PO Q6H PRN (Reason: pain) Qty: 40 RF: 0 Continued trazodone 100 mg tablet 100 mg PO QHS PRN (Reason: anxiety) Qty: 90 RF: 0 triamcinolone acetonide 0.1 % cream 1 applic TOPICAL TID Qty: 454 RF: 0 metoprolol succinate 50 mg tablet extended release 24 hr 50 mg PO QDAY Qty: 90 RF: 3 fluoxetine 20 mg capsule 20 mg PO QDAY Qty: 90 RF: 3 Eliquis 2.5 mg tablet 2.5 mg PO BID Qty: 60 RF: 5 albuterol sulfate 8.5 GM HFA aerosol inhaler 8.5 gm IH Q6H PRN (Reason: Dyspnea) Qty: 1 RF: 0 Follow Up Plan Follow up with: Jessee Og MD [Physician] - 02/13/20 1:00 pm Patient Disposition: Home, Self-Care Hospital Course: 59-year-old male with a large incisional hernia lower abdomen status post open prostatectomy. He underwent hernia repair 29 January 2020. He developed severe ileus type pattern in the postoperative period.. 3 days postoperatively a retrograde Gastrografin study was done and this showed that the colon was totally patent but he hasn't cecum dilated to 13 cm. He received some milk of magnesia with marginal results but then started having evaluation of the cecum again. Since there was massive dilation all the way down to the rectum it was felt that he may have pseudoobstruction of his colon. He was treated with ReGONOL 10 mg IM every 12 hours with good results and with decompression at this cecum and transverse colon. He has had multiple bowel movements and pass large volumes of labor since that time. X-rays today show significant reduction in gaseous distention of the bowel. The patient will be switched to Mestinon 60 mg twice daily and will be followed up as an outpatient. He has significant output through his drain that is over the mesh but this is all serous fluid. Prognosis: Good Rehab Potential: Good I certify that the patient requires SNF services: Yes Overall status at discharge: patient is progressing back to baseline Discharge Orders: Discharge Order (Routine); Ordered 02/06/20 Ordered By: Jessee Og Interventions Interventions: IV at Discharge Last Done: 02/06/20 17:43 Pending Pending Pending: Resuscitation Status Full Code Diet GI Soft/Transitional Start MonFeb 04 1413 Albuterol/Ipratropium (Duoneb) 3 ml NEB Q6HWA [facility] Last Admin: 02/06/20 12:45 Dose: 3 ml Documented by: Admin: 02/06/20 06:47 Dose: 3 ml Documented by: Admin: 02/05/20 18:16 Dose: 3 ml Documented by: Admin: 02/05/20 12:04 Dose: 3 ml Documented by: Admin: 02/05/20 06:02 Dose: Not Given Documented by: Admin: 02/04/20 18:22 Dose: 3 ml Documented by: Admin: 02/04/20 12:22 Dose: 3 ml Documented by: Admin: 02/04/20 05:16 Dose: Not Given Documented by: Admin: 02/03/20 18:31 Dose: 3 ml Documented by: Admin: 02/03/20 12:08 Dose: 3 ml Documented by: Admin: 02/03/20 06:40 Dose: Not Given Documented by: Admin: 02/02/20 17:06 Dose: 3 ml Documented by: Admin: 02/02/20 12:18 Dose: Not Given Documented by: Admin: 02/02/20 06:12 Dose: 3 ml Documented by: Admin: 02/01/20 18:14 Dose: 3 ml Documented by: Admin: 02/01/20 11:46 Dose: Not Given Documented by: Admin: 02/01/20 06:43 Dose: Not Given Documented by: Admin: 01/31/20 17:59 Dose: 3 ml Documented by: Admin: 01/31/20 11:44 Dose: 3 ml Documented by: Admin: 01/31/20 06:27 Dose: 3 ml Documented by: Admin: 01/30/20 16:06 Dose: 3 ml Documented by: RICARDO Cefepime HCl (Maxipime) 2 gm IV Q8H KEELY; Protocol Last Admin: 02/06/20 14:14 Dose: 2 gm Documented by: [email or web address] Admin: 02/06/20 06:10 Dose: 2 gm Documented by: Admin: 02/05/20 21:42 Dose: 2 gm Documented by: Admin: 02/05/20 14:41 Dose: 2 gm Documented by: [email or web address] Admin: 02/05/20 06:02 Dose: 2 gm Documented by: Admin: 02/04/20 21:11 Dose: 2 gm Documented by: Admin: 02/04/20 15:57 Dose: 2 gm Documented by: Admin: 02/04/20 05:15 Dose: 2 gm Documented by: Admin: 02/03/20 22:51 Dose: 2 gm Documented by: Admin: 02/03/20 15:58 Dose: 2 gm Documented by: Admin: 02/03/20 06:07 Dose: 2 gm Documented by: Admin: 02/02/20 21:38 Dose: 2 gm Documented by: Admin: 02/02/20 15:23 Dose: 2 gm Documented by: Admin: 02/02/20 06:05 Dose: 2 gm Documented by: Admin: 02/01/20 21:37 Dose: 2 gm Documented by: Admin: 02/01/20 17:30 Dose: 2 gm Documented by: Admin: 02/01/20 06:11 Dose: 2 gm Documented by: Admin: 01/31/20 22:00 Dose: 2 gm Documented by: Admin: 01/31/20 14:23 Dose: 2 gm Documented by: Admin: 01/31/20 06:37 Dose: 2 gm Documented by: Admin: 01/30/20 21:38 Dose: 2 gm Documented by: Admin: 01/30/20 14:38 Dose: 2 gm Documented by: Admin: 01/30/20 05:28 Dose: 2 gm Documented by: Admin: 01/29/20 21:32 Dose: 2 gm Documented by: Admin: 01/29/20 15:09 Dose: 2 gm Documented by: CATINA Fluoxetine HCl (Prozac) 20 mg PO QDAY KEELY Last Admin: 02/06/20 08:16 Dose: 20 mg Documented by: Admin: 02/05/20 08:01 Dose: 20 mg Documented by: Admin: 02/04/20 10:11 Dose: 20 mg Documented by: Admin: 02/03/20 11:39 Dose: 20 mg Documented by: Admin: 02/02/20 12:12 Dose: 20 mg Documented by: Admin: 02/01/20 14:32 Dose: Not Given Documented by: Admin: 01/31/20 09:47 Dose: 20 mg Documented by: Admin: 01/30/20 09:21 Dose: 20 mg Documented by: CATINA Hydromorphone HCl (Dilaudid) 1 mg IV Q2HP PRN; Protocol PRN Reason: Per Pain Protocol Last Admin: 02/06/20 04:24 Dose: 1 mg Documented by: Admin: 02/05/20 23:56 Dose: 1 mg Documented by: Admin: 02/05/20 21:42 Dose: 1 mg Documented by: Admin: 02/05/20 19:10 Dose: 1 mg Documented by: Admin: 02/05/20 13:19 Dose: 1 mg Documented by: Admin: 02/05/20 07:08 Dose: 1 mg Documented by: Admin: 02/05/20 00:25 Dose: 1 mg Documented by: Admin: 02/04/20 15:57 Dose: 1 mg Documented by: Admin: 02/04/20 10:11 Dose: 1 mg Documented by: Admin: 02/04/20 00:11 Dose: 1 mg Documented by: Admin: 02/03/20 21:58 Dose: 1 mg Documented by: Admin: 02/03/20 14:55 Dose: 1 mg Documented by: Admin: 02/03/20 11:58 Dose: 1 mg Documented by: Admin: 02/03/20 09:08 Dose: 1 mg Documented by: Admin: 02/03/20 03:41 Dose: 1 mg Documented by: Admin: 02/02/20 22:53 Dose: 1 mg Documented by: Admin: 02/02/20 18:36 Dose: 1 mg Documented by: Admin: 02/02/20 15:21 Dose: 1 mg Documented by: Admin: 02/02/20 12:09 Dose: 1 mg Documented by: Admin: 02/02/20 07:52 Dose: 1 mg Documented by: Admin: 02/02/20 00:02 Dose: 1 mg Documented by: Admin: 02/01/20 21:36 Dose: 1 mg Documented by: Admin: 02/01/20 15:38 Dose: 1 mg Documented by: Admin: 02/01/20 04:19 Dose: 1 mg Documented by: Admin: 01/31/20 21:59 Dose: 1 mg Documented by: Admin: 01/31/20 14:23 Dose: 1 mg Documented by: Admin: 01/31/20 05:57 Dose: 1 mg Documented by: Admin: 01/31/20 02:56 Dose: 1 mg Documented by: Admin: 01/30/20 21:53 Dose: 1 mg Documented by: Admin: 01/30/20 18:02 Dose: 1 mg Documented by: Admin: 01/30/20 12:15 Dose: 1 mg Documented by: Admin: 01/30/20 07:53 Dose: 1 mg Documented by: Admin: 01/30/20 03:54 Dose: 1 mg Documented by: Admin: 01/29/20 23:54 Dose: 1 mg Documented by: Admin: 01/29/20 21:32 Dose: 1 mg Documented by: Admin: 01/29/20 13:38 Dose: 1 mg Documented by: CATINA Lorazepam (Ativan) 1 mg IV Q6HP PRN PRN Reason: ANXIETY/SEDATION Last Admin: 02/01/20 04:18 Dose: 1 mg Documented by: Admin: 01/31/20 02:56 Dose: 1 mg Documented by: ROHAN Metoclopramide HCl (Reglan) 10 mg IV Q6 KEELY Last Admin: 02/06/20 12:30 Dose: 10 mg Documented by: Admin: 02/06/20 06:09 Dose: 10 mg Documented by: Admin: 02/05/20 23:47 Dose: 10 mg Documented by: Admin: 02/05/20 18:07 Dose: 10 mg Documented by: Admin: 02/05/20 13:11 Dose: 10 mg Documented by: Admin: 02/05/20 06:02 Dose: 10 mg Documented by: Admin: 02/05/20 00:25 Dose: 10 mg Documented by: Admin: 02/04/20 17:53 Dose: 10 mg Documented by: Admin: 02/04/20 14:40 Dose: 10 mg Documented by: Admin: 02/04/20 05:16 Dose: 10 mg Documented by: Admin: 02/04/20 00:10 Dose: 10 mg Documented by: Admin: 02/03/20 17:46 Dose: 10 mg Documented by: Admin: 02/03/20 11:55 Dose: 10 mg Documented by: Admin: 02/03/20 06:07 Dose: 10 mg Documented by: Admin: 02/02/20 23:25 Dose: 10 mg Documented by: Admin: 02/02/20 18:36 Dose: 10 mg Documented by: Admin: 02/02/20 12:11 Dose: 10 mg Documented by: Admin: 02/02/20 06:05 Dose: 10 mg Documented by: Admin: 02/02/20 00:02 Dose: 10 mg Documented by: Admin: 02/01/20 18:44 Dose: 10 mg Documented by: JAMES Metoprolol Succinate (Toprol Xl) 50 mg PO QDAY [facility] Last Admin: 02/06/20 08:16 Dose: 50 mg Documented by: Admin: 02/05/20 08:01 Dose: 50 mg Documented by: Admin: 02/04/20 10:11 Dose: 50 mg Documented by: Admin: 02/03/20 11:39 Dose: 50 mg Documented by: Admin: 02/02/20 12:11 Dose: 50 mg Documented by: Admin: 02/01/20 14:33 Dose: Not Given Documented by: Admin: 01/31/20 09:47 Dose: 50 mg Documented by: ASMMaya Admin: 01/30/20 09:21 Dose: 50 mg Documented by: ASMMaya Nicotine (Nicoderm) 21 mg TOPICAL DAILY@1000 [facility] Last Admin: 02/06/20 12:23 Dose: 21 mg Documented by: Admin: 02/05/20 08:01 Dose: 21 mg Documented by: Admin: 02/04/20 10:55 Dose: 21 mg Documented by: Admin: 02/03/20 11:49 Dose: 21 mg Documented by: Admin: 02/02/20 12:15 Dose: 21 mg Documented by: Admin: 02/01/20 10:16 Dose: 21 mg Documented by: Admin: 01/31/20 09:48 Dose: 21 mg Documented by: Admin: 01/30/20 09:21 Dose: 21 mg Documented by: Admin: 01/29/20 15:10 Dose: 21 mg Documented by: CATINA Ondansetron HCl (Zofran) 4 mg IV Q4HP PRN PRN Reason: Nausea And Vomiting Last Admin: 02/02/20 15:28 Dose: 4 mg Documented by: Admin: 02/01/20 02:27 Dose: 4 mg Documented by: Admin: 01/31/20 14:23 Dose: 4 mg Documented by: Admin: 01/31/20 09:48 Dose: 4 mg Documented by: Admin: 01/31/20 02:56 Dose: 4 mg Documented by: Admin: 01/30/20 21:53 Dose: 4 mg Documented by: Admin: 01/30/20 18:02 Dose: 4 mg Documented by: Admin: 01/30/20 12:15 Dose: 4 mg Documented by: Admin: 01/30/20 07:52 Dose: 4 mg Documented by: CATINA Oxycodone HCl (Oxycontin) 10 mg PO Q4HP PRN; Protocol PRN Reason: Pain Last Admin: 02/06/20 16:12 Dose: 10 mg Documented by: Admin: 02/06/20 12:21 Dose: 10 mg Documented by: DAISY Promethazine HCl (Phenergan) 12.5 mg IV Q4HP PRN PRN Reason: Nausea And Vomiting Last Admin: 01/31/20 22:00 Dose: 12.5 mg Documented by: Admin: 01/31/20 16:25 Dose: 12.5 mg Documented by: Admin: 01/31/20 05:57 Dose: 12.5 mg Documented by: Admin: 01/31/20 00:16 Dose: 12.5 mg Documented by: Admin: 01/29/20 18:39 Dose: 12.5 mg Documented by: CATINA Pyridostigmine [place] (Regonol) 10 mg IM Q8H KEELY Last Admin: 02/06/20 14:14 Dose: 10 mg Documented by: Admin: 02/06/20 06:09 Dose: 10 mg Documented by: Admin: 02/05/20 21:54 Dose: 10 mg Documented by: Admin: 02/05/20 14:42 Dose: 10 mg Documented by: Admin: 02/05/20 06:02 Dose: 10 mg Documented by: Admin: 02/04/20 21:13 Dose: 10 mg Documented by: KULWINDER Trazodone HCl (Desyrel) 100 mg PO QHS PRN PRN Reason: anxiety Last Admin: 02/05/20 23:47 Dose: 100 mg Documented by: Admin: 02/05/20 00:25 Dose: 100 mg Documented by: Admin: 02/04/20 00:56 Dose: 100 mg Documented by: Admin: 01/31/20 00:01 Dose: 100 mg Documented by: Admin: 01/30/20 01:02 Dose: 100 mg Documented by: ROHAN Shift Summary 02/06/20 05:16 Shift Summary by Ian Cortés Pt has rested well tonight. ABD pain has been fairly well controlled - IV Dilaudid 1mg given x4 last @ 0425. Pt has had no nausea or emesis this shift. He is talerating GI soft diet well. New 22G saline lock to his LT wrist - flushed & patent . Midline ABD surgical incision w/ film dressing - C,D,I. JOSE x3 to ABD - #1 - 5ml, #2 - 7ml. & #3 - 135ml output this shift. Pt had LG loose BM x2. He is voiding QS per urinal & into toilet. Pt up AMB out to cafe & back to RM x1 - gait stable - SBA w/o device. He is turning himself (I) in bed. VS - WNL on R.A.. He is A&O x4, calm, pleasant, & cooperative. Looking foreward to D/C later today. Initialized on 02/06/20 05:16 - END OF NOTE
--- NOTE | 2020-02-17 15:30 | Operative Note ---
DATE OF OPERATION: 01/29/2020 PREOPERATIVE DIAGNOSIS: Incisional hernia. POSTOPERATIVE DIAGNOSIS: Incisional hernia. PROCEDURE: Incisional hernia repair with mesh. SURGEON: Jessee Og M.D. FINDINGS: Total separation of the lower abdominal muscle and fascia with herniation. DESCRIPTION OF PROCEDURE: Under general anesthesia, the patient's abdomen was prepped and draped in a sterile field. Timeout procedure was carried out as per protocol. Midline incision was made with excision of the skin and subcutaneous scar. This was extended down to the peritoneum. The peritoneum was left intact and was circumferentially dissected to keep from entering the peritoneal cavity. A 10 x 15 skirted oval mesh graft was placed in the preperitoneal space. It was sutured circumferentially to the muscle and fascia using interrupted 0 Prolene. Irrigation was carried out. A #7 JOSE drain was placed over the mesh. The muscle and fascia were then closed in the midline using interrupted #1 Prolene. The subcutaneous space was irrigated and two JOSE drains were placed in the subcutaneous fat over the muscle and fascia. The muscle and fascia were then closed with running 2-0 Monocryl. Skin was closed with nina. Drains were secured with 2-0 nylon. Tegaderm dressings and split sponges were placed. The patient tolerated the procedure well. He was awakened, transferred to a bed, and taken to the postanesthetic care unit in satisfactory condition. LCS:juan Job ID: [id number] Doc ID: [id number] Jessee Og M.D.
== END 2020-02-06 19:40 | disposition home or self-care (01) | DRG 354 ==
LOC: MEDSUR 05:56 → EDSTATUS 07:30
PROVIDERS: ADMIT Family Medicine Adult Medicine; ATTEND Family Medicine Adult Medicine

== ENCOUNTER 2020-12-17 10:42 | Inpatient (IN) ==
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
--- NOTE | 2020-12-17 11:19 | XRay Report ---
INDICATION: pain s/p fall TECHNIQUE: AP portable upright chest x-ray COMPARISON: Previous chest x-rays dated 01/22/2020, 10/04/2019 FINDINGS:There is a mildly displaced fracture of the lateral aspects of the left 8th rib. There is extensive subcutaneous emphysema within the lateral left chest and soft tissues of the neck. There is a left apical pneumothorax. Left pneumothorax is estimated at 15%. No focal pulmonary parenchymal infiltrate or mass. Right lung is negative. Heart size and mediastinum are normal. No mediastinal widening. Scapula and clavicle are negative. IMPRESSION: 1. Mildly displaced left 8th rib fracture 2. Approximately 15% left apical pneumothorax 3. Subcutaneous emphysema Interpreted and Authenticated by: Ja Salgado 12/17/20
[2020-12-17] MEDS ORDERED: IPRATROPIUM/ALBUTEROL 3 ML AMPUL.NEB NEB ONE (11:53)
[2020-12-17] MEDS ORDERED: ONDANSETRON 4 MG/2 ML VIAL IV PRN (12:30)
[2020-12-17] MEDS ORDERED: traZODone HCL 50 MG TABLET PO PRN (12:40)
[2020-12-17] MEDS ORDERED: CYCLOBENZAPRINE 10 MG TABLET PO PRN (12:50)
[2020-12-17] MEDS ORDERED: LIDOCAINE 1% 20 ML VIAL SQ ONE (13:31)
[2020-12-17] MEDS: HYDROmorphone 0.5 MG/0.5 ML SYRINGE IV PRN ×2 (14:16→16:29)
[2020-12-17] MEDS: 0.9 % SODIUM CHLORIDE 1,000 ML IV SCH (14:18)
[2020-12-17] MEDS: 0.9 % SODIUM CHLORIDE 10 ML SYRINGE IV SCH ×2 (14:20→21:56)
[2020-12-17] MEDS: IPRATROPIUM/ALBUTEROL 3 ML AMPUL.NEB NEB SCH ×3 (16:26→23:29)
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
--- NOTE | 2020-12-17 17:52 | XRay Report ---
INDICATION: pneumothorax ,left chest TECHNIQUE: Informed consent was obtained. The anterior 2nd left interspace was localized with fluoroscopy. Routine ChloraPrep skin cleansing. 1% lidocaine injected subcutaneously and deep. A 5 Turkish Montgomery pigtail pleural catheter was inserted with its tip at the apex. Left pneumothorax was manually evacuated. The pigtail catheter was connected to a Heimlich valve and affixed to the skin. 24 seconds fluoroscopy utilized. COMPARISON: Preprocedure chest x-ray dated 12/17/2020 FINDINGS: Postprocedure chest x-ray demonstrates the pigtail catheter in the left thoracic apex. No detectable pneumothorax. There is extensive left sided and bilateral neck subcutaneous emphysema. There is a pneumomediastinum. IMPRESSION: 1. Percutaneous left pleural catheter placement 2. Left pneumothorax appears resolved. Persistent subcutaneous emphysema and pneumomediastinum Interpreted and Authenticated by: Ja Salgado 12/17/20
[2020-12-17] MEDS: NICOTINE 21 MG PATCH TOPICAL SCH (17:55)
[2020-12-17] MEDS: SENNOSIDES 1 TABLET PO SCH (21:28)
[2020-12-17] MEDS: DOCUSATE SODIUM 100 MG CAPSULE PO SCH (21:28)
[2020-12-17] MEDS: oxyCODONE/APAP 5/325MG TABLET PO PRN (21:28)
[2020-12-17] MEDS: traZODone HCL 100 MG TABLET PO PRN (23:38)
[2020-12-18] MEDS: oxyCODONE/APAP 5/325MG TABLET PO PRN ×5 (02:45→23:04)
[2020-12-18] MEDS: IPRATROPIUM/ALBUTEROL 3 ML AMPUL.NEB NEB SCH ×6 (02:45→22:24)
[2020-12-18] MEDS: 0.9 % SODIUM CHLORIDE 1,000 ML IV SCH ×2 (02:46→15:43)
[2020-12-18] MEDS: 0.9 % SODIUM CHLORIDE 10 ML SYRINGE IV SCH ×3 (04:20→20:26)
[2020-12-18 06:54] LABS: Basophils # (Auto) 0.04 K/mcL (0.00-0.20); Basophils % (Auto) 0.7 % (0.0-2.0); Eosinophils # (Auto) 0.09 K/mcL (0.00-0.70); Eosinophils % (Auto) 1.7 % (0.0-7.0); Hematocrit 31.6 % (41.0-55.0); Hemoglobin 11.2 g/dL (13.5-16.5); Lymphocytes # (Auto) 1.33 K/mcL (1.50-4.80); Lymphocytes % (Auto) 24.7 % (15.0-49.0); Mean Corpuscular HGB Conc 35.4 g/dL (31.0-36.0); Mean Platelet Volume 9.8 fL (7.4-10.4); Monocytes # (Auto) 0.78 K/mcL (0.10-0.90); Monocytes % (Auto) 14.5 % (1.0-12.0); Neutrophils % (Auto) 58.4 % (38.0-78.0); Platelet Count 153 K/mcL (140-440); RBC 3.29 M/mcL (4.50-5.90); Red Cell Distribution Width 14.2 % (11.5-14.5); WBC 5.4 K/mcL (4.5-11.0)
--- NOTE | 2020-12-18 07:03 | XRay Report ---
INDICATION: f/u of pneumothorax TECHNIQUE: AP portable semierect chest x-ray COMPARISON: Previous chest x-rays dated 12/17/2020 FINDINGS:No change in position of small caliber left apical pleural catheter. Lungs:Density in the left retrocardiac region consistent with volume loss. Pneumonia is possible. Heart, vascular:No significant cardiomegaly. Pulmonary vascularity is normal. No pulmonary edema or pulmonary congestion Mediastinum, meliza:Pneumomediastinum is unchanged Pleura:No detectable pneumothorax. Skeletal:Left 8th rib fractures again identified. There is extensive subcutaneous emphysema in the left lateral hemithorax and soft tissues of the neck. This appears essentially unchanged Upper abdomen: Prominent bowel gas. Clinical correlation for symptoms of abdominal pain recommended. If clinically indicated plain film abdomen study may be of benefit IMPRESSION: 1. No detectable pneumothorax 2. Persistent subcutaneous emphysema and pneumomediastinum 3. Parenchymal density in the left retrocardiac region consistent with atelectasis. Pneumonia is less likely 4. Prominent bowel gas. Clinical correlation recommended Interpreted and Authenticated by: Ja Salgado 12/18/20
[2020-12-18] MEDS: PANTOPRAZOLE 40 MG TABLET PO SCH (07:32)
[2020-12-18] MEDS: METOPROLOL SUCCINATE 50 MG TAB.XL.24H PO SCH (08:06)
[2020-12-18] MEDS: DOCUSATE SODIUM 100 MG CAPSULE PO SCH ×2 (08:06→20:25)
[2020-12-18] MEDS: FLUoxetine HCL 20 MG CAPSULE PO SCH (08:06)
[2020-12-18 08:41] LABS: ALT/SGPT 18 U/L (<40); AST/SGOT 21 U/L (<40); Albumin 3.4 gm/dL (3.2-5.2); Albumin/Globulin Ratio 1.3 (1.0-2.3); Alkaline Phosphatase 54 U/L (39-117); Bilirubin,Direct 0.4 mg/dL (<0.3); Blood Urea Nitrogen 17 mg/dL (6-20); Calcium 8.4 mg/dL (8.6-10.4); Carbon Dioxide 28 mmol/L (22-30); Chloride 91 mmol/L (96-108); Globulin 2.7 gm/dL (2.2-3.7); Glomerular Filtration Rate 109; Glucose 114 mg/dL (70-105); Lactate Dehydrogenase 228 U/L (135-225); Triglycerides 48 mg/dL (<150); Uric Acid 2.5 mg/dL (2.5-8.0)
[2020-12-18] MEDS: NICOTINE 21 MG PATCH TOPICAL SCH (09:21)
[2020-12-18] MEDS ORDERED: NICOTINE 21 MG PATCH TOPICAL SCH (10:00)
[2020-12-18] MEDS: HYDROmorphone 0.5 MG/0.5 ML SYRINGE IV PRN (11:33)
--- NOTE | 2020-12-18 11:59 | General Surgery Progress Note ---
SUBJECTIVE Subjective Patient information: Note initiated : 12/18/20 at 11:52 am Service Date, if different from initiated Date: [] Patient: Tone Pope 60 y/o M admitted on 12/17/20 for Fall / pneumothorax. Chief Complaint: [] Principal diagnosis: Left rib fractures with traumatic pneumothorax Interval history: Patient states that he feels better but he still has significant pain. He had the chest catheter placed last evening and follow-up chest x-ray shows resolution of the pneumothorax. Based on the fluctuations in the Pleur-evac he has continued leak so he will be hooked to suction and monitored over the next day or so. Constitutional Vitals: Vital Signs Temp Pulse Resp BP Pulse Ox 98.4 F 73 20 159/94 90 12/18/20 07:39 12/18/20 07:39 12/18/20 07:39 12/18/20 07:39 12/18/20 07:39 Period Temp Pulse Resp BP Sys/Juarez Pulse Ox Last 24 Hr 97.4 F-98.4 F 68-81 16-22 133-163/82-100 90-99 Intake and Output 12/17/20 12/18/20 12/18/20 21:59 05:59 13:59 Intake Total 120 1255 Output Total 600 Balance 120 655 Weight 149 lb 3.2 oz Intake & Output: Intake & Output 12/17/20 12/18/20 12/18/20 21:59 05:59 13:59 Intake Total 120 1255 Output Total 600 Balance 120 655 Weight 149 lb 3.2 oz Intake: IV 935 Sodium Chloride 0.9% 1,000 ml @ 935 75 mls/hr IV .[id number] [facility] Rx#: [id number] Oral 120 320 Output: Void Amount 600 Other: Meal Breakfast Percent of Meal Consumed 100% Feeding Ability Independent Urine Appearance Clear Urine Color Bright Yellow Urine Odor Normal Head Head exam: Present atraumatic, normal inspection and normocephalic Eye Eye exam: Present EOMI Pupils: Present PERRL ENT ENT exam: Present mucous membranes moist Neck Neck exam: Present full ROM and tenderness; Absent thyromegaly Respiratory Respiratory exam: Present accessory muscle use, chest wall tenderness, rales, r honchi and wheezes Cardiovascular Cardiovascular exam: Present RRR, +S1 and +S2; Absent bradycardia, gallop, JVD and rubs GI/Abdominal GI/Abdominal exam: Present normal bowel sounds and soft; Absent distended Extremities Exam Extremities exam: Present full ROM and neurovascular intact Neurological Exam Neurological exam: Present alert, oriented X3 and reflexes normal; Absent motor sensory deficit Psychiatric Psychiatric exam: Present agitated, anxious, depressed and flat affect Skin Skin exam: Absent cyanosis A/P Assessment and plan (1) Traumatic fracture of ribs of left side with pneumothorax: Status: Acute (2) COPD (chronic obstructive pulmonary disease): Status: Acute Qualifiers: COPD type: COPD with acute exacerbation Qualified Code(s): J44.1 - Chronic obstructive pulmonary disease with (acute) exacerbation (3) Tobacco abuse: Status: Chronic (4) Hypertension, essential: Status: Chronic (5) Cannabis abuse, continuous: Status: Chronic Narrative A/P Narrative: Persistent air leak Chest pain is uncontrolled Patient is hoping to Pleur-evac and will be placed on suction Follow-up chest x-ray in the morning Time Spent With Patient Time: Total time spent is greater than 50% in coordination of care (as documented) at patient's floor/unit and/or counseling patient:
--- NOTE | 2020-12-18 13:53 | EKG ---
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 Measurements Intervals Dickinson Rate: 69 P: 80 DE: 144 QRS: 71 QRSD: 90 T: 75 QT: 401 QTc: 430 Interpretive Statements Sinus rhythm Probable left atrial enlargement Low voltage, precordial leads Probable anterolateral infarct, old No prior tracing for comparison. Electronically Signed On 12-18-2020 13:53:09 PDT by Gamaliel Medrano M.D. /store/M0/[id number]/[id number]
[2020-12-18] MEDS: SENNOSIDES 1 TABLET PO SCH (20:25)
[2020-12-18] MEDS: traZODone HCL 100 MG TABLET PO PRN (23:06)
[2020-12-19] MEDS: IPRATROPIUM/ALBUTEROL 3 ML AMPUL.NEB NEB SCH ×7 (03:23→23:05)
[2020-12-19] MEDS: oxyCODONE/APAP 5/325MG TABLET PO PRN ×5 (03:23→23:21)
[2020-12-19] MEDS: 0.9 % SODIUM CHLORIDE 1,000 ML IV SCH ×3 (06:01→19:15)
[2020-12-19] MEDS: HYDROmorphone 0.5 MG/0.5 ML SYRINGE IV PRN (06:06)
[2020-12-19] MEDS: 0.9 % SODIUM CHLORIDE 10 ML SYRINGE IV SCH ×3 (06:07→20:17)
[2020-12-19] MEDS: PANTOPRAZOLE 40 MG TABLET PO SCH (07:27)
--- NOTE | 2020-12-19 08:03 | XRay Report ---
INDICATION: f/u of pneumothorax TECHNIQUE: AP portable upright chest x-ray COMPARISON: Previous chest x-rays dated 12/18/2020 and 12/17/2020 FINDINGS:No change in left apical small caliber pleural catheter Lungs:Right lung remains negative. There is parenchymal density in left retrocardiac region consistent with left lower lobe consolidation or volume loss. There are left mid lung infiltrates. Findings are slightly worse than on 12/18/2020. There is probable left pleural fluid or hemorrhage. Heart, vascular:No significant cardiomegaly. Pulmonary vascularity is normal. No pulmonary edema or pulmonary congestion Mediastinum, meliza:No mediastinal widening. No hilar mass. There is pneumomediastinum which appear stable Pleura:Left pleural effusion or hemothorax suspected. No detectable pneumothorax Skeletal, soft tissues:Persistent left subcutaneous emphysema and bilateral cervical subcutaneous emphysema. Appearance is essentially unchanged. There is a rounded gas-filled structure in the upper abdomen. This may be colon. Routine abdominal plain film examination recommended for better evaluation IMPRESSION: 1. No detectable pneumothorax 2. Subcutaneous emphysema and pneumomediastinum, unchanged 3. Increasing left basilar pulmonary parenchymal density. Possible left pleural effusion or hemothorax 4. Abnormal gas-filled structure in the mid abdomen, probably colon. Routine abdominal x-rays recommended Interpreted and Authenticated by: Ja Salgado 12/19/20
[2020-12-19] MEDS: METOPROLOL SUCCINATE 50 MG TAB.XL.24H PO SCH (09:30)
[2020-12-19] MEDS: DOCUSATE SODIUM 100 MG CAPSULE PO SCH ×2 (09:30→20:17)
[2020-12-19] MEDS: FLUoxetine HCL 20 MG CAPSULE PO SCH (09:30)
[2020-12-19] MEDS: NICOTINE 21 MG PATCH TOPICAL SCH (09:30)
[2020-12-19] MEDS ORDERED: PNEUMOCOCCAL 23-VAL P-SAC VAC 0.5 ML SYRINGE IM ONE (10:00)
--- NOTE | 2020-12-19 12:47 | General Surgery Progress Note ---
SUBJECTIVE Subjective Patient information: Note initiated : 12/19/20 at 12:47 pm Service Date, if different from initiated Date: [] Patient: Tone Pope 60 y/o M admitted on 12/18/20 for Fall / pneumothorax. Chief Complaint: [] Principal diagnosis: Left rib fractures with traumatic pneumothorax Interval history: Patient states that he feels better but he still has significant pain. There is no evidence of air leak. His shortness of breath is improved. He does not have labored respirations. Chest x-ray shows full expansion but he does have some infiltrates in the mid lung on the left Constitutional Vitals: Vital Signs Temp Pulse Resp BP Pulse Ox 98.9 F 81 18 155/94 96 12/19/20 11:55 12/19/20 11:55 12/19/20 11:55 12/19/20 11:55 12/19/20 11:55 Period Temp Pulse Resp BP Sys/Juarez Pulse Ox Last 24 Hr 98.0 F-99.3 F 74-85 16-20 120-168/72-94 90-98 Intake and Output 12/18/20 12/19/20 12/19/20 21:59 05:59 13:59 Intake Total 2371 1480 Output Total 225 Balance 2371 1255 Weight 144 lb Intake & Output: Intake & Output 12/18/20 12/19/20 12/19/20 21:59 05:59 13:59 Intake Total 2371 1480 Output Total 225 Balance 2371 1255 Weight 144 lb Intake: IV 971 1000 Sodium Chloride 0.9% 1,000 ml @ 971 1000 75 mls/hr IV .[id number] [facility] Rx#: [id number] Oral 1400 480 Output: Void Amount 125 Emesis 100 Other: Meal Beer Percent of Meal Consumed 100% Feeding Ability Independent Urine Appearance Clear Urine Color [place] Head Head exam: Present atraumatic, normal inspection and normocephalic Eye Eye exam: Present EOMI Pupils: Present PERRL ENT ENT exam: Present mucous membranes moist Neck Neck exam: Present full ROM and tenderness; Absent thyromegaly Respiratory Respiratory exam: Present accessory muscle use, chest wall tenderness, rales, rhonchi and wheezes Cardiovascular Cardiovascular exam: Present RRR, +S1 and +S2; Absent bradycardia, gallop, JVD and rubs GI/Abdominal GI/Abdominal exam: Present normal bowel sounds, soft and distended; Absent mass Extremities Exam Extremities exam: Present full ROM and neurovascular intact Neurological Exam Neurological exam: Present alert, oriented X3 and reflexes normal; Absent motor sensory deficit Psychiatric Psychiatric exam: Present agitated, anxious, depressed and flat affect Skin Skin exam: Absent cyanosis A/P Assessment and plan (1) Traumatic fracture of ribs of left side with pneumothorax: Status: Acute (2) COPD (chronic obstructive pulmonary disease): Status: Acute Qualifiers: COPD type: COPD with acute exacerbation Qualified Code(s): J44.1 - Chronic obstructive pulmonary disease with (acute) exacerbation (3) Tobacco abuse: Status: Chronic (4) Hypertension, essential: Status: Chronic (5) Cannabis abuse, continuous: Status: Chronic Narrative A/P Narrative: Follow-up chest x-ray in the morning Will DC suction on chest tube at midnight and get CT of chest in the morning Time Spent With Patient Time: Total time spent is greater than 50% in coordination of care (as documented) at patient's floor/unit and/or counseling patient:
[2020-12-19] MEDS: POLYETHYLENE GLYCOL 3350 17 GM PACKET PO SCH ×3 (13:42→20:17)
--- NOTE | 2020-12-19 14:29 | XRay Report ---
INDICATION: FOR F/U OF ILEUS TECHNIQUE: Supine and upright abdomen. COMPARISON: Previous examinations dated 02/06/2020, 02/05/2020, 02/04/2020, 02/01/2020. FINDINGS:There is gas throughout the colon. Appearance is consistent with a mobile cecum and dilatation. Cecum measures approximately 10 cm in cross-sectional diameter. Appearance is very similar to prior examinations. The appearance is not consistent with mechanical small bowel obstruction. There is no biliary or portal venous gas. There is no pneumoperitoneum. IMPRESSION: 1. Distended gas-filled colon with probable mobile cecum 2. Appearance is very similar to prior examinations 3. No mechanical small bowel obstruction. No pneumoperitoneum. Interpreted and Authenticated by: Ja Salgado 12/19/20
[2020-12-19] MEDS ORDERED: guaiFENesin/CODEINE 10 ML UDC PO PRN (19:40)
[2020-12-19] MEDS: SENNOSIDES 1 TABLET PO SCH (20:17)
[2020-12-19] MEDS ORDERED: diphenhydrAMINE 25 MG CAPSULE PO PRN (21:00)
[2020-12-19] MEDS: traZODone HCL 100 MG TABLET PO PRN (23:21)
[2020-12-20] MEDS: IPRATROPIUM/ALBUTEROL 3 ML AMPUL.NEB NEB SCH ×7 (02:59→23:04)
[2020-12-20] MEDS: 0.9 % SODIUM CHLORIDE 10 ML SYRINGE IV SCH ×5 (05:28→22:55)
[2020-12-20] MEDS: oxyCODONE/APAP 5/325MG TABLET PO PRN ×4 (05:28→23:54)
[2020-12-20 06:46] LABS: Basophils # (Auto) 0.03 K/mcL (0.00-0.20); Basophils % (Auto) 0.4 % (0.0-2.0); Eosinophils # (Auto) 0.35 K/mcL (0.00-0.70); Hematocrit 28.7 % (41.0-55.0); Lymphocytes # (Auto) 1.28 K/mcL (1.50-4.80); Lymphocytes % (Auto) 18.3 % (15.0-49.0); Mean Corpuscular HGB Conc 34.8 g/dL (31.0-36.0); Mean Platelet Volume 10.1 fL (7.4-10.4); Monocytes # (Auto) 1.27 K/mcL (0.10-0.90); Monocytes % (Auto) 18.2 % (1.0-12.0); Neutrophils % (Auto) 58.1 % (38.0-78.0); Platelet Count 159 K/mcL (140-440); RBC 2.96 M/mcL (4.50-5.90); Red Cell Distribution Width 13.9 % (11.5-14.5)
[2020-12-20] MEDS: PANTOPRAZOLE 40 MG TABLET PO SCH (06:54)
[2020-12-20 07:11] LABS: ALT/SGPT 13 U/L (<40); AST/SGOT 14 U/L (<40); Albumin 2.9 gm/dL (3.2-5.2); Albumin/Globulin Ratio 1.2 (1.0-2.3); Alkaline Phosphatase 54 U/L (39-117); Bilirubin,Direct 0.3 mg/dL (<0.3); Bilirubin,Total 0.6 mg/dL (0.1-1.0); Blood Urea Nitrogen 5 mg/dL (6-20); Carbon Dioxide 27 mmol/L (22-30); Chloride 93 mmol/L (96-108); Globulin 2.5 gm/dL (2.2-3.7); Glomerular Filtration Rate 118; Glucose 91 mg/dL (70-105); Lactate Dehydrogenase 161 U/L (135-225); Phosphorous 3.8 mg/dL (2.5-4.5); Triglycerides 45 mg/dL (<150); Uric Acid 1.6 mg/dL (2.5-8.0)
[2020-12-20] MEDS ORDERED: IOPAMIDOL 100 ML BOTTLE IV ONE ×4 (08:25→14:02)
[2020-12-20] MEDS: FLUoxetine HCL 20 MG CAPSULE PO SCH (08:33)
[2020-12-20] MEDS: HYDROmorphone 0.5 MG/0.5 ML SYRINGE IV PRN ×2 (08:34→16:36)
[2020-12-20] MEDS: METOPROLOL SUCCINATE 50 MG TAB.XL.24H PO SCH (08:34)
[2020-12-20] MEDS: DOCUSATE SODIUM 100 MG CAPSULE PO SCH ×2 (08:34→20:29)
--- NOTE | 2020-12-20 08:46 | Cat Scan Report ---
INDICATION: f/u pneunothorax and lung contusion COMPARISON: Previous chest x-rays dated 12/19/2020, 12/18/2020, 12/17/2020. Previous chest CT scans dated 08/12/2020 and 03/08/2019 TECHNIQUE: Axial contrast enhanced images through the chest. Sagittally and coronally reformatted images. MIP reformatted images. 70ml Isovue 370 injected intravenously. FINDINGS: Lungs:No focal right lung infiltrate or mass. There is moderate centrilobular emphysema. Left lower lobe and partial lingular collapse. There is no obstructing mass identified. Aerated left lung is negative except for central lobular emphysema. Mediastinum, vascular:There is pneumomediastinum. There is no pneumopericardium. Thoracic aorta is negative. No thoracic aortic aneurysm. No dissection. Main pulmonary artery is negative. Pulmonary vasculature is opacified. There is no pulmonary embolism Heart:No cardiomegaly. No pericardial effusion. No significant coronary artery calcification Pleura:Small left pleural effusion. There is a pigtail catheter at the left lung apex. Position is changed slightly since previous chest x-rays. There is no pneumothorax Axilla, supraclavicular regions, chest wall:No axillary or supraclavicular adenopathy. There is a subcutaneous mass in the right lateral chest wall. This measures 13 mm. This was present on previous examination dated 03/08/2019 but has enlarged slightly. This may be an epidermal inclusion cyst. Lymph node is possible although there is no fatty hilum and this is rounded rather than elliptical There is left-sided subcutaneous emphysema. There is bilateral soft tissue gas within the neck. This appears slightly improved since 12/17/2020 Musculoskeletal:No thoracic compression fracture or lytic lesion. There are acute fractures of the left 8th, 9th, 10th ribs. Upper Abdomen:Prominent gas-filled colon. This is a chronic abnormality IMPRESSION: 1. Pneumomediastinum and soft tissue gas. Findings appear somewhat improved. There is no left pneumothorax 2. Centrilobular emphysema 3. Left lower lobe and partial lingular collapse. Small left pleural effusion 4. Fractures of the left 8th through 10th ribs The exam was performed using radiation dose optimization techniques including, but not limited to, automated exposure control, adjustment of the mA and/or kV according to patient size and use of iterative reconstruction technique. Interpreted and Authenticated by: Ja Salgado 12/20/20
[2020-12-20] MEDS: 0.9 % SODIUM CHLORIDE 1,000 ML IV SCH ×3 (08:50→19:31)
--- NOTE | 2020-12-20 10:31 | XRay Report ---
INDICATION: rapid response - unresponsive TECHNIQUE: AP portable supine chest x-ray COMPARISON: Previous chest x-rays dated 12/19/2020, 12/18/2020, 12/17/2020 FINDINGS: Lungs:There is parenchymal density at the left lung base consistent with left lower lobe volume loss and infiltrate. Right lung remains negative Heart, vascular:No significant cardiomegaly. Pulmonary vascularity is normal. No pulmonary edema or pulmonary congestion Mediastinum, meliza:No mediastinal widening. No hilar mass. There is pneumomediastinum but this appears decreased Pleura:Pleural pigtail catheter remains at the left lung apex. No detectable pneumothorax. Skeletal:Decreased left-sided subcutaneous emphysema IMPRESSION: 1. Left basilar pulmonary parenchymal density consistent with volume loss. Pneumonia is possible 2. No left pneumothorax 3. Decreased pneumomediastinum and soft tissue gas Interpreted and Authenticated by: Ja Salgado 12/20/20
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
[2020-12-20] MEDS ORDERED: METOPROLOL TARTRATE 5 MG/5 ML VIAL IV PRN (10:45)
--- NOTE | 2020-12-20 11:23 | Cat Scan Report ---
INDICATION: sudden hypotension, hypoxia COMPARISON: Previous chest CT scan dated 12/20/2020. Previous chest x-rays dated 12/20/2020 and 12/19/2020 TECHNIQUE: Axial images obtained through the chest. 80ml Isovue 370 injected intravenously, and scanning was performed during pulmonary arterial phase. Sagittally and coronally reformatted images were obtained. MIP reformatted images. FINDINGS: Lungs:Right lung is negative. No parenchymal infiltrate or mass. There is left lower lobe collapse and partial collapse of the lingular segment of left upper lobe. Findings are unchanged Mediastinum, vascular:Positive examination for pulmonary embolism. There is minimal clot in the right lower lobe pulmonary artery. There is embolic material in the posterior basilar segmental branch and subsegmental branches. There is clot within the right main pulmonary artery at the branch to the right middle lobe pulmonary artery. There is clot within the medial lateral segmental branches of the right middle lobe. There is mild clot in segmental branches of the right upper lobe. No left-sided pulmonary emboli are identified. Again demonstrated is pneumomediastinum, unchanged Heart:No cardiomegaly. No pericardial effusion. Pleura:Left pleural catheter remains in place. There is no pneumothorax Axilla, supraclavicular regions, chest wall:No pathologic axillary or supraclavicular adenopathy. Musculoskeletal:Fractures of the left 6th through 10th ribs are unchanged Upper Abdomen:Persistent gas-filled and distended colon. This is chronic IMPRESSION: 1. Positive examination for pulmonary embolism. Emboli are right sided and involve right middle and upper lobe pulmonary arteries. There are segmental and subsegmental emboli in the right lower lobe, right middle lobe, and right upper lobe. 2. Persistent left hemothorax. Left-sided rib fractures are unchanged 3. No left pneumothorax 4. Subcutaneous emphysema and pneumomediastinum 5. Persistent left lower lobe collapse and partial lingular collapse The exam was performed using radiation dose optimization techniques including, but not limited to, automated exposure control, adjustment of the mA and/or kV according to patient size and use of iterative reconstruction technique. Interpreted and Authenticated by: Ja Salgado 12/20/20
--- NOTE | 2020-12-20 11:57 | General Surgery Progress Note ---
SUBJECTIVE Subjective Patient information: Note initiated : 12/20/20 at 11:44 am Service Date, if different from initiated Date: [] Patient: Tone Pope 60 y/o M admitted on 12/18/20 for Fall / pneumothorax. Chief Complaint: [] Principal diagnosis: Left rib fractures with traumatic pneumothorax; hypoxemia and hypotension Interval history: The patient was stable the earlier part of the morning. He had a CT about 830 which showed resolution of pneumothorax with some basilar atelectasis and or pleural fluid. He was up in the chair and was being placed back in bed when he became ashen with severe hypotension with blood pressure 49/38 and hypoxemic with O2 sat of 70%. He was placed in the bed on Trendelenburg and was placed on supplemental oxygen. His pulse rate was noted to be 130 O2 sat was 76% but blood pressure had increased to 106 range systolic. Was subsequently placed on a nonrebreather and EKG was ordered. Oxygenation gradually improved. Blood pressure gradually improved into the 80s systolic range however he remained tachycardic with new onset of atrial fib with rapid ventricular response. Patient was continued on monitoring and his O2 sat increased above the 90s. This was about 15 minutes after the initial episode. He still had pulse in the 1 10-1 20 range with atrial fibrillation. He became more responsive. He was transferred to intensive care unit and then to x-ray for CTA of the chest. CTA of the chest shows multiple subsegmental pulmonary emboli in right upper and right lower lobes. Patient at this time is clinically stable and his blood pressure has increased as has his oxygenation. The hospitalist is treating the patient. He will be heparinized and treated accordingly. Pertinent ROS: Poorly responsive transiently Disoriented transiently Chest pain with shortness of breath persistent Constitutional Vitals: Vital Signs Temp Pulse Resp BP Pulse Ox 98.3 F 85 18 143/83 95 12/20/20 07:46 12/20/20 07:46 12/20/20 07:46 12/20/20 07:46 12/20/20 11:30 Period Temp Pulse Resp BP Sys/Juarez Pulse Ox Last 24 Hr 98.1 F-98.9 F 74-88 14-20 124-155/73-94 91-96 Intake and Output 12/19/20 12/20/20 12/20/20 21:59 05:59 13:59 Intake Total 1566 2340 Output Total 500 640 615 Balance 1066 1700 -615 Weight 145 lb 12.8 oz Intake & Output: Intake & Output 12/19/20 12/20/20 12/20/20 21:59 05:59 13:59 Intake Total 1566 2340 Output Total 500 640 615 Balance 1066 1700 -615 Weight 145 lb 12.8 oz Intake: IV 966 Sodium Chloride 0.9% 1,000 ml @ 966 75 mls/hr IV .[id number] [facility] Rx#: [id number] Oral 600 2340 Output: Chest Tube Drainage 15 15 Left Anterior Chest 15 15 Urine Catheter Amount 300 Void Amount 200 625 600 Other: Meal Dinner Percent of Meal Consumed 75% Urine Appearance Clear Clear Clear Urine Color Red Brown Dickenson Bright Yellow Head Head exam: Present atraumatic, normal inspection and normocephalic Eye Eye exam: Present EOMI Pupils: Present PERRL ENT ENT exam: Present mucous membranes moist Neck Neck exam: Present full ROM and tenderness; Absent thyromegaly Respiratory Respiratory exam: Present accessory muscle use, chest wall tenderness, rales, rhonchi and wheezes Additional comments: Diffuse bilateral coarse rhonchi wheezes much worse on the left than on the right; poor air movement on left with pleural rub Cardiovascular Cardiovascular exam: Present JVD (Prominent JVD bilaterally), +S1, +S2, +S3 and tachycardia (Irregularly irregular rhythm with heart rate of 130) GI/Abdominal GI/Abdominal exam: Present normal bowel sounds, distended (Mild tenderness of mid abdomen and epigastrium with moderate distention but active bowel sounds) and tenderness Extremities Exam Extremities exam: Present full ROM and neurovascular intact; Absent joint swelling and pedal edema Additional comments: No tender venous cords from femoral area to ankles bilaterally Back Exam Back exam: Present full ROM and normal inspection Neurological Exam Neurological exam: Present normal gait and oriented X3 Psychiatric Psychiatric exam: Present anxious, depressed, flat affect and normal mood Skin Skin exam: Absent pallor and rash A/P Assessment and plan (1) Pulmonary embolus, right: Status: Acute (2) Pneumothorax: Status: Acute Qualifiers: Pneumothorax type: traumatic Encounter type: initial encounter Qualified Code(s): S27.0XXA - Traumatic pneumothorax, initial encounter (3) COPD (chronic obstructive pulmonary disease): Status: Acute Qualifiers: COPD type: COPD with acute exacerbation Qualified Code(s): J44.1 - Chronic obstructive pulmonary disease with (acute) exacerbation (4) Fracture of rib: Status: Acute Qualifiers: Encounter type: initial encounter Rib fracture type: multiple ribs Fracture type: closed Laterality: right Qualified Code(s): S22.41XA - Multiple fractures of ribs, right side, initial encounter for closed fracture (5) Chronic intestinal pseudo-obstruction: Status: Acute (6) Hypoxia: Status: Acute (7) Hypertension, essential: Status: Chronic (8) COPD (chronic obstructive pulmonary disease): Status: Chronic Qualifiers: COPD type: chronic bronchitis Chronic bronchitis type: simple Qualified Code(s): J41.0 - Simple chronic bronchitis (9) Cannabis abuse, continuous: Status: Chronic (10) Alcohol abuse: Status: Chronic Narrative A/P Narrative: Patient will be heparinized and followed accordingly. We will monitor for bleeding however he is at least 4 days post rib fracture and should be stable from a bleeding standpoint. Chest tube will be continued to suction for the time being Hemoglobin will be monitored Time Spent With Patient Time: Total time spent is greater than 50% in coordination of care (as documented) at patient's floor/unit and/or counseling patient:
[2020-12-20] MEDS ORDERED: HEPARIN 5,000 UNIT/ML VIAL IV ONE (12:00)
[2020-12-20] MEDS ORDERED: HEPARIN SOD,PORK IN 0.45% NACL 25,000 UNIT in PREMIX 1 BAG IV SCH (12:00)
[2020-12-20] MEDS: NICOTINE 21 MG PATCH TOPICAL SCH (13:28)
[2020-12-20] MEDS ORDERED: POTASSIUM CHLORIDE 40 MEQ in DEXTROSE 5% IN WATER 500 ML IV ONE (13:30)
[2020-12-20] MEDS ORDERED: ACETAMINOPHEN 325 MG TABLET PO PRN (13:30)
[2020-12-20] MEDS ORDERED: 0.9 % SODIUM CHLORIDE 10 ML SYRINGE IV SCH (14:00)
[2020-12-20] MEDS ORDERED: THIAMINE 100 MG TABLET PO SCH (14:00)
[2020-12-20] MEDS ORDERED: ONDANSETRON 4 MG/2 ML VIAL IV PRN (14:02)
[2020-12-20] MEDS ORDERED: LIDOCAINE 1% 20 ML VIAL SQ ONE (14:02)
[2020-12-20] MEDS ORDERED: guaiFENesin/CODEINE 10 ML UDC PO PRN (14:02)
[2020-12-20] MEDS: HEPARIN SOD,PORK IN 0.45% NACL 25,000 UNIT in PREMIX 1 BAG IV SCH (19:31)
[2020-12-20 20:28] LABS: Blood Urea Nitrogen 5 mg/dL (6-20); Carbon Dioxide 22 mmol/L (22-30); Chloride 94 mmol/L (96-108); Glomerular Filtration Rate 118; Glucose 106 mg/dL (70-105)
[2020-12-20] MEDS: SENNOSIDES 1 TABLET PO SCH (20:28)
[2020-12-20] MEDS: POLYETHYLENE GLYCOL 3350 17 GM PACKET PO SCH (20:28)
[2020-12-20] MEDS: METOPROLOL TARTRATE 5 MG/5 ML VIAL IV PRN (22:47)
[2020-12-20] MEDS: CYCLOBENZAPRINE 10 MG TABLET PO PRN (22:55)
[2020-12-20] MEDS: traZODone HCL 100 MG TABLET PO PRN (23:54)
[2020-12-20] MEDS: diphenhydrAMINE 25 MG CAPSULE PO PRN (23:56)
[2020-12-21] MEDS: IPRATROPIUM/ALBUTEROL 3 ML AMPUL.NEB NEB SCH ×6 (02:43→23:10)
[2020-12-21] MEDS: oxyCODONE/APAP 5/325MG TABLET PO PRN ×4 (04:44→23:49)
[2020-12-21] MEDS: 0.9 % SODIUM CHLORIDE 10 ML SYRINGE IV SCH ×4 (05:10→20:57)
[2020-12-21] MEDS: 0.9 % SODIUM CHLORIDE 1,000 ML IV SCH ×3 (05:44→21:02)
[2020-12-21 06:48] LABS: Basophils # (Auto) 0.03 K/mcL (0.00-0.20); Basophils % (Auto) 0.5 % (0.0-2.0); Eosinophils # (Auto) 0.27 K/mcL (0.00-0.70); Eosinophils % (Auto) 4.2 % (0.0-7.0); Hematocrit 27.6 % (41.0-55.0); Hemoglobin 9.2 g/dL (13.5-16.5); Lymphocytes % (Auto) 23.4 % (15.0-49.0); Mean Cell Volume 99.3 fL (80.0-100.0); Mean Corpuscular HGB Conc 33.3 g/dL (31.0-36.0); Mean Platelet Volume 10.2 fL (7.4-10.4); Monocytes # (Auto) 1.33 K/mcL (0.10-0.90); Monocytes % (Auto) 20.7 % (1.0-12.0); Neutrophils % (Auto) 51.2 % (38.0-78.0); Platelet Count 194 K/mcL (140-440); RBC 2.78 M/mcL (4.50-5.90); Red Cell Distribution Width 14.4 % (11.5-14.5); WBC 6.4 K/mcL (4.5-11.0)
[2020-12-21 06:55] LABS: ALT/SGPT 16 U/L (<40); AST/SGOT 18 U/L (<40); Albumin 2.7 gm/dL (3.2-5.2); Albumin/Globulin Ratio 1.1 (1.0-2.3); Alkaline Phosphatase 68 U/L (39-117); Bilirubin,Total 0.5 mg/dL (0.1-1.0); Blood Urea Nitrogen 6 mg/dL (6-20); Calcium 8.1 mg/dL (8.6-10.4); Carbon Dioxide 29 mmol/L (22-30); Chloride 97 mmol/L (96-108); Globulin 2.5 gm/dL (2.2-3.7); Glomerular Filtration Rate 109; Glucose 106 mg/dL (70-105)
[2020-12-21] MEDS: PANTOPRAZOLE 40 MG TABLET PO SCH (07:02)
[2020-12-21] MEDS: CYCLOBENZAPRINE 10 MG TABLET PO PRN ×3 (07:13→20:56)
[2020-12-21] MEDS: THIAMINE 100 MG TABLET PO SCH (08:32)
[2020-12-21] MEDS: POLYETHYLENE GLYCOL 3350 17 GM PACKET PO SCH ×3 (08:32→20:56)
[2020-12-21] MEDS: METOPROLOL SUCCINATE 50 MG TAB.XL.24H PO SCH (08:32)
[2020-12-21] MEDS: FLUoxetine HCL 20 MG CAPSULE PO SCH (08:32)
[2020-12-21] MEDS: FOLIC ACID 1 MG TABLET PO SCH (08:33)
[2020-12-21] MEDS: DOCUSATE SODIUM 100 MG CAPSULE PO SCH ×2 (08:33→20:56)
[2020-12-21] MEDS: POTASSIUM CHLORIDE 20 MEQ TABLET PO SCH ×2 (08:33→17:18)
[2020-12-21] MEDS: HEPARIN SOD,PORK IN 0.45% NACL 25,000 UNIT in PREMIX 1 BAG IV SCH ×2 (08:48→12:44)
[2020-12-21] MEDS ORDERED: FOLIC ACID 1 MG TABLET PO SCH (09:00)
[2020-12-21] MEDS: NICOTINE 21 MG PATCH TOPICAL SCH (09:51)
--- NOTE | 2020-12-21 10:22 | XRay Report ---
INDICATION: f/u of pneumothorax TECHNIQUE: AP portable semiupright chest x-ray COMPARISON: Multiple previous chest x-rays. Most recent previous chest x-rays are dated 12/20/2020. Previous chest CT scan dated 12/20/2020 FINDINGS:Small-caliber left apical pleural catheter unchanged. Lungs:Right lung is negative. Near-complete opacification of the left hemithorax. Findings are consistent with significant left lung collapse. Heart and mediastinum are shifted toward the left. There is left pleural fluid as well. There is no detectable pneumothorax. Etiology of this significant left lung volume loss is not certain. Mucus plugging could cause this. Repeat chest CT scan or bronchoscopy may be helpful. Heart, vascular:No significant cardiomegaly. Pulmonary vascularity is normal. No pulmonary edema or pulmonary congestion. Heart is retracted toward the left due to significant left lung volume loss Mediastinum, meliza:No mediastinal widening. No hilar mass Pleura:No right pleural fluid or pneumothorax. There is opacification of much of the left hemidiaphragm. This is probably secondary to left lung bilateral spot left pleural effusion is also likely. There is no left pneumothorax Skeletal:Negative. There has been significant decrease in left subcutaneous emphysema. IMPRESSION: 1. Near complete opacification of the left hemithorax consistent with significant left lung volume loss and left pleural fluid. Heart and mediastinum are retracted toward the left 2. No evidence for recurrent pneumothorax 3. Continued decrease in left-sided soft tissue gas Interpreted and Authenticated by: Ja Salgado 12/21/20
[2020-12-21] MEDS ORDERED: MAGNESIUM SULFATE 2 GM/50 ML BAG IV ONE (12:00)
--- NOTE | 2020-12-21 12:30 | General Surgery Progress Note ---
SUBJECTIVE Subjective Patient information: Note initiated : 12/21/20 at 12:23 pm Service Date, if different from initiated Date: [] Patient: Tone Pope 60 y/o M admitted on 12/18/20 for Fall / pneumothorax. Chief Complaint: [] Principal diagnosis: Left rib fractures with traumatic pneumothorax; hypoxemia and hypotension Interval history: Patient states that he feels comfortable. His chest pain is controlled with analgesics. His SaO2 is in the 90 to 92% range. He has hypoventilation of the left lung and chest x-ray shows near complete collapse of the left lung probably due to severe atelectasis or mucous plug. Discussed with him that our claim specialist will be available tomorrow and he will be consulted to do bronchoscopy and washing if needed. His tachycardia is fairly well controlled and his blood pressure is stable. Constitutional Vitals: Vital Signs Temp Pulse Resp BP Pulse Ox 98.8 F 95 H 23 H 131/80 91 12/21/20 12:01 12/21/20 11:16 12/21/20 12:09 12/21/20 12:01 12/21/20 12:09 Period Temp Pulse Resp BP Sys/Juarez Pulse Ox Last 24 Hr 98.8 F-99.6 F 94-115 13-33 89-151/66-105 88-100 Intake and Output 12/20/20 12/21/20 12/21/20 21:59 05:59 13:59 Intake Total 2080 1615 500 Output Total 401 539 351 Balance 1679 1076 149 Weight 151 lb 11.2 oz Intake & Output: Intake & Output 12/20/20 12/21/20 12/21/20 21:59 05:59 13:59 Intake Total 2080 1615 500 Output Total 401 539 351 Balance 1679 1076 149 Weight 151 lb 11.2 oz Intake: Nourishment/Supplement quantity 480 (ml) Beer quantity 480 IV 520 915 500 Sodium Chloride 0.9% 1,000 ml @ 915 75 mls/hr IV .[id number] [facility] Rx#: [id number] Heparin/0.45%Ns 25,000 Unit In 500 Premix 1 Bag @ 18 UNIT/KG/HR 23 .808 mls/hr IV .[id number] [facility] Rx#: [id number] Potassium Chloride 40 Meq In 520 Dextrose 5% in Water 500 ml @ 130 mls/hr IV ONCE ONE Rx#: [id number] Oral 600 700 Output: Chest Tube Drainage 100 39 100 Left Anterior Chest 100 39 100 Void Amount 300 500 250 # of times incontinent of urine 1 1 Other: Meal Dinner Percent of Meal Consumed 50% Feeding Ability Independent Urine Appearance Clear Clear Clear Urine Color Dark Yellow Bright Yellow Bright Yellow Stool Size Smear Stool Color Brown # Voids 1 Head Head exam: Present atraumatic, normal inspection and normocephalic Eye Eye exam: Present EOMI Pupils: Present PERRL ENT ENT exam: Present mucous membranes moist Neck Neck exam: Present full ROM and tenderness; Absent thyromegaly Respiratory Respiratory exam: Present accessory muscle use, chest wall tenderness, rales, rhonchi and wheezes Additional comments: Markedly decreased breath sounds in left lung field except at apex. Pleural rub no longer heard due to probable severe atelectasis and no air movement on the left side Cardiovascular Cardiovascular exam: Present JVD (Prominent JVD bilaterally), +S1, +S2, +S3 and tachycardia (Irregularly irregular rhythm with heart rate of 100-110) GI/Abdominal GI/Abdominal exam: Present normal bowel sounds and distended Extremities Exam Additional comments: No change except for operative changes left calf Neurological Exam Neurological exam: Present alert and oriented X3 Psychiatric Psychiatric exam: Present depressed and flat affect A/P Assessment and plan (1) Collapse of left lung: Status: Acute (2) Pulmonary embolus, right: Status: Acute (3) Pneumothorax: Status: Acute Qualifiers: Encounter type: initial encounter Pneumothorax type: traumatic Qualified Code(s): S27.0XXA - Traumatic pneumothorax, initial encounter (4) COPD (chronic obstructive pulmonary disease): Status: Acute Qualifiers: COPD type: COPD with acute exacerbation Qualified Code(s): J44.1 - Chronic obstructive pulmonary disease with (acute) exacerbation (5) Fracture of rib: Status: Acute Qualifiers: Encounter type: initial encounter Fracture type: closed Laterality: right Rib fracture type: multiple ribs Qualified Code(s): S22.41XA - Multiple fractures of ribs, right side, initial encounter for closed fracture (6) Chronic intestinal pseudo-obstruction: Status: Acute (7) Hypertension, essential: Status: Chronic (8) COPD (chronic obstructive pulmonary disease): Status: Chronic Qualifiers: COPD type: chronic bronchitis Chronic bronchitis type: simple Qualified Code(s): J41.0 - Simple chronic bronchitis (9) Cannabis abuse, continuous: Status: Chronic (10) Alcohol abuse: Status: Chronic Narrative A/P Narrative: Patient's oxygenation is stable so he will be continued on present treatment. Plan is to have evaluation by pulmonology tomorrow with discussion as to whether or not he needs to have bronchoscopy because of probable bronchial plugging Hold heparin after midnight for potential bronchoscopy Time Spent With Patient Time: Total time spent is greater than 50% in coordination of care (as documented) at patient's floor/unit and/or counseling patient:
--- NOTE | 2020-12-21 12:43 | Internal Med Progress Note ---
SUBJECTIVE Subjective Patient information: Note initiated : 12/21/20 at 12:27 pm Service Date, if different from initiated Date: [] Patient: Tone Pope 60 y/o M admitted on 12/18/20 for Fall / pneumothorax. Chief Complaint: [hypotension and hypoxemia] Patient presented on the for left-sided chest pain and shortness of breath. He fell at home. He was shown to have left-sided rib fractures and pneumothorax. Pleural catheter was placed. He had been doing well and was even good this morning and except when he had and he was unresponsive. Found to be hypotensive in the systolic of 60s and hypoxic. He was given IV fluid boluses with improvement in his blood pressure. Put on nonrebreather with oxygen finally improved but took some time. Stat chest x-ray showed no changes with the left lung was expanded. EKG did show A. fib. Did have a CT this morning the chest which showed emphysema as well as pneumomediastinum and soft tissue gas which appeared to be improving. Patient states drinks 6 pack/day, denies any withdrawal symptoms. CTA pending 12/21/20: CTA chest showed right upper and middle lobes multiple pulmonary embolism, as well as persistent left hemothorax. Patient feels his breathing is improving relative to yesterday. 01/30 sharp left sided chest wall pain, sharp and constant. Denies fever or chills. Denies anxiety. Principal diagnosis: Left rib fractures with traumatic pneumothorax; hypoxemia and hypotension Constitutional Vitals: Vital Signs Temp Pulse Resp BP Pulse Ox 37.1 C 95 H 23 H 131/80 91 12/21/20 12:01 12/21/20 11:16 12/21/20 12:09 12/21/20 12:01 12/21/20 12:09 Period Temp Pulse Resp BP Sys/Juarez Pulse Ox Last 24 Hr 37.1 C-37.6 C 94-115 13-33 89-151/66-105 88-100 Intake and Output 12/20/20 12/21/20 12/21/20 21:59 05:59 13:59 Intake Total 2080 1615 500 Output Total 401 539 351 Balance 1679 1076 149 Weight 68.81 kg Intake & Output: Intake & Output 12/20/20 12/21/20 12/21/20 21:59 05:59 13:59 Intake Total 2080 1615 500 Output Total 401 539 351 Balance 1679 1076 149 Weight 68.81 kg Intake: Nourishment/Supplement quantity 480 (ml) Beer quantity 480 IV 520 915 500 Sodium Chloride 0.9% 1,000 ml @ 915 75 mls/hr IV .[id number] [facility] Rx#: [id number] Heparin/0.45%Ns 25,000 Unit In 500 Premix 1 Bag @ 18 UNIT/KG/HR 23 .808 mls/hr IV .Q21H1M [facility] Rx#: [id number] Potassium Chloride 40 Meq In 520 Dextrose 5% in Water 500 ml @ 130 mls/hr IV ONCE ONE Rx#: [id number] Oral 600 700 Output: Chest Tube Drainage 100 39 100 Left Anterior Chest 100 39 100 Void Amount 300 500 250 # of times incontinent of urine 1 1 Other: Meal Dinner Percent of Meal Consumed 50% Feeding Ability Independent Urine Appearance Clear Clear Clear Urine Color Dark Yellow Bright Yellow Bright Yellow Stool Size Smear Stool Color Brown # Voids 1 General appearance: cooperative and no acute distress Head Head exam: Present atraumatic and normocephalic Eye Eye exam: Present EOMI and PERRL ENT ENT exam: Present mucous membranes moist, normal exam and normal external ear exam Neck Neck exam: Present normal inspection; Absent lymphadenopathy, tenderness and thyromegaly Respiratory Respiratory exam: Present chest wall tenderness and decreased breath sounds; Absent accessory muscle use, respiratory distress and wheezes Additional comments: Left chest tube in place Left chest wall tenderness to palpation Decreased breath sound in left lung harry. Cardiovascular Cardiovascular exam: Present normal rate and rhythm; Absent JVD GI/Abdominal GI/Abdominal exam: Present normal bowel sounds and soft; Absent organomegaly and tenderness Rectal Rectal exam: Present deferred Extremities Exam Extremities exam: Present full ROM, normal capillary refill and normal inspection; Absent tenderness Neurological Exam Neurological exam: Present alert, CN II-XII intact and oriented X3; Absent motor sensory deficit Psychiatric Psychiatric exam: Present normal affect and normal mood; Absent anxious and depressed Skin Skin exam: Present dry and intact OBJ DATA Labs CBC & Chem 7: 12/21/20 04:43 12/21/20 04:43 Labs: Abnormal Lab Results 12/21/20 12/21/20 12/21/20 07:01 04:43 04:43 RBC 2.78 L Hgb 9.2 L Hct 27.6 L [place] % (Auto) 20.7 H Lymph # (Auto) [place] # (Auto) 1.33 H APTT 82.0 H Sodium 130 L Potassium Chloride Anion Gap 4.0 L BUN Creatinine 0.6 L Glucose 106 H Uric Acid Calcium 8.1 L Magnesium 1.5 L Direct Bilirubin GGT Total Protein 5.2 L Albumin 2.7 L 12/20/20 12/20/20 12/20/20 19:00 19:00 05:28 RBC 2.96 L Hgb 10.0 L Hct 28.7 L [place] % (Auto) 18.2 H Lymph # (Auto) 1.28 L [place] # (Auto) 1.27 H APTT 85.8 H Sodium 127 L Potassium Chloride 94 L Anion Gap BUN 5 L Creatinine 0.5 L Glucose 106 H Uric Acid Calcium 8.0 L Magnesium Direct Bilirubin GGT Total Protein Albumin 12/20/20 05:28 RBC Hgb Hct [place] % (Auto) Lymph # (Auto) [place] # (Auto) APTT Sodium 128 L Potassium 3.0 L Chloride 93 L Anion Gap BUN 5 L Creatinine 0.5 L Glucose Uric Acid 1.6 L Calcium 8.0 L Magnesium Direct Bilirubin 0.3 H GGT 76 H Total Protein 5.4 L Albumin 2.9 L Meds: Medications Acetaminophen (Acetaminophen 325 Mg Tablet) 650 mg PO Q6HP PRN; Protocol PRN Reason: Per Pain Protocol Albuterol/Ipratropium (Ipratropium/Albuterol 3 Ml Ampul.Neb) 3 ml NEB Q4HRT [facility] Last Admin: 12/21/20 11:11 Dose: 3 ml Documented by: Cyclobenzaprine HCl (Cyclobenzaprine 10 Mg Tablet) 10 mg PO TIDP PRN PRN Reason: Muscle Spasm Last Admin: 12/21/20 07:13 Dose: 10 mg Documented by: Diphenhydramine HCl (Diphenhydramine 25 Mg Capsule) 50 mg PO HSP PRN PRN Reason: Insomnia Last Admin: 12/20/20 23:56 Dose: 50 mg Documented by: Docusate Sodium (Docusate Sodium 100 Mg Capsule) 100 mg PO BID [facility] Last Admin: 12/21/20 08:33 Dose: 100 mg Documented by: Fluoxetine HCl (Fluoxetine Hcl 20 Mg Capsule) 20 mg PO QDAY [facility] Last Admin: 12/21/20 08:32 Dose: 20 mg Documented by: Folic Acid (Folic Acid 1 Mg Tablet) 1 mg PO DAILY [facility] Last Admin: 12/21/20 08:33 Dose: 1 mg Documented by: Guaifenesin/Codeine Phosphate (Guaifenesin/Codeine 10 Ml Udc) 5 ml PO Q4HP PRN PRN Reason: Cough Hydromorphone HCl (Hydromorphone 0.5 Mg/0.5 Ml Syringe) 0.5 mg IV Q2HP PRN; Protocol PRN Reason: Per Pain Protocol Last Admin: 12/20/20 16:36 Dose: 0.5 mg Documented by: Heparin Sodium/Sodium Chloride (25,000 unit/ Premix) 500 mls @ 23.808 mls/hr IV .Q21H1M [facility]; Protocol Last Admin: 12/21/20 08:48 Dose: 18 unit/kg/hr, 23.808 mls/hr Documented by: Sodium Chloride (Sodium Chloride 0.9%) 1,000 mls @ 75 mls/hr IV .[id number] [facility] Last Admin: 12/21/20 05:44 Dose: 75 mls/hr Documented by: Magnesium Sulfate (Magnesium Sulfate) 2 gm in 50 mls @ 25 mls/hr IV ONCE ONE Stop: 12/21/20 13:59 Last Admin: 12/21/20 11:48 Dose: 25 mls/hr Documented by: Metoprolol Succinate (Metoprolol Succinate 50 Mg Tab.Xl.24h) 50 mg PO QDAY [facility] Last Admin: 12/21/20 08:32 Dose: 50 mg Documented by: Metoprolol Tartrate (Metoprolol Tartrate 5 Mg/5 Ml Vial) 5 mg IV Q2HP PRN PRN Reason: Tachyarrhythmias HR>110 Last Admin: 12/20/20 22:47 Dose: 5 mg Documented by: Nicotine (Nicotine 21 Mg Patch) 21 mg TOPICAL DAILY@1000 [facility] Last Admin: 12/21/20 09:51 Dose: 21 mg Documented by: Ondansetron HCl (Ondansetron 4 Mg/2 Ml Vial) 4 mg IV Q6HP PRN PRN Reason: Nausea And Vomiting Oxycodone/Acetaminophen (Oxycodone/Apap 5/325mg Tablet) 1 tab PO Q4HP PRN; Protocol PRN Reason: Per Pain Protocol Last Admin: 12/21/20 09:50 Dose: 1 tab Documented by: Pantoprazole Sodium (Pantoprazole 40 Mg Tablet) 40 mg PO QAMAC [facility] Last Admin: 12/21/20 07:02 Dose: 40 mg Documented by: Polyethylene Glycol (Polyethylene Glycol 3350 17 Gm Packet) 17 gm PO TID [facility] Last Admin: 12/21/20 08:32 Dose: 17 gm Documented by: Potassium Chloride (Potassium Chloride 20 Meq Tablet) 40 meq PO BIDCC [facility] Last Admin: 12/21/20 08:33 Dose: 40 meq Documented by: Senna (Sennosides 1 Tablet) 2 tab PO HS [facility] Last Admin: 12/20/20 20:28 Dose: 2 tab Documented by: Sodium Chloride (0.9 % Sodium Chloride 10 Ml Syringe) 10 ml IV Q8 [facility] Last Admin: 12/21/20 05:10 Dose: Not Given Documented by: Sodium Chloride (0.9 % Sodium Chloride 10 Ml Syringe) 10 ml IV Q8 [facility] Last Admin: 12/21/20 05:11 Dose: Not Given Documented by: Thiamine HCl (Thiamine 100 Mg Tablet) 100 mg PO DAILY [facility] Last Admin: 12/21/20 08:32 Dose: 100 mg Documented by: Trazodone HCl (Trazodone Hcl 100 Mg Tablet) 100 mg PO HSP PRN PRN Reason: Anxiety Last Admin: 12/20/20 23:54 Dose: 100 mg Documented by: A/P Assessment and plan (1) Collapse of left lung: Status: Acute (2) Pulmonary embolus, right: Status: Acute (3) Fracture of rib: Status: Acute Qualifiers: Encounter type: initial encounter Fracture type: closed Laterality: right Rib fracture type: multiple ribs Qualified Code(s): S22.41XA - Multiple fractures of ribs, right side, initial encounter for closed fracture (4) COPD (chronic obstructive pulmonary disease): Status: Acute Qualifiers: COPD type: COPD with acute exacerbation Qualified Code(s): J44.1 - Chronic obstructive pulmonary disease with (acute) exacerbation (5) Hemothorax on left: Status: Acute (6) COPD (chronic obstructive pulmonary disease): Status: Chronic Qualifiers: COPD type: chronic bronchitis Chronic bronchitis type: simple Qualified Code(s): J41.0 - Simple chronic bronchitis (7) Anxiety disorder: Status: Chronic Qualifiers: Qualified Code(s): F41.1 - Generalized anxiety disorder (8) Hypomagnesemia: Status: Acute (9) Hyponatremia: Status: Acute (10) Anemia, normocytic normochromic: Status: Acute Narrative A/P Narrative: 1. Traumatic left ribs fracture with associated left hemothorax: Stays in inpatient ICU, Dr. Og primary team Daily Chest X ray Chest tube stays in Incentive spirometry NPO after midnight in preparation for bronchoscopy tomorrow Supplemental oxygen in place via nasal cannula titrate to achieve spo2 88-92% in the context of pre-exiting COPD Flexeril TID PRN muscle spasm Percocet PO q4hr PRN moderate pain Dilaudid 0.5mg IV q2hr PRN severe pain 2. Multiple pulmonary embolism, left upper and middle lobes: Heparin drip for now, convert to oral anticoagulants such as Eliquis at time of hospital discharge Supplemental oxygen in place via nasal cannula titrate to achieve spo2 88-92% in the context of pre-exiting COPD 3. h/o COPD: DuoNEB NEB q4hr scheduled 4. h/o alcoholism: CIWA protocol, measures to be provided for symptoms relief 5. Anemia, normocytic normochromic: Likely contributed by chronic alcoholism as well as traumatic left ribs fracture with hemothorax Daily cbc w/ auto diff in the morning to trend H/H; transfuse pRBC if hemoglobin <7.0, active bleeding (internal and external alike), or symptomatic 6. Hyponatremia: NS@75cc/hr Repeat CMP in the AM to trend serum sodium level 7. Hypomagnesemia: Serum Mg 1.5 today; Mg 2g IV replaement Repeat serum Mg level in the morning and repeat replacement as needed GI ppx: Portonix DVT ppx: Heparin drip Code status: Full Prognosis: guarded Disposition: inpatient ICU Critical Care Time: 45min Time Spent With Patient Time: Total time spent is greater than 50% in coordination of care (as documented) at patient's floor/unit and/or counseling patient: Total time spent with greater than 50% in coordination of care (as documented) at patient's floor/unit and/or counseling patient:: Greater than 35 minutes
[2020-12-21] MEDS: METOPROLOL TARTRATE 5 MG/5 ML VIAL IV PRN (14:08)
[2020-12-21 14:47] LABS: Blood Urea Nitrogen 6 mg/dL (6-20); Calcium 8.2 mg/dL (8.6-10.4); Carbon Dioxide 25 mmol/L (22-30); Chloride 94 mmol/L (96-108); Glomerular Filtration Rate 109; Glucose 92 mg/dL (70-105)
--- NOTE | 2020-12-21 16:26 | XRay Report ---
INDICATION: sudden profound dyspnea TECHNIQUE: AP portable semierect chest x-ray COMPARISON: Previous examination dated 12/21/2020. Prior chest x-rays dated 12/20/2020, 12/19/2020, 12/18/2020. Previous chest CT scan dated 12/20/2020 FINDINGS: Lungs:Right lung remains negative. No focal parenchymal infiltrate or mass Left lung is much better aerated than on prior examination. There is persistent left basilar density consistent with left lower lobe collapse. Pneumonia is not excluded. Left pleural effusion is likely. Heart, vascular:No significant cardiomegaly. Pulmonary vascularity is normal. No pulmonary edema or pulmonary congestion Mediastinum, meliza:Decreased pneumomediastinum Pleura:No change in left apical small caliber pleural catheter. There is no left pneumothorax. Skeletal:Decreased soft tissue gas within the left lateral hemithorax and neck. Left 8th rib fracture again identified IMPRESSION: 1. Significant interval improvement with better aerated left lung. Residual density at the left lung base is consistent with partial collapse 2. Probable left pleural effusion 3. No recurrent pneumothorax. Decreased soft tissue gas Interpreted and Authenticated by: Ja Salgado 12/21/20
[2020-12-21 19:50] LABS: Blood Urea Nitrogen 7 mg/dL (6-20); Calcium 8.3 mg/dL (8.6-10.4); Carbon Dioxide 24 mmol/L (22-30); Chloride 94 mmol/L (96-108); Glomerular Filtration Rate 118; Glucose 115 mg/dL (70-105)
[2020-12-21] MEDS: SENNOSIDES 1 TABLET PO SCH (20:56)
[2020-12-21] MEDS: diphenhydrAMINE 25 MG CAPSULE PO PRN (23:49)
[2020-12-21] MEDS: traZODone HCL 100 MG TABLET PO PRN (23:49)
[2020-12-22] MEDS: IPRATROPIUM/ALBUTEROL 3 ML AMPUL.NEB NEB SCH ×6 (02:41→23:20)
[2020-12-22] MEDS: oxyCODONE/APAP 5/325MG TABLET PO PRN ×4 (03:57→22:55)
[2020-12-22] MEDS: 0.9 % SODIUM CHLORIDE 10 ML SYRINGE IV SCH ×3 (05:40→22:28)
[2020-12-22] MEDS ORDERED: 0.9 % SODIUM CHLORIDE 250 ML IV SCH (05:45)
--- NOTE | 2020-12-22 06:32 | XRay Report ---
INDICATION: f/u of pneumothorax TECHNIQUE: AP portable; chest x-ray COMPARISON: Previous chest x-rays dated 12/21/2020, 12/20/2020, 12/19/2020, 12/18/2020, 12/17/2020. FINDINGS: Lungs:Severe left lung volume loss demonstrated on 12/21/2020. This improved on follow-up examination. Findings are now worse with left sided volume loss and retraction of the heart and mediastinum toward the left. Probable left pleural effusion. There is left upper lobe infiltrate. Mucus plugging suspected. Right lung remains negative Heart, vascular:No significant cardiomegaly. Pulmonary vascularity is normal. No pulmonary edema or pulmonary congestion Mediastinum, meliza:No mediastinal widening. No hilar mass Pleura:No change in left apical small caliber pleural catheter. There is no pneumothorax. Musculoskeletal: Left 8th through the fracture again identified. There has been almost complete resolution of left-sided soft tissue gas and cervical soft tissue gas IMPRESSION: 1. Interval worsening of left lung volume loss. There are left lung infiltrates and probable pleural fluid 2. No recurrent left pneumothorax. Near complete resolution of soft tissue gas Interpreted and Authenticated by: Ja Salgado 12/22/20
[2020-12-22] MEDS: CYCLOBENZAPRINE 10 MG TABLET PO PRN ×2 (07:11→23:52)
[2020-12-22 07:41] LABS: ALT/SGPT 16 U/L (<40); AST/SGOT 18 U/L (<40); Albumin 2.7 gm/dL (3.2-5.2); Alkaline Phosphatase 90 U/L (39-117); Bilirubin,Total 0.4 mg/dL (0.1-1.0); Blood Urea Nitrogen 7 mg/dL (6-20); Calcium 8.3 mg/dL (8.6-10.4); Carbon Dioxide 26 mmol/L (22-30); Chloride 98 mmol/L (96-108); Globulin 2.6 gm/dL (2.2-3.7); Glomerular Filtration Rate 109; Glucose 102 mg/dL (70-105)
[2020-12-22 08:13] LABS: Basophils # (Auto) 0.01 K/mcL (0.00-0.20); Basophils % (Auto) 0.2 % (0.0-2.0); Eosinophils # (Auto) 0.23 K/mcL (0.00-0.70); Eosinophils % (Auto) 4.3 % (0.0-7.0); Hematocrit 26.6 % (41.0-55.0); Lymphocytes # (Auto) 1.34 K/mcL (1.50-4.80); Lymphocytes % (Auto) 24.8 % (15.0-49.0); Mean Cell Volume 99.6 fL (80.0-100.0); Mean Corpuscular HGB Conc 33.8 g/dL (31.0-36.0); Mean Platelet Volume 10.3 fL (7.4-10.4); Monocytes # (Auto) 1.31 K/mcL (0.10-0.90); Monocytes % (Auto) 24.3 % (1.0-12.0); Neutrophils % (Auto) 46.4 % (38.0-78.0); Platelet Count 233 K/mcL (140-440); RBC 2.67 M/mcL (4.50-5.90); Red Cell Distribution Width 14.9 % (11.5-14.5); WBC 5.4 K/mcL (4.5-11.0)
[2020-12-22] MEDS ORDERED: VANCOMYCIN PER PHARMACY IV SCH (09:12)
--- NOTE | 2020-12-22 09:17 | Internal Med Progress Note ---
SUBJECTIVE Subjective Patient information: Note initiated : 12/22/20 at 9:13 am Service Date, if different from initiated Date: [] Patient: Tone Pope 60 y/o M admitted on 12/18/20 for Fall / pneumothorax. Chief Complaint: [Fall/pneumothorax] Patient presented on the for left-sided chest pain and shortness of breath. He fell at home. He was shown to have left-sided rib fractures and pne umothorax. Pleural catheter was placed. He had been doing well and was even good this morning and except when he had and he was unresponsive. Found to be hypotensive in the systolic of 60s and hypoxi c. He was given IV fluid boluses with improvement in his blood pressure. Put on nonrebreather with oxygen finally improved but took some time. Stat chest x-ray showed no changes with the left lung was expanded. EKG did show A. fib. Did have a CT this morning the chest which showed emphysema as well as pneumomediastinum and soft tissue gas which appeared to be improving. Patient states drinks 6 pack/day, denies any withdrawal symptoms. CTA pending 12/21/20: CTA chest showed right upper and middle lobes multiple pulmonary embolism, as well as persistent left hemothorax. Patient feels his breathing is improving relative to yesterday. 10 sharp left sided chest wall pain, sharp and constant. Denies fever or chills. Denies anxiety. Principal diagnosis: Left rib fractures with traumatic pneumothorax; hypoxemia and hypotension 12/22: Yesterday afternoon patient showed increased work of breathing. After switching to high flow oxygen from room air, his work of breathing had significantly improved. 600cc of output from his left chest tube overnight. CXR this morning suggests left lung infiltrates. This morning patient feels his breathing is much improved compared to yesterday. He is c/o left chest pain. Denies abdominal pain. Principal diagnosis: Left rib fractures with traumatic pneumothorax; hypoxemia and hypotension Constitutional Vitals: Vital Signs Temp Pulse Resp BP Pulse Ox 37.1 C 93 H 20 149/96 93 12/22/20 04:01 12/22/20 07:23 12/22/20 07:23 12/22/20 07:01 12/22/20 07:23 Period Temp Pulse Resp BP Sys/Juarez Pulse Ox Last 24 Hr 37.1 C-37.3 C 93-107 17-52 117-181/74-109 82-100 Intake and Output 12/21/20 12/22/20 12/22/20 21:59 05:59 13:59 Intake Total 1050 1030 Output Total 405 500 Balance 645 530 Weight 72.484 kg Intake & Output: Intake & Output 12/21/20 12/22/20 12/22/20 21:59 05:59 13:59 Intake Total 1050 1030 Output Total 405 500 Balance 645 530 Weight 72.484 kg Intake: IV 1050 480 Sodium Chloride 0.9% 1,000 ml @ 1000 75 mls/hr IV .[id number] KEELY Rx#: [id number] Heparin/0.45%Ns 25,000 Unit In 480 Premix 1 Bag @ 18 UNIT/KG/HR 23 .808 mls/hr IV .[id number] KEELY Rx#: [id number] Oral 550 Output: Chest Tube Drainage 155 500 Left Anterior Chest 155 500 Void Amount 250 Other: Urine Appearance Clear Urine Color Dark Yellow Stool Size Moderate Stool Color Brown Stool Consistency Soft Liquid # Bowel Movements 1 General appearance: cooperative and no acute distress Head Head exam: Present atraumatic and normocephalic Eye Eye exam: Present EOMI and PERRL ENT ENT exam: Present mucous membranes moist, normal exam and normal external ear exam Additional comments: High flow oxygen Neck Neck exam: Present normal inspection; Absent lymphadenopathy, tenderness and thyromegaly Respiratory Respiratory exam: Absent accessory muscle use, respiratory distress and wheezes Additional comments: Left chest tube in place Decreased breath sound in left upper and lower lung harry. Cardiovascular Cardiovascular exam: Present normal rate and rhythm; Absent JVD GI/Abdominal GI/Abdominal exam: Present normal bowel sounds and soft; Absent organomegaly and tenderness Additional comments: Distended abdomen Rectal Rectal exam: Present deferred Extremities Exam Extremities exam: Present full ROM, normal capillary refill and normal inspection; Absent tenderness Neurological Exam Neurological exam: Present alert, CN II-XII intact and oriented X3; Absent motor sensory deficit Psychiatric Psychiatric exam: Present normal affect and normal mood; Absent anxious and depressed Skin Skin exam: Present dry and intact OBJ DATA Labs CBC & Chem 7: 12/22/20 04:50 12/22/20 04:50 Labs: Abnormal Lab Results 12/22/20 12/22/20 12/22/20 04:50 04:50 04:49 RBC 2.67 L Hgb 9.0 L Hct 26.6 L RDW 14.9 H [place] % (Auto) 24.3 H Lymph # (Auto) 1.34 L [place] # (Auto) 1.31 H APTT 83.2 H Sodium 131 L Potassium Chloride Anion Gap 7.0 L BUN Creatinine 0.6 L Glucose Uric Acid Calcium 8.3 L Magnesium Direct Bilirubin GGT Total Protein 5.3 L Albumin 2.7 L 12/21/20 12/21/20 12/21/20 19:10 12:56 07:01 RBC Hgb Hct RDW [place] % (Auto) Lymph # (Auto) [place] # (Auto) APTT 82.0 H Sodium 126 L 129 L Potassium Chloride 94 L 94 L Anion Gap BUN Creatinine 0.5 L 0.6 L Glucose 115 H Uric Acid Calcium 8.3 L 8.2 L Magnesium Direct Bilirubin GGT Total Protein Albumin 12/21/20 12/21/20 12/20/20 04:43 04:43 19:00 RBC 2.78 L Hgb 9.2 L Hct 27.6 L RDW [place] % (Auto) 20.7 H Lymph # (Auto) [place] # (Auto) 1.33 H APTT Sodium 130 L 127 L Potassium Chloride 94 L Anion Gap 4.0 L BUN 5 L Creatinine 0.6 L 0.5 L Glucose 106 H 106 H Uric Acid Calcium 8.1 L 8.0 L Magnesium 1.5 L Direct Bilirubin GGT Total Protein 5.2 L Albumin 2.7 L 12/20/20 12/20/20 12/20/20 19:00 05:28 05:28 RBC 2.96 L Hgb 10.0 L Hct 28.7 L RDW [place] % (Auto) 18.2 H Lymph # (Auto) 1.28 L [place] # (Auto) 1.27 H APTT 85.8 H Sodium 128 L Potassium 3.0 L Chloride 93 L Anion Gap BUN 5 L Creatinine 0.5 L Glucose Uric Acid 1.6 L Calcium 8.0 L Magnesium Direct Bilirubin 0.3 H GGT 76 H Total Protein 5.4 L Albumin 2.9 L Meds: Medications Acetaminophen (Acetaminophen 325 Mg Tablet) 650 mg PO Q6HP PRN; Protocol PRN Reason: Per Pain Protocol Albuterol/Ipratropium (Ipratropium/Albuterol 3 Ml Ampul.Neb) 3 ml NEB Q4HRT [facility] Last Admin: 12/22/20 07:21 Dose: 3 ml Documented by: Cyclobenzaprine HCl (Cyclobenzaprine 10 Mg Tablet) 10 mg PO TIDP PRN PRN Reason: Muscle Spasm Last Admin: 12/22/20 07:11 Dose: 10 mg Documented by: Diphenhydramine HCl (Diphenhydramine 25 Mg Capsule) 50 mg PO HSP PRN PRN Reason: Insomnia Last Admin: 12/21/20 23:49 Dose: 50 mg Documented by: Docusate Sodium (Docusate Sodium 100 Mg Capsule) 100 mg PO BID [facility] Last Admin: 12/21/20 20:56 Dose: 100 mg Documented by: Fluoxetine HCl (Fluoxetine Hcl 20 Mg Capsule) 20 mg PO QDAY [facility] Last Admin: 12/21/20 08:32 Dose: 20 mg Documented by: Folic Acid (Folic Acid 1 Mg Tablet) 1 mg PO DAILY [facility] Last Admin: 12/21/20 08:33 Dose: 1 mg Documented by: Guaifenesin/Codeine Phosphate (Guaifenesin/Codeine 10 Ml Udc) 5 ml PO Q4HP PRN PRN Reason: Cough Hydromorphone HCl (Hydromorphone 0.5 Mg/0.5 Ml Syringe) 0.5 mg IV Q2HP PRN; Protocol PRN Reason: Per Pain Protocol Last Admin: 12/20/20 16:36 Dose: 0.5 mg Documented by: Sodium Chloride (Sodium Chloride 0.9%) 1,000 mls @ 75 mls/hr IV .[id number] [facility] Last Admin: 12/21/20 21:02 Dose: 75 mls/hr Documented by: Sodium Chloride (Sodium Chloride 0.9%) 250 mls @ 20 mls/hr IV .[id number] [facility] Stop: 12/22/20 18:14 Last Admin: 12/22/20 05:40 Dose: Not Given Documented by: Metoprolol Succinate (Metoprolol Succinate 50 Mg Tab.Xl.24h) 50 mg PO QDAY [facility] Last Admin: 12/21/20 08:32 Dose: 50 mg Documented by: Metoprolol Tartrate (Metoprolol Tartrate 5 Mg/5 Ml Vial) 5 mg IV Q2HP PRN PRN Reason: Tachyarrhythmias HR>110 Last Admin: 12/21/20 14:08 Dose: 5 mg Documented by: Nicotine (Nicotine 21 Mg Patch) 21 mg TOPICAL DAILY@1000 [facility] Last Admin: 12/21/20 09:51 Dose: 21 mg Documented by: Ondansetron HCl (Ondansetron 4 Mg/2 Ml Vial) 4 mg IV Q6HP PRN PRN Reason: Nausea And Vomiting Oxycodone/Acetaminophen (Oxycodone/Apap 5/325mg Tablet) 1 tab PO Q4HP PRN; Protocol PRN Reason: Per Pain Protocol Last Admin: 12/22/20 03:57 Dose: 1 tab Documented by: Pantoprazole Sodium (Pantoprazole 40 Mg Tablet) 40 mg PO QAMAC [facility] Last Admin: 12/21/20 07:02 Dose: 40 mg Documented by: Polyethylene Glycol (Polyethylene Glycol 3350 17 Gm Packet) 17 gm PO TID [facility] Last Admin: 12/21/20 20:56 Dose: 17 gm Documented by: Potassium Chloride (Potassium Chloride 20 Meq Tablet) 40 meq PO BIDCC [facility] Last Admin: 12/21/20 17:18 Dose: 40 meq Documented by: Senna (Sennosides 1 Tablet) 2 tab PO HS [facility] Last Admin: 12/21/20 20:56 Dose: 2 tab Documented by: Sodium Chloride (0.9 % Sodium Chloride 10 Ml Syringe) 10 ml IV Q8 [facility] Last Admin: 12/22/20 05:40 Dose: 10 ml Documented by: Thiamine HCl (Thiamine 100 Mg Tablet) 100 mg PO DAILY [facility] Last Admin: 12/21/20 08:32 Dose: 100 mg Documented by: Trazodone HCl (Trazodone Hcl 100 Mg Tablet) 100 mg PO HSP PRN PRN Reason: Anxiety Last Admin: 12/21/20 23:49 Dose: 100 mg Documented by: A/P Assessment and plan (1) Collapse of left lung: Status: Acute (2) Pulmonary embolus, right: Status: Acute (3) Fracture of rib: Status: Acute Qualifiers: Encounter type: initial encounter Fracture type: closed Laterality: right Rib fracture type: multiple ribs Qualified Code(s): S22.41XA - Multiple fractures of ribs, right side, initial encounter for closed fracture (4) COPD (chronic obstructive pulmonary disease): Status: Acute Qualifiers: COPD type: COPD with acute exacerbation Qualified Code(s): J44.1 - Chronic obstructive pulmonary disease with (acute) exacerbation (5) Hemothorax on left: Status: Acute (6) Anxiety disorder: Status: Chronic Qualifiers: Qualified Code(s): F41.1 - Generalized anxiety disorder (7) Hypomagnesemia: Status: Acute (8) Hyponatremia: Status: Acute (9) Anemia, normocytic normochromic: Status: Acute (10) HAP (hospital-acquired pneumonia): Status: Acute Narrative A/P Narrative: 1. Traumatic left ribs fracture with associated left hemothorax: Stays in inpatient ICU, Dr. Og primary team Daily Chest X ray Chest tube stays in Incentive spirometry NPO after midnight in preparation for bronchoscopy tomorrow High flow oxygen titrate to achieve spo2 88-92% in the context of pre-exiting COPD Flexeril TID PRN muscle spasm Percocet PO q4hr PRN moderate pain Dilaudid 0.5mg IV q2hr PRN severe pain 2. Multiple pulmonary embolism, left upper and middle lobes: Hold Heparin drip for now given planned bronchoscopy and other indicated procedures; would resume heparin drip afterward; will switch to Eliquis at time of hospital discharge High flow oxygen titrate to achieve spo2 88-92% in the context of pre-exiting COPD 3. h/o COPD: DuoNEB NEB q4hr scheduled 4. h/o alcoholism: CIWA protocol, measures to be provided for symptoms relief 5. Anemia, normocytic normochromic: Likely contributed by chronic alcoholism as well as traumatic left ribs fracture with hemothorax Daily cbc w/ auto diff in the morning to trend H/H; transfuse pRBC if hemoglobin <7.0, active bleeding (internal and external alike), or symptomatic 6. Hyponatremia: NS@75cc/hr Repeat CMP in the AM to trend serum sodium level 7. Hypomagnesemia: Serum Mg level 1.8 today s/p replacement from 12/21 Repeat serum Mg level in the morning and repeat replacement as needed 8. Left chest pain: DDx: hemothorax vs ACS Keep chest tube in place Serial troponin-i q6hr X3 ECG 9. Hospital acquired pneumonia: CXR on 12/22 shows left lung infiltrates. Given the fact that patient's respiratory status deteriorate on 12/21, would given patient benefit of doubt and start antibiotics coverage Obtain sputum culture from bronchoscopy for antibiotics guidance Vancomycin Zosyn cbc w/ auto diff in the morning to trend WBC DAily CXR GI ppx: Portonix DVT ppx: SCDs for now Code status: Full Prognosis: guarded Disposition: inpatient ICU Critical Care Time: 1hr Time Spent With Patient Time: Total time spent is greater than 50% in coordination of care (as docu mented) at patient's floor/unit and/or counseling patient:
[2020-12-22] MEDS: 0.9 % SODIUM CHLORIDE 1,000 ML IV SCH (10:29)
[2020-12-22] MEDS: METOPROLOL SUCCINATE 50 MG TAB.XL.24H PO SCH (11:43)
[2020-12-22] MEDS: NICOTINE 21 MG PATCH TOPICAL SCH (11:43)
[2020-12-22] MEDS: PIPERACILLIN SODIUM/TAZOBACTAM 3.375 GM in DEXTROSE 5% IN WATER 50 ML IV SCH (11:43)
[2020-12-22] MEDS: DOCUSATE SODIUM 100 MG CAPSULE PO SCH ×2 (12:00→19:46)
[2020-12-22] MEDS: POTASSIUM CHLORIDE 20 MEQ TABLET PO SCH ×2 (12:00→19:46)
[2020-12-22] MEDS: PANTOPRAZOLE 40 MG TABLET PO SCH (12:00)
[2020-12-22] MEDS: FOLIC ACID 1 MG TABLET PO SCH (12:01)
[2020-12-22] MEDS: POLYETHYLENE GLYCOL 3350 17 GM PACKET PO SCH ×3 (12:01→19:46)
[2020-12-22] MEDS: THIAMINE 100 MG TABLET PO SCH (12:01)
[2020-12-22] MEDS: VANCOMYCIN 1,000 MG in 0.9 % SODIUM CHLORIDE 250 ML IV SCH ×2 (13:04→22:54)
[2020-12-22] MEDS: FLUoxetine HCL 20 MG CAPSULE PO SCH (14:19)
[2020-12-22 16:51] LABS: Blood Urea Nitrogen 8 mg/dL (6-20); Calcium 7.8 mg/dL (8.6-10.4); Carbon Dioxide 25 mmol/L (22-30); Chloride 99 mmol/L (96-108); Glomerular Filtration Rate 118; Glucose 89 mg/dL (70-105)
--- NOTE | 2020-12-22 17:12 | General Surgery Progress Note ---
SUBJECTIVE Subjective Patient information: Note initiated : 12/22/20 at 5:04 pm Service Date, if different from initiated Date: [] Patient: Tone Pope 60 y/o M admitted on 12/18/20 for Fall / pneumothorax. Chief Complaint: [] Principal diagnosis: Left rib fractures with traumatic pneumothorax; hypoxemia and hypotension Interval history: Patient states that he feels better. He had output of more fluid through his pleural catheter during the night. There was some concern that it was bleeding but there is no change in his hemoglobin. Morning x-ray shows better aeration of the upper lung on the left. He does have residual left pleural fluid. Hopefully he will be seen by pulmonology soon. His tachycardia is well controlled and he has oxygen saturation in the 92%- 100% range. Patient states that he had bowel movement last evening and is passing flatus. Though his abdomen is distended he denies abdominal pain. Constitutional Vitals: Vital Signs Temp Pulse Resp BP Pulse Ox 97.1 F 76 12 118/82 99 12/22/20 09:01 12/22/20 15:06 12/22/20 15:06 12/22/20 14:01 12/22/20 15:01 Period Temp Pulse Resp BP Sys/Juarez Pulse Ox Last 24 Hr 97.1 F-99.2 F 76-103 11-34 118-156/82-109 86-100 Intake and Output 12/22/20 12/22/20 12/22/20 05:59 13:59 21:59 Intake Total 1030 1000 Output Total 500 400 Balance 530 1000 -400 Intake & Output: Intake & Output 12/22/20 12/22/20 12/22/20 05:59 13:59 21:59 Intake Total 1030 1000 Output Total 500 400 Balance 530 1000 -400 Intake: IV 480 1000 Sodium Chloride 0.9% 1,000 ml @ 1000 75 mls/hr IV .[id number] [facility] Rx#: [id number] Heparin/0.45%Ns 25,000 Unit In 480 Premix 1 Bag @ 18 UNIT/KG/HR 23 .808 mls/hr IV .Q21H1M KEELY Rx#: [id number] Oral 550 Output: Chest Tube Drainage 500 100 Left Anterior Chest 500 100 Void Amount 300 Other: Urine Appearance Clear Clear Urine Color Dark Yellow Straw ENT ENT exam: Present mucous membranes moist Neck Neck exam: Present normal inspection; Absent lymphadenopathy, tenderness and thyromegaly Respiratory Additional comments: Better aeration of apex of the lung on the left with absent breath sounds at the base. Cardiovascular Cardiovascular exam: Present JVD, RRR, +S1, +S2 and tachycardia (Heart rate about 100 ) GI/Abdominal GI/Abdominal exam: Present normal bowel sounds, distended and tenderness Extremities Exam Extremities exam: Present full ROM and neurovascular intact Neurological Exam Neurological exam: Present alert and oriented X3 Psychiatric Psychiatric exam: Present depressed A/P Assessment and plan (1) Collapse of left lung: Status: Acute (2) Pulmonary embolus, right: Status: Acute (3) Pneumothorax: Status: Acute Qualifiers: Encounter type: initial encounter Pneumothorax type: traumatic Qualified Code(s): S27.0XXA - Traumatic pneumothorax, initial encounter (4) COPD (chronic obstructive pulmonary disease): Status: Acute Qualifiers: COPD type: COPD with acute exacerbation Qualified Code(s): J44.1 - Chronic obstructive pulmonary disease with (acute) exacerbation (5) Fracture of rib: Status: Acute Qualifiers: Encounter type: initial encounter Fracture type: closed Laterality: right Rib fracture type: multiple ribs Qualified Code(s): S22.41XA - Multiple fractures of ribs, right side, initial encounter for closed fracture (6) Chronic intestinal pseudo-obstruction: Status: Acute (7) Hypertension, essential: Status: Chronic (8) COPD (chronic obstructive pulmonary disease): Status: Chronic Qualifiers: COPD type: chronic bronchitis Chronic bronchitis type: simple Qualified Code(s): J41.0 - Simple chronic bronchitis (9) Cannabis abuse, continuous: Status: Chronic (10) Alcohol abuse: Status: Chronic Narrative A/P Narrative: Wait for input from wallpaper remover steam Check abdominal x-ray in the morning Trial of Reglan IV every 6 hours Since most of distention is large bowel may consider use of Regonol IV if not improved by tomorrow Time Spent With Patient Time: Total time spent is greater than 50% in coordination of care (as documented) at patient's floor/unit and/or counseling patient:
--- NOTE | 2020-12-22 17:35 | EKG ---
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 Measurements Intervals [place] Rate: 140 P: [place]: QRS: 79 QRSD: 94 T: 77 QT: 336 QTc: 513 Interpretive Statements ATRIAL FIBRILLATION, V-RATE 93-174 BORDERLINE REPOL ABNORMALITY, DIFFUSE LEADS--RATE RELATED PROLONGED QT INTERVAL Since previous ECG of 12-17-2020, ATRIAL FIB/RVR, CANNOT VERIFY OLD ASMI,__ Electronically Signed On 12-22-2020 17:35:09 PDT by Gamaliel Medrano M.D. /store/M0/[id number]
--- NOTE | 2020-12-22 17:47 | EKG ---
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 Measurements Intervals [place] Rate: 90 P: 72 ME: 156 QRS: 67 QRSD: 82 T: -5 QT: 372 QTc: 455 Interpretive Statements SINUS RHYTHM MULTIPLE ATRIAL PREMATURE COMPLEXES ABNORMAL T, CONSIDER ISCHEMIA, ANTERIOR LEADS Since previous ECG of 12-20-2020, SINUS RHYTHM WITH PAC'S, CANNOT VERIFY OLD ASMI Electronically Signed On 12-22-2020 17:47:55 PDT by Gamaliel Medrano M.D. /store/M0/[id number]/ecg/[id number]
[2020-12-22] MEDS: HYDROmorphone 0.5 MG/0.5 ML SYRINGE IV PRN (19:43)
[2020-12-22] MEDS: SENNOSIDES 1 TABLET PO SCH (19:46)
[2020-12-22] MEDS: METOCLOPRAMIDE 10 MG/2 ML VIAL IV SCH (19:48)
[2020-12-22 20:42] LABS: Blood Urea Nitrogen 8 mg/dL (6-20); Calcium 8.1 mg/dL (8.6-10.4); Carbon Dioxide 26 mmol/L (22-30); Chloride 96 mmol/L (96-108); Glomerular Filtration Rate 109; Glucose 108 mg/dL (70-105)
--- NOTE | 2020-12-22 21:20 | XRay Report ---
INDICATION: FOR F/U OF ILEUS TECHNIQUE: Supine and upright abdomen. COMPARISON: Multiple previous examinations including studies dated 12/19/2020, 02/05/2020, 02/03/2028, 02/01/2020. FINDINGS:Persistent gas-filled colon with moderate distention. Findings are unchanged. No mechanical small bowel obstruction. No dilated small bowel. No pneumatosis. No biliary or portal venous gas. IMPRESSION: 1. Chronic distended colon, unchanged 2. No mechanical small bowel obstruction Interpreted and Authenticated by: Ja Salgado 12/22/20
[2020-12-22] MEDS: diphenhydrAMINE 25 MG CAPSULE PO PRN (23:52)
[2020-12-22] MEDS: traZODone HCL 100 MG TABLET PO PRN (23:52)
[2020-12-23] MEDS: METOCLOPRAMIDE 10 MG/2 ML VIAL IV SCH ×5 (00:21→23:45)
[2020-12-23] MEDS: oxyCODONE/APAP 5/325MG TABLET PO PRN ×6 (03:06→23:02)
[2020-12-23] MEDS: 0.9 % SODIUM CHLORIDE 1,000 ML IV SCH ×2 (03:09→11:38)
[2020-12-23] MEDS: IPRATROPIUM/ALBUTEROL 3 ML AMPUL.NEB NEB SCH ×6 (03:34→23:45)
[2020-12-23] MEDS: 0.9 % SODIUM CHLORIDE 10 ML SYRINGE IV SCH ×3 (05:59→20:22)
[2020-12-23] MEDS ORDERED: 0.9 % SODIUM CHLORIDE 250 ML INTRATRACH PRN (06:17)
[2020-12-23] MEDS ORDERED: EPINEPHrine 1 MG/ML AMPUL INTRATRACH PRN (06:17)
[2020-12-23] MEDS ORDERED: morphine 2 MG/ML VIAL IM SCH (06:30)
[2020-12-23] MEDS ORDERED: MIDAZOLAM 2 MG/2 ML VIAL IV SCH (06:30)
[2020-12-23] MEDS ORDERED: LIDOCAINE 2% PF 5 ML VIAL NEB SCH (06:30)
[2020-12-23] MEDS ORDERED: LIDOCAINE VISCOUS 2% 1 ML SOLUTION NAS SCH (06:30)
[2020-12-23] MEDS ORDERED: ATROPINE SULFATE 0.4 MG/ML VIAL IM SCH (06:30)
[2020-12-23] MEDS ORDERED: DEXTROSE 5%-1/2NS 1,000 ML IV SCH (06:30)
[2020-12-23] MEDS ORDERED: LIDOCAINE 2% 20 ML VIAL INTRATRACH SCH (06:30)
--- NOTE | 2020-12-23 06:43 | XRay Report ---
INDICATION: f/u pneumothorax possible bronchoscopy TECHNIQUE: AP portable semierect chest x-ray COMPARISON: None FINDINGS: Lungs:Right lung remains negative. Left lung is better aerated than on prior examination. There is persistent left basilar density. There is probable left pleural fluid. No evidence for recurrent pneumothorax. Heart, vascular:No significant cardiomegaly. Pulmonary vascularity is normal. No pulmonary edema or pulmonary congestion Mediastinum, meliza:No mediastinal widening. No hilar mass Pleura:Findings consistent with left pleural effusion. No recurrent left pneumothorax. Left apical small caliber pleural catheter remains unchanged Skeletal:Left 8th rib fracture again identified IMPRESSION: Interval improvement with increased aeration of the left lung Interpreted and Authenticated by: Ja Salgado 12/23/20
[2020-12-23] MEDS: PANTOPRAZOLE 40 MG TABLET PO SCH (07:00)
[2020-12-23 07:07] LABS: Basophils # (Auto) 0.03 K/mcL (0.00-0.20); Basophils % (Auto) 0.5 % (0.0-2.0); Eosinophils # (Auto) 0.27 K/mcL (0.00-0.70); Eosinophils % (Auto) 4.4 % (0.0-7.0); Hematocrit 25.9 % (41.0-55.0); Hemoglobin 8.5 g/dL (13.5-16.5); Lymphocytes # (Auto) 1.35 K/mcL (1.50-4.80); Lymphocytes % (Auto) 22.1 % (15.0-49.0); Mean Cell Volume 100.4 fL (80.0-100.0); Mean Corpuscular HGB Conc 32.8 g/dL (31.0-36.0); Mean Platelet Volume 9.8 fL (7.4-10.4); Monocytes # (Auto) 1.38 K/mcL (0.10-0.90); Monocytes % (Auto) 22.6 % (1.0-12.0); Neutrophils % (Auto) 50.4 % (38.0-78.0); Platelet Count 248 K/mcL (140-440); RBC 2.58 M/mcL (4.50-5.90); Red Cell Distribution Width 14.6 % (11.5-14.5); WBC 6.1 K/mcL (4.5-11.0)
[2020-12-23 08:02] LABS: ALT/SGPT 14 U/L (<40); AST/SGOT 16 U/L (<40); Albumin 2.5 gm/dL (3.2-5.2); Albumin/Globulin Ratio 0.9 (1.0-2.3); Alkaline Phosphatase 96 U/L (39-117); Bilirubin,Total 0.3 mg/dL (0.1-1.0); Blood Urea Nitrogen 7 mg/dL (6-20); Calcium 7.9 mg/dL (8.6-10.4); Carbon Dioxide 26 mmol/L (22-30); Chloride 99 mmol/L (96-108); Globulin 2.7 gm/dL (2.2-3.7); Glomerular Filtration Rate 109; Glucose 90 mg/dL (70-105)
--- NOTE | 2020-12-23 08:08 | Consultation ---
DATE OF CONSULTATION: 12/22/2020 REQUESTING PHYSICIAN: Dr. Pacheco and Dr. Og. HISTORY OF PRESENT ILLNESS: The patient is a pleasant 60-year-old gentleman who indicates that he fell on or about 12/15/2020. He sustained trauma to his left side and decided to try and tough it out at home. Approximately 48 hours on 12/18/2027 he had his taken to the emergency room because of increasing difficulty with shortness of breath and his chest pain. In the emergency room, he was evaluated and found to have left rib fractures as well as a pneumothorax and subcutaneous air. He was considered a candidate for admission. He was admitted and treated with chest tube thoracostomy for air with an anterior small tube, which resolved his pneumothorax. Over the course of his hospitalization, he developed left lower lobe atelectasis with splinting and poor aeration of the left side due to pain. Consultation is requested by Pulmonary to evaluate the possibility of bronchoscopy to remove mucous plugs in that regard. The patient indicates that he started smoking at 13 years of age and has smoked to his current admission to the hospital. He is encouraged and counseled in tobacco cessation with this window of nicotine-free time, with this acute event. 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 The patient, unfortunately has a significant history with alcohol--he reports having been court-ordered to AA on one or two occasions and he did not much care for that source of alcohol abstinence therapy and has not availed himself of that recently. Alcohol contributed to his recent fall. He has a history of other falls and difficulties over time, unfortunately. He denies history of atherosclerotic heart disease. REVIEW OF SYSTEMS: Systems review does not elicit additional focus of abnormalities such as dysuria, palpitations, fevers or chills. PHYSICAL EXAMINATION: GENERAL: A conversational gentleman in no acute distress. HEENT: Head is atraumatic and normocephalic. NECK: Supple. Carotids are without bruits. LUNGS: Diminished breath sounds throughout, more so in the left base with dullness, and a rare rhonchus. No wheeze. HEART: Regular, S1, S2. No gallop, rub, jugular venous distention, or edema. ABDOMEN: Soft. Bowel sounds are present. Liver and spleen are not palpable. BONES/JOINTS/EXTREMITIES: Other than his chest wall, without acute changes. NEUROLOGIC: Nonfocal. RADIOGRAPHIC STUDIES: Chest radiograph, previously commented upon, showing initially left apical pneumothorax and subcutaneous air and mediastinal air. The patient's hospital course is complicated by deterioration and CT scan of the chest demonstrating the presence of pulmonary emboli in the right lung. This issue is being addressed by the hospitalist. LABORATORY DATA: The patient has had a low sodium and low calcium with low albumin. Hemoglobin has been hovering around 10. REPEAT EVALUATION: The patient was originally seen on the evening of 12/22/2020, but the dictation system for this consultation dictation was nonfunctional at that time. The patient was reevaluated this morning at 7 a.m. on 12/23/2020. The patient has had an aggressive course of bronchopulmonary toilet and participated well in that regard. On reevaluation, he remains conversational and other than chest wall discomfort reasonably comfortable with his breathing this morning. Repeat chest x-ray performed at 5:47:31 showed significant improvement in the aeration of the left lung. That is good news and regarding the issue of there having been consideration for bronchoscopy to remove refractory mucus plugs at this time, my decision would be to continue aggressive bronchopulmonary toilet, continue to observe and hold off bronchoscopy. I am certainly willing to do that in the future if this issue does not gradually continue to resolve. The patient will need focused pain control with correlated aggressive bronchopulmonary toilet at that time including postural drainage and mobilization. IMPRESSION: Overall impression would be trauma, rib fractures, pneumothorax and atelectasis secondary to pain in the setting of chronic obstructive pulmonary disease and alcoholism. PLAN: Fortunately, atelectasis is currently improving and I would recommend continued aggressive bronchopulmonary toilet and observation. We will follow up by evaluating his chest x-rays as they are performed in followup. Please feel free to contact me regarding other issues or renewed concern for need for bronchoscopy. KJP:chun Job ID: [id number] Doc ID: [id number] MD GENARO Leger
[2020-12-23] MEDS: FLUoxetine HCL 20 MG CAPSULE PO SCH (09:02)
[2020-12-23] MEDS: FOLIC ACID 1 MG TABLET PO SCH (09:02)
[2020-12-23] MEDS: POTASSIUM CHLORIDE 20 MEQ TABLET PO SCH ×2 (09:02→16:26)
[2020-12-23] MEDS: METOPROLOL SUCCINATE 50 MG TAB.XL.24H PO SCH (09:02)
[2020-12-23] MEDS: DOCUSATE SODIUM 100 MG CAPSULE PO SCH ×2 (09:03→20:20)
[2020-12-23] MEDS: POLYETHYLENE GLYCOL 3350 17 GM PACKET PO SCH ×3 (09:03→20:21)
[2020-12-23] MEDS: THIAMINE 100 MG TABLET PO SCH (09:03)
[2020-12-23] MEDS: CYCLOBENZAPRINE 10 MG TABLET PO PRN ×3 (09:36→20:20)
[2020-12-23] MEDS: VANCOMYCIN 1,500 MG in 0.9 % SODIUM CHLORIDE 500 ML IV SCH ×2 (11:11→21:34)
[2020-12-23] MEDS: NICOTINE 21 MG PATCH TOPICAL SCH (11:12)
[2020-12-23] MEDS: ENOXAPARIN 80 MG/0.8 ML SYRINGE SQ SCH ×2 (11:27→20:20)
--- NOTE | 2020-12-23 11:30 | Internal Med Progress Note ---
SUBJECTIVE Subjective Patient information: Note initiated : 12/23/20 at 11:23 am Service Date, if different from initiated Date: [] Patient: Tone Pope 60 y/o M admitted on 12/18/20 for Fall / pneumothorax. Chief Complaint: [] Principal diagnosis: Left rib fractures with traumatic pneumothorax; hypoxemia and hypotension Interval history: Patient presented on the for left-sided chest pain and shortness of breath. He fell at home. He was shown to have left-sided rib fractures and pneumothorax. Pleural catheter was placed. He had been doing well and was even good this morning and except when he had and he was unresponsive. Found to be hypotensive in the systolic of 60s and hypoxic. He was given IV fluid boluses with improvement in his blood pressure. Put on nonrebreather with oxygen finally improved but took some time. Stat chest x-ray showed no changes with the left lung was expanded. EKG did show A. fib. Did have a CT this morning the chest which showed emphysema as well as pneumomediastinum and soft tissue gas which appeared to be improving. Patient states drinks 6 pack/day, denies any withdrawal symptoms. CTA pending 12/21/20: CTA chest showed right upper and middle lobes multiple pulmonary e mbolism, as well as persistent left hemothorax. Patient feels his breathing is improving relative to yesterday. /10 sharp left sided chest wall pain, sharp and constant. Denies fever or chills. Denies anxiety. Principal diagnosis: Left rib fractures with traumatic pneumothorax; hypoxemia and hypotension 12/22: Yesterday afternoon patient showed increased work of breathing. After switching to high flow oxygen from room air, his work of breathing had significantly improved. 600cc of output from his left chest tube overnight. CXR this morning suggests left lung infiltrates. This morning patient feels his breathing is much improved compared to yesterday. He is c/o left chest pain. Denies abdominal pain. 12/23: Dr. Bejarano decided against bronchoscopy. Instead, he recommended aggressive bronchopulmonary toilet, daily CXR, and continued observation for his respiratory status. Patient is feeling okay this morning. Denies shortness of breath. c/o productive cough with clear sputum. Denies wheezing. Denies chest pain or palpitation. Denies fever or chills or sweating. Constitutional Vitals: Vital Signs Temp Pulse Resp BP Pulse Ox 37.1 C 82 24 H 117/65 99 12/23/20 08:01 12/23/20 07:54 12/23/20 09:31 12/23/20 09:02 12/23/20 09:31 Period Temp Pulse Resp BP Sys/Juarez Pulse Ox Last 24 Hr 36.7 C-37.1 C 76-91 10-37 106-154/65-101 85-100 Intake and Output 12/22/20 12/23/20 12/23/20 21:59 05:59 13:59 Intake Total 300 1960 250 Output Total 400 375 Balance -100 1585 250 Weight 72.892 kg Intake & Output: Intake & Output 12/22/20 12/23/20 12/23/20 21:59 05:59 13:59 Intake Total 300 1960 250 Output Total 400 375 Balance -100 1585 250 Weight 72.892 kg Intake: IV 300 1000 250 Sodium Chloride 0.9% 1,000 ml @ 1000 75 mls/hr IV .[id number] [facility] Rx#: [id number] Zosyn 3.375 gm In Dextrose 5% 50 in Water 50 ml @ 100 mls/hr IV Q6H [facility] Rx#:[id number] Vancomycin 1,000 mg In Sodium 250 250 Chloride 0.9% 250 ml @ 250 mls/ hr IV Q12H [facility] Rx#:[id number] Oral 960 Output: Chest Tube Drainage 100 125 Left Anterior Chest 100 125 Void Amount 300 250 Other: Meal Dinner Percent of Meal Consumed 50% Urine Appearance Clear Clear Urine Color Dark Yellow Dark Yellow Urine Odor Normal General appearance: cooperative and no acute distress Head Head exam: Present atraumatic and normocephalic Eye Eye exam: Present EOMI and PERRL ENT ENT exam: Present mucous membranes moist, normal exam and normal external ear exam Additional comments: Oxygen mask in place. Neck Neck exam: Present normal inspection; Absent lymphadenopathy, tenderness and thyromegaly Respiratory Respiratory exam: Present chest wall tenderness and rhonchi; Absent accessory muscle use, respiratory distress and wheezes Cardiovascular Cardiovascular exam: Present normal rate and rhythm; Absent JVD GI/Abdominal GI/Abdominal exam: Present normal bowel sounds and soft; Absent organomegaly and tenderness Rectal Rectal exam: Present deferred Extremities Exam Extremities exam: Present full ROM, normal capillary refill and normal inspection; Absent tenderness Neurological Exam Neurological exam: Present alert, CN II-XII intact and oriented X3; Absent motor sensory deficit Psychiatric Psychiatric exam: Present normal affect and normal mood; Absent anxious and depressed Skin Skin exam: Present dry and intact OBJ DATA Labs CBC & Chem 7: 12/23/20 05:15 12/23/20 05:15 Labs: Abnormal Lab Results 12/23/20 12/23/20 12/22/20 05:15 05:15 19:05 RBC 2.58 L Hgb 8.5 L Hct 25.9 L MCV 100.4 H RDW 14.6 H [place] % (Auto) 22.6 H Lymph # (Auto) 1.35 L [place] # (Auto) 1.38 H APTT Sodium 131 L 129 L Chloride Anion Gap 6.0 L 7.0 L BUN Creatinine 0.6 L 0.6 L Glucose 108 H Calcium 7.9 L 8.1 L Magnesium Troponin T Total Protein 5.2 L Albumin 2.5 L Albumin/Globulin Ratio 0.9 L 12/22/20 12/22/20 12/22/20 14:38 09:33 04:50 RBC Hgb Hct MCV RDW [place] % (Auto) Lymph # (Auto) [place] # (Auto) APTT Sodium 132 L 131 L Chloride Anion Gap 7.0 L BUN Creatinine 0.5 L 0.6 L Glucose Calcium 7.8 L 8.3 L Magnesium Troponin T 0.03 H Total Protein 5.3 L Albumin 2.7 L Albumin/Globulin Ratio 12/22/20 12/22/20 12/21/20 04:50 04:49 19:10 RBC 2.67 L Hgb 9.0 L Hct 26.6 L MCV RDW 14.9 H [place] % (Auto) 24.3 H Lymph # (Auto) 1.34 L [place] # (Auto) 1.31 H APTT 83.2 H Sodium 126 L Chloride 94 L Anion Gap BUN Creatinine 0.5 L Glucose 115 H Calcium 8.3 L Magnesium Troponin T Total Protein Albumin Albumin/Globulin Ratio 12/21/20 12/21/20 12/21/20 12:56 07:01 04:43 RBC Hgb Hct MCV RDW [place] % (Auto) Lymph # (Auto) [place] # (Auto) APTT 82.0 H Sodium 129 L 130 L Chloride 94 L Anion Gap 4.0 L BUN Creatinine 0.6 L 0.6 L Glucose 106 H Calcium 8.2 L 8.1 L Magnesium 1.5 L Troponin T Total Protein 5.2 L Albumin 2.7 L Albumin/Globulin Ratio 12/21/20 12/20/20 12/20/20 04:43 19:00 19:00 RBC 2.78 L Hgb 9.2 L Hct 27.6 L MCV RDW [place] % (Auto) 20.7 H Lymph # (Auto) [place] # (Auto) 1.33 H APTT 85.8 H Sodium 127 L Chloride 94 L Anion Gap BUN 5 L Creatinine 0.5 L Glucose 106 H Calcium 8.0 L Magnesium Troponin T Total Protein Albumin Albumin/Globulin Ratio Meds: Medications Acetaminophen (Acetaminophen 325 Mg Tablet) 650 mg PO Q6HP PRN; Protocol PRN Reason: Per Pain Protocol Albuterol/Ipratropium (Ipratropium/Albuterol 3 Ml Ampul.Neb) 3 ml NEB Q4HRT [facility] Last Admin: 12/23/20 07:52 Dose: 3 ml Documented by: Cyclobenzaprine HCl (Cyclobenzaprine 10 Mg Tablet) 10 mg PO TIDP PRN PRN Reason: Muscle Spasm Last Admin: 12/23/20 09:36 Dose: 10 mg Documented by: Diphenhydramine HCl (Diphenhydramine 25 Mg Capsule) 50 mg PO HSP PRN PRN Reason: Insomnia Last Admin: 12/22/20 23:52 Dose: 50 mg Documented by: Docusate Sodium (Docusate Sodium 100 Mg Capsule) 100 mg PO BID [facility] Last Admin: 12/23/20 09:03 Dose: 100 mg Documented by: Enoxaparin Sodium (Enoxaparin 80 Mg/0.8 Ml Syringe) 80 mg SQ BID [facility] Fluoxetine HCl (Fluoxetine Hcl 20 Mg Capsule) 20 mg PO QDAY [facility] Last Admin: 12/23/20 09:02 Dose: 20 mg Documented by: Folic Acid (Folic Acid 1 Mg Tablet) 1 mg PO DAILY [facility] Last Admin: 12/23/20 09:02 Dose: 1 mg Documented by: Guaifenesin/Codeine Phosphate (Guaifenesin/Codeine 10 Ml Udc) 5 ml PO Q4HP PRN PRN Reason: Cough Hydromorphone HCl (Hydromorphone 0.5 Mg/0.5 Ml Syringe) 0.5 mg IV Q2HP PRN; Protocol PRN Reason: Per Pain Protocol Last Admin: 12/22/20 19:43 Dose: 0.5 mg Documented by: Sodium Chloride (Sodium Chloride 0.9%) 1,000 mls @ 75 mls/hr IV .[id number] [facility] Last Admin: 12/23/20 03:09 Dose: 75 mls/hr Documented by: Piperacillin Sod/Tazobactam (Sod 3.375 gm/ Dextrose) 50 mls @ 100 mls/hr IV Q6H [facility]; Protocol Last Infusion: 12/22/20 20:33 Dose: Infused Documented by: Vancomycin HCl 1,500 mg/ (Sodium Chloride) 500 mls @ 333.3 mls/hr IV Q12H [facility] Last Admin: 12/23/20 11:11 Dose: 333.3 mls/hr Documented by: Metoclopramide HCl (Metoclopramide 10 Mg/2 Ml Vial) 10 mg IV Q6 [facility] Last Admin: 12/23/20 05:59 Dose: 10 mg Documented by: Metoprolol Succinate (Metoprolol Succinate 50 Mg Tab.Xl.24h) 50 mg PO QDAY [facility] Last Admin: 12/23/20 09:02 Dose: 50 mg Documented by: Metoprolol Tartrate (Metoprolol Tartrate 5 Mg/5 Ml Vial) 5 mg IV Q2HP PRN PRN Reason: Tachyarrhythmias HR>110 Last Admin: 12/21/20 14:08 Dose: 5 mg Documented by: Nicotine (Nicotine 21 Mg Patch) 21 mg TOPICAL DAILY@1000 [facility] Last Admin: 12/23/20 11:12 Dose: 21 mg Documented by: Ondansetron HCl (Ondansetron 4 Mg/2 Ml Vial) 4 mg IV Q6HP PRN PRN Reason: Nausea And Vomiting Oxycodone/Acetaminophen (Oxycodone/Apap 5/325mg Tablet) 1 tab PO Q4HP PRN; Protocol PRN Reason: Per Pain Protocol Last Admin: 12/23/20 11:02 Dose: 1 tab Documented by: Pantoprazole Sodium (Pantoprazole 40 Mg Tablet) 40 mg PO QAMAC [facility] Last Admin: 12/23/20 07:00 Dose: 40 mg Documented by: Polyethylene Glycol (Polyethylene Glycol 3350 17 Gm Packet) 17 gm PO TID [facility] Last Admin: 12/23/20 09:03 Dose: 17 gm Documented by: Potassium Chloride (Potassium Chloride 20 Meq Tablet) 40 meq PO BIDCC [facility] Last Admin: 12/23/20 09:02 Dose: 40 meq Documented by: Senna (Sennosides 1 Tablet) 2 tab PO HS [facility] Last Admin: 12/22/20 19:46 Dose: 2 tab Documented by: Sodium Chloride (0.9 % Sodium Chloride 10 Ml Syringe) 10 ml IV Q8 [facility] Last Admin: 12/23/20 05:59 Dose: 10 ml Documented by: Thiamine HCl (Thiamine 100 Mg Tablet) 100 mg PO DAILY [facility] Last Admin: 12/23/20 09:03 Dose: 100 mg Documented by: Trazodone HCl (Trazodone Hcl 100 Mg Tablet) 100 mg PO HSP PRN PRN Reason: Anxiety Last Admin: 12/22/20 23:52 Dose: 100 mg Documented by: Vancomycin HCl (Vancomycin Per Pharmacy) 1 order IV UD [facility]; Protocol A/P Assessment and plan (1) Collapse of left lung: Status: Acute (2) Pulmonary embolus, right: Status: Acute (3) Fracture of rib: Status: Acute Qualifiers: Encounter type: initial encounter Fracture type: closed Laterality: right Rib fracture type: multiple ribs Qualified Code(s): S22.41XA - Multiple fractures of ribs, right side, initial encounter for closed fracture (4) COPD (chronic obstructive pulmonary disease): Status: Acute Qualifiers: COPD type: COPD with acute exacerbation Qualified Code(s): J44.1 - Chronic obstructive pulmonary disease with (acute) exacerbation (5) Hemothorax on left: Status: Acute (6) Anxiety disorder: Status: Chronic Qualifiers: Qualified Code(s): F41.1 - Generalized anxiety disorder (7) Hypomagnesemia: Status: Acute (8) Hyponatremia: Status: Acute (9) Anemia, normocytic normochromic: Status: Acute (10) HAP (hospital-acquired pneumonia): Status: Acute Narrative A/P Narrative: 1. Traumatic left ribs fracture with associated left hemothorax: Stays in inpatient ICU, Dr. Og primary team Daily Chest X ray Chest tube stays in Incentive spirometry Okay to resume diet since there is no plan for bronhcoscopy any time soon High flow oxygen via oxygen mask with mist titrate to achieve spo2 88-92% in the context of pre-exiting COPD Flexeril TID PRN muscle spasm Percocet PO q4hr PRN moderate pain Dilaudid 0.5mg IV q2hr PRN severe pain 2. Multiple pulmonary embolism, left upper and middle lobes: Start Lovenox 1mg/kg SQ BID; will switch to Eliquis at time of hospital discharge High flow oxygen via oxygen mask with mist titrate to achieve spo2 88-92% in the context of pre-exiting COPD 3. h/o COPD: DuoNEB NEB q4hr scheduled High flow oxygen via oxygen mask with mist titrate to achieve spo2 88-92% in the context of pre-exiting COPD 4. h/o alcoholism: CIWA protocol, measures to be provided for symptoms relief 5. Anemia, normocytic normochromic: Likely contributed by chronic alcoholism as well as traumatic left ribs fracture with hemothorax Daily cbc w/ auto diff in the morning to trend H/H; transfuse pRBC if hemoglobin <7.0, active bleeding (internal and external alike), or symptomatic 6. Hyponatremia: NS@75cc/hr Repeat CMP in the AM to trend serum sodium level 7. Hypomagnesemia: Serum Mg level 1.8 today s/p replacement from 12/21 Repeat serum Mg level in the morning and repeat replacement as needed 8. Left chest pain: DDx: hemothorax vs ACS Keep chest tube in place Serial troponin-i q6hr X3 ECG 9. Hospital acquired pneumonia: CXR on 12/22 shows left lung infiltrates. Given the fact that patient's respirato ry status deteriorate on 12/21, would given patient benefit of doubt and start antibiotics coverage Obtain sputum culture from bronchoscopy for antibiotics guidance Vancomycin Zosyn cbc w/ auto diff in the morning to trend WBC Daily CXR GI ppx: Portonix DVT ppx: Lovenox 1mg/kg SQ BID Code status: Full Prognosis: guarded Disposition: inpatient ICU Critical Care Time: 45min Time Spent With Patient Time: Total time spent is greater than 50% in coordination of care (as documented) at patient's floor/unit and/or counseling patient:
[2020-12-23] MEDS: VANCOMYCIN 1,000 MG in 0.9 % SODIUM CHLORIDE 250 ML IV SCH (11:38)
[2020-12-23] MEDS: PIPERACILLIN SODIUM/TAZOBACTAM 3.375 GM in DEXTROSE 5% IN WATER 50 ML IV SCH (17:37)
--- NOTE | 2020-12-23 19:02 | General Surgery Progress Note ---
SUBJECTIVE Subjective Patient information: Note initiated : 12/23/20 at 7:00 pm Service Date, if different from initiated Date: [] Patient: Tone Pope 60 y/o M admitted on 12/18/20 for Fall / pneumothorax. Chief Complaint: [] Principal diagnosis: Left rib fractures with traumatic pneumothorax; hypoxemia and hypotension Interval history: No change in symptoms other than decreased pain. Pulmonary recommendations noted. Constitutional Vitals: Vital Signs Temp Pulse Resp BP Pulse Ox 97.8 F 89 28 H 106/85 95 12/23/20 16:00 12/23/20 11:50 12/23/20 18:01 12/23/20 18:01 12/23/20 17:21 Period Temp Pulse Resp BP Sys/Juarez Pulse Ox Last 24 Hr 97.8 F-98.8 F 80-91 14-37 106-154/65-105 85-100 Intake and Output 12/23/20 12/23/20 12/23/20 05:59 13:59 21:59 Intake Total 1960 1845 1230 Output Total 375 800 390 Balance 1585 1045 840 Weight 160 lb 11.2 oz Patient Weight 12/24/20 05:59 Weight 160 lb 11.2 oz Intake & Output: Intake & Output 12/23/20 12/23/20 12/23/20 05:59 13:59 21:59 Intake Total 1960 1845 1230 Output Total 375 800 390 Balance 1585 1045 840 Weight 160 lb 11.2 oz Intake: Nourishment/Supplement quantity 120 (ml) Beer quantity 480 480 IV 1000 885 550 Sodium Chloride 0.9% 1,000 ml @ 1000 635 75 mls/hr IV .[id number] [facility] Rx#: [id number] Zosyn 3.375 gm In Dextrose 5% 50 in Water 50 ml @ 100 mls/hr IV Q6H [facility] Rx#:[id number] Vancomycin 1,000 mg In Sodium 250 Chloride 0.9% 250 ml @ 250 mls/ hr IV Q12H [facility] Rx#:[id number] Vancomycin 1,500 mg In Sodium 500 Chloride 0.9% 500 ml @ 333.3 mls/hr IV Q12H [facility] Rx#: [id number] Oral 960 360 200 Output: Chest Tube Drainage 125 40 Left Anterior Chest 125 40 Void Amount 250 800 350 Other: Meal Dinner Breakfast Dinner Percent of Meal Consumed 50% 100% 100% Urine Appearance Clear Urine Color Dark Yellow Dark Yellow General appearance: cooperative and no acute distress Respiratory Respiratory exam: Present decreased breath sounds Additional comments: chest tube in place A/P Narrative A/P Narrative: Post chest tube insertion for pneumothorax secondary to fractured ribs. cont with pulmonary toilet, will follow CXR Time Spent With Patient Time: Total time spent is greater than 50% in coordination of care (as documented) at patient's floor/unit and/or counseling patient:
[2020-12-23] MEDS: SENNOSIDES 1 TABLET PO SCH (20:20)
[2020-12-23] MEDS: traZODone HCL 100 MG TABLET PO PRN (23:45)
[2020-12-23] MEDS: diphenhydrAMINE 25 MG CAPSULE PO PRN (23:45)
[2020-12-24] MEDS: oxyCODONE/APAP 5/325MG TABLET PO PRN ×5 (03:11→21:53)
[2020-12-24] MEDS: IPRATROPIUM/ALBUTEROL 3 ML AMPUL.NEB NEB SCH ×6 (03:42→22:24)
[2020-12-24] MEDS: PIPERACILLIN SODIUM/TAZOBACTAM 3.375 GM in DEXTROSE 5% IN WATER 50 ML IV SCH ×5 (05:30→23:43)
[2020-12-24] MEDS: METOCLOPRAMIDE 10 MG/2 ML VIAL IV SCH ×4 (05:30→23:36)
[2020-12-24] MEDS: 0.9 % SODIUM CHLORIDE 10 ML SYRINGE IV SCH ×3 (05:31→22:09)
--- NOTE | 2020-12-24 06:48 | XRay Report ---
INDICATION: f/u hemothorax TECHNIQUE: AP portable semiupright chest x-ray COMPARISON: Multiple previous examinations including most recent studies dated 12/23/2020, 12/22/2020, 12/21/2020 FINDINGS: Lungs:Persistent left-sided infiltrates and density in the left retrocardiac region. Appearance is consistent with left lower lobe consolidation and/or volume loss. Right lung remains negative. Findings are unchanged since 12/23/2020 and significantly improved since 12/21/2020 Heart, vascular:No significant cardiomegaly. Pulmonary vascularity is normal. No pulmonary edema or pulmonary congestion Mediastinum, meliza:No mediastinal widening. No hilar mass. No pneumomediastinum Pleura:No change in left apical small caliber left pleural catheter. No recurrent left pneumothorax. There is a line projected over the lateral aspects of the right hemithorax. I believe this is artifactual and does not represent a right pneumothorax Skeletal:Negative. Soft tissue gas has almost completely resolved. IMPRESSION: 1. Persistent left basilar consolidation and infiltrate. Appearance is improved since 12/21/2020 2. No recurrent pneumothorax Interpreted and Authenticated by: Ja Salgado 12/24/20
[2020-12-24 06:58] LABS: Basophils # (Auto) 0.01 K/mcL (0.00-0.20); Basophils % (Auto) 0.2 % (0.0-2.0); Eosinophils # (Auto) 0.16 K/mcL (0.00-0.70); Eosinophils % (Auto) 3.8 % (0.0-7.0); Hematocrit 26.5 % (41.0-55.0); Lymphocytes # (Auto) 0.64 K/mcL (1.50-4.80); Lymphocytes % (Auto) 15.3 % (15.0-49.0); Mean Cell Volume 99.3 fL (80.0-100.0); Mean Platelet Volume 9.7 fL (7.4-10.4); Monocytes # (Auto) 0.65 K/mcL (0.10-0.90); Monocytes % (Auto) 15.6 % (1.0-12.0); Neutrophils % (Auto) 65.1 % (38.0-78.0); Platelet Count 273 K/mcL (140-440); RBC 2.67 M/mcL (4.50-5.90); Red Cell Distribution Width 14.5 % (11.5-14.5); WBC 4.2 K/mcL (4.5-11.0)
[2020-12-24 07:10] LABS: ALT/SGPT 16 U/L (<40); AST/SGOT 20 U/L (<40); Albumin 2.7 gm/dL (3.2-5.2); Albumin/Globulin Ratio 1.1 (1.0-2.3); Alkaline Phosphatase 105 U/L (39-117); Bilirubin,Total 0.3 mg/dL (0.1-1.0); Blood Urea Nitrogen 6 mg/dL (6-20); Carbon Dioxide 26 mmol/L (22-30); Chloride 93 mmol/L (96-108); Globulin 2.5 gm/dL (2.2-3.7); Glomerular Filtration Rate 118; Glucose 114 mg/dL (70-105)
[2020-12-24] MEDS: PANTOPRAZOLE 40 MG TABLET PO SCH (07:34)
[2020-12-24] MEDS ORDERED: MAGNESIUM SULFATE 2 GM/50 ML BAG IV ONE (08:39)
[2020-12-24] MEDS ORDERED: 0.9 % SODIUM CHLORIDE 500 ML IV ONE (08:40)
[2020-12-24] MEDS ORDERED: FLEETS ADULT ENEMA PR PRN (08:43)
--- NOTE | 2020-12-24 08:49 | Internal Med Progress Note ---
SUBJECTIVE Subjective Patient information: Note initiated : 12/24/20 at 8:47 am Service Date, if different from initiated Date: [] Patient: Tone Pope 60 y/o M admitted on 12/18/20 for Fall / pneumothorax. Chief Complaint: [] Principal diagnosis: Left rib fractures with traumatic pneumothorax; hypoxemia and hypotension Interval history: Patient presented on the for left-sided chest pain and shortness of breath. He fell at home. He was shown to have left-sided rib fractures and pneumothorax. Pleural catheter was placed. He had been doing well and was even good this morning and except when he had and he was unresponsive. Found to be hypotensive in the systolic of 60s and hypoxic. He was given IV fluid boluses with improvement in his blood pressure. Put on nonrebreather with oxygen finally improved but took some time. Stat chest x-ray showed no changes with the left lung was expanded. EKG did show A. fib. Did have a CT this morning the chest which showed emphysema as well as pneumomediastinum and soft tissue gas which appeared to be improving. Patient states drinks 6 pack/day, denies any withdrawal symptoms. CTA pending 12/21/20: CTA chest showed right upper and middle lobes multiple pulmonary em bolism, as well as persistent left hemothorax. Patient feels his breathing is improving relative to yesterday. 01/30 sharp left sided chest wall pain, sharp and constant. Denies fever or chills. Denies anxiety. Principal diagnosis: Left rib fractures with traumatic pneumothorax; hypoxemia and hypotension 12/22: Yesterday afternoon patient showed increased work of breathing. After switching to high flow oxygen from room air, his work of breathing had significantly improved. 600cc of output from his left chest tube overnight. CXR this morning suggests left lung infiltrates. This morning patient feels his breathing is much improved compared to yesterday. He is c/o left chest pain. Denies abdominal pain. 12/23: Dr. Bejarano decided against bronchoscopy. Instead, he recommended aggressive bronchopulmonary toilet, daily CXR, and continued observation for his respiratory status. Patient is feeling okay this morning. Denies shortness of breath. c/o productive cough with clear sputum. Denies wheezing. Denies chest pain or palpitation. Denies fever or chills or sweating. 12/24: Afebrile. Still on high low oxygen FiO2 30%. Left chest tube 130cc serosanguineous output. c/o constipation. c/o mild shortness of breath. c/o wheezing. Constitutional Vitals: Vital Signs Temp Pulse Resp BP Pulse Ox 37.3 C H 95 H 21 146/90 91 12/24/20 04:00 12/23/20 23:47 12/24/20 07:00 12/24/20 07:00 12/24/20 07:00 Period Temp Pulse Resp BP Sys/Juarez Pulse Ox Last 24 Hr 36.6 C-37.3 C 89-115 15-34 106-165/65-105 87-100 Intake and Output 12/23/20 12/24/20 12/24/20 21:59 05:59 13:59 Intake Total 1230 1810 50 Output Total 941 640 Balance 289 1170 50 Weight 72.892 kg 74.888 kg Intake & Output: Intake & Output 12/23/20 12/24/20 12/24/20 21:59 05:59 13:59 Intake Total 1230 1810 50 Output Total 941 640 Balance 289 1170 50 Weight 72.892 kg 74.888 kg Intake: Beer quantity 480 IV 550 550 50 Zosyn 3.375 gm In Dextrose 5% 50 50 50 in Water 50 ml @ 100 mls/hr IV Q6H [facility] Rx#:[id number] Vancomycin 1,500 mg In Sodium 500 500 Chloride 0.9% 500 ml @ 333.3 mls/hr IV Q12H [facility] Rx#: [id number] Oral 200 1260 Output: Chest Tube Drainage 40 190 Left Anterior Chest 40 190 Void Amount 900 450 # of times incontinent of urine 1 Other: Meal Dinner Percent of Meal Consumed 100% Urine Appearance Clear Clear Urine Color Bright Yellow Bright Yellow Urine Odor Normal General appearance: cooperative and no acute distress Head Head exam: Present atraumatic and normocephalic Eye Eye exam: Present EOMI and PERRL ENT ENT exam: Present mucous membranes moist, normal exam and normal external ear exam Additional comments: high flow oxygen in place Neck Neck exam: Present normal inspection; Absent lymphadenopathy, tenderness and thyromegaly Respiratory Respiratory exam: Present wheezes; Absent accessory muscle use and respiratory distress Additional comments: Left chest tube in place. Cardiovascular Cardiovascular exam: Present normal rate and rhythm; Absent JVD GI/Abdominal GI/Abdominal exam: Present normal bowel sounds and soft; Absent organomegaly and tenderness Rectal Rectal exam: Present deferred Extremities Exam Extremities exam: Present full ROM, normal capillary refill and normal inspection; Absent tenderness Neurological Exam Neurological exam: Present alert, CN II-XII intact and oriented X3; Absent motor sensory deficit Psychiatric Psychiatric exam: Present normal affect and normal mood; Absent anxious and depressed Skin Skin exam: Present dry and intact OBJ DATA Labs CBC & Chem 7: 12/24/20 05:07 12/24/20 05:07 Labs: Abnormal Lab Results 12/24/20 12/24/20 12/23/20 05:07 05:07 05:15 WBC 4.2 L RBC 2.67 L Hgb 9.0 L Hct 26.5 L MCV RDW [place] % (Auto) 15.6 H Lymph # (Auto) 0.64 L [place] # (Auto) APTT Sodium 125 L 131 L Chloride 93 L Anion Gap 6.0 L 6.0 L Creatinine 0.5 L 0.6 L Glucose 114 H Calcium 8.0 L 7.9 L Troponin T Total Protein 5.2 L 5.2 L Albumin 2.7 L 2.5 L Albumin/Globulin Ratio 0.9 L 12/23/20 12/22/20 12/22/20 05:15 19:05 14:38 WBC RBC 2.58 L Hgb 8.5 L Hct 25.9 L MCV 100.4 H RDW 14.6 H [place] % (Auto) 22.6 H Lymph # (Auto) 1.35 L [place] # (Auto) 1.38 H APTT Sodium 129 L 132 L Chloride Anion Gap 7.0 L Creatinine 0.6 L 0.5 L Glucose 108 H Calcium 8.1 L 7.8 L Troponin T Total Protein Albumin Albumin/Globulin Ratio 12/22/20 12/22/20 12/22/20 09:33 04:50 04:50 WBC RBC 2.67 L Hgb 9.0 L Hct 26.6 L MCV RDW 14.9 H [place] % (Auto) 24.3 H Lymph # (Auto) 1.34 L [place] # (Auto) 1.31 H APTT Sodium 131 L Chloride Anion Gap 7.0 L Creatinine 0.6 L Glucose Calcium 8.3 L Troponin T 0.03 H Total Protein 5.3 L Albumin 2.7 L Albumin/Globulin Ratio 12/22/20 12/21/20 12/21/20 04:49 19:10 12:56 WBC RBC Hgb Hct MCV RDW [place] % (Auto) Lymph # (Auto) [place] # (Auto) APTT 83.2 H Sodium 126 L 129 L Chloride 94 L 94 L Anion Gap Creatinine 0.5 L 0.6 L Glucose 115 H Calcium 8.3 L 8.2 L Troponin T Total Protein Albumin Albumin/Globulin Ratio Meds: Medications Acetaminophen (Acetaminophen 325 Mg Tablet) 650 mg PO Q6HP PRN; Protocol PRN Reason: Per Pain Protocol Albuterol/Ipratropium (Ipratropium/Albuterol 3 Ml Ampul.Neb) 3 ml NEB Q4HRT [facility] Last Admin: 12/24/20 08:00 Dose: 3 ml Documented by: Cyclobenzaprine HCl (Cyclobenzaprine 10 Mg Tablet) 10 mg PO TIDP PRN PRN Reason: Muscle Spasm Last Admin: 12/23/20 20:20 Dose: 10 mg Documented by: Diphenhydramine HCl (Diphenhydramine 25 Mg Capsule) 50 mg PO HSP PRN PRN Reason: Insomnia Last Admin: 12/23/20 23:45 Dose: 50 mg Documented by: Docusate Sodium (Docusate Sodium 100 Mg Capsule) 100 mg PO BID [facility] Last Admin: 12/23/20 20:20 Dose: 100 mg Documented by: Enoxaparin Sodium (Enoxaparin 80 Mg/0.8 Ml Syringe) 80 mg SQ BID [facility] Last Admin: 12/23/20 20:20 Dose: 80 mg Documented by: Fluoxetine HCl (Fluoxetine Hcl 20 Mg Capsule) 20 mg PO QDAY [facility] Last Admin: 12/23/20 09:02 Dose: 20 mg Documented by: Folic Acid (Folic Acid 1 Mg Tablet) 1 mg PO DAILY [facility] Last Admin: 12/23/20 09:02 Dose: 1 mg Documented by: Guaifenesin/Codeine Phosphate (Guaifenesin/Codeine 10 Ml Udc) 5 ml PO Q4HP PRN PRN Reason: Cough Hydromorphone HCl (Hydromorphone 0.5 Mg/0.5 Ml Syringe) 0.5 mg IV Q2HP PRN; Protocol PRN Reason: Per Pain Protocol Last Admin: 12/22/20 19:43 Dose: 0.5 mg Documented by: Piperacillin Sod/Tazobactam (Sod 3.375 gm/ Dextrose) 50 mls @ 100 mls/hr IV Q6H [facility]; Protocol Last Infusion: 12/24/20 06:00 Dose: Infused Documented by: Vancomycin HCl 1,500 mg/ (Sodium Chloride) 500 mls @ 333.3 mls/hr IV Q12H [facility] Last Infusion: 12/24/20 05:55 Dose: Infused Documented by: Magnesium Sulfate (Magnesium Sulfate) 2 gm in 50 mls @ 25 mls/hr IV ONCE ONE Stop: 12/24/20 10:38 Sodium Chloride (Sodium Chloride 0.9%) 500 mls @ 0 mls/hr IV BOLUS ONE Stop: 12/24/20 08:41 Metoclopramide HCl (Metoclopramide 10 Mg/2 Ml Vial) 10 mg IV Q6 [facility] Last Admin: 12/24/20 05:30 Dose: 10 mg Documented by: Metoprolol Succinate (Metoprolol Succinate 50 Mg Tab.Xl.24h) 50 mg PO QDAY [facility] Last Admin: 12/23/20 09:02 Dose: 50 mg Documented by: Metoprolol Tartrate (Metoprolol Tartrate 5 Mg/5 Ml Vial) 5 mg IV Q2HP PRN PRN Reason: Tachyarrhythmias HR>110 Last Admin: 12/21/20 14:08 Dose: 5 mg Documented by: Nicotine (Nicotine 21 Mg Patch) 21 mg TOPICAL DAILY@1000 [facility] Last Admin: 12/23/20 11:12 Dose: 21 mg Documented by: Ondansetron HCl (Ondansetron 4 Mg/2 Ml Vial) 4 mg IV Q6HP PRN PRN Reason: Nausea And Vomiting Oxycodone/Acetaminophen (Oxycodone/Apap 5/325mg Tablet) 1 tab PO Q4HP PRN; Protocol PRN Reason: Per Pain Protocol Last Admin: 12/24/20 07:34 Dose: 1 tab Documented by: Pantoprazole Sodium (Pantoprazole 40 Mg Tablet) 40 mg PO QAMAC [facility] Last Admin: 12/24/20 07:34 Dose: 40 mg Documented by: Polyethylene Glycol (Polyethylene Glycol 3350 17 Gm Packet) 17 gm PO TID [facility] Last Admin: 12/23/20 20:21 Dose: 17 gm Documented by: Potassium Chloride (Potassium Chloride 20 Meq Tablet) 40 meq PO BIDCC [facility] Last Admin: 12/23/20 16:26 Dose: 40 meq Documented by: Senna (Sennosides 1 Tablet) 2 tab PO HS [facility] Last Admin: 12/23/20 20:20 Dose: 2 tab Documented by: Sodium Biphosphate/Sodium Phosphate (Fleets Adult Enema) 1 dose VT DAILYP PRN PRN Reason: Constipation Sodium Chloride (0.9 % Sodium Chloride 10 Ml Syringe) 10 ml IV Q8 [facility] Last Admin: 12/24/20 05:31 Dose: 10 ml Documented by: Thiamine HCl (Thiamine 100 Mg Tablet) 100 mg PO DAILY [facility] Last Admin: 12/23/20 09:03 Dose: 100 mg Documented by: Trazodone HCl (Trazodone Hcl 100 Mg Tablet) 100 mg PO HSP PRN PRN Reason: Anxiety Last Admin: 12/23/20 23:45 Dose: 100 mg Documented by: Vancomycin HCl (Vancomycin Per Pharmacy) 1 order IV UD [facility]; Protocol A/P Assessment and plan (1) Collapse of left lung: Status: Acute (2) Pulmonary embolus, right: Status: Acute (3) Fracture of rib: Status: Acute Qualifiers: Encounter type: initial encounter Fracture type: closed Laterality: right Rib fracture type: multiple ribs Qualified Code(s): S22.41XA - Multiple fractures of ribs, right side, initial encounter for closed fracture (4) COPD (chronic obstructive pulmonary disease): Status: Acute Qualifiers: COPD type: COPD with acute exacerbation Qualified Code(s): J44.1 - Chronic obstructive pulmonary disease with (acute) exacerbation (5) Hemothorax on left: Status: Acute (6) Anxiety disorder: Status: Chronic Qualifiers: Qualified Code(s): F41.1 - Generalized anxiety disorder (7) Hypomagnesemia: Status: Acute (8) Hyponatremia: Status: Acute (9) Anemia, normocytic normochromic: Status: Acute (10) HAP (hospital-acquired pneumonia): Status: Acute Narrative A/P Narrative: 1. Traumatic left ribs fracture with associated left hemothorax: Dr. Og primary team Daily Chest X ray Chest tube stays in Incentive spirometry Bronchopulmonary toilet Bronchodilators High flow oxygen via oxygen mask with mist titrate to achieve spo2 88-92% in the context of pre-exiting COPD Flexeril TID PRN muscle spasm Percocet PO q4hr PRN moderate pain Dilaudid 0.5mg IV q2hr PRN severe pain 2. Multiple pulmonary embolism, left upper and middle lobes: Start Lovenox 1mg/kg SQ BID; will switch to Eliquis at time of hospital discharge High flow oxygen via oxygen mask with mist titrate to achieve spo2 88-92% in the context of pre-exiting COPD 3. h/o COPD: DuoNEB NEB q4hr scheduled High flow oxygen via oxygen mask with mist titrate to achieve spo2 88-92% in the context of pre-exiting COPD 4. h/o alcoholism: CIWA protocol, measures to be provided for symptoms relief 5. Anemia, normocytic normochromic: Likely contributed by chronic alcoholism as well as traumatic left ribs fracture with hemothorax Daily cbc w/ auto diff in the morning to trend H/H; transfuse pRBC if hemoglobin <7.0, active bleeding (internal and external alike), or symptomatic 6. Hyponatremia: Normal Saline 500cc bolus Repeat BMP @1500 to trend serum sodium level Repeat CMP in the AM to trend serum sodium level 7. Hypomagnesemia: Serum Mg level 1.6 today--> replace MgSO4 2gm IV Repeat serum Mg level in the morning and repeat replacement as needed 8. Left chest pain: RESOLVED DDx: hemothorax vs ACS Keep chest tube in place Serial troponin-i q6hr X3 ECG 9. Hospital acquired pneumonia: CXR on 12/22 shows left lung infiltrates. Given the fact that patient's res piratory status deteriorate on 12/21, would given patient benefit of doubt and start antibiotics coverage Vancomycin Zosyn cbc w/ auto diff in the morning to trend WBC Daily CXR GI ppx: Portonix DVT ppx: Lovenox 1mg/kg SQ BID Code status: Full Prognosis: guarded Disposition: inpatient ICU Critical Care Time: 45min Time Spent With Patient Time: Total time spent is greater than 50% in coordination of care (as document ed) at patient's floor/unit and/or counseling patient:
[2020-12-24] MEDS: POLYETHYLENE GLYCOL 3350 17 GM PACKET PO SCH ×3 (09:40→21:35)
[2020-12-24] MEDS: NICOTINE 21 MG PATCH TOPICAL SCH (09:40)
[2020-12-24] MEDS: ENOXAPARIN 80 MG/0.8 ML SYRINGE SQ SCH ×2 (09:40→21:35)
[2020-12-24] MEDS: METOPROLOL SUCCINATE 50 MG TAB.XL.24H PO SCH (09:41)
[2020-12-24] MEDS: FLUoxetine HCL 20 MG CAPSULE PO SCH (09:41)
[2020-12-24] MEDS: FOLIC ACID 1 MG TABLET PO SCH (09:41)
[2020-12-24] MEDS: DOCUSATE SODIUM 100 MG CAPSULE PO SCH ×2 (09:41→21:34)
[2020-12-24] MEDS: THIAMINE 100 MG TABLET PO SCH (09:41)
[2020-12-24] MEDS: POTASSIUM CHLORIDE 20 MEQ TABLET PO SCH ×2 (09:41→18:03)
[2020-12-24] MEDS: VANCOMYCIN 1,500 MG in 0.9 % SODIUM CHLORIDE 500 ML IV SCH ×2 (10:42→22:26)
[2020-12-24] MEDS: METOPROLOL TARTRATE 5 MG/5 ML VIAL IV PRN (13:48)
[2020-12-24 17:10] LABS: Blood Urea Nitrogen 5 mg/dL (6-20); Calcium 8.4 mg/dL (8.6-10.4); Carbon Dioxide 24 mmol/L (22-30); Chloride 94 mmol/L (96-108); Glomerular Filtration Rate 118; Glucose 109 mg/dL (70-105)
--- NOTE | 2020-12-24 17:12 | General Surgery Progress Note ---
SUBJECTIVE Subjective Patient information: Note initiated : 12/24/20 at 5:04 pm Service Date, if different from initiated Date: [] Patient: Tone Pope 60 y/o M admitted on 12/18/20 for Fall / pneumothorax. Chief Complaint: [] Principal diagnosis: Left rib fractures with traumatic pneumothorax; hypoxemia and hypotension Interval history: Patient is much improved. He has less respiratory distress and his O2 sat is 100% on 35% O2. He has better control of his chest wall pain from his fractured ribs. Chest x-ray shows significant expansion of the left lung. He still has confusion at the bases. Potassium 3.8 BUN 6 creatinine 0.5 white count 4.2 hemoglobin 9 hematocrit 26.5 The patient has continued dilation of his colon. Clinically it has the pattern of pseudoobstruction. His colon is open down to the distal rectosigmoid and he is passing flatus and having bowel movements. He has been previously tried on Regonol and he is informed that I will start that today. Constitutional Vitals: Vital Signs Temp Pulse Resp BP Pulse Ox 97.9 F 94 H 22 137/88 100 12/24/20 16:00 12/24/20 16:14 12/24/20 16:14 12/24/20 16:00 12/24/20 16:14 Period Temp Pulse Resp BP Sys/Juarez Pulse Ox Last 24 Hr 97.8 F-99.2 F 94-115 15-34 106-165/78-102 87-100 Intake and Output 12/24/20 12/24/20 12/24/20 05:59 13:59 21:59 Intake Total 1810 1610 480 Output Total 640 750 295 Balance 1170 860 185 Weight 165 lb 1.6 oz Intake & Output: Intake & Output 12/24/20 12/24/20 12/24/20 05:59 13:59 21:59 Intake Total 1810 1610 480 Output Total 640 750 295 Balance 1170 860 185 Weight 165 lb 1.6 oz Intake: Beer quantity 480 480 IV 550 650 Sodium Chloride 0.9% 500 ml @ 500 Wide Open IV BOLUS ONE Rx#: [id number] Zosyn 3.375 gm In Dextrose 5% 50 100 in Water 50 ml @ 100 mls/hr IV Q6H [facility] Rx#:[id number] Vancomycin 1,500 mg In Sodium 500 Chloride 0.9% 500 ml @ 333.3 mls/hr IV Q12H [facility] Rx#: [id number] Oral 1260 480 Output: Chest Tube Drainage 190 70 Left Anterior Chest 190 70 Void Amount 450 750 225 Other: Meal Lunch Percent of Meal Consumed 75% Feeding Ability Independent Urine Appearance Clear Clear Clear Urine Color Bright Yellow Bright Yellow Bright Yellow Head Head exam: Present atraumatic, normal inspection and normocephalic Eye Eye exam: Present EOMI Pupils: Present PERRL ENT ENT exam: Present mucous membranes moist, normal exam and normal oropharynx Neck Neck exam: Present normal inspection; Absent lymphadenopathy, tenderness and thyromegaly Respiratory Respiratory exam: Present accessory muscle use and wheezes (Scattered wheezes bilaterally; decreased breath sounds at the bases scheduling) Cardiovascular Cardiovascular exam: Present normal rate and rhythm, RRR, +S1 and +S2; Absent JVD Additional comments: Patient has converted to normal sinus rhythm with a controlled rate between 80 and 100. GI/Abdominal GI/Abdominal exam: Present normal bowel sounds and distended (Moderate distention with significant tympany; mild tenderness to palpation) Extremities Exam Extremities exam: Present full ROM, normal inspection and neurovascular intact Neurological Exam Neurological exam: Present alert, normal gait, oriented X3 and reflexes normal Psychiatric Psychiatric exam: Present depressed and flat affect Skin Skin exam: Present intact, normal color and warm A/P Assessment and plan (1) Pulmonary embolus, right: Status: Acute (2) Pneumothorax: Status: Acute Qualifiers: Encounter type: initial encounter Pneumothorax type: traumatic Qualified Code(s): S27.0XXA - Traumatic pneumothorax, initial encounter (3) COPD (chronic obstructive pulmonary disease): Status: Acute Qualifiers: COPD type: COPD with acute exacerbation Qualified Code(s): J44.1 - Chronic obstructive pulmonary disease with (acute) exacerbation (4) Fracture of rib: Status: Acute Qualifiers: Encounter type: initial encounter Fracture type: closed Laterality: right Rib fracture type: multiple ribs Qualified Code(s): S22.41XA - Multiple fractures of ribs, right side, initial encounter for closed fracture (5) Chronic intestinal pseudo-obstruction: Status: Acute (6) Hypertension, essential: Status: Chronic (7) COPD (chronic obstructive pulmonary disease): Status: Chronic Qualifiers: COPD type: chronic bronchitis Chronic bronchitis type: simple Qualified Code(s): J41.0 - Simple chronic bronchitis (8) Cannabis abuse, continuous: Status: Chronic (9) Alcohol abuse: Status: Chronic Narrative A/P Narrative: Atelectasis and collapse of left lung is significantly improved There is no evidence of pneumothorax He has chronic intestinal pseudoobstruction with chronically dilated colon and will be started on pyridostigmine therapy Chest tube will be taken off suction tonight and removed tomorrow Time Spent With Patient Time: Total time spent is greater than 50% in coordination of care (as documented) at patient's floor/unit and/or counseling patient:
[2020-12-24] MEDS: PYRIDOSTIGMINE BROMIDE 10 MG/2 ML AMPUL IM SCH ×2 (18:03→23:36)
[2020-12-24] MEDS: diphenhydrAMINE 25 MG CAPSULE PO PRN (21:33)
[2020-12-24] MEDS: SENNOSIDES 1 TABLET PO SCH (21:34)
[2020-12-24] MEDS: traZODone HCL 100 MG TABLET PO PRN (21:34)
[2020-12-25] MEDS: IPRATROPIUM/ALBUTEROL 3 ML AMPUL.NEB NEB SCH ×6 (02:49→23:19)
[2020-12-25] MEDS: METOCLOPRAMIDE 10 MG/2 ML VIAL IV SCH ×4 (05:30→23:43)
[2020-12-25] MEDS: PYRIDOSTIGMINE BROMIDE 10 MG/2 ML AMPUL IM SCH ×3 (05:30→17:32)
[2020-12-25] MEDS: 0.9 % SODIUM CHLORIDE 10 ML SYRINGE IV SCH ×4 (05:33→20:50)
[2020-12-25] MEDS: PIPERACILLIN SODIUM/TAZOBACTAM 3.375 GM in DEXTROSE 5% IN WATER 50 ML IV SCH ×4 (05:34→23:43)
[2020-12-25] MEDS: PANTOPRAZOLE 40 MG TABLET PO SCH (06:36)
[2020-12-25] MEDS: oxyCODONE/APAP 5/325MG TABLET PO PRN ×3 (06:36→20:49)
--- NOTE | 2020-12-25 07:27 | Internal Med Progress Note ---
SUBJECTIVE Subjective Patient information: Note initiated : 12/25/20 at 7:23 am Service Date, if different from initiated Date: [] Patient: Tone Pope 60 y/o M admitted on 12/18/20 for Fall / pneumothorax. Chief Complaint: [] Principal diagnosis: Left rib fractures with traumatic pneumothorax; hypoxemia and hypotension Interval history: Patient presented on the for left-sided chest pain and shortness of breath. He fell at home. He was shown to have left-sided rib fractures and pneumothorax. Pleural catheter was placed. He had been doing well and was even good this morning and except when he had and he was unresponsive. Found to be hypotensive in the systolic of 60s and hypoxic. He was given IV fluid boluses with improvement in his blood pressure. Put on nonrebreather with oxygen finally improved but took some time. Stat chest x-ray showed no changes with the left lung was expanded. EKG did show A. fib. Did have a CT this morning the chest which showed emphysema as well as pneumomediastinum and soft tissue gas which appeared to be improving. Patient states drinks 6 pack/day, denies any withdrawal symptoms. CTA pending 12/21/20: CTA chest showed right upper and middle lobes multiple pulmonary em bolism, as well as persistent left hemothorax. Patient feels his breathing is improving relative to yesterday. 01/30 sharp left sided chest wall pain, sharp and constant. Denies fever or chills. Denies anxiety. Principal diagnosis: Left rib fractures with traumatic pneumothorax; hypoxemia and hypotension 12/22: Yesterday afternoon patient showed increased work of breathing. After switching to high flow oxygen from room air, his work of breathing had significantly improved. 600cc of output from his left chest tube overnight. CXR this morning suggests left lung infiltrates. This morning patient feels his breathing is much improved compared to yesterday. He is c/o left chest pain. Denies abdominal pain. 12/23: Dr. Bejarano decided against bronchoscopy. Instead, he recommended aggressive bronchopulmonary toilet, daily CXR, and continued observation for his respiratory status. Patient is feeling okay this morning. Denies shortness of breath. c/o productive cough with clear sputum. Denies wheezing. Denies chest pain or palpitation. Denies fever or chills or sweating. 12/24: Afebrile. Still on high flow oxygen FiO2 30%. Left chest tube 130cc serosanguineous output. c/o constipation. c/o mild shortness of breath. c/o wheezing. 12/25: Afebrile. Still on high flow oxygen FiO2 35%. Had bowel movement last night. Denies chest pain, shortness of breath. c/o productive cough with white/hernández sputum and respiratory wheezing. Constitutional Vitals: Vital Signs Temp Pulse Resp BP Pulse Ox 36.8 C 107 H 27 H 160/92 100 12/25/20 00:00 12/24/20 22:28 12/25/20 06:00 12/25/20 06:00 12/25/20 03:00 Period Temp Pulse Resp BP Sys/Juarez Pulse Ox Last 24 Hr 36.6 C-37.3 C 94-107 15-36 114-169/78-111 87-100 Intake and Output 12/24/20 12/25/20 12/25/20 21:59 05:59 13:59 Intake Total 530 900 Output Total 545 1285 275 Balance -15 -385 -275 Weight 76.612 kg Intake & Output: Intake & Output 12/24/20 12/25/20 12/25/20 21:59 05:59 13:59 Intake Total 530 900 Output Total 545 1285 275 Balance -15 -385 -275 Weight 76.612 kg Intake: Beer quantity 480 IV 50 550 Zosyn 3.375 gm In Dextrose 5% 50 50 in Water 50 ml @ 100 mls/hr IV Q6H KEELY Rx#:[id number] Vancomycin 1,500 mg In Sodium 500 Chloride 0.9% 500 ml @ 333.3 mls/hr IV Q12H KEELY Rx#: [id number] Oral 350 Output: Chest Tube Drainage 70 60 Left Anterior Chest 70 60 Void Amount 475 925 275 Stool 300 Other: Urine Appearance Clear Clear Clear Urine Color Bright Yellow Dark Yellow Bright Yellow Urine Odor Normal Normal Stool Size Large Stool Color Brown Brown Stool Consistency Liquid Liquid # Bowel Movements 1 # of times incontinent of 1 Bowels General appearance: cooperative and no acute distress Head Head exam: Present atraumatic and normocephalic Eye Eye exam: Present EOMI and PERRL ENT ENT exam: Present mucous membranes moist, normal exam and normal external ear exam Additional comments: Oxygen mask in place Neck Neck exam: Present normal inspection; Absent lymphadenopathy, tenderness and thyromegaly Respiratory Respiratory exam: Present wheezes; Absent accessory muscle use and respiratory distress Additional comments: Expiratory > inspiratory wheezing in all lung harry. Cardiovascular Cardiovascular exam: Present normal rate and rhythm; Absent JVD GI/Abdominal GI/Abdominal exam: Present normal bowel sounds and soft; Absent organomegaly and tenderness Rectal Rectal exam: Present deferred Extremities Exam Extremities exam: Present full ROM, normal capillary refill and normal inspection; Absent tenderness Neurological Exam Neurological exam: Present alert, CN II-XII intact and oriented X3; Absent motor sensory deficit Psychiatric Psychiatric exam: Present normal affect and normal mood; Absent anxious and depressed Skin Skin exam: Present dry and intact OBJ DATA Labs CBC & Chem 7: 12/24/20 05:07 12/24/20 15:00 Labs: Abnormal Lab Results 12/24/20 12/24/20 12/24/20 15:00 05:07 05:07 WBC 4.2 L RBC 2.67 L Hgb 9.0 L Hct 26.5 L MCV RDW [place] % (Auto) 15.6 H Lymph # (Auto) 0.64 L [place] # (Auto) APTT Sodium 127 L 125 L Chloride 94 L 93 L Anion Gap 6.0 L BUN 5 L Creatinine 0.5 L 0.5 L Glucose 109 H 114 H Calcium 8.4 L 8.0 L Troponin T Total Protein 5.2 L Albumin 2.7 L Albumin/Globulin Ratio 12/23/20 12/23/20 12/22/20 05:15 05:15 19:05 WBC RBC 2.58 L Hgb 8.5 L Hct 25.9 L MCV 100.4 H RDW 14.6 H [place] % (Auto) 22.6 H Lymph # (Auto) 1.35 L [place] # (Auto) 1.38 H APTT Sodium 131 L 129 L Chloride Anion Gap 6.0 L 7.0 L BUN Creatinine 0.6 L 0.6 L Glucose 108 H Calcium 7.9 L 8.1 L Troponin T Total Protein 5.2 L Albumin 2.5 L Albumin/Globulin Ratio 0.9 L 12/22/20 12/22/20 12/22/20 14:38 09:33 04:50 WBC RBC Hgb Hct MCV RDW [place] % (Auto) Lymph # (Auto) [place] # (Auto) APTT Sodium 132 L 131 L Chloride Anion Gap 7.0 L BUN Creatinine 0.5 L 0.6 L Glucose Calcium 7.8 L 8.3 L Troponin T 0.03 H Total Protein 5.3 L Albumin 2.7 L Albumin/Globulin Ratio 12/22/20 12/22/20 04:50 04:49 WBC RBC 2.67 L Hgb 9.0 L Hct 26.6 L MCV RDW 14.9 H [place] % (Auto) 24.3 H Lymph # (Auto) 1.34 L [place] # (Auto) 1.31 H APTT 83.2 H Sodium Chloride Anion Gap BUN Creatinine Glucose Calcium Troponin T Total Protein Albumin Albumin/Globulin Ratio Meds: Medications Acetaminophen (Acetaminophen 325 Mg Tablet) 650 mg PO Q6HP PRN; Protocol PRN Reason: Per Pain Protocol Albuterol/Ipratropium (Ipratropium/Albuterol 3 Ml Ampul.Neb) 3 ml NEB Q4HRT [facility] Last Admin: 12/25/20 02:49 Dose: 3 ml Documented by: Cyclobenzaprine HCl (Cyclobenzaprine 10 Mg Tablet) 10 mg PO TIDP PRN PRN Reason: Muscle Spasm Last Admin: 12/23/20 20:20 Dose: 10 mg Documented by: Diphenhydramine HCl (Diphenhydramine 25 Mg Capsule) 50 mg PO HSP PRN PRN Reason: Insomnia Last Admin: 12/24/20 21:33 Dose: 50 mg Documented by: Docusate Sodium (Docusate Sodium 100 Mg Capsule) 100 mg PO BID [facility] Last Admin: 12/24/20 21:34 Dose: 100 mg Documented by: Enoxaparin Sodium (Enoxaparin 80 Mg/0.8 Ml Syringe) 80 mg SQ BID [facility] Last Admin: 12/24/20 21:35 Dose: 80 mg Documented by: Fluoxetine HCl (Fluoxetine Hcl 20 Mg Capsule) 20 mg PO QDAY [facility] Last Admin: 12/24/20 09:41 Dose: 20 mg Documented by: Folic Acid (Folic Acid 1 Mg Tablet) 1 mg PO DAILY [facility] Last Admin: 12/24/20 09:41 Dose: 1 mg Documented by: Guaifenesin/Codeine Phosphate (Guaifenesin/Codeine 10 Ml Udc) 5 ml PO Q4HP PRN PRN Reason: Cough Hydromorphone HCl (Hydromorphone 0.5 Mg/0.5 Ml Syringe) 0.5 mg IV Q2HP PRN; Protocol PRN Reason: Per Pain Protocol Last Admin: 12/22/20 19:43 Dose: 0.5 mg Documented by: Piperacillin Sod/Tazobactam (Sod 3.375 gm/ Dextrose) 50 mls @ 100 mls/hr IV Q6H [facility]; Protocol Last Admin: 12/25/20 05:34 Dose: 100 mls/hr Documented by: Vancomycin HCl 1,500 mg/ (Sodium Chloride) 500 mls @ 333.3 mls/hr IV Q12H [facility] Last Infusion: 12/25/20 02:03 Dose: Infused Documented by: Metoclopramide HCl (Metoclopramide 10 Mg/2 Ml Vial) 10 mg IV Q6 [facility] Last Admin: 12/25/20 05:30 Dose: Not Given Documented by: Metoprolol Succinate (Metoprolol Succinate 50 Mg Tab.Xl.24h) 50 mg PO QDAY [facility] Last Admin: 12/24/20 09:41 Dose: 50 mg Documented by: Metoprolol Tartrate (Metoprolol Tartrate 5 Mg/5 Ml Vial) 5 mg IV Q2HP PRN PRN Reason: Tachyarrhythmias HR>110 Last Admin: 12/24/20 13:48 Dose: 5 mg Documented by: Nicotine (Nicotine 21 Mg Patch) 21 mg TOPICAL DAILY@1000 [facility] Last Admin: 12/24/20 09:40 Dose: 21 mg Documented by: Ondansetron HCl (Ondansetron 4 Mg/2 Ml Vial) 4 mg IV Q6HP PRN PRN Reason: Nausea And Vomiting Last Admin: 12/24/20 22:09 Dose: 4 mg Documented by: Oxycodone/Acetaminophen (Oxycodone/Apap 5/325mg Tablet) 1 tab PO Q4HP PRN; Protocol PRN Reason: Per Pain Protocol Last Admin: 12/25/20 06:36 Dose: 1 tab Documented by: Pantoprazole Sodium (Pantoprazole 40 Mg Tablet) 40 mg PO QAMAC [facility] Last Admin: 12/25/20 06:36 Dose: 40 mg Documented by: Polyethylene Glycol (Polyethylene Glycol 3350 17 Gm Packet) 17 gm PO TID [facility] Last Admin: 12/24/20 21:35 Dose: 17 gm Documented by: Potassium Chloride (Potassium Chloride 20 Meq Tablet) 40 meq PO BIDCC [facility] Last Admin: 12/24/20 18:03 Dose: 40 meq Documented by: Pyridostigmine [place] (Pyridostigmine [place] 10 Mg/2 Ml Ampul) 10 mg IM Q6H [facility] Last Admin: 12/25/20 05:30 Dose: Not Given Documented by: Senna (Sennosides 1 Tablet) 2 tab PO HS [facility] Last Admin: 12/24/20 21:34 Dose: 2 tab Documented by: Sodium Biphosphate/Sodium Phosphate (Fleets Adult Enema) 1 dose [place] DAILYP PRN PRN Reason: Constipation Sodium Chloride (0.9 % Sodium Chloride 10 Ml Syringe) 10 ml IV Q8 [facility] Last Admin: 12/25/20 05:33 Dose: 10 ml Documented by: Thiamine HCl (Thiamine 100 Mg Tablet) 100 mg PO DAILY [facility] Last Admin: 12/24/20 09:41 Dose: 100 mg Documented by: Trazodone HCl (Trazodone Hcl 100 Mg Tablet) 100 mg PO HSP PRN PRN Reason: Anxiety Last Admin: 12/24/20 21:34 Dose: 100 mg Documented by: Vancomycin HCl (Vancomycin Per Pharmacy) 1 order IV UD [facility]; Protocol A/P Assessment and plan (1) Collapse of left lung: Status: Acute (2) Pulmonary embolus, right: Status: Acute (3) Fracture of rib: Status: Acute Qualifiers: Encounter type: initial encounter Fracture type: closed Laterality: right Rib fracture type: multiple ribs Qualified Code(s): S22.41XA - Multiple fractures of ribs, right side, initial encounter for closed fracture (4) COPD (chronic obstructive pulmonary disease): Status: Acute Qualifiers: COPD type: COPD with acute exacerbation Qualified Code(s): J44.1 - Chronic obstructive pulmonary disease with (acute) exacerbation (5) Hemothorax on left: Status: Acute (6) Anxiety disorder: Status: Chronic Qualifiers: Qualified Code(s): F41.1 - Generalized anxiety disorder (7) Hypomagnesemia: Status: Acute (8) Hyponatremia: Status: Acute (9) Anemia, normocytic normochromic: Status: Acute (10) HAP (hospital-acquired pneumonia): Status: Acute Narrative A/P Narrative: 1. Traumatic left ribs fracture with associated left hemothorax: Dr. Og primary team Daily Chest X ray Chest tube likely to be removed by Dr. Og today Incentive spirometry Bronchopulmonary toilet Bronchodilators High flow oxygen via oxygen mask with mist titrate to achieve spo2 88-92% in the context of pre-exiting COPD Flexeril TID PRN muscle spasm Percocet PO q4hr PRN moderate pain Dilaudid 0.5mg IV q2hr PRN severe pain 2. Multiple pulmonary embolism, left upper and middle lobes: Continue Lovenox 1mg/kg SQ BID; will switch to Eliquis at time of hospital discharge High flow oxygen via oxygen mask with mist titrate to achieve spo2 88-92% in the context of pre-exiting COPD 3. h/o COPD: DuoNEB NEB q4hr scheduled High flow oxygen via oxygen mask with mist titrate to achieve spo2 88-92% in the context of pre-exiting COPD 4. h/o alcoholism: CIWA protocol, measures to be provided for symptoms relief 5. Anemia, normocytic normochromic: Likely contributed by chronic alcoholism as well as traumatic left ribs fracture with hemothorax Daily cbc w/ auto diff in the morning to trend H/H; transfuse pRBC if hemoglobin <7.0, active bleeding (internal and external alike), or symptomatic 6. Hyponatremia: s/p NS 500cc bolus yesterday with serum sodium 125-->127 Repeat CMP in the AM to trend serum sodium level 7. Hypomagnesemia: s/p MgSO4 IV replacement yesterday Repeat serum Mg level in the morning and repeat replacement as needed 8. Left chest pain: RESOLVED DDx: hemothorax vs ACS Chest tube likely to be removed by Dr. Og today Serial troponin-i q6hr X3 ECG 9. Hospital acquired pneumonia: CXR on 12/22 shows left lung infiltrates. Given the fact that patient's respiratory status deteriorate on 12/21, would given patient benefit of doubt and start antibiotics coverage Vancomycin Zosyn cbc w/ auto diff in the morning to trend WBC Daily CXR GI ppx: Portonix DVT ppx: Lovenox 1mg/kg SQ BID Code status: Full Prognosis: guarded Disposition: inpatient ICU Critical Care Time: 30min Time Spent With Patient Time: Total time spent is greater than 50% in coordination of care (as documented) at patient's floor/unit and/or counseling patient:
[2020-12-25 07:32] LABS: Basophils # (Auto) 0.02 K/mcL (0.00-0.20); Basophils % (Auto) 0.3 % (0.0-2.0); Eosinophils # (Auto) 0.09 K/mcL (0.00-0.70); Eosinophils % (Auto) 1.2 % (0.0-7.0); Hematocrit 26.5 % (41.0-55.0); Hemoglobin 9.1 g/dL (13.5-16.5); Lymphocytes # (Auto) 0.69 K/mcL (1.50-4.80); Lymphocytes % (Auto) 8.9 % (15.0-49.0); Mean Cell Volume 97.4 fL (80.0-100.0); Mean Corpuscular HGB Conc 34.3 g/dL (31.0-36.0); Mean Platelet Volume 9.4 fL (7.4-10.4); Monocytes # (Auto) 1.34 K/mcL (0.10-0.90); Monocytes % (Auto) 17.4 % (1.0-12.0); Neutrophils % (Auto) 72.2 % (38.0-78.0); Platelet Count 342 K/mcL (140-440); RBC 2.72 M/mcL (4.50-5.90); Red Cell Distribution Width 14.4 % (11.5-14.5); WBC 7.7 K/mcL (4.5-11.0)
[2020-12-25 08:00] LABS: ALT/SGPT 20 U/L (<40); AST/SGOT 25 U/L (<40); Albumin 2.8 gm/dL (3.2-5.2); Alkaline Phosphatase 122 U/L (39-117); Bilirubin,Total 0.3 mg/dL (0.1-1.0); Blood Urea Nitrogen 5 mg/dL (6-20); Calcium 8.3 mg/dL (8.6-10.4); Carbon Dioxide 25 mmol/L (22-30); Chloride 94 mmol/L (96-108); Globulin 2.7 gm/dL (2.2-3.7); Glomerular Filtration Rate 118; Glucose 102 mg/dL (70-105)
[2020-12-25] MEDS: FLUoxetine HCL 20 MG CAPSULE PO SCH (08:27)
[2020-12-25] MEDS: FOLIC ACID 1 MG TABLET PO SCH (08:27)
[2020-12-25] MEDS: METOPROLOL SUCCINATE 50 MG TAB.XL.24H PO SCH (08:27)
[2020-12-25] MEDS: POTASSIUM CHLORIDE 20 MEQ TABLET PO SCH ×2 (08:27→17:25)
[2020-12-25] MEDS: THIAMINE 100 MG TABLET PO SCH (08:27)
[2020-12-25] MEDS: ENOXAPARIN 80 MG/0.8 ML SYRINGE SQ SCH ×2 (08:27→20:38)
[2020-12-25] MEDS: POLYETHYLENE GLYCOL 3350 17 GM PACKET PO SCH ×3 (08:28→20:37)
[2020-12-25] MEDS: DOCUSATE SODIUM 100 MG CAPSULE PO SCH ×2 (08:28→20:37)
--- NOTE | 2020-12-25 08:28 | XRay Report ---
INDICATION: hemothorax, Chest tube placement TECHNIQUE: AP portable semierect chest x-ray COMPARISON: Multiple previous chest x-rays including most recent examinations dated 12/24/2020, 12/23/2020, 12/22/2020, 12/21/2020 FINDINGS: Lungs:Persistent left basilar density consistent with left lower lobe volume loss. Appearance is improved since 12/23/2020. Right lung remains negative Heart, vascular:No significant cardiomegaly. Pulmonary vascularity is normal. No pulmonary edema or pulmonary congestion Mediastinum, meliza:No mediastinal widening. No hilar mass. No recurrent pneumomediastinum Pleura:No pleural fluid. No pleural-based mass or calcification. Left apical small caliber pleural catheter has been pulled back. There is no recurrent pneumothorax. Skeletal:Negative. Near complete resolution of soft tissue gas IMPRESSION: 1. No recurrent left pneumothorax 2. Persistent left basilar density consistent with left lower lobe volume loss 3. Near-complete resolution of soft tissue gas and pneumomediastinum Interpreted and Authenticated by: Ja Salgado 12/25/20
--- NOTE | 2020-12-25 08:37 | XRay Report ---
INDICATION: ileus vs colonic pseudoobstruction TECHNIQUE: Supine and upright abdomen. COMPARISON: Multiple previous abdominal plain film examinations including studies dated 12/22/2020, 12/19/2020, 02/06/2020, 02/03/2020. Previous abdominal CT scan dated 03/08/2019 FINDINGS:Persistent dilatation of the colon. There is very little colonic gas in the pelvis. Ascending colon, transverse colon, descending colon are gas-filled and distended. Cross-sectional diameter of the ascending colon measures 8 cm. Findings are essentially unchanged. 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 No dilated gas-filled small bowel. No mechanical small bowel obstruction. No pneumoperitoneum. No biliary or portal venous gas. No pneumatosis. IMPRESSION: 1. Persistent dilated gas-filled colon 2. No interval change Interpreted and Authenticated by: Ja Salgado 12/25/20
[2020-12-25] MEDS: VANCOMYCIN 1,500 MG in 0.9 % SODIUM CHLORIDE 500 ML IV SCH ×2 (09:47→20:53)
[2020-12-25] MEDS: NICOTINE 21 MG PATCH TOPICAL SCH (09:48)
[2020-12-25] MEDS ORDERED: HYDROmorphone 0.5 MG/0.5 ML SYRINGE IV PRN (12:20)
[2020-12-25] MEDS ORDERED: ONDANSETRON 4 MG/2 ML VIAL IV PRN (12:20)
[2020-12-25] MEDS ORDERED: FLEETS ADULT ENEMA PR PRN (12:20)
[2020-12-25] MEDS ORDERED: VANCOMYCIN PER PHARMACY IV SCH (12:20)
[2020-12-25] MEDS ORDERED: ACETAMINOPHEN 325 MG TABLET PO PRN (12:20)
[2020-12-25] MEDS ORDERED: METOPROLOL TARTRATE 5 MG/5 ML VIAL IV PRN (12:20)
[2020-12-25] MEDS ORDERED: CYCLOBENZAPRINE 10 MG TABLET PO PRN (12:20)
--- NOTE | 2020-12-25 12:38 | General Surgery Progress Note ---
SUBJECTIVE Subjective Patient information: Note initiated : 12/25/20 at 12:33 pm Service Date, if different from initiated Date: [] Patient: Tone Pope 60 y/o M admitted on 12/18/20 for Fall / pneumothorax. Chief Complaint: [] Principal diagnosis: Left rib fractures with traumatic pneumothorax; hypoxemia and hypotension Interval history: Patient continues to do well. He does not appear to be having any acute distress. Is oxygen saturation is 100% on 35% O2. He does not have as much chest discomfort. Chest x-ray shows continued full expansion of his lung except for the bases. There is no left-sided pneumothorax. The pleural catheter was removed. Patient had good results with pyridostigmine therapy and has had 2 large bowel movements. The morning x-ray still shows significant dilation of the colon but this is a chronic problem due to his pseudoobstruction. He does not have any abdominal discomfort at this time. Constitutional Vitals: Vital Signs Temp Pulse Resp BP Pulse Ox 98.7 F 103 H 20 131/94 94 12/25/20 12:00 12/25/20 11:13 12/25/20 12:00 12/25/20 12:00 12/25/20 12:00 Period Temp Pulse Resp BP Sys/Juarez Pulse Ox Last 24 Hr 97.9 F-99.2 F 94-107 15-37 116-169/78-115 87-100 Intake and Output 12/24/20 12/25/20 12/25/20 21:59 05:59 13:59 Intake Total 530 900 50 Output Total 545 1285 825 Balance -15 -385 -775 Weight 168 lb 14.4 oz Intake & Output: Intake & Output 12/24/20 12/25/20 12/25/20 21:59 05:59 13:59 Intake Total 530 900 50 Output Total 545 1285 825 Balance -15 -385 -775 Weight 168 lb 14.4 oz Intake: Beer quantity 480 IV 50 550 50 Zosyn 3.375 gm In Dextrose 5% 50 50 50 in Water 50 ml @ 100 mls/hr IV Q6H [facility]ELY Rx#:[id number] Vancomycin 1,500 mg In Sodium 500 Chloride 0.9% 500 ml @ 333.3 mls/hr IV Q12H KEELY Rx#: [id number] Oral 350 Output: Chest Tube Drainage 70 60 Left Anterior Chest 70 60 Void Amount 475 925 825 Stool 300 Other: Urine Appearance Clear Clear Clear Urine Color Bright Yellow Dark Yellow Bright Yellow Urine Odor Normal Normal Stool Size Large Stool Color Brown Brown Stool Consistency Liquid Liquid # Bowel Movements 1 1 # of times incontinent of 1 1 Bowels Head Head exam: Present atraumatic, normal inspection and normocephalic Eye Eye exam: Present EOMI Pupils: Present PERRL ENT ENT exam: Present mucous membranes moist, normal exam and normal oropharynx Neck Neck exam: Present normal inspection; Absent lymphadenopathy, tenderness and thyromegaly Respiratory Respiratory exam: Present accessory muscle use and wheezes (Scattered wheezes bilaterally; decreased breath sounds at the bases scheduling) Cardiovascular Cardiovascular exam: Present normal rate and rhythm, RRR, +S1 and +S2; Absent JVD Additional comments: Patient has converted to normal sinus rhythm with a controlled rate between 80 and 100. Extremities Exam Extremities exam: Present full ROM, normal inspection and neurovascular intact Neurological Exam Neurological exam: Present alert, normal gait, oriented X3 and reflexes normal Psychiatric Psychiatric exam: Present depressed and flat affect A/P Assessment and plan (1) Pulmonary embolus, right: Status: Acute (2) Pneumothorax: Status: Acute Qualifiers: Encounter type: initial encounter Pneumothorax type: traumatic Qualified Code(s): S27.0XXA - Traumatic pneumothorax, initial encounter (3) COPD (chronic obstructive pulmonary disease): Status: Acute Qualifiers: COPD type: COPD with acute exacerbation Qualified Code(s): J44.1 - Chronic obstructive pulmonary disease with (acute) exacerbation (4) Fracture of rib: Status: Acute Qualifiers: Encounter type: initial encounter Fracture type: closed Laterality: right Rib fracture type: multiple ribs Qualified Code(s): S22.41XA - Multiple fractures of ribs, right side, initial encounter for closed fracture (5) Chronic intestinal pseudo-obstruction: Status: Acute (6) Hypertension, essential: Status: Chronic (7) COPD (chronic obstructive pulmonary disease): Status: Chronic Qualifiers: COPD type: chronic bronchitis Chronic bronchitis type: simple Qualified Code(s): J41.0 - Simple chronic bronchitis (8) Cannabis abuse, continuous: Status: Chronic (9) Alcohol abuse: Status: Chronic Narrative A/P Narrative: Discontinue pleural catheter Follow-up chest x-ray in the morning Transfer to MedSurg man More aggressive physical therapy Time Spent With Patient Time: Total time spent is greater than 50% in coordination of care (as documented) at patient's floor/unit and/or counseling patient:
[2020-12-25] MEDS ORDERED: ACETAMINOPHEN 650 MG/65 ML BAG IV PRN (13:49)
[2020-12-25] MEDS ORDERED: NEUTRA PHOS 1 PACKET PO PRN (13:49)
[2020-12-25] MEDS ORDERED: MAGNESIUM SULFATE 2 GM/50 ML BAG IV PRN (13:49)
[2020-12-25] MEDS ORDERED: POTASSIUM CHLORIDE 20 MEQ/15 ML ML PO PRN (13:49)
[2020-12-25] MEDS: SENNOSIDES 1 TABLET PO SCH (20:37)
[2020-12-25] MEDS: traZODone HCL 100 MG TABLET PO PRN (23:42)
[2020-12-25] MEDS: diphenhydrAMINE 25 MG CAPSULE PO PRN (23:42)
[2020-12-26] MEDS: PYRIDOSTIGMINE BROMIDE 10 MG/2 ML AMPUL IM SCH ×4 (01:03→17:35)
[2020-12-26] MEDS: IPRATROPIUM/ALBUTEROL 3 ML AMPUL.NEB NEB SCH ×6 (03:05→22:47)
[2020-12-26] MEDS: PIPERACILLIN SODIUM/TAZOBACTAM 3.375 GM in DEXTROSE 5% IN WATER 50 ML IV SCH ×4 (05:22→23:27)
[2020-12-26] MEDS: METOCLOPRAMIDE 10 MG/2 ML VIAL IV SCH ×4 (05:22→23:55)
[2020-12-26] MEDS: 0.9 % SODIUM CHLORIDE 10 ML SYRINGE IV SCH ×3 (05:23→20:59)
[2020-12-26] MEDS: oxyCODONE/APAP 5/325MG TABLET PO PRN ×3 (06:04→20:58)
[2020-12-26 06:59] LABS: Basophils # (Auto) 0.03 K/mcL (0.00-0.20); Basophils % (Auto) 0.4 % (0.0-2.0); Eosinophils # (Auto) 0.07 K/mcL (0.00-0.70); Eosinophils % (Auto) 0.9 % (0.0-7.0); Hematocrit 27.9 % (41.0-55.0); Hemoglobin 9.3 g/dL (13.5-16.5); Lymphocytes # (Auto) 1.03 K/mcL (1.50-4.80); Lymphocytes % (Auto) 12.7 % (15.0-49.0); Mean Cell Volume 97.6 fL (80.0-100.0); Mean Corpuscular HGB Conc 33.3 g/dL (31.0-36.0); Mean Platelet Volume 9.4 fL (7.4-10.4); Monocytes % (Auto) 14.7 % (1.0-12.0); Neutrophils % (Auto) 71.3 % (38.0-78.0); Platelet Count 391 K/mcL (140-440); RBC 2.86 M/mcL (4.50-5.90); Red Cell Distribution Width 14.3 % (11.5-14.5); WBC 8.1 K/mcL (4.5-11.0)
[2020-12-26] MEDS: PANTOPRAZOLE 40 MG TABLET PO SCH (06:59)
[2020-12-26] MEDS: FOLIC ACID 1 MG TABLET PO SCH (08:12)
[2020-12-26] MEDS: POTASSIUM CHLORIDE 20 MEQ TABLET PO SCH ×2 (08:12→16:42)
[2020-12-26] MEDS: FLUoxetine HCL 20 MG CAPSULE PO SCH (08:12)
[2020-12-26] MEDS: METOPROLOL SUCCINATE 50 MG TAB.XL.24H PO SCH (08:13)
[2020-12-26] MEDS: THIAMINE 100 MG TABLET PO SCH (08:13)
[2020-12-26] MEDS: POLYETHYLENE GLYCOL 3350 17 GM PACKET PO SCH ×3 (08:21→20:59)
[2020-12-26] MEDS: DOCUSATE SODIUM 100 MG CAPSULE PO SCH ×2 (08:21→20:59)
[2020-12-26] MEDS: ENOXAPARIN 80 MG/0.8 ML SYRINGE SQ SCH ×2 (08:22→20:59)
--- NOTE | 2020-12-26 09:14 | XRay Report ---
INDICATION: f/u of pneumothorax/s/pchest tube removal TECHNIQUE: AP portable upright chest x-ray COMPARISON: Multiple previous examinations. Most recent studies are dated 12/25/2020, 12/24/2020, 12/23/2020, 12/21/2020 FINDINGS:Interval removal of small caliber left apical chest tube. There may be a very small left apical pneumothorax. Follow-up chest x-ray recommended. Lungs:Left basilar density consistent with volume loss. As described previously but pneumonia is not excluded. There is slightly improved. No new pulmonary parenchymal abnormalities. Right lung remains normal. Heart, vascular:No significant cardiomegaly. Pulmonary vascularity is normal. No pulmonary edema or pulmonary congestion Mediastinum, meliza:No mediastinal widening. No hilar mass. Complete resolution without recurrence of pneumomediastinum Pleura:Possible left pleural effusion. This is unchanged. Tiny left pneumothorax is possible. Follow-up recommended Skeletal, soft tissues:Left 8th rib fracture again noted. Complete resolution of soft tissue gas. No recurrent IMPRESSION: 1. Status post removal of left apical chest tube. Possible tiny left apical pneumothorax. Recommend follow-up 2. Persistent left basilar density consistent with left lower lobe collapse and consolidation. This appears slightly improved 3. Resolution of soft tissue gas and pneumomediastinum. No recurrent Interpreted and Authenticated by: Ja Salgado 12/26/20
--- NOTE | 2020-12-26 09:15 | XRay Report ---
INDICATION: ileus vs colonic pseudoobstruction TECHNIQUE: Supine and upright abdomen. COMPARISON: Multiple previous abdominal plain film examinations. Most recent studies are dated 12/25/2020, 12/22/2020, 12/19/2020 FINDINGS:Persistent dilated gas-filled small bowel. Cecum measures 10 cm in cross-sectional diameter. This is a chronic abnormality and is consistent with colonic pseudoobstruction or Willie syndrome. No evidence for mechanical small bowel obstruction. There is no biliary or portal venous gas. No pneumatosis. IMPRESSION: 1. Persistent gaseous colonic distention, unchanged 2. Findings remain consistent with focal syndrome Interpreted and Authenticated by: Ja Salgado 12/26/20
--- NOTE | 2020-12-26 09:23 | General Surgery Progress Note ---
SUBJECTIVE Subjective Patient information: Note initiated : 12/26/20 at 9:21 am Service Date, if different from initiated Date: [] Patient: Tone Pope 60 y/o M admitted on 12/18/20 for Fall / pneumothorax. Chief Complaint: [] Principal diagnosis: Left rib fractures with traumatic pneumothorax; hypoxemia and hypotension Interval history: Status post pigtail catheter removal yesterday, transferred out of ICU and is now on the floor. Patient has no change in his chest pain, he is ambulatory and still requiring oxygen. Chest x-ray this morning without significant change other than tiny apical pneumothorax. Constitutional Vitals: Vital Signs Temp Pulse Resp BP Pulse Ox 98.3 F 90 22 171/91 98 12/26/20 07:40 12/26/20 07:40 12/26/20 07:40 12/26/20 07:40 12/26/20 07:40 Period Temp Pulse Resp BP Sys/Juarez Pulse Ox Last 24 Hr 97.1 F-99.4 F 86-103 20-25 131-171/88-115 87-100 Intake and Output 12/25/20 12/26/20 12/26/20 21:59 05:59 13:59 Intake Total 630 670 50 Output Total 1200 700 400 Balance -570 -30 -350 Weight 164 lb 2 oz Intake & Output: Intake & Output 12/25/20 12/26/20 12/26/20 21:59 05:59 13:59 Intake Total 630 670 50 Output Total 1200 700 400 Balance -570 -30 -350 Weight 164 lb 2 oz Intake: Beer quantity 480 IV 50 550 50 Zosyn 3.375 gm In Dextrose 5% 50 50 50 in Water 50 ml @ 100 mls/hr IV Q6H [facility] Rx#:[id number] Vancomycin 1,500 mg In Sodium 500 Chloride 0.9% 500 ml @ 333.3 mls/hr IV Q12H [facility] Rx#: [id number] Oral 100 120 Output: Void Amount 1200 700 400 Other: Meal Dinner Percent of Meal Consumed 50% Urine Appearance Clear Clear Urine Color Bright Yellow Bright Yellow Urine Odor Normal Normal General appearance: cooperative and no acute distress Respiratory Respiratory exam: Present chest wall tenderness; Absent accessory muscle use GI/Abdominal GI/Abdominal exam: Present soft; Absent distended and tenderness A/P Narrative A/P Narrative: Status post pigtail catheter removal yesterday. We will work on weaning oxygen today, repeat chest x-ray and KUB in a.m. Time Spent With Patient Time: Total time spent is greater than 50% in coordination of care (as documented) at patient's floor/unit and/or counseling patient:
[2020-12-26] MEDS: NICOTINE 21 MG PATCH TOPICAL SCH (10:07)
[2020-12-26] MEDS: VANCOMYCIN 1,500 MG in 0.9 % SODIUM CHLORIDE 500 ML IV SCH ×2 (10:11→21:00)
--- NOTE | 2020-12-26 13:36 | Internal Med Progress Note ---
SUBJECTIVE Subjective Patient information: Note initiated : 12/26/20 at 1:29 pm Service Date, if different from initiated Date: [] Patient: Tone Pope 60 y/o M admitted on 12/18/20 for Fall / pneumothorax. Chief Complaint: [] Principal diagnosis: Left rib fractures with traumatic pneumothorax; hypoxemia and hypotension Interval history: Patient presented on the for left-sided chest pain and shortness of breath. He fell at home. He was shown to have left-sided rib fractures and pneumothorax. Pleural catheter was placed. He had been doing well and was even good this morning and except when he had and he was unresponsive. Found to be hypotensive in the systolic of 60s and hypoxic. He was given IV fluid boluses with improvement in his blood pressure. Put on nonrebreather with oxygen finally improved but took some time. Stat chest x-ray showed no changes with the left lung was expanded. EKG did show A. fib. Did have a CT this morning the chest which showed emphysema as well as pneumomediastinum and soft tissue gas which appeared to be improving. Patient states drinks 6 pack/day, denies any withdrawal symptoms. CTA pending 12/21/20: CTA chest showed right upper and middle lobes multiple pulmonary em bolism, as well as persistent left hemothorax. Patient feels his breathing is improving relative to yesterday. 01/30 sharp left sided chest wall pain, sharp and constant. Denies fever or chills. Denies anxiety. Principal diagnosis: Left rib fractures with traumatic pneumothorax; hypoxemia and hypotension 12/22: Yesterday afternoon patient showed increased work of breathing. After switching to high flow oxygen from room air, his work of breathing had significantly improved. 600cc of output from his left chest tube overnight. CXR this morning suggests left lung infiltrates. This morning patient feels his breathing is much improved compared to yesterday. He is c/o left chest pain. Denies abdominal pain. 12/23: Dr. Bejarano decided against bronchoscopy. Instead, he recommended aggressive bronchopulmonary toilet, daily CXR, and continued observation for his respiratory status. Patient is feeling okay this morning. Denies shortness of breath. c/o productive cough with clear sputum. Denies wheezing. Denies chest pain or palpitation. Denies fever or chills or sweating. 12/24: Afebrile. Still on high flow oxygen FiO2 30%. Left chest tube 130cc serosanguineous output. c/o constipation. c/o mild shortness of breath. c/o wheezing. 12/25: Afebrile. Still on high flow oxygen FiO2 35%. Had bowel movement last night. Denies chest pain, shortness of breath. c/o productive cough with white/hernández sputum and respiratory wheezing. 12/26-patient doing well. On full dose anticoagulation with Lovenox. No overnight fever chills. Chest tube discontinued. Managed per surgery. Constitutional Vitals: Vital Signs Temp Pulse Resp BP Pulse Ox 98.2 F 84 20 162/95 97 12/26/20 11:49 12/26/20 11:49 12/26/20 11:49 12/26/20 11:49 12/26/20 11:49 Period Temp Pulse Resp BP Sys/Juarez Pulse Ox Last 24 Hr 97.1 F-99.4 F 84-98 20-24 148-171/90-95 87-99 Intake and Output 12/25/20 12/26/20 12/26/20 21:59 05:59 13:59 Intake Total 630 670 950 Output Total 1200 700 650 Balance -570 -30 300 Weight 74.446 kg 74.446 kg Patient Weight 12/27/20 05:59 Weight 74.446 kg alert oriented Nonlabored breathing No anxiety Nondistended abdomen Intake & Output: Intake & Output 12/25/20 12/26/20 12/26/20 21:59 05:59 13:59 Intake Total 630 670 950 Output Total 1200 700 650 Balance -570 -30 300 Weight 74.446 kg 74.446 kg Intake: Beer quantity 480 IV 50 550 600 Zosyn 3.375 gm In Dextrose 5% 50 50 100 in Water 50 ml @ 100 mls/hr IV Q6H [facility] Rx#:[id number] Vancomycin 1,500 mg In Sodium 500 500 Chloride 0.9% 500 ml @ 333.3 mls/hr IV Q12H [facility] Rx#: [id number] Oral 100 120 350 Output: Void Amount 1200 700 650 Other: Meal Dinner Lunch Percent of Meal Consumed 50% 25% Feeding Ability Independent Urine Appearance Clear Clear Urine Color Bright Yellow Pale Urine Odor Normal Normal OBJ DATA Labs CBC & Chem 7: 12/26/20 05:34 12/25/20 05:22 Labs: Abnormal Lab Results 12/26/20 12/25/20 12/25/20 05:34 05:22 05:22 WBC RBC 2.86 L 2.72 L Hgb 9.3 L 9.1 L Hct 27.9 L 26.5 L Lymph % (Auto) 12.7 L 8.9 L [place] % (Auto) 14.7 H 17.4 H Lymph # (Auto) 1.03 L 0.69 L [place] # (Auto) 1.20 H 1.34 H Sodium 128 L Chloride 94 L Anion Gap BUN 5 L Creatinine 0.5 L Glucose Calcium 8.3 L Alkaline Phosphatase 122 H Total Protein 5.5 L Albumin 2.8 L 12/24/20 12/24/20 12/24/20 15:00 05:07 05:07 WBC 4.2 L RBC 2.67 L Hgb 9.0 L Hct 26.5 L Lymph % (Auto) [place] % (Auto) 15.6 H Lymph # (Auto) 0.64 L [place] # (Auto) Sodium 127 L 125 L Chloride 94 L 93 L Anion Gap 6.0 L BUN 5 L Creatinine 0.5 L 0.5 L Glucose 109 H 114 H Calcium 8.4 L 8.0 L Alkaline Phosphatase Total Protein 5.2 L Albumin 2.7 L Meds: Medications Acetaminophen (Acetaminophen 325 Mg Tablet) 650 mg PO Q6HP PRN; Protocol PRN Reason: Per Pain Protocol Albuterol/Ipratropium (Ipratropium/Albuterol 3 Ml Ampul.Neb) 3 ml NEB Q4HRT [facility] Last Admin: 12/26/20 11:02 Dose: 3 ml Documented by: Cyclobenzaprine HCl (Cyclobenzaprine 10 Mg Tablet) 10 mg PO TIDP PRN PRN Reason: Muscle Spasm Diphenhydramine HCl (Diphenhydramine 25 Mg Capsule) 50 mg PO HSP PRN PRN Reason: Insomnia Last Admin: 12/25/20 23:42 Dose: 50 mg Documented by: Docusate Sodium (Docusate Sodium 100 Mg Capsule) 100 mg PO BID [facility] Last Admin: 12/26/20 08:21 Dose: Not Given Documented by: Enoxaparin Sodium (Enoxaparin 80 Mg/0.8 Ml Syringe) 80 mg SQ BID [facility] Last Admin: 12/26/20 08:22 Dose: 80 mg Documented by: Fluoxetine HCl (Fluoxetine Hcl 20 Mg Capsule) 20 mg PO QDAY [facility] Last Admin: 12/26/20 08:12 Dose: 20 mg Documented by: Folic Acid (Folic Acid 1 Mg Tablet) 1 mg PO DAILY [facility] Last Admin: 12/26/20 08:12 Dose: 1 mg Documented by: Guaifenesin/Codeine Phosphate (Guaifenesin/Codeine 10 Ml Udc) 5 ml PO Q4HP PRN PRN Reason: Cough Hydromorphone HCl (Hydromorphone 0.5 Mg/0.5 Ml Syringe) 0.5 mg IV Q2HP PRN; Protocol PRN Reason: Per Pain Protocol Piperacillin Sod/Tazobactam (Sod 3.375 gm/ Dextrose) 50 mls @ 100 mls/hr IV Q6H [facility]; Protocol Last Infusion: 12/26/20 12:55 Dose: Infused Documented by: Vancomycin HCl 1,500 mg/ (Sodium Chloride) 500 mls @ 333.3 mls/hr IV Q12H [facility] Last Infusion: 12/26/20 11:45 Dose: Infused Documented by: Magnesium Sulfate (Magnesium Sulfate) 2 gm in 50 mls @ 50 mls/hr IV UD PRN PRN Reason: Mag < or = 1.7 Acetaminophen (Ofirmev) 650 mg in 65 mls @ 130 mls/hr IV Q6HP PRN; Protocol PRN Reason: Per Pain Protocol/Fever > 101 Metoclopramide HCl (Metoclopramide 10 Mg/2 Ml Vial) 10 mg IV Q6 [facility] Last Admin: 12/26/20 12:09 Dose: 10 mg Documented by: Metoprolol Succinate (Metoprolol Succinate 50 Mg Tab.Xl.24h) 50 mg PO QDAY [facility] Last Admin: 12/26/20 08:13 Dose: 50 mg Documented by: Metoprolol Tartrate (Metoprolol Tartrate 5 Mg/5 Ml Vial) 5 mg IV Q2HP PRN PRN Reason: Tachyarrhythmias HR>110 Nicotine (Nicotine 21 Mg Patch) 21 mg TOPICAL DAILY@1000 [facility] Last Admin: 12/26/20 10:07 Dose: 21 mg Documented by: Ondansetron HCl (Ondansetron 4 Mg/2 Ml Vial) 4 mg IV Q6HP PRN PRN Reason: Nausea And Vomiting Oxycodone/Acetaminophen (Oxycodone/Apap 5/325mg Tablet) 1 tab PO Q4HP PRN; Protocol PRN Reason: Per Pain Protocol Last Admin: 12/26/20 06:04 Dose: 1 tab Documented by: Pantoprazole Sodium (Pantoprazole 40 Mg Tablet) 40 mg PO QAMAC [facility] Last Admin: 12/26/20 06:59 Dose: 40 mg Documented by: Polyethylene Glycol (Polyethylene Glycol 3350 17 Gm Packet) 17 gm PO TID [facility] Last Admin: 12/26/20 08:21 Dose: Not Given Documented by: Potassium Chloride (Potassium Chloride 20 Meq Tablet) 40 meq PO BIDCC [facility] Last Admin: 12/26/20 08:12 Dose: 40 meq Documented by: Potassium Chloride (Potassium Chloride 20 Meq/15 Ml Ml) 20 meq PO BIDCC PRN PRN Reason: K <3.6 Potassium/Phosphorus/Sodium (Neutra Phos 1 Packet) 2 packet PO DAILYP PRN PRN Reason: PHOS <2.5 Pyridostigmine [place] (Pyridostigmine [place] 10 Mg/2 Ml Ampul) 10 mg IM Q6H [facility] Last Admin: 12/26/20 12:06 Dose: Not Given Documented by: Senna (Sennosides 1 Tablet) 2 tab PO HS [facility] Last Admin: 12/25/20 20:37 Dose: Not Given Documented by: Sodium Biphosphate/Sodium Phosphate (Fleets Adult Enema) 1 dose NM DAILYP PRN PRN Reason: Constipation Sodium Chloride (0.9 % Sodium Chloride 10 Ml Syringe) 10 ml IV Q8 [facility] Last Admin: 12/26/20 12:56 Dose: 10 ml Documented by: Thiamine HCl (Thiamine 100 Mg Tablet) 100 mg PO DAILY [facility] Last Admin: 12/26/20 08:13 Dose: 100 mg Documented by: Trazodone HCl (Trazodone Hcl 100 Mg Tablet) 100 mg PO HSP PRN PRN Reason: Anxiety Last Admin: 12/25/20 23:42 Dose: 100 mg Documented by: Vancomycin HCl (Vancomycin Per Pharmacy) 1 order IV UD [facility]; Protocol A/P Assessment and plan (1) Collapse of left lung: Status: Acute Narrative A/P Narrative: * Traumatic left ribs fracture with associated left hemothorax: Managed per surgery. Chest tube discontinued. * Acute hypoxic respiratory failure secondary to pneumothorax-clinically improving. On high flow oxygen * Nosocomial pneumonia clinically improving. Continue Zosyn/vancomycin. Clinically resolved * Multiple PE on full dose anticoagulation on Lovenox. Switch to Eliquis on discharge * History of COPD on bronchodilators * Hyponatremia stable on 127 * Low magnesium on replacement * Anxiety disorder continue fluoxetine * Patient hypertension continue metoprolol at home dose * Normocytic anemia stable * History of alcoholism no indications for withdrawals. Doing well. Plan * Continue antibiotic coverage * Full dose anticoagulation * Pre-existing medical condition management home medications * PT OT nutrition support * Discharge planning per surgery follow-up Time Spent With Patient Time: Total time spent is greater than 50% in coordination of care (as documented) at patient's floor/unit and/or counseling patient:
[2020-12-26] MEDS: SENNOSIDES 1 TABLET PO SCH (21:00)
[2020-12-26] MEDS ORDERED: hydrALAZINE 20 MG/ML VIAL ONE (23:22)
[2020-12-26] MEDS: hydrALAZINE 20 MG/ML VIAL IV PRN (23:27)
[2020-12-26] MEDS: diphenhydrAMINE 25 MG CAPSULE PO PRN (23:38)
[2020-12-26] MEDS: traZODone HCL 100 MG TABLET PO PRN (23:38)
[2020-12-27] MEDS: guaiFENesin/CODEINE 10 ML UDC PO PRN ×2 (00:02→20:29)
[2020-12-27] MEDS: PYRIDOSTIGMINE BROMIDE 10 MG/2 ML AMPUL IM SCH ×5 (00:05→23:03)
[2020-12-27] MEDS: IPRATROPIUM/ALBUTEROL 3 ML AMPUL.NEB NEB SCH ×6 (03:02→22:49)
[2020-12-27] MEDS: oxyCODONE/APAP 5/325MG TABLET PO PRN ×3 (05:40→20:11)
[2020-12-27] MEDS: PIPERACILLIN SODIUM/TAZOBACTAM 3.375 GM in DEXTROSE 5% IN WATER 50 ML IV SCH ×4 (05:41→23:11)
[2020-12-27] MEDS: 0.9 % SODIUM CHLORIDE 10 ML SYRINGE IV SCH ×3 (05:41→20:12)
[2020-12-27] MEDS: METOCLOPRAMIDE 10 MG/2 ML VIAL IV SCH ×4 (05:41→23:11)
[2020-12-27] MEDS: PANTOPRAZOLE 40 MG TABLET PO SCH (07:46)
--- NOTE | 2020-12-27 08:16 | XRay Report ---
INDICATION: Follow-up pneumothorax TECHNIQUE: PA and lateral upright chest x-ray COMPARISON: Multiple previous examinations. The most recent previous chest x-rays are dated 12/26/2020, 12/25/2020, 12/24/2020 FINDINGS: Lungs: Right lung remains negative. Persistent left basilar density consistent with volume loss. This is unchanged since 12/26/2020. Heart, vascular: No significant cardiomegaly. Pulmonary vascularity is normal. No pulmonary edema or pulmonary congestion Mediastinum, meliza: No recurrent pneumomediastinum Pleura:No detectable recurrent left pneumothorax. Findings consistent with moderate left pleural effusion Thoracic spine, ribs, soft tissues: Left 8th rib fracture is unchanged. Thoracic spine is negative. No recurrent soft tissue gas IMPRESSION: 1. No recurrent left pneumothorax or pneumomediastinum 2. Persistent left lower lobe volume loss 3. Moderate left effusion Interpreted and Authenticated by: Ja Salgado 12/27/20
--- NOTE | 2020-12-27 08:18 | XRay Report ---
INDICATION: Follow-up partial small bowel obstruction TECHNIQUE: Supine abdomen. COMPARISON: Multiple previous abdominal x-rays. Most recent examinations are dated 12/26/2020, 12/25/2020 FINDINGS:Persisting colonic gaseous distention. 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 Ascending colon measures approximately 10 cm in maximum cross-sectional diameter. No dilated gas-filled small bowel. No evidence for mechanical small bowel obstruction. No pneumatosis. No biliary or portal venous gas. IMPRESSION: 1. Persistent gaseous colonic distention, unchanged 2. Findings remain consistent with colonic pseudoobstruction Interpreted and Authenticated by: Ja Salgado 12/27/20
[2020-12-27 08:23] LABS: Basophils # (Auto) 0.03 K/mcL (0.00-0.20); Basophils % (Auto) 0.4 % (0.0-2.0); Eosinophils # (Auto) 0.17 K/mcL (0.00-0.70); Hematocrit 28.4 % (41.0-55.0); Hemoglobin 9.6 g/dL (13.5-16.5); Lymphocytes # (Auto) 1.26 K/mcL (1.50-4.80); Lymphocytes % (Auto) 14.9 % (15.0-49.0); Mean Cell Volume 96.9 fL (80.0-100.0); Mean Corpuscular HGB Conc 33.8 g/dL (31.0-36.0); Mean Platelet Volume 9.4 fL (7.4-10.4); Monocytes # (Auto) 1.22 K/mcL (0.10-0.90); Monocytes % (Auto) 14.4 % (1.0-12.0); Neutrophils % (Auto) 68.3 % (38.0-78.0); Platelet Count 442 K/mcL (140-440); RBC 2.93 M/mcL (4.50-5.90); Red Cell Distribution Width 14.3 % (11.5-14.5); WBC 8.5 K/mcL (4.5-11.0)
--- NOTE | 2020-12-27 09:13 | General Surgery Progress Note ---
SUBJECTIVE Subjective Patient information: Note initiated : 12/27/20 at 9:12 am Service Date, if different from initiated Date: [] Patient: Tone Pope 60 y/o M admitted on 12/18/20 for Fall / pneumothorax. Chief Complaint: [] Principal diagnosis: Left rib fractures with traumatic pneumothorax; hypoxemia and hypotension Interval history: Patient was admitted with a traumatic pneumothorax, chest tube removed on Monday, repeat checks x-ray on Monday showed a sliver of a pneumothorax, repeat chest x-ray today shows full resolution of pneumothorax. Patient continues with chest pain although he reports it is much improved today. Still requiring oxygen. Constitutional Vitals: Vital Signs Temp Pulse Resp BP Pulse Ox 98.0 F 94 H 16 159/87 96 12/27/20 07:54 12/27/20 08:38 12/27/20 08:38 12/27/20 07:54 12/27/20 08:38 Period Temp Pulse Resp BP Sys/Juarez Pulse Ox Last 24 Hr 98.0 F-99.1 F 84-119 16-30 139-190/76-113 88-99 Intake and Output 12/26/20 12/27/20 12/27/20 21:59 05:59 13:59 Intake Total 923 1230 50 Output Total 700 130 Balance 923 530 -80 Weight 165 lb 3.2 oz Intake & Output: Intake & Output 12/26/20 12/27/20 12/27/20 21:59 05:59 13:59 Intake Total 923 1230 50 Output Total 700 130 Balance 923 530 -80 Weight 165 lb 3.2 oz Intake: Beer quantity 473 480 IV 50 550 50 Zosyn 3.375 gm In Dextrose 5% 50 50 50 in Water 50 ml @ 100 mls/hr IV Q6H [facility] Rx#:[id number] Vancomycin 1,500 mg In Sodium 500 Chloride 0.9% 500 ml @ 333.3 mls/hr IV Q12H [facility] Rx#: [id number] Oral 400 200 Output: Void Amount 700 130 Other: Meal Lunch Urine Appearance Clear Urine Color Bright Yellow Urine Odor Normal Stool Size Moderate Stool Color Brown Stool Consistency Liquid Loose General appearance: cooperative and no acute distress Respiratory Respiratory exam: Present normal respiratory exam GI/Abdominal GI/Abdominal exam: Present soft; Absent distended and tenderness A/P Narrative A/P Narrative: Resolved traumatic pneumothorax. Wean oxygen to room air, anticipate discharge once off of oxygen. Time Spent With Patient Time: Total time spent is greater than 50% in coordination of care (as documented) at patient's floor/unit and/or counseling patient:
[2020-12-27] MEDS: DOCUSATE SODIUM 100 MG CAPSULE PO SCH ×2 (10:41→20:12)
[2020-12-27] MEDS: POLYETHYLENE GLYCOL 3350 17 GM PACKET PO SCH ×3 (10:41→20:12)
[2020-12-27] MEDS: POTASSIUM CHLORIDE 20 MEQ TABLET PO SCH ×2 (10:58→17:39)
[2020-12-27] MEDS: FLUoxetine HCL 20 MG CAPSULE PO SCH (10:59)
[2020-12-27] MEDS: FOLIC ACID 1 MG TABLET PO SCH (10:59)
[2020-12-27] MEDS: THIAMINE 100 MG TABLET PO SCH (10:59)
[2020-12-27] MEDS: METOPROLOL SUCCINATE 50 MG TAB.XL.24H PO SCH (10:59)
[2020-12-27] MEDS: ENOXAPARIN 80 MG/0.8 ML SYRINGE SQ SCH ×2 (11:05→20:11)
[2020-12-27] MEDS: NICOTINE 21 MG PATCH TOPICAL SCH (11:06)
[2020-12-27] MEDS: VANCOMYCIN 1,500 MG in 0.9 % SODIUM CHLORIDE 500 ML IV SCH ×2 (11:07→21:37)
--- NOTE | 2020-12-27 11:58 | Internal Med Progress Note ---
SUBJECTIVE Subjective Patient information: Note initiated : 12/27/20 at 11:57 am Service Date, if different from initiated Date: [] Patient: Tone Pope 60 y/o M admitted on 12/18/20 for Fall / pneumothorax. Chief Complaint: [] Principal diagnosis: Left rib fractures with traumatic pneumothorax; hypoxemia and hypotension Interval history: Patient presented on the for left-sided chest pain and shortness of breath. He fell at home. He was shown to have left-sided rib fractures and pneumothorax. Pleural catheter was placed. He had been doing well and was even good this morning and except when he had and he was unresponsive. Found to be hypotensive in the systolic of 60s and hypoxic. He was given IV fluid boluses with improvement in his blood pressure. Put on nonrebreather with oxygen finally improved but took some time. Stat chest x-ray showed no changes with the left lung was expanded. EKG did show A. fib. Did have a CT this morning the chest which showed emphysema as well as pneumomediastinum and soft tissue gas which appeared to be improving. Patient states drinks 6 pack/day, denies any withdrawal symptoms. CTA pending 12/21/20: CTA chest showed right upper and middle lobes multiple pulmonary e mbolism, as well as persistent left hemothorax. Patient feels his breathing is improving relative to yesterday. 01/30 sharp left sided chest wall pain, sharp and constant. Denies fever or chills. Denies anxiety. Principal diagnosis: Left rib fractures with traumatic pneumothorax; hypoxemia and hypotension 12/22: Yesterday afternoon patient showed increased work of breathing. After switching to high flow oxygen from room air, his work of breathing had significantly improved. 600cc of output from his left chest tube overnight. CXR this morning suggests left lung infiltrates. This morning patient feels his breathing is much improved compared to yesterday. He is c/o left chest pain. Denies abdominal pain. 12/23: Dr. Bejarano decided against bronchoscopy. Instead, he recommended aggressive bronchopulmonary toilet, daily CXR, and continued observation for his respiratory status. Patient is feeling okay this morning. Denies shortness of breath. c/o productive cough with clear sputum. Denies wheezing. Denies chest pain or palpitation. Denies fever or chills or sweating. 12/24: Afebrile. Still on high flow oxygen FiO2 30%. Left chest tube 130cc serosanguineous output. c/o constipation. c/o mild shortness of breath. c/o wheezing. 12/25: Afebrile. Still on high flow oxygen FiO2 35%. Had bowel movement last night. Denies chest pain, shortness of breath. c/o productive cough with white/hernández sputum and respiratory wheezing. 12/26-patient doing well. On full dose anticoagulation with Lovenox. No overnight fever chills. Chest tube discontinued. Managed per surgery. 12/27-patient doing well. Chest tube DC'd. On enoxaparin 80 twice daily. No fever chills shortness of breath. On 2 L oxygen mask. Weaning as tolerated. On antibiotic coverage. Interval chest imaging no recurrent pneumothorax or pneumomediastinum. Left lower lobe volume loss. Constitutional Vitals: Vital Signs Temp Pulse Resp BP Pulse Ox 98.0 F 94 H 16 159/87 96 12/27/20 07:54 12/27/20 08:38 12/27/20 08:38 12/27/20 07:54 12/27/20 08:38 Period Temp Pulse Resp BP Sys/Juarez Pulse Ox Last 24 Hr 98.0 F-99.1 F 94-119 16-30 139-190/76-113 88-99 Intake and Output 12/26/20 12/27/20 12/27/20 21:59 05:59 13:59 Intake Total 923 1230 50 Output Total 700 130 Balance 923 530 -80 Weight 74.933 kg alert oriented Nonlabored breathing On 2 L oxygen No anxiety Intake & Output: Intake & Output 12/26/20 12/27/20 12/27/20 21:59 05:59 13:59 Intake Total 923 1230 50 Output Total 700 130 Balance 923 530 -80 Weight 74.933 kg Intake: Beer quantity 473 480 IV 50 550 50 Zosyn 3.375 gm In Dextrose 5% 50 50 50 in Water 50 ml @ 100 mls/hr IV Q6H KEELY Rx#:[id number] Vancomycin 1,500 mg In Sodium 500 Chloride 0.9% 500 ml @ 333.3 mls/hr IV Q12H KEELY Rx#: [id number] Oral 400 200 Output: Void Amount 700 130 Other: Meal Lunch Urine Appearance Clear Urine Color Bright Yellow Urine Odor Normal Stool Size Moderate Large Stool Color Brown Brown Stool Consistency Liquid Loose Loose # Voids 1 OBJ DATA Labs CBC & Chem 7: 12/28/20 05:13 12/28/20 05:13 Labs: Abnormal Lab Results 12/27/20 12/26/20 12/25/20 05:17 05:34 05:22 RBC 2.93 L 2.86 L Hgb 9.6 L 9.3 L Hct 28.4 L 27.9 L Plt Count 442 H Lymph % (Auto) 14.9 L 12.7 L Avery % (Auto) 14.4 H 14.7 H Lymph # (Auto) 1.26 L 1.03 L [place] # (Auto) 1.22 H 1.20 H Sodium 128 L Chloride 94 L BUN 5 L Creatinine 0.5 L Glucose Calcium 8.3 L Alkaline Phosphatase 122 H Total Protein 5.5 L Albumin 2.8 L 12/25/20 12/24/20 05:22 15:00 RBC 2.72 L Hgb 9.1 L Hct 26.5 L Plt Count Lymph % (Auto) 8.9 L [place] % (Auto) 17.4 H Lymph # (Auto) 0.69 L [place] # (Auto) 1.34 H Sodium 127 L Chloride 94 L BUN 5 L Creatinine 0.5 L Glucose 109 H Calcium 8.4 L Alkaline Phosphatase Total Protein Albumin Meds: Medications Acetaminophen (Acetaminophen 325 Mg Tablet) 650 mg PO Q6HP PRN; Protocol PRN Reason: Per Pain Protocol Albuterol/Ipratropium (Ipratropium/Albuterol 3 Ml Ampul.Neb) 3 ml NEB Q4HRT [facility] Last Admin: 12/27/20 11:08 Dose: Not Given Documented by: Cyclobenzaprine HCl (Cyclobenzaprine 10 Mg Tablet) 10 mg PO TIDP PRN PRN Reason: Muscle Spasm Diphenhydramine HCl (Diphenhydramine 25 Mg Capsule) 50 mg PO HSP PRN PRN Reason: Insomnia Last Admin: 12/26/20 23:38 Dose: 50 mg Documented by: Docusate Sodium (Docusate Sodium 100 Mg Capsule) 100 mg PO BID [facility] Last Admin: 12/27/20 10:41 Dose: Not Given Documented by: Enoxaparin Sodium (Enoxaparin 80 Mg/0.8 Ml Syringe) 80 mg SQ BID [facility] Last Admin: 12/27/20 11:05 Dose: 80 mg Documented by: Fluoxetine HCl (Fluoxetine Hcl 20 Mg Capsule) 20 mg PO QDAY [facility] Last Admin: 12/27/20 10:59 Dose: 20 mg Documented by: Folic Acid (Folic Acid 1 Mg Tablet) 1 mg PO DAILY [facility] Last Admin: 12/27/20 10:59 Dose: 1 mg Documented by: Guaifenesin/Codeine Phosphate (Guaifenesin/Codeine 10 Ml Udc) 5 ml PO Q4HP PRN PRN Reason: Cough Last Admin: 12/27/20 00:02 Dose: 5 ml Documented by: Hydralazine HCl (Hydralazine 20 Mg/Ml Vial) 10 - 20 mg IV Q6HP PRN PRN Reason: Hypertension Last Admin: 12/26/20 23:27 Dose: 20 mg Documented by: Hydromorphone HCl (Hydromorphone 0.5 Mg/0.5 Ml Syringe) 0.5 mg IV Q2HP PRN; Protocol PRN Reason: Per Pain Protocol Piperacillin Sod/Tazobactam (Sod 3.375 gm/ Dextrose) 50 mls @ 100 mls/hr IV Q6H [facility]; Protocol Last Infusion: 12/27/20 06:15 Dose: Infused Documented by: Vancomycin HCl 1,500 mg/ (Sodium Chloride) 500 mls @ 333.3 mls/hr IV Q12H [facility] Last Admin: 12/27/20 11:07 Dose: 333 mls/hr Documented by: Magnesium Sulfate (Magnesium Sulfate) 2 gm in 50 mls @ 50 mls/hr IV UD PRN PRN Reason: Mag < or = 1.7 Acetaminophen (Ofirmev) 650 mg in 65 mls @ 130 mls/hr IV Q6HP PRN; Protocol PRN Reason: Per Pain Protocol/Fever > 101 Metoclopramide HCl (Metoclopramide 10 Mg/2 Ml Vial) 10 mg IV Q6 [facility] Last Admin: 12/27/20 05:41 Dose: 10 mg Documented by: Metoprolol Succinate (Metoprolol Succinate 50 Mg Tab.Xl.24h) 50 mg PO QDAY [facility] Last Admin: 12/27/20 10:59 Dose: 50 mg Documented by: Metoprolol Tartrate (Metoprolol Tartrate 5 Mg/5 Ml Vial) 5 mg IV Q2HP PRN PRN Reason: Tachyarrhythmias HR>110 Nicotine (Nicotine 21 Mg Patch) 21 mg TOPICAL DAILY@1000 [facility] Last Admin: 12/27/20 11:06 Dose: 21 mg Documented by: Ondansetron HCl (Ondansetron 4 Mg/2 Ml Vial) 4 mg IV Q6HP PRN PRN Reason: Nausea And Vomiting Oxycodone/Acetaminophen (Oxycodone/Apap 5/325mg Tablet) 1 tab PO Q4HP PRN; Protocol PRN Reason: Per Pain Protocol Last Admin: 12/27/20 11:02 Dose: 1 tab Documented by: Pantoprazole Sodium (Pantoprazole 40 Mg Tablet) 40 mg PO QAMAC [facility] Last Admin: 12/27/20 07:46 Dose: 40 mg Documented by: Polyethylene Glycol (Polyethylene Glycol 3350 17 Gm Packet) 17 gm PO TID [facility] Last Admin: 12/27/20 10:41 Dose: Not Given Documented by: Potassium Chloride (Potassium Chloride 20 Meq Tablet) 40 meq PO BIDCC [facility] Last Admin: 12/27/20 10:58 Dose: 40 meq Documented by: Potassium Chloride (Potassium Chloride 20 Meq/15 Ml Ml) 20 meq PO BIDCC PRN PRN Reason: K <3.6 Potassium/Phosphorus/Sodium (Neutra Phos 1 Packet) 2 packet PO DAILYP PRN PRN Reason: PHOS <2.5 Pyridostigmine [place] (Pyridostigmine [place] 10 Mg/2 Ml Ampul) 10 mg IM Q6H [facility] Last Admin: 12/27/20 05:42 Dose: Not Given Documented by: Senna (Sennosides 1 Tablet) 2 tab PO HS [facility] Last Admin: 12/26/20 21:00 Dose: Not Given Documented by: Sodium Biphosphate/Sodium Phosphate (Fleets Adult Enema) 1 dose [place] DAILYP PRN PRN Reason: Constipation Sodium Chloride (0.9 % Sodium Chloride 10 Ml Syringe) 10 ml IV Q8 [facility] Last Admin: 12/27/20 05:41 Dose: 10 ml Documented by: Thiamine HCl (Thiamine 100 Mg Tablet) 100 mg PO DAILY [facility] Last Admin: 12/27/20 10:59 Dose: 100 mg Documented by: Trazodone HCl (Trazodone Hcl 100 Mg Tablet) 100 mg PO HSP PRN PRN Reason: Anxiety Last Admin: 12/26/20 23:38 Dose: 100 mg Documented by: Vancomycin HCl (Vancomycin Per Pharmacy) 1 order IV UD [facility]; Protocol A/P Assessment and plan (1) Collapse of left lung: Status: Acute Narrative A/P Narrative: * Traumatic left ribs fracture with associated left hemothorax: Managed per surgery. Chest tube discontinued. * Acute hypoxic respiratory failure secondary to pneumothorax-clinically improving. Interval chest imaging no recurrence * Nosocomial pneumonia clinically improving. Continue Zosyn/vancomycin, clinical resolution noted * Multiple PE on full dose anticoagulation on Lovenox. Switch to Eliquis on discharge * History of COPD on bronchodilators * Hyponatremia stable around 127 * Low magnesium resolved with replacement * Anxiety disorder continue fluoxetine * Patient hypertension continue metoprolol at home dose * Normocytic anemia stable * History of alcoholism no indications for withdrawals. Doing well. Plan * Continue antibiotic coverage * Transition to Eliquis in 24 hours * Pre-existing medical condition management home medications * PT OT nutrition support * Discharge planning per surgery follow-up Time Spent With Patient Time: Total time spent is greater than 50% in coordination of care (as documented) at patient's floor/unit and/or counseling patient:
[2020-12-27] MEDS: SENNOSIDES 1 TABLET PO SCH (20:12)
[2020-12-27] MEDS: traZODone HCL 100 MG TABLET PO PRN (23:03)
[2020-12-27] MEDS: diphenhydrAMINE 25 MG CAPSULE PO PRN (23:03)
[2020-12-28] MEDS: oxyCODONE/APAP 5/325MG TABLET PO PRN ×4 (00:28→21:03)
[2020-12-28] MEDS: IPRATROPIUM/ALBUTEROL 3 ML AMPUL.NEB NEB SCH ×4 (03:19→14:49)
[2020-12-28] MEDS: METOCLOPRAMIDE 10 MG/2 ML VIAL IV SCH ×4 (05:24→23:54)
[2020-12-28] MEDS: PYRIDOSTIGMINE BROMIDE 10 MG/2 ML AMPUL IM SCH ×4 (05:25→23:57)
[2020-12-28] MEDS: 0.9 % SODIUM CHLORIDE 10 ML SYRINGE IV SCH ×3 (05:25→22:52)
[2020-12-28] MEDS: PIPERACILLIN SODIUM/TAZOBACTAM 3.375 GM in DEXTROSE 5% IN WATER 50 ML IV SCH (05:25)
[2020-12-28 06:44] LABS: Basophils # (Auto) 0.05 K/mcL (0.00-0.20); Basophils % (Auto) 0.7 % (0.0-2.0); Eosinophils # (Auto) 0.18 K/mcL (0.00-0.70); Eosinophils % (Auto) 2.7 % (0.0-7.0); Hematocrit 29.5 % (41.0-55.0); Hemoglobin 9.8 g/dL (13.5-16.5); Lymphocytes # (Auto) 1.28 K/mcL (1.50-4.80); Lymphocytes % (Auto) 19.1 % (15.0-49.0); Mean Cell Volume 97.7 fL (80.0-100.0); Mean Corpuscular HGB Conc 33.2 g/dL (31.0-36.0); Mean Platelet Volume 9.3 fL (7.4-10.4); Monocytes # (Auto) 0.87 K/mcL (0.10-0.90); Neutrophils % (Auto) 64.5 % (38.0-78.0); Platelet Count 488 K/mcL (140-440); RBC 3.02 M/mcL (4.50-5.90); Red Cell Distribution Width 14.3 % (11.5-14.5); WBC 6.7 K/mcL (4.5-11.0)
[2020-12-28] MEDS: PANTOPRAZOLE 40 MG TABLET PO SCH (07:15)
[2020-12-28] MEDS: THIAMINE 100 MG TABLET PO SCH (09:15)
[2020-12-28] MEDS: METOPROLOL SUCCINATE 50 MG TAB.XL.24H PO SCH (09:15)
[2020-12-28] MEDS: FLUoxetine HCL 20 MG CAPSULE PO SCH (09:15)
[2020-12-28] MEDS: FOLIC ACID 1 MG TABLET PO SCH (09:15)
[2020-12-28] MEDS: POTASSIUM CHLORIDE 20 MEQ TABLET PO SCH (09:15)
[2020-12-28] MEDS: ENOXAPARIN 80 MG/0.8 ML SYRINGE SQ SCH (09:15)
[2020-12-28] MEDS: POLYETHYLENE GLYCOL 3350 17 GM PACKET PO SCH ×3 (09:32→21:04)
[2020-12-28] MEDS: DOCUSATE SODIUM 100 MG CAPSULE PO SCH ×2 (09:32→21:04)
[2020-12-28] MEDS: NICOTINE 21 MG PATCH TOPICAL SCH (10:50)
[2020-12-28] MEDS: VANCOMYCIN 1,500 MG in 0.9 % SODIUM CHLORIDE 500 ML IV SCH (11:59)
[2020-12-28 12:17] LABS: ALT/SGPT 17 U/L (<40); AST/SGOT 24 U/L (<40); Albumin 2.8 gm/dL (3.2-5.2); Albumin/Globulin Ratio 0.9 (1.0-2.3); Alkaline Phosphatase 117 U/L (39-117); Bilirubin,Direct < 0.2 mg/dL (0-0.3); Bilirubin,Total 0.3 mg/dL (0.1-1.0); Blood Urea Nitrogen 4 mg/dL (6-20); Calcium 8.5 mg/dL (8.6-10.4); Carbon Dioxide 24 mmol/L (22-30); Chloride 94 mmol/L (96-108); Globulin 3.1 gm/dL (2.2-3.7); Glomerular Filtration Rate 118; Glucose 90 mg/dL (70-105); Lactate Dehydrogenase 295 U/L (135-225); Phosphorous 4.1 mg/dL (2.5-4.5); Triglycerides 62 mg/dL (<150); Uric Acid 1.4 mg/dL (2.5-8.0)
--- NOTE | 2020-12-28 13:59 | General Surgery Progress Note ---
SUBJECTIVE Subjective Patient information: Note initiated : 12/28/20 at 1:51 pm Service Date, if different from initiated Date: [] Patient: Tone Pope 60 y/o M admitted on 12/18/20 for Fall / pneumothorax. Chief Complaint: [] Principal diagnosis: Left rib fractures with traumatic pneumothorax; hypoxemia and hypotension Interval history: Patient continues to do well. He states that his chest pain is controlled. He has noisy respirations but his oxygenation is above 90% on room air. He has an distended abdomen however he is having regular bowel movement and passing copious amounts of flatus. Abdominal x-rays has distention of his colon extending from his cecum around to his rectum without any obstructive pattern. His lab work is normal and his serum glucose is controlled at 90. He is nearing the time for discharge and I will try to discuss this with his . Constitutional Vitals: Vital Signs Temp Pulse Resp BP Pulse Ox 98.7 F 82 18 145/84 90 12/28/20 12:00 12/28/20 12:00 12/28/20 12:00 12/28/20 12:00 12/28/20 12:00 Period Temp Pulse Resp BP Sys/Juarez Pulse Ox Last 24 Hr 97.9 F-98.8 F 82-94 18-22 134-165/74-94 2-98 Intake and Output 12/27/20 12/28/20 12/28/20 21:59 05:59 13:59 Intake Total 1020 850 50 Output Total 975 700 520 Balance 45 150 -470 Weight 157 lb 7 oz Intake & Output: Intake & Output 12/27/20 12/28/20 12/28/20 21:59 05:59 13:59 Intake Total 1020 850 50 Output Total 975 700 520 Balance 45 150 -470 Weight 157 lb 7 oz Intake: Beer quantity 240 IV 50 550 50 Zosyn 3.375 gm In Dextrose 5% 50 50 50 in Water 50 ml @ 100 mls/hr IV Q6H [facility] Rx#:[id number] Vancomycin 1,500 mg In Sodium 500 Chloride 0.9% 500 ml @ 333.3 mls/hr IV Q12H [facility] Rx#: [id number] Oral 730 300 Output: Void Amount 975 700 520 Other: Meal Dinner Percent of Meal Consumed 75% Urine Appearance Clear Clear Urine Color Bright Yellow Pale Urine Odor Normal Stool Size Moderate Stool Color Brown Stool Consistency Loose # Bowel Movements 1 Head Head exam: Present atraumatic, normal inspection and normocephalic Eye Eye exam: Present EOMI Pupils: Present PERRL ENT ENT exam: Present mucous membranes moist, normal exam and normal oropharynx Neck Neck exam: Present normal inspection; Absent lymphadenopathy, tenderness and thy romegaly Respiratory Respiratory exam: Present accessory muscle use and wheezes (Scattered wheezes bilaterally; decreased breath sounds at the bases scheduling) Cardiovascular Cardiovascular exam: Present normal rate and rhythm, RRR, +S1 and +S2; Absent JVD Additional comments: Patient has converted to normal sinus rhythm with a controlled rate between 80 and 100. GI/Abdominal GI/Abdominal exam: Present normal bowel sounds and distended (Moderate distention with significant tympany; mild tenderness to palpation) Extremities Exam Extremities exam: Present full ROM, normal inspection and neurovascular intact Neurological Exam Neurological exam: Present alert, normal gait, oriented X3 and reflexes normal Psychiatric Psychiatric exam: Present depressed and flat affect Skin Skin exam: Present intact, normal color and warm A/P Assessment and plan (1) Collapse of left lung: Assessment and plan: clinically resolved Status: Acute (2) Pulmonary embolus, right: Assessment and plan: Under therapy with plans for Eliquis post discharge Status: Acute (3) Pneumothorax: Assessment and plan: Clinically resolved Status: Acute Qualifiers: Encounter type: initial encounter Pneumothorax type: traumatic Qualified Code(s): S27.0XXA - Traumatic pneumothorax, initial encounter (4) COPD (chronic obstructive pulmonary disease): Assessment and plan: Good oxygenation but still with some labored respirations Status: Acute Qualifiers: COPD type: COPD with acute exacerbation Qualified Code(s): J44.1 - Chronic obstructive pulmonary disease with (acute) exacerbation (5) Traumatic fracture of ribs of left side with pneumothorax: Status: Acute (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
--- NOTE | 2020-12-28 15:06 | Internal Med Progress Note ---
SUBJECTIVE Subjective Patient information: Note initiated : 12/28/20 at 3:05 pm Service Date, if different from initiated Date: [] Patient: Tone Pope 60 y/o M admitted on 12/18/20 for Fall / pneumothorax. Chief Complaint: [] Principal diagnosis: Left rib fractures with traumatic pneumothorax; hypoxemia and hypotension Interval history: Patient presented on the for left-sided chest pain and shortness of breath. He fell at home. He was shown to have left-sided rib fractures and pneumothorax. Pleural catheter was placed. He had been doing well and was even good this morning and except when he had and he was unresponsive. Found to be hypotensive in the systolic of 60s and hypoxic. He was given IV fluid boluses with improvement in his blood pressure. Put on nonrebreather with oxygen finally improved but took some time. Stat chest x-ray showed no changes with the left lung was expanded. EKG did show A. fib. Did have a CT this morning the chest which showed emphysema as well as pneumomediastinum and soft tissue gas which appeared to be improving. Patient states drinks 6 pack/day, denies any withdrawal symptoms. CTA pending 12/21/20: CTA chest showed right upper and middle lobes multiple pulmonary em bolism, as well as persistent left hemothorax. Patient feels his breathing is improving relative to yesterday. 01/30 sharp left sided chest wall pain, sharp and constant. Denies fever or chills. Denies anxiety. Principal diagnosis: Left rib fractures with traumatic pneumothorax; hypoxemia and hypotension 12/22: Yesterday afternoon patient showed increased work of breathing. After switching to high flow oxygen from room air, his work of breathing had significantly improved. 600cc of output from his left chest tube overnight. CXR this morning suggests left lung infiltrates. This morning patient feels his breathing is much improved compared to yesterday. He is c/o left chest pain. Denies abdominal pain. 12/23: Dr. Bejarano decided against bronchoscopy. Instead, he recommended aggressive bronchopulmonary toilet, daily CXR, and continued observation for his respiratory status. Patient is feeling okay this morning. Denies shortness of breath. c/o productive cough with clear sputum. Denies wheezing. Denies chest pain or palpitation. Denies fever or chills or sweating. 12/24: Afebrile. Still on high flow oxygen FiO2 30%. Left chest tube 130cc serosanguineous output. c/o constipation. c/o mild shortness of breath. c/o wheezing. 12/25: Afebrile. Still on high flow oxygen FiO2 35%. Had bowel movement last night. Denies chest pain, shortness of breath. c/o productive cough with white/hernández sputum and respiratory wheezing. 12/26-patient doing well. On full dose anticoagulation with Lovenox. No overnight fever chills. Chest tube discontinued. Managed per surgery. 12/27-patient doing well. Chest tube DC'd. On enoxaparin 80 twice daily. No fever chills shortness of breath. On 2 L oxygen mask. Weaning as tolerated. On antibiotic coverage. Interval chest imaging no recurrent pneumothorax or pneumomediastinum. Left lower lobe volume loss. 12/28-patient doing well. No overnight events. No concerns per staff. On 3 L oxygen. Transition to Eliquis today. No fever chills. Stable labs. Constitutional Vitals: Vital Signs Temp Pulse Resp BP Pulse Ox 98.7 F 82 18 145/84 90 12/28/20 12:00 12/28/20 12:00 12/28/20 12:00 12/28/20 12:00 12/28/20 12:00 Period Temp Pulse Resp BP Sys/Juarez Pulse Ox Last 24 Hr 97.9 F-98.8 F 82-94 18-22 134-165/74-94 2-98 Intake and Output 12/28/20 12/28/20 12/28/20 05:59 13:59 21:59 Intake Total 850 50 Output Total 700 520 Balance 150 -470 alert oriented Nonlabored breathing on 3 days oxygen No anxiety Intake & Output: Intake & Output 12/28/20 12/28/20 12/28/20 05:59 13:59 21:59 Intake Total 850 50 Output Total 700 520 Balance 150 -470 Intake: IV 550 50 Zosyn 3.375 gm In Dextrose 5% 50 50 in Water 50 ml @ 100 mls/hr IV Q6H KEELY Rx#:[id number] Vancomycin 1,500 mg In Sodium 500 Chloride 0.9% 500 ml @ 333.3 mls/hr IV Q12H KEELY Rx#: [id number] Oral 300 Output: Void Amount 700 520 Other: Urine Appearance Clear Urine Color Pale OBJ DATA Labs CBC & Chem 7: 12/28/20 05:13 12/28/20 05:13 Labs: Abnormal Lab Results 12/28/20 12/28/20 12/27/20 05:13 05:13 05:17 RBC 3.02 L 2.93 L Hgb 9.8 L 9.6 L Hct 29.5 L 28.4 L Plt Count 488 H 442 H Lymph % (Auto) 14.9 L Fisher % (Auto) 13.0 H 14.4 H Lymph # (Auto) 1.28 L 1.26 L Fisher # (Auto) 1.22 H Sodium 127 L Chloride 94 L BUN 4 L Creatinine 0.5 L Uric Acid 1.4 L Calcium 8.5 L GGT 117 H Lactate Dehydrogenase 295 H Albumin 2.8 L Albumin/Globulin Ratio 0.9 L 12/26/20 05:34 RBC 2.86 L Hgb 9.3 L Hct 27.9 L Plt Count Lymph % (Auto) 12.7 L Fisher % (Auto) 14.7 H Lymph # (Auto) 1.03 L Fisher # (Auto) 1.20 H Sodium Chloride BUN Creatinine Uric Acid Calcium GGT Lactate Dehydrogenase Albumin Albumin/Globulin Ratio Meds: Medications Acetaminophen (Acetaminophen 325 Mg Tablet) 650 mg PO Q6HP PRN; Protocol PRN Reason: Per Pain Protocol Albuterol/Ipratropium (Ipratropium/Albuterol 3 Ml Ampul.Neb) 3 ml NEB Q4HRT [facility] Last Admin: 12/28/20 14:49 Dose: 3 ml Documented by: Cyclobenzaprine HCl (Cyclobenzaprine 10 Mg Tablet) 10 mg PO TIDP PRN PRN Reason: Muscle Spasm Last Admin: 12/28/20 10:58 Dose: 10 mg Documented by: Diphenhydramine HCl (Diphenhydramine 25 Mg Capsule) 50 mg PO HSP PRN PRN Reason: Insomnia Last Admin: 12/27/20 23:03 Dose: 50 mg Documented by: Docusate Sodium (Docusate Sodium 100 Mg Capsule) 100 mg PO BID [facility] Last Admin: 12/28/20 09:32 Dose: Not Given Documented by: Enoxaparin Sodium (Enoxaparin 80 Mg/0.8 Ml Syringe) 80 mg SQ BID [facility] Last Admin: 12/28/20 09:15 Dose: 80 mg Documented by: Fluoxetine HCl (Fluoxetine Hcl 20 Mg Capsule) 20 mg PO QDAY [facility] Last Admin: 12/28/20 09:15 Dose: 20 mg Documented by: Folic Acid (Folic Acid 1 Mg Tablet) 1 mg PO DAILY [facility] Last Admin: 12/28/20 09:15 Dose: 1 mg Documented by: Guaifenesin/Codeine Phosphate (Guaifenesin/Codeine 10 Ml Udc) 5 ml PO Q4HP PRN PRN Reason: Cough Last Admin: 12/27/20 20:29 Dose: 5 ml Documented by: Hydralazine HCl (Hydralazine 20 Mg/Ml Vial) 10 - 20 mg IV Q6HP PRN PRN Reason: Hypertension Last Admin: 12/26/20 23:27 Dose: 20 mg Documented by: Hydromorphone HCl (Hydromorphone 0.5 Mg/0.5 Ml Syringe) 0.5 mg IV Q2HP PRN; Protocol PRN Reason: Per Pain Protocol Magnesium Sulfate (Magnesium Sulfate) 2 gm in 50 mls @ 50 mls/hr IV UD PRN PRN Reason: Mag < or = 1.7 Acetaminophen (Ofirmev) 650 mg in 65 mls @ 130 mls/hr IV Q6HP PRN; Protocol PRN Reason: Per Pain Protocol/Fever > 101 Metoclopramide HCl (Metoclopramide 10 Mg/2 Ml Vial) 10 mg IV Q6 [facility] Last Admin: 12/28/20 12:09 Dose: 10 mg Documented by: Metoprolol Succinate (Metoprolol Succinate 50 Mg Tab.Xl.24h) 50 mg PO QDAY [facility] Last Admin: 12/28/20 09:15 Dose: 50 mg Documented by: Metoprolol Tartrate (Metoprolol Tartrate 5 Mg/5 Ml Vial) 5 mg IV Q2HP PRN PRN Reason: Tachyarrhythmias HR>110 Nicotine (Nicotine 21 Mg Patch) 21 mg TOPICAL DAILY@1000 [facility] Last Admin: 12/28/20 10:50 Dose: 21 mg Documented by: Ondansetron HCl (Ondansetron 4 Mg/2 Ml Vial) 4 mg IV Q6HP PRN PRN Reason: Nausea And Vomiting Oxycodone/Acetaminophen (Oxycodone/Apap 5/325mg Tablet) 1 tab PO Q4HP PRN; Protocol PRN Reason: Per Pain Protocol Last Admin: 12/28/20 09:25 Dose: 1 tab Documented by: Pantoprazole Sodium (Pantoprazole 40 Mg Tablet) 40 mg PO QAMAC [facility] Last Admin: 12/28/20 07:15 Dose: 40 mg Documented by: Polyethylene Glycol (Polyethylene Glycol 3350 17 Gm Packet) 17 gm PO TID [facility] Last Admin: 12/28/20 14:10 Dose: Not Given Documented by: Potassium Chloride (Potassium Chloride 20 Meq Packet) 40 meq PO BIDCC [facility] Potassium/Phosphorus/Sodium (Neutra Phos 1 Packet) 2 packet PO DAILYP PRN PRN Reason: PHOS <2.5 Pyridostigmine [place] (Pyridostigmine [place] 10 Mg/2 Ml Ampul) 10 mg IM Q6H [facility] Last Admin: 12/28/20 12:23 Dose: Not Given Documented by: Senna (Sennosides 1 Tablet) 2 tab PO HS [facility] Last Admin: 12/27/20 20:12 Dose: Not Given Documented by: Sodium Biphosphate/Sodium Phosphate (Fleets Adult Enema) 1 dose VT DAILYP PRN PRN Reason: Constipation Sodium Chloride (0.9 % Sodium Chloride 10 Ml Syringe) 10 ml IV Q8 [facility] Last Admin: 12/28/20 12:09 Dose: 10 ml Documented by: Thiamine HCl (Thiamine 100 Mg Tablet) 100 mg PO DAILY [facility] Last Admin: 12/28/20 09:15 Dose: 100 mg Documented by: Trazodone HCl (Trazodone Hcl 100 Mg Tablet) 100 mg PO HSP PRN PRN Reason: Anxiety Last Admin: 12/27/20 23:03 Dose: 100 mg Documented by: A/P Assessment and plan (1) Collapse of left lung: Status: Acute Narrative A/P Narrative: * Traumatic left ribs fracture with associated left hemothorax: Clinically resolved with management per surgery. Chest tube discontinued. Stable interval imaging * Acute hypoxic respiratory failure secondary to pneumothorax-improving now on 3 L oxygen * Nosocomial pneumonia clinically improving. Continue Zosyn/vancomycin, clinical resolution noted * Multiple PE on full dose anticoagulation on Lovenox. Switch to Eliquis * History of COPD on bronchodilators * Hyponatremia stable around 127 * Low magnesium resolved with replacement * Anxiety disorder continue fluoxetine * Patient hypertension continue metoprolol at home dose * Normocytic anemia stable * History of alcoholism no indications for withdrawals. Doing well. Plan * DC antibiotics in 48 hours * Transition to Eliquis * Pre-existing medical condition management home medications * PT OT nutrition support * Discharge planning per surgery follow-up Time Spent With Patient Time: Total time spent is greater than 50% in coordination of care (as documented) at patient's floor/unit and/or counseling patient:
[2020-12-28] MEDS ORDERED: IPRATROPIUM/ALBUTEROL 3 ML AMPUL.NEB NEB PRN (15:25)
[2020-12-28] MEDS ORDERED: POTASSIUM CHLORIDE 20 MEQ PACKET PO SCH (17:30)
[2020-12-28] MEDS: guaiFENesin/CODEINE 10 ML UDC PO PRN (19:34)
[2020-12-28] MEDS: APIXABAN 5 MG TABLET PO SCH (21:03)
[2020-12-28] MEDS: SENNOSIDES 1 TABLET PO SCH (21:04)
[2020-12-28] MEDS: diphenhydrAMINE 25 MG CAPSULE PO PRN (22:52)
[2020-12-28] MEDS: traZODone HCL 100 MG TABLET PO PRN (22:52)
[2020-12-29] MEDS: oxyCODONE/APAP 5/325MG TABLET PO PRN ×3 (04:08→11:56)
[2020-12-29] MEDS: 0.9 % SODIUM CHLORIDE 10 ML SYRINGE IV SCH ×2 (04:09→05:44)
[2020-12-29] MEDS: METOCLOPRAMIDE 10 MG/2 ML VIAL IV SCH ×2 (05:44→11:51)
[2020-12-29] MEDS: PYRIDOSTIGMINE BROMIDE 10 MG/2 ML AMPUL IM SCH ×2 (05:45→11:58)
[2020-12-29 07:20] LABS: Basophils # (Auto) 0.04 K/mcL (0.00-0.20); Basophils % (Auto) 0.5 % (0.0-2.0); Eosinophils # (Auto) 0.23 K/mcL (0.00-0.70); Eosinophils % (Auto) 2.7 % (0.0-7.0); Hematocrit 29.9 % (41.0-55.0); Lymphocytes # (Auto) 1.33 K/mcL (1.50-4.80); Lymphocytes % (Auto) 15.4 % (15.0-49.0); Mean Corpuscular HGB Conc 33.4 g/dL (31.0-36.0); Mean Platelet Volume 9.2 fL (7.4-10.4); Monocytes % (Auto) 11.6 % (1.0-12.0); Neutrophils % (Auto) 69.8 % (38.0-78.0); Platelet Count 532 K/mcL (140-440); RBC 3.05 M/mcL (4.50-5.90); Red Cell Distribution Width 14.3 % (11.5-14.5); WBC 8.6 K/mcL (4.5-11.0)
[2020-12-29] MEDS: PANTOPRAZOLE 40 MG TABLET PO SCH (07:43)
[2020-12-29 07:55] LABS: Blood Urea Nitrogen 4 mg/dL (6-20); Carbon Dioxide 24 mmol/L (22-30); Chloride 92 mmol/L (96-108); Glomerular Filtration Rate 109; Glucose 86 mg/dL (70-105)
[2020-12-29] MEDS ORDERED: POTASSIUM CHLORIDE 20 MEQ PACKET PO SCH (08:00)
[2020-12-29] MEDS: METOPROLOL SUCCINATE 50 MG TAB.XL.24H PO SCH (09:35)
[2020-12-29] MEDS: FOLIC ACID 1 MG TABLET PO SCH (09:35)
[2020-12-29] MEDS: FLUoxetine HCL 20 MG CAPSULE PO SCH (09:35)
[2020-12-29] MEDS: THIAMINE 100 MG TABLET PO SCH (09:35)
[2020-12-29] MEDS: APIXABAN 5 MG TABLET PO SCH (09:36)
[2020-12-29] MEDS: DOCUSATE SODIUM 100 MG CAPSULE PO SCH (09:44)
[2020-12-29] MEDS: POLYETHYLENE GLYCOL 3350 17 GM PACKET PO SCH (09:44)
--- NOTE | 2020-12-29 10:50 | Discharge Summary ---
Discharge Provider Provider Patient information: Note initiated : 12/29/20 at 10:46 am Service Date, if different from initiated Date: [] Patient: Tone Pope 60 y/o M admitted on 12/18/20 for Fall / pneumothorax. Discharge diagnosis * Traumatic left ribs fracture with associated left hemothorax: Clinically resolved with management per surgery. Chest tube discontinued. Stable interval imaging. Discharging advised to follow-up with surgery as outpatient * Acute hypoxic respiratory failure secondary to pneumothorax-improving now on 3 L oxygen. Discharging on home oxygen * Nosocomial pneumonia clinically improving. Clinically resolved on antibiotics . * Multiple PE on full dose anticoagulation on Eliquis * History of COPD continue bronchodilators * Hyponatremia stable around 128 * Low magnesium resolved with replacement * Anxiety disorder continue fluoxetine * Patient hypertension continue metoprolol at home dose * Normocytic anemia stable * History of alcoholism no indications for withdrawals. Counseled for cessation Brief hospital course Interval history: Patient presented on the for left-sided chest pain and shortness of breath. He fell at home. He was shown to have left-sided rib fractures and pneumothorax. Pleural catheter was placed. He had been doing well and was even good this morning and except when he had and he was unresponsive. Found to be hypotensive in the systolic of 60s and hypoxic. He was given IV fluid boluses with improvement in his blood pressure. Put on nonrebreather with oxygen finally improved but took some time. Stat chest x-ray showed no changes with the left lung was expanded. EKG did show A. fib. Did have a CT this morning the chest which showed emphysema as well as pneumomediastinum and soft tissue gas which appeared to be improving. Patient states drinks 6 pack/day, denies any withdrawal symptoms. CTA pending 12/21/20: CTA chest showed right upper and middle lobes multiple pulmonary embolism, as well as persistent left hemothorax. Patient feels his breathing is improving relative to yesterday. 01/30 sharp left sided chest wall pain, sharp and constant. Denies fever or chills. Denies anxiety. Principal diagnosis: Left rib fractures with traumatic pneumothorax; hypoxemia and hypotension 12/22: Yesterday afternoon patient showed increased work of breathing. After switching to high flow oxygen from room air, his work of breathing had significantly improved. 600cc of output from his left chest tube overnight. CXR this morning suggests left lung infiltrates. This morning patient feels his breathing is much improved compared to yesterday. He is c/o left chest pain. Denies abdominal pain. 12/23: Dr. Bejarano decided against bronchoscopy. Instead, he recommended aggressive bronchopulmonary toilet, daily CXR, and continued observation for his respiratory status. Patient is feeling okay this morning. Denies shortness of breath. c/o productive cough with clear sputum. Denies wheezing. Denies chest pain or palpitation. Denies fever or chills or sweating. 12/24: Afebrile. Still on high flow oxygen FiO2 30%. Left chest tube 130cc serosanguineous output. c/o constipation. c/o mild shortness of breath. c/o wheezing. 12/25: Afebrile. Still on high flow oxygen FiO2 35%. Had bowel movement last night. Denies chest pain, shortness of breath. c/o productive cough with white/hernández sputum and respiratory wheezing. 12/26-patient doing well. On full dose anticoagulation with Lovenox. No overnight fever chills. Chest tube discontinued. Managed per surgery. 12/27-patient doing well. Chest tube DC'd. On enoxaparin 80 twice daily. No fever chills shortness of breath. On 2 L oxygen mask. Weaning as tolerated. On antibiotic coverage. Interval chest imaging no recurrent pneumothorax or pneumomediastinum. Left lower lobe volume loss. 12/28-patient doing well. No overnight events. No concerns per staff. On 3 L oxygen. Transition to Eliquis today. No fever chills. Stable labs. 12/29-patient discharging home on home oxygen. Continuing Eliquis for PE. We will follow-up with surgery as outpatient in 1 week. Date of admission: 12/18/20 12:02 Discharge date: 12/29/20 Primary care physician: Kai Malone PA-C Consults: 12/17/20 Consult to Physician [CONS] Stat Comment: Consulting Provider: Jessee Og Reason For Exam: Physician to Consult 12/18/20 07:38 Consult to Physician [CONS] Routine Comment: Consulting Provider: Andi Rushing Reason For Exam: Physician to Consult 12/21/20 12:19 Consult to Physician [CONS] Routine Comment: urgent evaluation for bronchoscopy/ left lung ronn Consulting Provider: Stephen Bejarano Reason For Exam: Physician to Consult Discharge Meds Discharge Medications Home Medications albuterol sulfate 8.5 gm IH Q6H PRN #1 hfa.aer.ad 07/19/19 [Rx Confirmed 12/17/20 Last Taken 12/17/20 08:00] trazodone 100 mg tablet 100 mg PO QHS PRN #90 tab 08/31/20 [Rx Confirmed 12/17/20 Last Taken 12/16/20 21:00] metoprolol succinate 50 mg tablet,extended release 24 hr 50 mg PO QDAY 90 Days #90 tab 10/02/20 [Rx Confirmed 12/17/20 Last Taken 12/17/20 08:00] fluoxetine 20 mg capsule 20 mg PO QDAY 90 Days #90 cap 10/12/20 [Rx Confirmed 12/17/20 Last Taken 12/17/20 08:00] apixaban [Eliquis] 5 mg PO BID #60 tab 12/29/20 [Rx Last Taken Unknown] docusate sodium [DOK] 100 mg PO BID #30 cap 12/29/20 [Rx Last Taken Unknown] oxycodone-acetaminophen 1 tab PO Q4HP PRN #14 tab 12/29/20 [Rx Last Taken Unknown] COURSE Hospital Course Hospital course: . Discharge diagnosis: . Time Spent with Patient Time attestation: Total time spent providing and/or coordinating discharge services: EXAM Constitutional Vitals: Temp Pulse Resp BP Pulse Ox 98.3 F 84 20 151/99 93 12/29/20 08:04 12/29/20 08:04 12/29/20 08:04 12/29/20 08:04 12/29/20 08:04 Discharge Data Data Completed and Pending Labs on day of discharge: Labs from last 24 hours 12/29/20 12/29/20 12/28/20 05:06 05:06 05:13 WBC 8.6 RBC 3.05 L Hgb 10.0 L Hct 29.9 L MCV 98.0 MCH 32.8 MCHC 33.4 RDW 14.3 Plt Count 532 H MPV 9.2 Neut % (Auto) 69.8 Lymph % (Auto) 15.4 [place] % (Auto) 11.6 Eos % (Auto) 2.7 Baso % (Auto) 0.5 Lymph # (Auto) 1.33 L [place] # (Auto) 1.00 H Eos # (Auto) 0.23 Baso # (Auto) 0.04 Absolute Neutrophils 6.04 Sodium 128 L 127 L Potassium 4.3 4.8 Chloride 92 L 94 L Carbon Dioxide 24 24 Anion Gap 12.0 9.0 BUN 4 L 4 L Creatinine 0.6 L 0.5 L GFR Calculation 109 118 Glucose 86 90 Uric Acid 1.4 L Calcium 8.5 L Ionized Calcium Shlomo 1.06 L Phosphorus 4.1 Magnesium 2.1 Total Bilirubin 0.3 Direct Bilirubin < 0.2 GGT 117 H AST 24 ALT 17 Alkaline Phosphatase 117 Lactate Dehydrogenase 295 H Total Protein 5.9 Albumin 2.8 L Globulin 3.1 Albumin/Globulin Ratio 0.9 L Triglycerides 62 Discharge Plan Patient/Caregiver Discharge Instructions Activity: increase activity as tolerated Diet: Regular Diet Activity Restrictions/Additional Instructions: Follow-up surgery as an outpatient in 5 to 7 days Continue home oxygen as advised Return to ER if worsening shortness of breath, chest pain, fever Prescriptions: New Eliquis 5 mg Tablet 5 mg PO BID Qty: 60 RF: 0 oxycodone-acetaminophen 5-325 mg Tablet 1 tab PO Q4HP PRN (Reason: Per Pain Protocol) Qty: 14 RF: 0 docusate sodium [DOK] 100 mg Capsule 100 mg PO BID Qty: 30 RF: 0 Continued trazodone 100 mg tablet 100 mg PO QHS PRN (Reason: anxiety) Qty: 90 RF: 0 metoprolol succinate 50 mg tablet extended release 24 hr 50 mg PO QDAY 90 Days Qty: 90 RF: 1 fluoxetine 20 mg capsule 20 mg PO QDAY 90 Days Qty: 90 RF: 1 albuterol sulfate 8.5 GM HFA aerosol inhaler 8.5 gm IH Q6H PRN (Reason: Dyspnea) Qty: 1 RF: 0 Follow Up Plan Follow up with: Kai Malone PA-C [Primary Care Provider] - Patient Disposition: Home, Self-Care Rehab Potential: Good I certify that the patient requires SNF services: No Overall status at discharge: patient is progressing back to baseline Discharge Orders: Discharge Order (Routine); Ordered 12/29/20 Ordered By: Kb Herring
[2020-12-29] MEDS: NICOTINE 21 MG PATCH TOPICAL SCH (10:55)
[2020-12-29] MEDS: hydrALAZINE 20 MG/ML VIAL IV PRN (12:24)
== END 2020-12-29 14:33 | disposition home or self-care (01) | DRG 199 ==
LOC: MEDSUR 10:42 → ED 10:42 → MEDSUR 13:30 → ICU 12-20 10:26 → MEDSUR 12-25 14:23
PROVIDERS: ADMIT Family Medicine Adult Medicine; ATTEND Internal Medicine